=== PATIENT | male | born 1950 | race Caucasian/White ===

== ENCOUNTER 2016-03-25 09:56 | Day surgery (SDC) | payer OTHER, MEDICARE ==
[~2016-03-25 09:56] MED LIST: BUPIVACAINE 0.5% 30 ML SDV ONE; LIDOCAINE 1% 30 ML SDV ONE
[2016-03-25] MEDS ORDERED: LIDOCAINE 1% 5 ML SDV ONE (10:12)
[2016-03-25] MEDS ORDERED: CEFAZOLIN 1 GM/DEXTROSE/50 ML BAG IV ONE (10:21)
[2016-03-25] MEDS ORDERED: MIDAZOLAM 2 MG/2 ML VIAL ONE (10:22)
[2016-03-25] MEDS ORDERED: PROPOFOL/EMULSION 500 MG/50 ML BOTTLE IV ONE (10:33)
[2016-03-25] MEDS ORDERED: fentaNYL 100 MCG/2 ML INJ ONE (10:33)
[2016-03-25] MEDS ORDERED: LR 1,000 ML IV ONE (10:46)
[2016-03-25] MEDS ORDERED: LIDOCAINE 1% 5 ML SDV ID PRN (10:46)
[2016-03-25] MEDS ORDERED: LIDOCAINE 2% 100 MG/5 ML SYR IVP ONE (11:03)
[2016-03-25] MEDS ORDERED: OXYCODONE/APAP 5/325 TAB PO PRN (12:21)
--- NOTE | 2016-03-26 08:39 | CPEKG ---
Heart Rate: 167 RR Interval: 359 P-R Interval: 198 QRSD Interval: 120 QTC Interval: 0 P [place]: 0 QRS [place]: -58 EKG Severity - ABNORMAL ECG - EKG Impression: SUPRAVENTRICULAR TACHYCARDIA EKG Impression: VENTRICULAR BIGEMINY EKG Impression: NONSPECIFIC IVCD WITH LAD Electronically Signed By: Brain Hutchison 26-Mar-2016 17:21:27
== END 2016-03-25 15:10 | disposition home or self-care (01) ==
LOC: FSGY 09:56
PROVIDERS: ATTEND Surgery
PROC: 0YU60JZ Supplement Left Inguinal Region with Synthetic Substitute, Open Approach (ICD-10-PCS; principal; 2016-03-25 11:30)
DX: K40.90 Unilateral inguinal hernia, without obstruction or gangrene, not specified as recurrent (principal)
CPT/HCPCS: C1781; J0690; J2001; J2250; J2704; J3010

== ENCOUNTER 2016-05-19 14:08 | Emergency (ER) | payer OTHER, MEDICARE ==
[2016-05-19 14:17] VITALS: RESP 16
--- NOTE | 2016-05-19 16:43 | EDPHY ---
H & P Stated Complaint: Decreased appetite,visual changes,weaker.Some sxs > 2wks; caregiver concern Time Seen by Provider: 05/19/16 14:26 HPI/ROS: Chief complaint: Color spots in vision, decreased taste, generalized weakness HPI: 65-year-old male with a known history of MS who is not currently on any medications is presenting with 3 weeks of worsening symptoms of seeing [place] dots in his vision is also been having decreased appetite because food has not been tasting good to him anymore. Blood the the color dots been worse for the last week per remaining constant. They are both feels vision. There forming patterns that he is seeing the same pattern in each eye. Is not seeing any flashes or floaters. Patient also states that food tastes very metallic to him and he is having changes in his taste to that he is not wanting to eat. He is also generally having some generalized malaise. Denies any fevers or chills. No change in his urination. No nausea or vomiting. He does have a history of MS but is currently not taking any medications is not call followed by a neurologist. He feels that medications for MS were not doing him any good or making him feel unwell. He does not want to be taking any intravenous steroids as he feels that he is allergic to the preservative. He is currently being cared for by [facility]. Denies any other medical history. Takes no medications. ROS: 10 point Review of Systems is negative except as noted in the HPI. Past medical history: MS Medications: None Allergies: Multiple including sodium benzoate preservative, although he has never been formally tested for these Physical exam: Gen: Awake, Alert, No Distress HEENT: Nose: no rhinorrhea Eyes: PERRLA, EOMI Mouth: Moist mucosa Neck: Supple, no JVD Chest: nontender, lungs clear to auscultation Heart: S1, S2 normal, no murmur Abd: Soft, non-tender, no guarding Back: no CVA tenderness, no midline tenderness Ext: no edema, non-tender Skin: no rash Neuro: CN II-XII intact, Sensation grossly intact, Strength 5/5 in bilateral upper and lower extremities - Personal History Current Tetanus Diphtheria and Acellular Pertussis (TDAP): Unsure Tetanus Vaccine Date: unknown - Medical/Surgical History Hx Diabetes: No Other PMH: MS - Social History Smoking Status: Never smoked Constitutional: Initial Vital Signs Temperature (C) 36.4 C 05/19/16 14:10 Heart Rate 58 L 05/19/16 14:10 Respiratory Rate 16 05/19/16 14:10 Blood Pressure 133/61 H 05/19/16 14:10 O2 Sat (%) 98 05/19/16 14:10 O2 Delivery Mode Room Air Allergies/Adverse Reactions: shellfish derived Allergy (Verified 05/19/16 14:14) sodium benzoate Allergy (Verified 05/19/16 14:14) Sulfa (Sulfonamide Antibiotics) Allergy (Verified 05/19/16 14:14) wheat Allergy (Verified 05/19/16 14:14) EGGS Allergy (Unknown, Uncoded 11/29/12 15:46) DIARY Allergy (Uncoded 11/29/12 15:46) GLUTEN Allergy (Uncoded 11/29/12 15:46) SOY Allergy (Uncoded 11/29/12 15:45) Home Medications: Medication Instructions Recorded Ascorbic Acid [Vitamin C 500 mg 500 mg PO TID 11/29/12 (OTC)] Cholecalciferol Vit D3 [Vitamin D3 6,000 units PO DAILY 11/29/12 2000 units (OTC)] Coenzyme Q10 [Co Q-10 30 mg (OTC)] 60 mg PO DAILY 11/29/12 Cyanocobalamin [Vitamin B12 1000 1,000 mcg PO DAILY 11/29/12 MCG (OTC)] Docusate Sodium [Colace 100 MG 100 mg PO BID PRN 11/29/12 (OTC)] Herbals/Supplements -Info Only 1 each PO AD 11/29/12 Levothyroxine [Synthroid 50 mcg 50 mcg PO DAILY06 11/29/12 (RX)] Magnesium Oxide [Magnesium Oxide 1,200 mg PO TID 11/29/12 400 mg (OTC)] [place]-3 Fatty Acids/Fish Oil [Fish 1 each PO DAILY 11/29/12 Oil 1,000 mg Capsule] Vitamin B Complex [Vitamin B 1 each PO DAILY 11/29/12 Complex (OTC)] Aleve 03/19/16 [place] 03/19/16 Medical Decision Making ED Course/Re-evaluation: Patient is complaining of worsening dots in his vision which are in the same pattern in both eyes which is suggestive of a occipital lobe probable woman rather than a ophthalmological problem as it is binocular. Patient is also having changes in his taste and some generalized weakness. All the symptoms are consistent with an MS exacerbation. I have discussed with Dr. Landeros, neurology. His recommendation is no acute treatment at this time. He does not feel that this represents an acute MS exacerbation requiring intravenous steroids. Given the patient is refusing to take intravenous steroids any way does not feel that oral steroids are appropriate as the dosing required will require intravenous treatment. He recommends that the patient be discharged with outpatient follow-up with Urology for continued plan of care but does not believe that there is any further treatment required for this worsening of the patient's symptoms of multiple sclerosis. Departure - Departure Disposition: Home, Routine, Self-Care Clinical Impression: Multiple sclerosis Instructions: Blurred Vision (ED) Additional Instructions: Follow up with your primary care doctor and follow up with Dr. Landeros, neurology for further management of your multiple sclerosis. Referrals: OTTONIEL NETTLES [Primary Care Provider] - As per Instructions Casper Landeros DO [Doctor of Osteopathy] - As per Instructions
[2016-05-19 16:54] VITALS: BP 132/81; PULSE 63; TEMP 98.2; O2SAT 93
== END 2016-05-19 16:57 | disposition home or self-care (01) ==
DX: G35 Multiple sclerosis (principal)

== ENCOUNTER 2016-05-20 12:59 | Inpatient (IN) | payer OTHER, MEDICARE ==
[2016-05-20] MEDS ORDERED: NS 1,000 ML IV ONE (13:38)
--- NOTE | 2016-05-20 13:44 | EDPHY ---
H & P Stated Complaint: No BM for several days. Hernia surgery 1 x Month ago. Time Seen by Provider: 05/20/16 13:30 HPI/ROS: CHIEF COMPLAINT: Constipation HISTORY OF PRESENT ILLNESS: Patient is a 65-year-old man with a history of multiple sclerosis as well as left inguinal hernia repair [address] Faustin[address] He comes to the emergency department with his aid complaining of no bowel movement for 4 days. States that his abdomen is bloated and distended and painful. He has not been vomiting but feels nauseous. He also states that all of food and water taste metallic and anesthetizing. His aid states that yesterday he was not acting himself and was complaining of seeing purple spots and had trouble with word finding. He was seen here in the emergency department and Neurology was consulted. They felt that this was likely an exacerbation or flare of his multiple sclerosis. Steroids were recommended but the patient refused. He has stopped taking all of his MS medication because he felt that is making him sick and is currently under the care of a Natropath. He has not had a fever. He states that he did have a very small flatus and a finger sized bowel movement today but otherwise has not had any production in 4 days. REVIEW OF SYSTEMS: Constitutional: denies: chills, fever, recent illness, recent injury EENTM: denies: blurred vision, double vision, nose congestion Respiratory: denies: cough, shortness of breath Cardiac: denies: chest pain, irregular heart rate, lightheadedness, palpitations Gastrointestinal/Abdominal: See HPI Genitourinary: denies: dysuria, frequency, hematuria, pain Musculoskeletal: denies: joint pain, muscle pain Skin: denies: lesions, rash, jaundice, bruising Neurological: denies: headache, numbness, paresthesia, tingling, dizziness, weakness Hematologic/Lymphatic: denies: blood clots, easy bleeding, easy bruising Immunologic/allergic: denies: HIV/AIDS, transplant EXAM: GENERAL: Well-appearing, well-nourished and in no acute distress. HEAD: Atraumatic, normocephalic. EYES: Pupils equal round and reactive to light, extraocular movements intact, sclera anicteric, conjunctiva are normal. ENT: TMs normal, nares patent, oropharynx clear without exudates. Moist mucous membranes. NECK: Normal range of motion, supple without lymphadenopathy or JVD. LUNGS: Breath sounds clear to auscultation bilaterally and equal. No wheezes rales or rhonchi. HEART: Regular rate and rhythm without murmurs, rubs or gallops. ABDOMEN: Firm, distended, normoactive bowel sounds. No guarding, no rebound. No masses appreciated. BACK: No CVA tenderness, no spinal tenderness, step-offs or deformities EXTREMITIES: Normal range of motion, no pitting or edema. No clubbing or cyanosis. NEUROLOGICAL: Cranial nerves II through XII grossly intact. Normal speech, normal gait. 5/5 strength, normal movement in all extremities, normal sensation PSYCH: Normal mood, normal affect. SKIN: Warm, dry, normal turgor, no visible rashes or lesions. Source: Patient Exam Limitations: No limitations - Personal History Tetanus Vaccine Date: unknown - Medical/Surgical History Hx Asthma: No Hx Chronic Respiratory Disease: No Hx Diabetes: No Hx Cardiac Disease: No Hx Renal Disease: No Hx Cirrhosis: No Hx Alcoholism: No Hx HIV/AIDS: No Hx Splenectomy or Spleen Trauma: No Other PMH: MS. Hernia surgery apr 2016. - Family History Significant Family History: No pertinent family hx - Social History Smoking Status: Never smoked Alcohol Use: Sober Drug Use: None Constitutional: Initial Vital Signs Heart Rate 58 L 05/20/16 13:05 Respiratory Rate 16 05/20/16 13:05 Blood Pressure 150/95 H 05/20/16 13:05 O2 Sat (%) 98 05/20/16 13:05 O2 Delivery Mode Room Air Allergies/Adverse Reactions: shellfish derived Allergy (Verified 05/19/16 14:14) sodium benzoate Allergy (Verified 05/19/16 14:14) Sulfa (Sulfonamide Antibiotics) Allergy (Verified 05/19/16 14:14) wheat Allergy (Verified 05/19/16 14:14) EGGS Allergy (Unknown, Uncoded 11/29/12 15:46) DIARY Allergy (Uncoded 11/29/12 15:46) GLUTEN Allergy (Uncoded 11/29/12 15:46) SOY Allergy (Uncoded 11/29/12 15:45) Home Medications: Medication Instructions Recorded Ascorbic Acid [Vitamin C 500 mg 500 mg PO QID 11/29/12 (OTC)] Cyanocobalamin [Vitamin B12 1000 1,000 mcg PO DAILY 11/29/12 MCG (OTC)] Docusate Sodium [Colace 100 MG 100 mg PO QID 11/29/12 (OTC)] Herbals/Supplements -Info Only 1 each PO AD 11/29/12 Magnesium Oxide [Magnesium Oxide 400 mg PO QID 11/29/12 400 mg (OTC)] [place]-3 Fatty Acids/Fish Oil [Fish 1 cap PO QID 11/29/12 Oil 1,000 mg Capsule] Vitamin B Complex [Vitamin B 1 tab PO Q2D 11/29/12 Complex (OTC)] Cholecalciferol (Vitamin D3) 5,000 unit PO BID 05/20/16 [Vitamin D3] Levothyroxine [Synthroid 100 mcg 100 mcg PO DAILY 05/20/16 (*)] Medical Decision Making - Diagnostics Imaging: Results: CT scan of the abdomen and pelvis was obtained. The results of the study are large distended bladder with renal and bladder calculi. The study was read by Dr. Miguel Ángel Marti. I viewed the images myself on the PACS system. ED Course/Re-evaluation: 3:05 p.m. I discussed the case with Dr. Barb Parish who will admit to the medical service. Will place him on step-down for frequent sodium checks. Differential Diagnosis: Partial list of the Differential diagnosis considered include but were not limited to; bowel obstruction, bladder obstruction, electrolyte abnormality, renal failure and although unlikely based on the history and physical exam, I also considered kidney stone, urinary tract infection. - Data Points Laboratory Results: Laboratory Results 05/20/16 13:44 05/20/16 13:44 Medications Given: Discontinued Medications Sodium Chloride (Ns) 1,000 mls @ 0 mls/hr IV ONCE ONE PRN Reason: Wide Open Stop: 05/20/16 13:39 Last Admin: 05/20/16 14:11 Dose: 1,000 mls Sodium Chloride (Ns) 1,000 mls @ 100 mls/hr IV CONT AGGIE Stop: 11/16/16 16:14 Last Admin: 05/20/16 20:43 Dose: 1,000 mls Lorazepam (Ativan Injection) 1 mg IVP ONCE ONE Stop: 05/20/16 18:48 Last Admin: 05/21/16 08:36 Dose: Not Given Lorazepam (Ativan Injection) 1 mg IVP ONCE@1000 ONE Stop: 05/21/16 10:01 Last Admin: 05/21/16 12:25 Dose: Not Given Departure - Departure Disposition: [facility] Clinical Impression: Bladder obstruction, Hyponatremia Condition: Fair
[2016-05-20 13:55] LABS: % IMMATURE GRANULYOCYTES 0.4 % (0.0-1.1); ABSOLUTE IMMATURE GRANULOCYTES 0.02 10^3/uL (0.00-0.10); ADD DIFF? NO; ADD MORPH? NO; ADD SCAN? NO; ATYPICAL LYMPHOCYTE FLAG 10 (0-99); FRAGMENT RBC FLAG 0 (0-99); HEMATOCRIT 41.2 % (40.0-51.0); HEMOGLOBIN 15.2 g/dL (13.7-17.5); LEFT SHIFT FLG 0 (0-99); LIPEMIA HEMOLYSIS FLAG 90 (0-99); MEAN CELL HEMOGLOBIN 28.5 pg (27.9-34.1); MEAN CELL HEMOGLOBIN CONCENTR. 36.9 g/dL (32.4-36.7); MEAN CELL VOLUME 77.2 fL (81.5-99.8); MEAN PLATELET VOLUME 9.9 fL (8.7-11.7); PLATELET CLUMPS FLAG 10 (0-99); PLATELET COUNT 125 10^3/uL (150-400); RED BLOOD CELL COUNT 5.34 10^6/uL (4.40-6.38); RED CELL DISTRIBUTION WIDTH 13.3 % (11.5-15.2)
[2016-05-20 14:22] LABS: ALANINE AMINOTRANSFERASE 88 IU/L (21-72); ALKALINE PHOSPHATASE 115 IU/L (38-126); ANION GAP 9 mEq/L (8-16); ASPARTATE AMINOTRANSFERASE 87 IU/L (17-59); BILIRUBIN,TOTAL 0.6 mg/dL (0.1-1.4); BILIRUBIN-CONJUGATED 0.2 mg/dL (0.0-0.5); BILIRUBIN-UNCONJUGATED 0.4 mg/dL (0.0-1.1); CALCIUM 9.5 mg/dL (8.5-10.4); CARBON DIOXIDE 25 mEq/l (22-31); CHLORIDE 83 mEq/L (97-110); CREATININE 0.4 mg/dL (0.7-1.3); GLOMERULAR FILTRATION RATE > 60; GLUCOSE 77 mg/dL (70-100); POTASSIUM 4.7 mEq/L (3.5-5.2); TOTAL PROTEIN 6.6 g/dL (6.3-8.2)
[2016-05-20 14:37] LABS: SODIUM 117 mEq/L (134-144)
[2016-05-20] MEDS ORDERED: IOPAMIDOL (ISOVUE-300) 100 ML BTL IV ONE (14:39)
[2016-05-20] MEDS ORDERED: LIDOCAINE 2% JELLY 20 ML (UROJECT) ONE (15:05)
[2016-05-20 15:30] LABS: COLOR PALE YELLOW; LEUKOCYTE ESTERASE,URINE NEGATIVE (NEGATIVE); NITRITE,URINE NEGATIVE (NEGATIVE)
[2016-05-20] MEDS ORDERED: NS 1,000 ML IV SCH (16:15)
[2016-05-20] MEDS ORDERED: ONDANSETRON 4 MG/2 ML VIAL IVP PRN (16:16)
[2016-05-20] MEDS ORDERED: LACTULOSE 20 GM/30 ML UDCUP PO PRN (16:18)
[2016-05-20] MEDS ORDERED: POLYETHYLENE GLYCOL 3350 17 GM PKT PO PRN (16:18)
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
[2016-05-20] MEDS ORDERED: LORazepam 2 MG/ML INJ IVP ONE (18:47)
[2016-05-20] MEDS: MAGNESIUM OXIDE 400 MG TAB PO SCH (20:41)
[2016-05-20] MEDS: SENNOSIDES/DOCUSATE SODIUM TAB PO SCH (20:41)
[2016-05-20] MEDS ORDERED: DOCUSATE SODIUM 100 MG CAP PO SCH (21:00)
[2016-05-20 21:04] LABS: ANION GAP 9 mEq/L (8-16); CALCIUM 9.4 mg/dL (8.5-10.4); CARBON DIOXIDE 23 mEq/l (22-31); CHLORIDE 84 mEq/L (97-110); CREATININE 0.4 mg/dL (0.7-1.3); GLOMERULAR FILTRATION RATE > 60; GLUCOSE 94 mg/dL (70-100); POTASSIUM 4.4 mEq/L (3.5-5.2)
[2016-05-20 21:36] LABS: SODIUM 116 mEq/L (134-144)
[2016-05-20] MEDS: FUROSEMIDE 20 MG/2 ML VIAL IVP SCH (22:03)
[2016-05-21 01:47] LABS: ANION GAP 9 mEq/L (8-16); CALCIUM 9.4 mg/dL (8.5-10.4); CARBON DIOXIDE 24 mEq/l (22-31); CHLORIDE 88 mEq/L (97-110); CREATININE 0.4 mg/dL (0.7-1.3); GLOMERULAR FILTRATION RATE > 60; GLUCOSE 69 mg/dL (70-100); POTASSIUM 4.2 mEq/L (3.5-5.2); SODIUM 121 mEq/L (134-144)
[2016-05-21] MEDS: FUROSEMIDE 20 MG/2 ML VIAL IVP SCH (05:59)
[2016-05-21] MEDS: MAGNESIUM OXIDE 400 MG TAB PO SCH ×4 (05:59→20:14)
[2016-05-21 06:19] LABS: % IMMATURE GRANULYOCYTES 0.3 % (0.0-1.1); ABSOLUTE IMMATURE GRANULOCYTES 0.01 10^3/uL (0.00-0.10); ADD DIFF? NO; ADD MORPH? NO; ADD SCAN? NO; ATYPICAL LYMPHOCYTE FLAG 0 (0-99); FRAGMENT RBC FLAG 0 (0-99); HEMATOCRIT 36.4 % (40.0-51.0); HEMOGLOBIN 13.3 g/dL (13.7-17.5); LEFT SHIFT FLG 0 (0-99); LIPEMIA HEMOLYSIS FLAG 90 (0-99); MEAN CELL HEMOGLOBIN 28.9 pg (27.9-34.1); MEAN CELL HEMOGLOBIN CONCENTR. 36.5 g/dL (32.4-36.7); MEAN PLATELET VOLUME 9.9 fL (8.7-11.7); PLATELET CLUMPS FLAG 20 (0-99); PLATELET COUNT 97 10^3/uL (150-400); RED BLOOD CELL COUNT 4.61 10^6/uL (4.40-6.38); RED CELL DISTRIBUTION WIDTH 13.5 % (11.5-15.2)
[2016-05-21 06:32] LABS: INR 1.03 (0.83-1.16); PROTIME(PATIENT) 13.4 SEC (12.0-15.0)
[2016-05-21 06:48] LABS: ALANINE AMINOTRANSFERASE 84 IU/L (21-72); ALBUMIN 3.3 g/dL (3.5-5.0); ALKALINE PHOSPHATASE 95 IU/L (38-126); ANION GAP 7 mEq/L (8-16); ASPARTATE AMINOTRANSFERASE 72 IU/L (17-59); BILIRUBIN,TOTAL 0.5 mg/dL (0.1-1.4); BILIRUBIN-CONJUGATED 0.2 mg/dL (0.0-0.5); BILIRUBIN-UNCONJUGATED 0.3 mg/dL (0.0-1.1); CALCIUM 9.1 mg/dL (8.5-10.4); CARBON DIOXIDE 27 mEq/l (22-31); CHLORIDE 91 mEq/L (97-110); CREATININE 0.4 mg/dL (0.7-1.3); GLOMERULAR FILTRATION RATE > 60; GLUCOSE 62 mg/dL (70-100); MAGNESIUM 1.6 mg/dL (1.6-2.3); POTASSIUM 4.3 mEq/L (3.5-5.2); SODIUM 125 mEq/L (134-144); TOTAL PROTEIN 5.6 g/dL (6.3-8.2)
[2016-05-21 07:19] LABS: CORTISOL-AM 8.3 ug/dL (4.5-22.7)
[2016-05-21] MEDS: CYANO/VITAMIN B12 1000 MCG TAB PO SCH (08:52)
[2016-05-21] MEDS: ENOXAPARIN 40 MG/0.4 ML SYR SC SCH (08:52)
[2016-05-21] MEDS: TAMSULOSIN HCL 0.4 MG CAP PO SCH (08:52)
[2016-05-21] MEDS: LEVOTHYROXINE 100 MCG TAB PO SCH (08:52)
[2016-05-21] MEDS: SENNOSIDES/DOCUSATE SODIUM TAB PO SCH ×2 (08:52→20:14)
[2016-05-21 09:10] LABS: ANION GAP 8 mEq/L (8-16); CALCIUM 9.3 mg/dL (8.5-10.4); CARBON DIOXIDE 24 mEq/l (22-31); CHLORIDE 91 mEq/L (97-110); CREATININE 0.4 mg/dL (0.7-1.3); GLOMERULAR FILTRATION RATE > 60; GLUCOSE 66 mg/dL (70-100); POTASSIUM 4.2 mEq/L (3.5-5.2); SODIUM 123 mEq/L (134-144)
[2016-05-21] MEDS ORDERED: LORazepam 2 MG/ML INJ IVP ONE (10:00)
--- NOTE | 2016-05-21 10:10 | HOSPPROG ---
Hospitalist Progress Note Assessment/Plan: * severe hyponatremia * urine sodium has some element of dehydration but I am sure there is an element of SIADH as well and possibly low solute * sodium getting better slowly with IV fluids which we will continue * also add free water restriction * symptoms started 3 weeks ago when he started a certain supplement * severe urinary retention * probably has been ongoing for some time * will need to keep Luevano catheter in and follow up with Urology * end-stage MS * since patient believes he is at baseline is not having any further loose admissions and only very slight left facial droop hold off on MRI * constipation * L4 compression fracture * check vitamin-D * Pancytopenia * disposition - possible home tomorrow Subjective: feels better. No more hallucinations. Feels like he is at his baseline in terms of MS debility Objective: Vital Signs Temp Pulse Resp BP Pulse Ox 36.3 C 69 14 92/51 L 95 05/21/16 04:37 05/21/16 07:46 05/21/16 07:46 05/21/16 07:46 05/21/16 07:46 Laboratory Results 05/21/16 06:00 05/21/16 08:25 05/20/16 05/21/16 05/22/16 05:59 05:59 05:59 Intake Total 2049 Output Total 5250 850 Balance -3200 -850 PT 13.4 SEC (12.0-15.0) 05/21/16 06:00 INR 1.03 (0.83-1.16) 05/21/16 06:00 patient is new to me. Old records reviewed and summarized in the HPI. - Physical Exam Constitutional: no apparent distress, appears nourished, not in pain Eyes: anicteric sclera, EOMI Ears, Nose, Mouth, Throat: moist mucous membranes, hearing normal, ears appear normal Cardiovascular: regular rate and rhythym, no murmur, rub, or gallop Respiratory: no respiratory distress, no rales or rhonchi, clear to auscultation Gastrointestinal: normoactive bowel sounds, soft, non-tender abdomen, no palpable masses Genitourinary: luevano in urethra Skin: warm Neurologic: AAOx3, other ( very slight left facial droop. Bilateral lower extremity paralysis essentially. 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
[2016-05-21 16:14] LABS: ANION GAP 8 mEq/L (8-16); CALCIUM 9.2 mg/dL (8.5-10.4); CARBON DIOXIDE 25 mEq/l (22-31); CHLORIDE 91 mEq/L (97-110); CREATININE 0.5 mg/dL (0.7-1.3); GLOMERULAR FILTRATION RATE > 60; GLUCOSE 78 mg/dL (70-100); POTASSIUM 4.4 mEq/L (3.5-5.2); SODIUM 124 mEq/L (134-144)
[2016-05-22 05:33] LABS: ANION GAP 6 mEq/L (8-16); CALCIUM 9.2 mg/dL (8.5-10.4); CARBON DIOXIDE 25 mEq/l (22-31); CHLORIDE 98 mEq/L (97-110); CREATININE 0.5 mg/dL (0.7-1.3); GLOMERULAR FILTRATION RATE > 60; GLUCOSE 58 mg/dL (70-100); POTASSIUM 4.4 mEq/L (3.5-5.2); SODIUM 129 mEq/L (134-144)
[2016-05-22] MEDS: MAGNESIUM OXIDE 400 MG TAB PO SCH ×4 (06:30→21:48)
[2016-05-22] MEDS ORDERED: COSYNTROPIN 0.25 MG/2 ML SYRINGE IVP ONE ×3 (10:30→17:00)
[2016-05-22] MEDS: D5W NS 1,000 ML IV SCH ×2 (11:17→21:49)
[2016-05-22] MEDS: CYANO/VITAMIN B12 1000 MCG TAB PO SCH (11:21)
[2016-05-22] MEDS: LEVOTHYROXINE 100 MCG TAB PO SCH (11:21)
[2016-05-22] MEDS: TAMSULOSIN HCL 0.4 MG CAP PO SCH (11:22)
[2016-05-22] MEDS: SENNOSIDES/DOCUSATE SODIUM TAB PO SCH ×2 (11:23→21:48)
[2016-05-22] MEDS: ENOXAPARIN 40 MG/0.4 ML SYR SC SCH (11:32)
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
--- NOTE | 2016-05-22 15:27 | HOSPPROG ---
Hospitalist Progress Note Assessment/Plan: * severe hyponatremia * urine sodium has some element of dehydration but I am sure there is an element of SIADH as well and possibly low solute * sodium getting better slowly with IV fluids which we will continue * also add free water restriction * symptoms started 3 weeks ago when he started a certain supplement * severe urinary retention * probably has been ongoing for some time * will need to keep Hurst catheter in and follow up with Urology * end-stage MS * could have worsening AMS. neurology input appreciated. may need MRI * encephalopathy * worse today for unclear reasons * symptoms seemed to wax and wane * no sign infection * possible MS exacerbation * constipation * L4 compression fracture * Pancytopenia * disposition - ? Subjective: MORE CONFUSED AND LESS RESPONSIVE THIS MORNING ALTHOUGH THIS APPEARS TO BE IMPROVED IN THE AFTERNOON Objective: Vital Signs Temp Pulse Resp BP Pulse Ox 36.6 C 63 19 138/77 H 92 05/22/16 08:00 05/22/16 12:00 05/22/16 12:00 05/22/16 12:00 05/22/16 12:00 Laboratory Results 05/21/16 06:00 05/22/16 04:12 05/21/16 05/22/16 05/23/16 05:59 05:59 05:59 Intake Total 2050 2900 Output Total 2950 2500 Balance -900 400 PT 13.4 SEC (12.0-15.0) 05/21/16 06:00 INR 1.03 (0.83-1.16) 05/21/16 06:00 case discussed neurology - Physical Exam Constitutional: no apparent distress, appears nourished, not in pain, chronically ill appearing Eyes: anicteric sclera, EOMI Ears, Nose, Mouth, Throat: moist mucous membranes, hearing normal, ears appear normal Cardiovascular: regular rate and rhythym, no murmur, rub, or gallop Respiratory: no respiratory distress, no rales or rhonchi, clear to auscultation Gastrointestinal: normoactive bowel sounds, soft, non-tender abdomen, no palpable masses Skin: warm Neurologic: other ( responding to some questions and commands but overall more encephalopathic today) ICD10 Worksheet Patient Problems: Problems Problem Status Onset Aphasia Acute Bladder obstruction Acute Hyponatremia Acute Multiple sclerosis Acute Cellulitis of leg Active
[2016-05-23] MEDS: MAGNESIUM OXIDE 400 MG TAB PO SCH ×4 (04:30→22:47)
[2016-05-23 05:15] LABS: ADD DIFF? NO; ADD MORPH? NO; ADD SCAN? NO; ATYPICAL LYMPHOCYTE FLAG 30 (0-99); FRAGMENT RBC FLAG 0 (0-99); HEMATOCRIT 36.5 % (40.0-51.0); LEFT SHIFT FLG 0 (0-99); LIPEMIA HEMOLYSIS FLAG 90 (0-99); MEAN CELL HEMOGLOBIN 28.7 pg (27.9-34.1); MEAN CELL HEMOGLOBIN CONCENTR. 35.6 g/dL (32.4-36.7); MEAN CELL VOLUME 80.6 fL (81.5-99.8); MEAN PLATELET VOLUME 10.3 fL (8.7-11.7); PLATELET CLUMPS FLAG 0 (0-99); PLATELET COUNT 103 10^3/uL (150-400); RED BLOOD CELL COUNT 4.53 10^6/uL (4.40-6.38)
[2016-05-23 05:27] LABS: ALANINE AMINOTRANSFERASE 78 IU/L (21-72); ALBUMIN 3.2 g/dL (3.5-5.0); ALKALINE PHOSPHATASE 99 IU/L (38-126); ANION GAP 9 mEq/L (8-16); ASPARTATE AMINOTRANSFERASE 57 IU/L (17-59); BILIRUBIN,TOTAL 0.4 mg/dL (0.1-1.4); CALCIUM 9.4 mg/dL (8.5-10.4); CARBON DIOXIDE 23 mEq/l (22-31); CHLORIDE 100 mEq/L (97-110); CREATININE 0.5 mg/dL (0.7-1.3); GLOMERULAR FILTRATION RATE > 60; GLUCOSE 73 mg/dL (70-100); POTASSIUM 4.3 mEq/L (3.5-5.2); SODIUM 132 mEq/L (134-144); TOTAL PROTEIN 5.6 g/dL (6.3-8.2)
[2016-05-23 05:34] LABS: PREALBUMIN 12.4 mg/dL (17.6-36.0)
[2016-05-23] MEDS: TAMSULOSIN HCL 0.4 MG CAP PO SCH (08:37)
[2016-05-23] MEDS: LEVOTHYROXINE 100 MCG TAB PO SCH (08:37)
[2016-05-23] MEDS: CYANO/VITAMIN B12 1000 MCG TAB PO SCH (08:39)
[2016-05-23] MEDS: SENNOSIDES/DOCUSATE SODIUM TAB PO SCH ×2 (08:40→22:47)
[2016-05-23] MEDS: ENOXAPARIN 40 MG/0.4 ML SYR SC SCH (08:42)
--- NOTE | 2016-05-23 11:24 | HOSPPROG ---
Hospitalist Progress Note Assessment/Plan: * severe hyponatremia * urine sodium has some element of dehydration but I am sure there is an element of SIADH as well and possibly low solute * sodium getting better slowly with IV fluids which we will continue * also add free water restriction * symptoms started 3 weeks ago when he started a certain supplement * severe urinary retention * probably has been ongoing for some time * will need to keep Hurst catheter in and follow up with Urology * end-stage MS * could have worsening AMS. neurology input appreciated. may need MRI * hypoglycemia * continue D5 normal saline * cortisol stim test was negative * encephalopathy * worse today for unclear reasons * symptoms seemed to wax and wane * no sign infection * possible MS exacerbation but he would need strong sedation to get MRI which would probably put him back a few more days as well. Not sure if steroids would be of benefit but they may worsen situation as well * continue to watch and wait * discussed with Neurology * constipation * L4 compression fracture * Pancytopenia * disposition - ? Subjective: continued hallucinations and waxing waning encephalopathy Objective: Vital Signs Temp Pulse Resp BP Pulse Ox 36.4 C 69 18 130/83 H 94 05/22/16 16:10 05/23/16 08:00 05/23/16 08:00 05/23/16 08:00 05/23/16 08:00 Laboratory Results 05/23/16 04:30 05/23/16 04:30 05/22/16 05/23/16 05/24/16 05:59 05:59 05:59 Intake Total 2900 1650 Output Total 2500 2600 Balance 400 -950 PT 13.4 SEC (12.0-15.0) 05/21/16 06:00 INR 1.03 (0.83-1.16) 05/21/16 06:00 - Physical Exam Constitutional: no apparent distress, appears nourished, not in pain, chronically ill appearing Eyes: anicteric sclera Ears, Nose, Mouth, Throat: moist mucous membranes, hearing normal Cardiovascular: regular rate and rhythym, no murmur, rub, or gallop Respiratory: no respiratory distress Gastrointestinal: normoactive bowel sounds, soft, non-tender abdomen, no palpable masses Skin: warm Neurologic: other ( bilateral upper extremity weakness and lower extremity paralysis, response to some questions but not oriented), No AAOx3 Psychiatric: other ICD10 Worksheet Patient Problems: Problems Problem Status Onset Aphasia Acute Bladder obstruction Acute Hyponatremia Acute Multiple sclerosis Acute Cellulitis of leg Active
[2016-05-23] MEDS: D5W NS 1,000 ML IV SCH (14:11)
[2016-05-23] MEDS: BISACODYL 10 MG SUPP PR PRN (16:17)
[2016-05-24] MEDS: MAGNESIUM OXIDE 400 MG TAB PO SCH ×3 (05:00→22:34)
[2016-05-24] MEDS: D5W NS 1,000 ML IV SCH (05:28)
--- NOTE | 2016-05-24 06:22 | NEUROPROG ---
Assessment: Pt seen yesterday and case reviewed with Dr. Ibarra. As noted, we are just monitoring for now. MRI is needed to best assess case, but we are following the patients wishes to avoid if possible, and he is not currently able to have a truly informed decision. He is still hallucinating and confused at times. Objective: Vital Signs Temp Pulse Resp BP Pulse Ox 36.6 C 48 L 15 122/53 H 92 05/23/16 15:52 05/24/16 04:00 05/24/16 04:00 05/24/16 04:00 05/24/16 04:00 Laboratory Results 05/23/16 04:30 05/23/16 04:30 05/23/16 05/24/16 05/25/16 05:59 05:59 05:59 Intake Total 1650 1549 Output Total 2600 1750 Balance -950 -201 PT 13.4 SEC (12.0-15.0) 05/21/16 06:00 INR 1.03 (0.83-1.16) 05/21/16 06:00 Allergies/Adverse Reactions: shellfish derived Allergy (Verified 05/19/16 14:14) sodium benzoate Allergy (Verified 05/19/16 14:14) Sulfa (Sulfonamide Antibiotics) Allergy (Verified 05/19/16 14:14) wheat Allergy (Verified 05/19/16 14:14) EGGS Allergy (Unknown, Uncoded 11/29/12 15:46) DIARY Allergy (Uncoded 11/29/12 15:46) GLUTEN Allergy (Uncoded 11/29/12 15:46) SOY Allergy (Uncoded 11/29/12 15:45)
[2016-05-24] MEDS: CYANO/VITAMIN B12 1000 MCG TAB PO SCH (09:53)
[2016-05-24] MEDS: TAMSULOSIN HCL 0.4 MG CAP PO SCH (09:53)
[2016-05-24] MEDS: ENOXAPARIN 40 MG/0.4 ML SYR SC SCH (09:53)
[2016-05-24] MEDS: LEVOTHYROXINE 100 MCG TAB PO SCH (09:53)
[2016-05-24] MEDS: SENNOSIDES/DOCUSATE SODIUM TAB PO SCH ×2 (13:59→19:59)
--- NOTE | 2016-05-24 16:01 | HOSPPROG ---
Hospitalist Progress Note Assessment/Plan: * severe hyponatremia * urine sodium has some element of dehydration but I am sure there is an element of SIADH as well and possibly low solute * sodium getting better slowly with IV fluids which we will continue * also add free water restriction * symptoms started 3 weeks ago when he started a certain supplement * recheck tomorrow * severe urinary retention * probably has been ongoing for some time * will need to keep Hurst catheter in and follow up with Urology * end-stage MS * could have worsening AMS. * discussed with Neurology * will get MRI today * hypoglycemia * continue D5 normal saline * cortisol stim test was negative * encephalopathy * symptoms seemed to wax and wane but not improving * no sign infection * will get MRI under anesthesia * constipation * L4 compression fracture * Pancytopenia * disposition - ? Subjective: still continues with confusion Objective: Vital Signs Temp Pulse Resp BP Pulse Ox 36.6 C 51 L 16 143/78 H 94 05/23/16 15:52 05/24/16 08:36 05/24/16 08:36 05/24/16 08:36 05/24/16 08:36 Laboratory Results 05/23/16 04:30 05/23/16 04:30 05/23/16 05/24/16 05/25/16 05:59 05:59 05:59 Intake Total 1650 1599 Output Total 2600 2900 Balance -950 -1301 PT 13.4 SEC (12.0-15.0) 05/21/16 06:00 INR 1.03 (0.83-1.16) 05/21/16 06:00 - Physical Exam Constitutional: no apparent distress, appears nourished, not in pain Eyes: anicteric sclera, EOMI Ears, Nose, Mouth, Throat: moist mucous membranes, hearing normal Cardiovascular: regular rate and rhythym, no murmur, rub, or gallop Respiratory: no respiratory distress, no rales or rhonchi, clear to auscultation Gastrointestinal: normoactive bowel sounds, soft, non-tender abdomen, no palpable masses Skin: warm Neurologic: other ( sleeping now but has been arousable confused) ICD10 Worksheet Patient Problems: Problems Problem Status Onset Aphasia Acute Bladder obstruction Acute Hyponatremia Acute Multiple sclerosis Acute Cellulitis of leg Active
[2016-05-24] MEDS ORDERED: MIDAZOLAM 2 MG/2 ML VIAL ONE (16:10)
[2016-05-24] MEDS ORDERED: fentaNYL 100 MCG/2 ML INJ ONE (16:10)
[2016-05-24] MEDS ORDERED: PROPOFOL/EMULSION 500 MG/50 ML BOTTLE IV ONE (16:16)
[2016-05-24] MEDS ORDERED: GADOBUTROL 10 ML VIAL IVP ONE (16:42)
[2016-05-25 04:43] LABS: % IMMATURE GRANULYOCYTES 0.3 % (0.0-1.1); ABSOLUTE IMMATURE GRANULOCYTES 0.02 10^3/uL (0.00-0.10); ADD DIFF? NO; ADD MORPH? NO; ADD SCAN? NO; ATYPICAL LYMPHOCYTE FLAG 0 (0-99); FRAGMENT RBC FLAG 0 (0-99); HEMATOCRIT 39.5 % (40.0-51.0); HEMOGLOBIN 13.7 g/dL (13.7-17.5); LEFT SHIFT FLG 0 (0-99); LIPEMIA HEMOLYSIS FLAG 90 (0-99); MEAN CELL HEMOGLOBIN 28.5 pg (27.9-34.1); MEAN CELL HEMOGLOBIN CONCENTR. 34.7 g/dL (32.4-36.7); MEAN CELL VOLUME 82.1 fL (81.5-99.8); MEAN PLATELET VOLUME 9.8 fL (8.7-11.7); PLATELET CLUMPS FLAG 0 (0-99); PLATELET COUNT 126 10^3/uL (150-400); RED BLOOD CELL COUNT 4.81 10^6/uL (4.40-6.38); RED CELL DISTRIBUTION WIDTH 14.7 % (11.5-15.2)
[2016-05-25 05:31] LABS: ANION GAP 10 mEq/L (8-16); CALCIUM 9.4 mg/dL (8.5-10.4); CARBON DIOXIDE 26 mEq/l (22-31); CHLORIDE 101 mEq/L (97-110); CREATININE 0.5 mg/dL (0.7-1.3); GLOMERULAR FILTRATION RATE > 60; GLUCOSE 94 mg/dL (70-100); POTASSIUM 3.8 mEq/L (3.5-5.2); SODIUM 137 mEq/L (134-144)
[2016-05-25] MEDS: MAGNESIUM OXIDE 400 MG TAB PO SCH ×5 (06:37→21:03)
[2016-05-25] MEDS: ENOXAPARIN 40 MG/0.4 ML SYR SC SCH (10:23)
[2016-05-25] MEDS: CYANO/VITAMIN B12 1000 MCG TAB PO SCH (10:25)
[2016-05-25] MEDS: SENNOSIDES/DOCUSATE SODIUM TAB PO SCH ×3 (10:25→21:04)
[2016-05-25] MEDS: LEVOTHYROXINE 100 MCG TAB PO SCH (10:25)
[2016-05-25] MEDS: TAMSULOSIN HCL 0.4 MG CAP PO SCH (10:25)
--- NOTE | 2016-05-25 11:18 | NEUROPROG ---
Assessment: Today's visit was predominantly counseling regarding his condition and review of the current status. He continues to have encephalopathy with MRI confirming typical lesions of multiple sclerosis but not necessarily the explanation for why he has had this change. I am not detecting any evidence of stroke and not suspecting seizure. A metabolic encephalopathy remains the principal consideration at this time and concern over a primary central nervous system infection is low. the mild dural enhancement in a diffuse pattern is rather nonspecific and certainly does not mean there is primary infection. Would certainly consider lumbar puncture if we do not see any further improvements over the next 24 hours. He is more lethargic today, which may reflect having gone through anesthesia. I will continue to monitor his progress. I reviewed all of this with his caregiver. I remain available for questions as they may arise. I do not see a clear-cut indication for IV steroids. The total unit time was 25 minutes. Subjective: I have seen the patient this morning and reviewed his history over the last 24 hours with his caregiver as well as his nurse. He continues to have variable periods of lucidity mixed with periods of hallucinations or delusions which tend to be visual and referring to people being in the room although nonthreatening by his description. He has not had any reported seizure activity. He has not had any fevers. He will participate to a variable degree with his eating or self-care. He currently denies any pain or headaches or any new weakness. Objective: Vital Signs Temp Pulse Resp BP Pulse Ox 36.6 C 72 16 147/88 H 95 05/25/16 04:13 05/25/16 07:19 05/25/16 07:19 05/25/16 07:19 05/25/16 07:19 Laboratory Results 05/25/16 03:43 05/25/16 05:00 05/24/16 05/25/16 05/26/16 05:59 05:59 05:59 Intake Total 1599 2350 Output Total 2900 3200 Balance -1301 -850 PT 13.4 SEC (12.0-15.0) 05/21/16 06:00 INR 1.03 (0.83-1.16) 05/21/16 06:00 He is lethargic but able to communicate with me with the minimal delay. He does not always answer all of my questions. Sometimes I need to repeat myself. There is not prominent aphasia, but it is hard to know the true extent of his language function given the relative lack of participation in the evaluation this morning. He could tell me his location and being in the city, but did not know the year. He could state the month but said the year was 1950, which is his year. He would sometimes follow commands but other times said that he could not do anything right now. I do not really detect prominent focal features, but that is not really reliable right now given the lack of cooperation with examination. The blood work shows resolving elevation of liver enzymes. Hyponatremia has been fairly well corrected around 129 the last few days. We did obtain MRI with sedation yesterday. There are typical lesions associated with multiple sclerosis but these are not abnormally enhancing lesions suggesting these are probably old changes, although we do not have an old MRI for direct comparison. There is not evidence of a new lesion in the left hemisphere accounting for this change in language. Although the degree of demyelination is moderate in severity, it is very hard to know why he has the clinical changes he does based on the MRI. There are features in the dura of some mild abnormal, generalized enhancement which is also nonspecific. Allergies/Adverse Reactions: shellfish derived Allergy (Verified 05/19/16 14:14) sodium benzoate Allergy (Verified 05/19/16 14:14) Sulfa (Sulfonamide Antibiotics) Allergy (Verified 05/19/16 14:14) wheat Allergy (Verified 05/19/16 14:14) EGGS Allergy (Unknown, Uncoded 11/29/12 15:46) DIARY Allergy (Uncoded 11/29/12 15:46) GLUTEN Allergy (Uncoded 11/29/12 15:46) SOY Allergy (Uncoded 11/29/12 15:45)
[2016-05-25] MEDS: D5W NS 1,000 ML IV SCH (11:55)
--- NOTE | 2016-05-25 14:12 | HOSPPROG ---
Hospitalist Progress Note Assessment/Plan: * encephalopathy * symptoms seem to involve hallucinations and seem to wax and wane - may be some improvement over the last several days * MRI does not show any clear new lesions or other reasons for his encephalopathy * it could be that his hyponatremia induced this and he is taking some time to recover * neurology is following * severe hyponatremia * urine sodium has some element of dehydration but I am sure there is an element of SIADH as well and possibly low solute * sodium getting better slowly with IV fluids which we will continue * also add free water restriction * symptoms started 3 weeks ago when he started a certain supplement * severe urinary retention * probably has been ongoing for some time * will need to keep Hurst catheter in and follow up with Urology * end-stage MS * * hypoglycemia * continue D5 normal saline * cortisol stim test was negative * constipation * L4 compression fracture * Pancytopenia * disposition - he has paid caregivers as well as home health from [place]. He could go home whenever he clears Subjective: seems more lethargic but is able to communicate some Objective: Vital Signs Temp Pulse Resp BP Pulse Ox 36.6 C 72 16 147/88 H 95 05/25/16 04:13 05/25/16 07:19 05/25/16 07:19 05/25/16 07:19 05/25/16 07:19 Laboratory Results 05/25/16 03:43 05/25/16 05:00 05/24/16 05/25/16 05/26/16 05:59 05:59 05:59 Intake Total 1599 2350 Output Total 2900 3200 Balance -1301 -850 PT 13.4 SEC (12.0-15.0) 05/21/16 06:00 INR 1.03 (0.83-1.16) 05/21/16 06:00 - Physical Exam Constitutional: no apparent distress, appears nourished, not in pain Eyes: anicteric sclera, EOMI Ears, Nose, Mouth, Throat: moist mucous membranes, hearing normal Cardiovascular: regular rate and rhythym, no murmur, rub, or gallop Respiratory: no respiratory distress, no rales or rhonchi, clear to auscultation Gastrointestinal: normoactive bowel sounds, soft, non-tender abdomen, no palpable masses Skin: warm Neurologic: weakness ( bilateral lower extremity paralysis and upper extremity weakness), other ( not oriented to time or place. Does respond to questions fairly quickly) ICD10 Worksheet Patient Problems: Problems Problem Status Onset Aphasia Acute Bladder obstruction Acute Hyponatremia Acute Multiple sclerosis Acute Cellulitis of leg Active
[2016-05-26] MEDS: MAGNESIUM OXIDE 400 MG TAB PO SCH ×4 (05:41→22:48)
[2016-05-26] MEDS: LEVOTHYROXINE 100 MCG TAB PO SCH ×2 (09:29→10:05)
[2016-05-26] MEDS: ENOXAPARIN 40 MG/0.4 ML SYR SC SCH ×2 (09:29→10:05)
[2016-05-26] MEDS: CYANO/VITAMIN B12 1000 MCG TAB PO SCH ×2 (09:29→09:44)
[2016-05-26] MEDS: SENNOSIDES/DOCUSATE SODIUM TAB PO SCH ×3 (09:29→22:48)
[2016-05-26] MEDS: TAMSULOSIN HCL 0.4 MG CAP PO SCH (09:29)
--- NOTE | 2016-05-26 11:58 | NEUROPROG ---
Assessment: Today's visit was predominantly counseling regarding his condition and review of the current status. He continues to have encephalopathy with MRI confirming typical lesions of multiple sclerosis but not necessarily the explanation for why he has had this change. I am not detecting any evidence of stroke and not suspecting seizure. A metabolic encephalopathy remains the principal consideration at this time and concern over a primary central nervous system infection is low. the mild dural enhancement in a diffuse pattern is rather nonspecific and certainly does not mean there is primary infection. Would certainly consider lumbar puncture if we do not see any further improvements over the next 24 hours. He is more lethargic today, which may reflect having gone through anesthesia. I will continue to monitor his progress. I reviewed all of this with his caregiver. I remain available for questions as they may arise. I do not see a clear-cut indication for IV steroids. The total unit time was 25 minutes. 05/26/16 Pt remains encephalopathic without a clear cut neurologic cause for the abrupt change, so I will sign off but neurology is available as needed anytime. I further reviewed the MRI result with Dr. Pinto who does not feel the dural findings are abnormal but rather a reflection of some thin sequence protocol on the axial images they have recently implemented. The coronal views look unremarkable. Ultimately, the patient can follow up with us if he wants any treatment discussions about his multiple sclerosis. Objective: Vital Signs Temp Pulse Resp BP Pulse Ox 35.4 C L 57 L 14 139/87 H 95 05/26/16 08:11 05/26/16 11:14 05/26/16 11:14 05/26/16 11:14 05/26/16 11:14 Laboratory Results 05/25/16 03:43 05/25/16 05:00 05/25/16 05/26/16 05/27/16 05:59 05:59 05:59 Intake Total 2350 1000 Output Total 3200 2650 Balance -850 -1650 PT 13.4 SEC (12.0-15.0) 05/21/16 06:00 INR 1.03 (0.83-1.16) 05/21/16 06:00 Allergies/Adverse Reactions: shellfish derived Allergy (Verified 05/19/16 14:14) sodium benzoate Allergy (Verified 05/19/16 14:14) Sulfa (Sulfonamide Antibiotics) Allergy (Verified 05/19/16 14:14) wheat Allergy (Verified 05/19/16 14:14) EGGS Allergy (Unknown, Uncoded 11/29/12 15:46) DIARY Allergy (Uncoded 11/29/12 15:46) GLUTEN Allergy (Uncoded 11/29/12 15:46) SOY Allergy (Uncoded 11/29/12 15:45)
[2016-05-26] MEDS: D5W NS 1,000 ML IV SCH (15:01)
--- NOTE | 2016-05-26 15:39 | HOSPPROG ---
Hospitalist Progress Note Assessment/Plan: 65-year-old male with known known long-standing MS who presented with confusion and visual hallucinations. His mental status has not significantly improved. Neurology consult ordered and can find no infectious cause or causes in the central nervous system for this gentleman's altered mental status. Patient is new to me today. -toxic metabolic encephalopathy. By history he has been having hallucinations since March 2015 the problem seems to wax and wane. MRI does not confirm any new lesions to suggest an exacerbation of his underlying MS. He did have initial severe hyponatremia with a sodium 117 which is now nearly normal. Perhaps his alteration of mental status is due to the hyponatremia and he simply slow to improve his mental status due to underlying MS. In this regard we can only watch and wait. Today sodium was 100 and 137 -severe hyponatremia: Numerous factors may have caused this problem including an element of SIADH and possibly low solute with free water consumption. 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 Currently sodium is normal -severe urinary retention again this may be a combination of hyponatremia and AMS causing neurologic symptomatology. A Hurst catheter currently in place though he does not usually use of Hurst catheter. When his mental status improves we will DC the Hurst catheter. -end-stage MS: Gentleman is high functioning when he is well according to his caregivers. 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 -pancytopenia: Stable -disposition: When his mental status is improved he will be able to return home worry has all the assistance and devices for his care. Subjective: No complaints. He is slow to respond. I cannot elicit any true complaint from the gentleman. He becomes agitated and uncooperative with the examination. Per his caregivers this is distinctly abnormal mental status for this gentleman who is high functioning Objective: Vital Signs Temp Pulse Resp BP Pulse Ox 35.4 C L 57 L 14 139/87 H 95 05/26/16 08:11 05/26/16 11:14 05/26/16 11:14 05/26/16 11:14 05/26/16 11:14 Laboratory Results 05/25/16 03:43 05/25/16 05:00 05/25/16 05/26/16 05/27/16 05:59 05:59 05:59 Intake Total 2350 1000 Output Total 3200 2650 Balance -850 -1650 PT 13.4 SEC (12.0-15.0) 05/21/16 06:00 INR 1.03 (0.83-1.16) 05/21/16 06:00 - Time Spent With Patient Time Spent with Patient: greater than 35 minutes Time Spent with Patient: Greater than 35 minutes spent on this patients care, greater than 50% of time spent counseling, educating, and coordinating care regarding the above mentioned plan. - Physical Exam Constitutional: no apparent distress, chronically ill appearing Eyes: PERRL, anicteric sclera Ears, Nose, Mouth, Throat: moist mucous membranes, hearing normal Cardiovascular: regular rate and rhythym, systolic murmur Respiratory: no respiratory distress, no rales or rhonchi, clear to auscultation Gastrointestinal: normoactive bowel sounds, soft, non-tender abdomen, no palpable masses Genitourinary: no bladder fullness Skin: warm, other (No signs of decubitus ulceration the skin is free of rashes.) Musculoskeletal: generalized weakness Neurologic: other (I cannot assess orientation as he will not answers questions specifically. He has significant contracture of the upper extremities and stiffness of the lower extremities consistent with his MS. This is stable for him.) ICD10 Worksheet Patient Problems: Problems Problem Status Onset Aphasia Acute Multiple sclerosis Acute Cellulitis of leg Active Bladder obstruction Acute Hyponatremia Acute
[2016-05-27] MEDS: D5W NS 1,000 ML IV SCH ×2 (03:14→19:06)
[2016-05-27] MEDS: LEVOTHYROXINE 100 MCG TAB PO SCH (04:27)
[2016-05-27 05:09] LABS: ANION GAP 11 mEq/L (8-16); CALCIUM 9.6 mg/dL (8.5-10.4); CARBON DIOXIDE 24 mEq/l (22-31); CHLORIDE 102 mEq/L (97-110); CREATININE 0.5 mg/dL (0.7-1.3); GLOMERULAR FILTRATION RATE > 60; GLUCOSE 69 mg/dL (70-100); POTASSIUM 3.8 mEq/L (3.5-5.2); SODIUM 137 mEq/L (134-144)
[2016-05-27] MEDS: MAGNESIUM OXIDE 400 MG TAB PO SCH ×4 (06:35→20:14)
[2016-05-27] MEDS: TAMSULOSIN HCL 0.4 MG CAP PO SCH ×2 (09:15→11:47)
[2016-05-27] MEDS: CYANO/VITAMIN B12 1000 MCG TAB PO SCH ×2 (09:15→11:47)
[2016-05-27] MEDS: SENNOSIDES/DOCUSATE SODIUM TAB PO SCH ×3 (09:16→20:13)
[2016-05-27] MEDS: ENOXAPARIN 40 MG/0.4 ML SYR SC SCH (09:16)
--- NOTE | 2016-05-27 11:34 | HOSPPROG ---
Hospitalist Progress Note Assessment/Plan: 65-year-old male with known known long-standing MS who presented with confusion and visual hallucinations. His mental status has not significantly improved. Neurology consult ordered and can find no infectious cause or causes in the central nervous system for this gentleman's altered mental status. -toxic metabolic encephalopathy. By history he has been having hallucinations since March 2015 the problem seems to wax and wane. MRI does not confirm any new lesions to suggest an exacerbation of his underlying MS. He did have initial severe hyponatremia with a sodium 117 which is now normal at 137. Perhaps his alteration of mental status is due to the hyponatremia and he simply slow to improve his mental status due to underlying MS. In this regard we can only watch and wait. Today is mental status seems slightly better as he can follow more commands and is more cooperative. -severe hyponatremia: Numerous factors may have caused this problem including an element of SIADH and possibly low solute with free water consumption. 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 Currently sodium is normal -severe urinary retention again this may be a combination of hyponatremia and AMS causing neurologic symptomatology. A Hurst catheter currently in place though he does not usually use of Hurst catheter. When his mental status improves we will DC the Hurst catheter. -mild hypertension: This is an intermittent problem and not 1 that he has had at home. It waxes and wanes and at times a sign that is normal. For now will just watch and not treat. -end-stage MS: Gentleman is high functioning when he is well according to his caregivers. 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 -pancytopenia: Stable -disposition: When his mental status is improved he will be able to return home. He has all the assistance and devices for his care at home and all the support. He does seem to be slowly improving now that his sodium is normal. Subjective: No complaints. He seems more alert and more cooperative and can follow more commands today than yesterday. Objective: Vital Signs Temp Pulse Resp BP Pulse Ox 35.5 C L 52 L 15 104/63 96 05/27/16 08:00 05/27/16 08:00 05/27/16 08:00 05/27/16 08:00 05/27/16 08:00 Laboratory Results 05/25/16 03:43 05/27/16 03:58 05/26/16 05/27/16 05/28/16 05:59 05:59 05:59 Intake Total 1000 1000 Output Total 2650 2100 Balance -1650 -1100 PT 13.4 SEC (12.0-15.0) 05/21/16 06:00 INR 1.03 (0.83-1.16) 05/21/16 06:00 - Time Spent With Patient Time Spent with Patient: greater than 35 minutes Time Spent with Patient: Greater than 35 minutes spent on this patients care, greater than 50% of time spent counseling, educating, and coordinating care regarding the above mentioned plan. - Pending Discharge Pending Discharge Within 24 Hours: No Pending Discharge Within 48 Hours: No - Physical Exam Constitutional: no apparent distress Eyes: PERRL Ears, Nose, Mouth, Throat: moist mucous membranes, hearing normal Cardiovascular: regular rate and rhythym, no murmur, rub, or gallop Respiratory: no respiratory distress, no rales or rhonchi Gastrointestinal: normoactive bowel sounds, soft, non-tender abdomen Genitourinary: no bladder fullness, other (Hurst is in place) Skin: warm Musculoskeletal: generalized weakness, other (Spasticity of the lower extremities and upper extremities with contractures of both wrists.) Neurologic: other (Cranial nerves appear intact and there is no focal findings. His mental status shows he is more cooperative and can follow more commands today.) ICD10 Worksheet Patient Problems: Problems Problem Status Onset Aphasia Acute Bladder obstruction Acute Hyponatremia Acute Multiple sclerosis Acute Cellulitis of leg Active
[2016-05-28] MEDS: LEVOTHYROXINE 100 MCG TAB PO SCH (04:58)
[2016-05-28] MEDS: MAGNESIUM OXIDE 400 MG TAB PO SCH ×5 (04:59→20:46)
[2016-05-28 05:09] LABS: ANION GAP 13 mEq/L (8-16); CALCIUM 9.7 mg/dL (8.5-10.4); CARBON DIOXIDE 21 mEq/l (22-31); CHLORIDE 102 mEq/L (97-110); CREATININE 0.5 mg/dL (0.7-1.3); GLOMERULAR FILTRATION RATE > 60; GLUCOSE 75 mg/dL (70-100); POTASSIUM 3.7 mEq/L (3.5-5.2); SODIUM 136 mEq/L (134-144)
--- NOTE | 2016-05-28 09:02 | HOSPPROG ---
Hospitalist Progress Note Assessment/Plan: # acute encephalopathy - severe, ongoing; - check T3T4 (TSH borderline low), B12, phos - may need repeat neuro imaging, LP if does not improve # severe hyponatremia - resolved; correction was appropriate # MS, advanced # urinary retention - luevano # htn, mild, start norvasc 2.5mg # constipation - lactulose # pancytopenia - stable # lovenox ## high risk given persistent AMS Subjective: very slow to respond; denies pain Objective: Vital Signs Temp Pulse Resp BP Pulse Ox 36.4 C 65 17 160/91 H 96 05/28/16 08:00 05/28/16 08:00 05/28/16 08:00 05/28/16 08:00 05/28/16 08:00 Laboratory Results 05/25/16 03:43 05/28/16 03:40 05/27/16 05/28/16 05/29/16 05:59 05:59 05:59 Intake Total 1000 350 Output Total 2100 1150 Balance -1100 -800 PT 13.4 SEC (12.0-15.0) 05/21/16 06:00 INR 1.03 (0.83-1.16) 05/21/16 06:00 - Physical Exam Constitutional: other (somnolent, slow to repsond to questions) Cardiovascular: regular rate and rhythym, no murmur, rub, or gallop, other ( distant S1S2) Respiratory: no respiratory distress, no rales or rhonchi, clear to auscultation Gastrointestinal: normoactive bowel sounds, soft, non-tender abdomen, no palpable masses Genitourinary: luevano in urethra ICD10 Worksheet Patient Problems: Problems Problem Status Onset Aphasia Acute Multiple sclerosis Acute Cellulitis of leg Active Bladder obstruction Acute Hyponatremia Acute
[2016-05-28] MEDS: ENOXAPARIN 40 MG/0.4 ML SYR SC SCH (10:04)
[2016-05-28] MEDS: CYANO/VITAMIN B12 1000 MCG TAB PO SCH (10:05)
[2016-05-28] MEDS: TAMSULOSIN HCL 0.4 MG CAP PO SCH (10:05)
[2016-05-28] MEDS: SENNOSIDES/DOCUSATE SODIUM TAB PO SCH ×2 (10:05→20:46)
[2016-05-28] MEDS: D5W NS 1,000 ML IV SCH (11:15)
[2016-05-29] MEDS: D5W NS 1,000 ML IV SCH ×2 (00:15→13:50)
[2016-05-29] MEDS: LEVOTHYROXINE 100 MCG TAB PO SCH (04:41)
[2016-05-29] MEDS: MAGNESIUM OXIDE 400 MG TAB PO SCH ×3 (04:42→16:32)
[2016-05-29 05:23] LABS: % IMMATURE GRANULYOCYTES 0.2 % (0.0-1.1); ABSOLUTE IMMATURE GRANULOCYTES 0.01 10^3/uL (0.00-0.10); ADD DIFF? NO; ADD MORPH? NO; ADD SCAN? NO; ATYPICAL LYMPHOCYTE FLAG 10 (0-99); FRAGMENT RBC FLAG 0 (0-99); HEMATOCRIT 44.6 % (40.0-51.0); HEMOGLOBIN 15.6 g/dL (13.7-17.5); LEFT SHIFT FLG 0 (0-99); LIPEMIA HEMOLYSIS FLAG 90 (0-99); MEAN CELL HEMOGLOBIN 28.3 pg (27.9-34.1); MEAN CELL VOLUME 80.8 fL (81.5-99.8); MEAN PLATELET VOLUME 10.2 fL (8.7-11.7); PLATELET CLUMPS FLAG 0 (0-99); PLATELET COUNT 126 10^3/uL (150-400); RED BLOOD CELL COUNT 5.52 10^6/uL (4.40-6.38); RED CELL DISTRIBUTION WIDTH 14.1 % (11.5-15.2)
[2016-05-29 05:53] LABS: ALANINE AMINOTRANSFERASE 67 IU/L (21-72); ALBUMIN 3.7 g/dL (3.5-5.0); ALKALINE PHOSPHATASE 143 IU/L (38-126); ANION GAP 10 mEq/L (8-16); ASPARTATE AMINOTRANSFERASE 45 IU/L (17-59); BILIRUBIN,TOTAL 0.6 mg/dL (0.1-1.4); CALCIUM 9.8 mg/dL (8.5-10.4); CARBON DIOXIDE 24 mEq/l (22-31); CHLORIDE 102 mEq/L (97-110); CREATININE 0.5 mg/dL (0.7-1.3); GLOMERULAR FILTRATION RATE > 60; GLUCOSE 83 mg/dL (70-100); MAGNESIUM 1.9 mg/dL (1.6-2.3); POTASSIUM 3.7 mEq/L (3.5-5.2); SODIUM 136 mEq/L (134-144); TOTAL PROTEIN 6.5 g/dL (6.3-8.2)
[2016-05-29] MEDS: SENNOSIDES/DOCUSATE SODIUM TAB PO SCH (08:33)
[2016-05-29] MEDS: CYANO/VITAMIN B12 1000 MCG TAB PO SCH (08:33)
[2016-05-29] MEDS: TAMSULOSIN HCL 0.4 MG CAP PO SCH (08:43)
[2016-05-29] MEDS: ENOXAPARIN 40 MG/0.4 ML SYR SC SCH (08:50)
[2016-05-29] MEDS: MAGNESIUM HYDROXIDE 30 ML UDCUP PO PRN (11:25)
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
[2016-05-29] MEDS: BISACODYL 10 MG SUPP PR PRN (13:14)
--- NOTE | 2016-05-29 14:56 | NEUROPROG ---
Assessment: 1. secondary progressive multiple sclerosis 2. encephalopathy 40 minutes total floor time; over 50% in direct counseling with the patient's [id number] ( Sabrina) and with the patient; and with coordination of care. I reviewed his fairly complex previous neurologic and medical history and current inpatient hospital records. The patient has a longstanding history of secondary progressive multiple sclerosis with a sensitivity to medications. This is caused him to stop disease modifying therapy over the years. 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 The patient's power of supervisor advice tells me that he has had a decline ever since general anesthesia for GI surgery. He had general anesthesia again for MRI brain. He has had a hospital course characterized by waxing and waning delirium. Brain MRI was consistent with multiple sclerosis. He has had no fevers or other signs/symptoms of SMASH HAND infection. He certainly is profoundly encephalopathic on my initial encounter today with perseveration and confusion. I had along discussion with his [id number] on the differential diagnosis and possible course of action. we will repeat an MRI brain with without contrast to exclude any evolving large areas of acute demyelination or central pontine myelinolysis ( the patient did have hyponatremia earlier, however was corrected very smoothly and slowly). we will check an EEG for any subclinical, electrographic seizure discharges. We will perform a lumbar puncture to check for any signs of SMASH HAND infection. We will check an ammonia, LFTs were normal. 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 We will follow up on the above and make recommendations accordingly. I did elementary school counselor his POA - that if this is a waxing/waning delirium that we certainly could set the patient back with any sedation needed for MRI. The POA understands and acknowledges this risk and is okay with that. Subjective: Persistent confusion Objective: Vital Signs Temp Pulse Resp BP Pulse Ox 33.9 C L 114 H 20 105/68 88 L 05/29/16 13:49 05/29/16 08:00 05/29/16 08:00 05/29/16 12:34 05/29/16 08:00 Laboratory Results 05/29/16 04:27 05/29/16 04:27 05/28/16 05/29/16 05/30/16 05:59 05:59 05:59 Intake Total 350 1271 Output Total 0176 0716 Balance -800 -779 PT 13.4 SEC (12.0-15.0) 05/21/16 06:00 INR 1.03 (0.83-1.16) 05/21/16 06:00 awake, alert confused, perseverates repeats phrases when I asked a question Allergies/Adverse Reactions: shellfish derived Allergy (Verified 05/19/16 14:14) sodium benzoate Allergy (Verified 05/19/16 14:14) Sulfa (Sulfonamide Antibiotics) Allergy (Verified 05/19/16 14:14) wheat Allergy (Verified 05/19/16 14:14) EGGS Allergy (Unknown, Uncoded 11/29/12 15:46) DIARY Allergy (Uncoded 11/29/12 15:46) GLUTEN Allergy (Uncoded 11/29/12 15:46) SOY Allergy (Uncoded 11/29/12 15:45)
[2016-05-29] MEDS ORDERED: LORazepam 2 MG/ML INJ IVP ONE (15:15)
[2016-05-29] MEDS ORDERED: LORazepam 2 MG/ML INJ ONE (15:15)
[2016-05-29] MEDS ORDERED: GADOBUTROL 10 ML VIAL IVP ONE (15:42)
[2016-05-29] MEDS: D5W LR 1,000 ML IV SCH (23:56)
[2016-05-30] MEDS: SENNOSIDES/DOCUSATE SODIUM TAB PO SCH ×3 (00:44→20:42)
[2016-05-30] MEDS: MAGNESIUM OXIDE 400 MG TAB PO SCH ×5 (00:44→20:42)
[2016-05-30] MEDS: LEVOTHYROXINE 100 MCG TAB PO SCH (04:10)
[2016-05-30 04:54] LABS: % IMMATURE GRANULYOCYTES 0.4 % (0.0-1.1); ABSOLUTE IMMATURE GRANULOCYTES 0.04 10^3/uL (0.00-0.10); ADD DIFF? NO; ADD MORPH? NO; ADD SCAN? NO; ATYPICAL LYMPHOCYTE FLAG 0 (0-99); FRAGMENT RBC FLAG 0 (0-99); HEMATOCRIT 41.3 % (40.0-51.0); HEMOGLOBIN 14.2 g/dL (13.7-17.5); LEFT SHIFT FLG 0 (0-99); LIPEMIA HEMOLYSIS FLAG 90 (0-99); MEAN CELL HEMOGLOBIN 28.4 pg (27.9-34.1); MEAN CELL HEMOGLOBIN CONCENTR. 34.4 g/dL (32.4-36.7); MEAN CELL VOLUME 82.6 fL (81.5-99.8); MEAN PLATELET VOLUME 9.8 fL (8.7-11.7); PLATELET CLUMPS FLAG 10 (0-99); PLATELET COUNT 116 10^3/uL (150-400); RED CELL DISTRIBUTION WIDTH 14.5 % (11.5-15.2)
[2016-05-30 05:25] LABS: ALANINE AMINOTRANSFERASE 58 IU/L (21-72); ALBUMIN 3.2 g/dL (3.5-5.0); ALKALINE PHOSPHATASE 129 IU/L (38-126); ANION GAP 10 mEq/L (8-16); ASPARTATE AMINOTRANSFERASE 35 IU/L (17-59); BILIRUBIN,TOTAL 0.6 mg/dL (0.1-1.4); CALCIUM 9.2 mg/dL (8.5-10.4); CARBON DIOXIDE 25 mEq/l (22-31); CHLORIDE 104 mEq/L (97-110); CREATININE 0.6 mg/dL (0.7-1.3); GLOMERULAR FILTRATION RATE > 60; GLUCOSE 87 mg/dL (70-100); POTASSIUM 3.8 mEq/L (3.5-5.2); SODIUM 139 mEq/L (134-144); TOTAL PROTEIN 5.8 g/dL (6.3-8.2)
[2016-05-30] MEDS: ENOXAPARIN 40 MG/0.4 ML SYR SC SCH (07:00)
[2016-05-30] MEDS ORDERED: NS 1,000 ML IV ONE ×2 (08:04→16:07)
[2016-05-30] MEDS: D5W LR 1,000 ML IV SCH ×2 (08:18→19:08)
--- NOTE | 2016-05-30 08:26 | HOSPPROG ---
Hospitalist Progress Note Assessment/Plan: 65 yo M with MS presented with encephalopathy which had been slowly progressing prior to admission. He was very hyponatremic on presentation which has corrected appropriately. His mental status has not significantly improved. He was seen again by neurology yesterday - full workup is pending. Stat team called last night for hypotension which seems to be resolving with fluids. It is unclear to me what his prognosis will be though I suspect poor. # acute encephalopathy - severe, ongoing; - LP, EEG heavy metals pending # hypotension - may be d/t hypotension though he was on IVF - cont IVF - infectious w/u pending # severe hyponatremia - resolved; correction was appropriate # MS, advanced # urinary retention - luevano # htn - holding norvasc now with hypotension # constipation - lactulose as tolerated # pancytopenia - stable # lovenox ## high risk given persistent AMS/hypotension Subjective: stat team called overnight d/t hypotension - correcting withy IVF Objective: Vital Signs Temp Pulse Resp BP Pulse Ox 35.8 C L 48 L 16 96/41 L 95 05/29/16 20:22 05/30/16 08:11 05/30/16 07:30 05/30/16 08:11 05/30/16 07:30 Laboratory Results 05/30/16 03:52 05/30/16 03:52 05/29/16 05/30/16 05/31/16 05:59 05:59 05:59 Intake Total 1271 1650 1000 Output Total 2050 625 Balance -779 1025 1000 PT 13.4 SEC (12.0-15.0) 05/21/16 06:00 INR 1.03 (0.83-1.16) 05/21/16 06:00 - Physical Exam Constitutional: other (minimal verbal responses) Cardiovascular: regular rate and rhythym, no murmur, rub, or gallop Respiratory: no respiratory distress, no rales or rhonchi Gastrointestinal: normoactive bowel sounds, soft, non-tender abdomen, no palpable masses ICD10 Worksheet Patient Problems: Problems Problem Status Onset Aphasia Acute Multiple sclerosis Acute Cellulitis of leg Active Bladder obstruction Acute Hyponatremia Acute
[2016-05-30] MEDS: TAMSULOSIN HCL 0.4 MG CAP PO SCH (09:25)
[2016-05-30] MEDS: MAGNESIUM HYDROXIDE 30 ML UDCUP PO PRN (09:25)
[2016-05-30] MEDS: CYANO/VITAMIN B12 1000 MCG TAB PO SCH (09:25)
[2016-05-30 10:08] LABS: COLOR YELLOW; LEUKOCYTE ESTERASE,URINE 3+ (NEGATIVE); NITRITE,URINE NEGATIVE (NEGATIVE)
[2016-05-30 10:18] LABS: BACTERIA 2+ /hpf (NONE SEEN); HYALINE CASTS 15-25 /lpf (0-1); MUCUS 2+ /lpf (NONE-1+); RBC,URINE 50-182 /hpf (0-3); WBC,URINE 50-182 /hpf (0-3)
[2016-05-30] MEDS: ACETAMINOPHEN 325 MG TAB PO PRN (10:46)
[2016-05-30] MEDS: BISACODYL 10 MG SUPP PR PRN (13:35)
[2016-05-30] MEDS ORDERED: LIDOCAINE 1% 30 ML SDV ONE (13:35)
[2016-05-30] MEDS ORDERED: NA BICARBONATE 50 MEQ/50 ML VIAL ONE (13:36)
[2016-05-30 14:10] LABS: ARSENIC BLOOD <1 ng/mL (0-12); CADMIUM BLOOD 0.2 ng/mL (0.0-4.9); HMSB ETHNICITY NON-HISPANIC; HMSBR VENOUS/CAPILLARY Venous; LEAD BLOOD 2.9 mcg/dL (0.0-4.9); MERCURY BLOOD 2 ng/mL (0-9)
[2016-05-30 15:38] LABS: PROTEIN, CSF 55 mg/dL (12-60)
[2016-05-30 15:51] LABS: CSF APPEARANCE CLEAR (CLEAR); CSF COLOR COLORLESS (COLORLESS)
[2016-05-30 15:52] LABS: CSF SUPERNATANT COLORLESS (COLORLESS); WBC, CSF 2 /mm3 (0-5)
--- NOTE | 2016-05-30 16:11 | NEUROPROG ---
Assessment: 1. secondary progressive multiple sclerosis 2. encephalopathy 35 minutes total floor time; over 50% in counseling / coordination of care heavy metals - neg repeat MRI w/ and w/o - unchanged NH4 - normal LP - 2 WBC BP was low (80/40's) when I was rounding, I gave 1 liter NS EEG this afternoon If above w/u negative, may need to consider d/c to SNF to allow recovery from delirium Subjective: Low BPs Objective: Vital Signs Temp Pulse Resp BP Pulse Ox 35.8 C L 54 L 18 84/46 L 94 05/29/16 20:22 05/30/16 15:39 05/30/16 15:39 05/30/16 15:39 05/30/16 15:39 Laboratory Results 05/30/16 03:52 05/30/16 03:52 05/29/16 05/30/16 05/31/16 05:59 05:59 05:59 Intake Total 1271 1650 1120 Output Total 2050 625 900 Balance -779 1025 220 PT 13.4 SEC (12.0-15.0) 05/21/16 06:00 INR 1.03 (0.83-1.16) 05/21/16 06:00 drowsy oriented to year, president Allergies/Adverse Reactions: shellfish derived Allergy (Verified 05/19/16 14:14) sodium benzoate Allergy (Verified 05/19/16 14:14) Sulfa (Sulfonamide Antibiotics) Allergy (Verified 05/19/16 14:14) wheat Allergy (Verified 05/19/16 14:14) EGGS Allergy (Unknown, Uncoded 11/29/12 15:46) DIARY Allergy (Uncoded 11/29/12 15:46) GLUTEN Allergy (Uncoded 11/29/12 15:46) SOY Allergy (Uncoded 11/29/12 15:45)
[2016-05-31 04:43] LABS: % IMMATURE GRANULYOCYTES 0.2 % (0.0-1.1); ABSOLUTE IMMATURE GRANULOCYTES 0.01 10^3/uL (0.00-0.10); ADD DIFF? NO; ADD MORPH? NO; ADD SCAN? NO; ATYPICAL LYMPHOCYTE FLAG 30 (0-99); FRAGMENT RBC FLAG 0 (0-99); HEMATOCRIT 37.6 % (40.0-51.0); HEMOGLOBIN 12.7 g/dL (13.7-17.5); LEFT SHIFT FLG 0 (0-99); LIPEMIA HEMOLYSIS FLAG 90 (0-99); MEAN CELL HEMOGLOBIN 27.7 pg (27.9-34.1); MEAN CELL HEMOGLOBIN CONCENTR. 33.8 g/dL (32.4-36.7); MEAN CELL VOLUME 82.1 fL (81.5-99.8); PLATELET CLUMPS FLAG 0 (0-99); PLATELET COUNT 101 10^3/uL (150-400); RED BLOOD CELL COUNT 4.58 10^6/uL (4.40-6.38); RED CELL DISTRIBUTION WIDTH 14.4 % (11.5-15.2)
[2016-05-31 04:56] LABS: ALANINE AMINOTRANSFERASE 60 IU/L (21-72); ALKALINE PHOSPHATASE 108 IU/L (38-126); ANION GAP 7 mEq/L (8-16); ASPARTATE AMINOTRANSFERASE 41 IU/L (17-59); BILIRUBIN,TOTAL 0.4 mg/dL (0.1-1.4); CARBON DIOXIDE 27 mEq/l (22-31); CHLORIDE 106 mEq/L (97-110); CREATININE 0.5 mg/dL (0.7-1.3); GLOMERULAR FILTRATION RATE > 60; GLUCOSE 81 mg/dL (70-100); POTASSIUM 3.5 mEq/L (3.5-5.2); SODIUM 140 mEq/L (134-144); TOTAL PROTEIN 5.4 g/dL (6.3-8.2)
[2016-05-31] MEDS: LEVOTHYROXINE 100 MCG TAB PO SCH (06:27)
[2016-05-31] MEDS: MAGNESIUM OXIDE 400 MG TAB PO SCH ×4 (06:27→20:47)
[2016-05-31] MEDS: D5W LR 1,000 ML IV SCH ×2 (06:34→12:39)
[2016-05-31] MEDS: ENOXAPARIN 40 MG/0.4 ML SYR SC SCH (09:25)
[2016-05-31] MEDS: TAMSULOSIN HCL 0.4 MG CAP PO SCH (09:25)
[2016-05-31] MEDS: CYANO/VITAMIN B12 1000 MCG TAB PO SCH (09:25)
[2016-05-31] MEDS: SENNOSIDES/DOCUSATE SODIUM TAB PO SCH ×2 (09:25→20:47)
--- NOTE | 2016-05-31 11:13 | CPEEG ---
[f rep st] ELECTROENCEPHALOGRAM EEG DATE OF STUDY: 05/30/2016 DATE OF INTERPRETATION: 05/31/2016. DATE OF STUDY: 05/30/2016. INTERPRETATION: Essentially normal EEG during wakefulness and sleep. There were no potentially epileptogenic abnormalities or electrographic seizures present during the recording. REPORT: This EEG contains 9-10 Hz low amplitude, alpha activity over the posterior head regions during maximal alertness. There was no abnormal activation at rest. The patient was excessively drowsy during the study and was drowsy intermittently throughout the study and fell asleep during the recording. There was no abnormal activation during drowsiness, sleep, or during times of arousal. During drowsiness, the patient had bitemporal theta activity. This is a normal drowsy pattern. In addition, the technologist noted the patient to be mumbling and confused during the study. There was no abnormal EEG correlate with this behavior. /[id number]/MODL MTDD
--- NOTE | 2016-05-31 15:51 | NEUROPROG ---
Assessment: 1. secondary progressive multiple sclerosis 2. encephalopathy 35 minutes total floor time; over 50% in counseling With [id number]/ coordination of care heavy metals - neg repeat MRI w/ and w/o - unchanged NH4 - normal LP - no evidence of infection EEG essentially normal patient improved according to caregiver overall, my impression is that he has a waxing and waning hospital delirium discussed at length with Hospital Medicine, [id number] and caregiver. Plan will be to discharge to care home facility. We will sign off and follow up as needed. Subjective: Improved overnight Objective: Vital Signs Temp Pulse Resp BP Pulse Ox 36.6 C 59 L 16 154/78 H 95 05/31/16 04:02 05/31/16 08:37 05/31/16 08:37 05/31/16 08:37 05/31/16 08:37 Laboratory Results 05/31/16 04:16 05/31/16 04:16 05/30/16 05/31/16 06/01/16 05:59 05:59 05:59 Intake Total 1650 5390 Output Total 625 2300 Balance 1025 3090 PT 13.4 SEC (12.0-15.0) 05/21/16 06:00 INR 1.03 (0.83-1.16) 05/21/16 06:00 awake and alert slowly responding Allergies/Adverse Reactions: shellfish derived Allergy (Verified 05/19/16 14:14) sodium benzoate Allergy (Verified 05/19/16 14:14) Sulfa (Sulfonamide Antibiotics) Allergy (Verified 05/19/16 14:14) wheat Allergy (Verified 05/19/16 14:14) EGGS Allergy (Unknown, Uncoded 11/29/12 15:46) DIARY Allergy (Uncoded 11/29/12 15:46) GLUTEN Allergy (Uncoded 11/29/12 15:46) SOY Allergy (Uncoded 11/29/12 15:45)
--- NOTE | 2016-05-31 16:41 | HOSPPROG ---
Hospitalist Progress Note Assessment/Plan: 65 yo M with MS new to my care today presented with encephalopathy which had been slowly progressing prior to admission. He was very hyponatremic on presentation which has corrected appropriately. # acute encephalopathy - ( improving ) suspect hospital-acquired delirium per Neurology # hypotension ( resolved) - Buff cap IVF - infectious w/u shows pyuria but doubt that this is the source of his hypotension # pyuria with Luevano catheter in place - monitor for signs symptoms of infection and treat accordingly with antibiotics is indicated # severe hyponatremia - resolved; correction was appropriate # MS, advanced # urinary retention - luevano # htn - holding norvasc now with hypotension # constipation - lactulose as tolerated # pancytopenia - stable # lovenox ## high risk given persistent AMS/hypotension I discussed case with Dr. Ortega from Neurology disposition: Discharged to snf once mentation is stable Subjective: patient is arousable to voice and is communicative today which per report is better than yesterday. Objective: Vital Signs Temp Pulse Resp BP Pulse Ox 36.6 C 58 L 12 139/79 H 91 L 05/31/16 04:02 05/31/16 15:45 05/31/16 15:45 05/31/16 15:45 05/31/16 15:45 Laboratory Results 05/31/16 04:16 05/31/16 04:16 05/30/16 05/31/16 06/01/16 05:59 05:59 05:59 Intake Total 1650 5390 Output Total 625 2300 Balance 1025 3090 PT 13.4 SEC (12.0-15.0) 05/21/16 06:00 INR 1.03 (0.83-1.16) 05/21/16 06:00 MRI was reviewed - Physical Exam Constitutional: no apparent distress, appears nourished, not in pain Ears, Nose, Mouth, Throat: moist mucous membranes, hearing normal, ears appear normal, no oral mucosal ulcers Cardiovascular: regular rate and rhythym, no murmur, rub, or gallop Respiratory: no respiratory distress, no rales or rhonchi, clear to auscultation Neurologic: other ( Oriented to person only), No facial droop ICD10 Worksheet Patient Problems: Problems Problem Status Onset Aphasia Acute Multiple sclerosis Acute Cellulitis of leg Active Bladder obstruction Acute Hyponatremia Acute
[2016-06-01 05:07] LABS: % IMMATURE GRANULYOCYTES 0.4 % (0.0-1.1); ABSOLUTE IMMATURE GRANULOCYTES 0.03 10^3/uL (0.00-0.10); ADD DIFF? NO; ADD MORPH? NO; ADD SCAN? NO; ATYPICAL LYMPHOCYTE FLAG 20 (0-99); FRAGMENT RBC FLAG 0 (0-99); HEMATOCRIT 35.2 % (40.0-51.0); HEMOGLOBIN 12.1 g/dL (13.7-17.5); LEFT SHIFT FLG 0 (0-99); LIPEMIA HEMOLYSIS FLAG 90 (0-99); MEAN CELL HEMOGLOBIN 28.4 pg (27.9-34.1); MEAN CELL HEMOGLOBIN CONCENTR. 34.4 g/dL (32.4-36.7); MEAN CELL VOLUME 82.6 fL (81.5-99.8); MEAN PLATELET VOLUME 10.4 fL (8.7-11.7); PLATELET CLUMPS FLAG 0 (0-99); PLATELET COUNT 120 10^3/uL (150-400); RED BLOOD CELL COUNT 4.26 10^6/uL (4.40-6.38); RED CELL DISTRIBUTION WIDTH 14.4 % (11.5-15.2)
[2016-06-01] MEDS: MAGNESIUM OXIDE 400 MG TAB PO SCH ×5 (05:17→20:33)
[2016-06-01] MEDS: LEVOTHYROXINE 100 MCG TAB PO SCH (05:17)
[2016-06-01 05:29] LABS: ALANINE AMINOTRANSFERASE 85 IU/L (21-72); ALBUMIN 2.8 g/dL (3.5-5.0); ALKALINE PHOSPHATASE 129 IU/L (38-126); ANION GAP 8 mEq/L (8-16); ASPARTATE AMINOTRANSFERASE 61 IU/L (17-59); BILIRUBIN,TOTAL 0.5 mg/dL (0.1-1.4); CALCIUM 8.9 mg/dL (8.5-10.4); CARBON DIOXIDE 27 mEq/l (22-31); CHLORIDE 104 mEq/L (97-110); CREATININE 0.5 mg/dL (0.7-1.3); GLOMERULAR FILTRATION RATE > 60; GLUCOSE 67 mg/dL (70-100); POTASSIUM 3.9 mEq/L (3.5-5.2); SODIUM 139 mEq/L (134-144); TOTAL PROTEIN 5.2 g/dL (6.3-8.2)
[2016-06-01] MEDS: ENOXAPARIN 40 MG/0.4 ML SYR SC SCH (09:09)
[2016-06-01] MEDS: CYANO/VITAMIN B12 1000 MCG TAB PO SCH (09:09)
[2016-06-01] MEDS: SENNOSIDES/DOCUSATE SODIUM TAB PO SCH ×2 (09:09→20:33)
[2016-06-01] MEDS: TAMSULOSIN HCL 0.4 MG CAP PO SCH (09:09)
--- NOTE | 2016-06-01 12:20 | HOSPPROG ---
Hospitalist Progress Note Assessment/Plan: 65 yo M with MS new to my care today presented with encephalopathy which had been slowly progressing prior to admission. He was very hyponatremic on presentation which has corrected appropriately. # acute encephalopathy - ( slowly improving ) suspect hospital-acquired delirium per Neurology # mild transaminitis of uncertain significance - continue to monitor # hypotension ( resolved) - Buff cap IVF - infectious w/u shows pyuria but doubt that this is the source of his hypotension # pyuria with Luevano catheter in place - monitor for signs symptoms of infection and treat accordingly with antibiotics as indicated # severe hyponatremia - resolved; correction was appropriate # MS, advanced # urinary retention - luevano # htn - holding norvasc now with hypotension # constipation - lactulose as tolerated # pancytopenia - stable # lovenox ## high risk given persistent AMS disposition: Discharged to snf once mentation is stable Subjective: continues to be confused. He is moving more per his caregivers. Patient denies any pain. Objective: Vital Signs Temp Pulse Resp BP Pulse Ox 36.8 C 75 20 118/68 90 L 06/01/16 08:13 06/01/16 08:13 06/01/16 08:13 06/01/16 08:13 06/01/16 08:13 Laboratory Results 06/01/16 04:22 06/01/16 04:22 05/31/16 06/01/16 06/02/16 05:59 05:59 05:59 Intake Total 5390 1490 Output Total 2300 2700 Balance 3090 -1210 PT 13.4 SEC (12.0-15.0) 05/21/16 06:00 INR 1.03 (0.83-1.16) 05/21/16 06:00 - Physical Exam Constitutional: no apparent distress, appears nourished, not in pain Cardiovascular: regular rate and rhythym, no murmur, rub, or gallop Respiratory: no respiratory distress, no rales or rhonchi, clear to auscultation Gastrointestinal: normoactive bowel sounds, soft, non-tender abdomen, no palpable masses, No guarding, No rebound Neurologic: CN II-XII Intact, No AAOx3 ( Oriented to person only), No facial droop ICD10 Worksheet Patient Problems: Problems Problem Status Onset Aphasia Acute Multiple sclerosis Acute Cellulitis of leg Active Bladder obstruction Acute Hyponatremia Acute
[2016-06-02 05:08] LABS: % IMMATURE GRANULYOCYTES 0.2 % (0.0-1.1); ABSOLUTE IMMATURE GRANULOCYTES 0.01 10^3/uL (0.00-0.10); ADD DIFF? NO; ADD MORPH? NO; ADD SCAN? NO; ATYPICAL LYMPHOCYTE FLAG 30 (0-99); FRAGMENT RBC FLAG 0 (0-99); HEMATOCRIT 37.1 % (40.0-51.0); HEMOGLOBIN 12.8 g/dL (13.7-17.5); LEFT SHIFT FLG 0 (0-99); LIPEMIA HEMOLYSIS FLAG 90 (0-99); MEAN CELL HEMOGLOBIN 28.5 pg (27.9-34.1); MEAN CELL HEMOGLOBIN CONCENTR. 34.5 g/dL (32.4-36.7); MEAN CELL VOLUME 82.6 fL (81.5-99.8); MEAN PLATELET VOLUME 9.9 fL (8.7-11.7); PLATELET CLUMPS FLAG 0 (0-99); PLATELET COUNT 150 10^3/uL (150-400); RED BLOOD CELL COUNT 4.49 10^6/uL (4.40-6.38); RED CELL DISTRIBUTION WIDTH 14.3 % (11.5-15.2)
[2016-06-02 05:21] LABS: ALANINE AMINOTRANSFERASE 83 IU/L (21-72); ALBUMIN 3.2 g/dL (3.5-5.0); ALKALINE PHOSPHATASE 150 IU/L (38-126); ANION GAP 9 mEq/L (8-16); ASPARTATE AMINOTRANSFERASE 53 IU/L (17-59); BILIRUBIN,TOTAL 0.7 mg/dL (0.1-1.4); CALCIUM 9.2 mg/dL (8.5-10.4); CARBON DIOXIDE 26 mEq/l (22-31); CHLORIDE 103 mEq/L (97-110); CREATININE 0.6 mg/dL (0.7-1.3); GLOMERULAR FILTRATION RATE > 60; GLUCOSE 73 mg/dL (70-100); POTASSIUM 4.1 mEq/L (3.5-5.2); SODIUM 138 mEq/L (134-144); TOTAL PROTEIN 5.9 g/dL (6.3-8.2)
[2016-06-02] MEDS: MAGNESIUM OXIDE 400 MG TAB PO SCH ×4 (09:20→20:38)
[2016-06-02] MEDS: LEVOTHYROXINE 100 MCG TAB PO SCH (09:20)
[2016-06-02] MEDS: TAMSULOSIN HCL 0.4 MG CAP PO SCH (09:21)
[2016-06-02] MEDS: CYANO/VITAMIN B12 1000 MCG TAB PO SCH (09:21)
[2016-06-02] MEDS: SENNOSIDES/DOCUSATE SODIUM TAB PO SCH ×2 (09:22→20:38)
[2016-06-02] MEDS: ENOXAPARIN 40 MG/0.4 ML SYR SC SCH (09:22)
--- NOTE | 2016-06-02 12:44 | HOSPPROG ---
Hospitalist Progress Note Assessment/Plan: 65 yo M with MS presented with encephalopathy which had been slowly progressing prior to admission. He was very hyponatremic on presentation which has corrected appropriately. # acute encephalopathy - ( slowly improving ) suspect hospital-acquired delirium per Neurology # mild transaminitis of uncertain significance - continue to monitor # hypotension ( resolved) - Buff cap IVF - infectious w/u shows pyuria but doubt that this is the source of his hypotension # pyuria with Luevano catheter in place - monitor for signs symptoms of infection and treat accordingly with antibiotics as indicated # severe hyponatremia - resolved; correction was appropriate # MS, advanced # urinary retention - luevano # htn - holding norvasc now with hypotension # constipation - lactulose as tolerated # pancytopenia - stable # lovenox ## high risk given persistent AMS disposition: Discharged to snf once mentation is stable Subjective: continues to be confused, but improving overall. denies acute complatins. not eating much Objective: Vital Signs Temp Pulse Resp BP Pulse Ox 36.3 C 90 18 131/91 H 91 L 06/02/16 08:00 06/02/16 08:00 06/02/16 08:00 06/02/16 08:00 06/02/16 08:00 Laboratory Results 06/02/16 04:50 06/02/16 04:50 06/01/16 06/02/16 06/03/16 05:59 05:59 05:59 Intake Total 1490 860 Output Total 2700 1450 1450 Balance -1210 -590 -1450 PT 13.4 SEC (12.0-15.0) 05/21/16 06:00 INR 1.03 (0.83-1.16) 05/21/16 06:00 - Physical Exam Constitutional: no apparent distress, appears nourished, not in pain Cardiovascular: regular rate and rhythym, no murmur, rub, or gallop Respiratory: no respiratory distress, no rales or rhonchi, clear to auscultation Gastrointestinal: normoactive bowel sounds, soft, non-tender abdomen, no palpable masses ICD10 Worksheet Patient Problems: Problems Problem Status Onset Aphasia Acute Multiple sclerosis Acute Cellulitis of leg Active Bladder obstruction Acute Hyponatremia Acute
[2016-06-03] MEDS: MAGNESIUM OXIDE 400 MG TAB PO SCH ×4 (05:58→23:59)
[2016-06-03 08:45] LABS: MISCELLANEOUS TEST See Comments
[2016-06-03] MEDS: ENOXAPARIN 40 MG/0.4 ML SYR SC SCH (09:27)
[2016-06-03 11:06] LABS: COLOR YELLOW; LEUKOCYTE ESTERASE,URINE 3+ (NEGATIVE); NITRITE,URINE NEGATIVE (NEGATIVE)
[2016-06-03 11:31] LABS: BACTERIA 3+ /hpf (NONE SEEN); RBC,URINE 50-182 /hpf (0-3); WBC,URINE 50-182 /hpf (0-3)
[2016-06-03] MEDS: NS 1,000 ML IV SCH (12:00)
[2016-06-03] MEDS: CYANO/VITAMIN B12 1000 MCG TAB PO SCH (12:00)
[2016-06-03] MEDS: LEVOTHYROXINE 100 MCG TAB PO SCH (12:00)
[2016-06-03] MEDS: SENNOSIDES/DOCUSATE SODIUM TAB PO SCH (12:01)
[2016-06-03] MEDS: TAMSULOSIN HCL 0.4 MG CAP PO SCH (12:01)
--- NOTE | 2016-06-03 13:50 | HOSPPROG ---
Hospitalist Progress Note Assessment/Plan: DIAGNOSES: # acute encephalopathy - - notably worse today though it is hard to separate out what may be worse encephalopathy from what appears to me to be a psychiatric response with the patient clearly and visibly avoiding interactions and avoiding examination; superficially his presentation is that of an unresponsive person however he clearly is able to hear and comprehend , see examination today # mild transaminitis of uncertain significance - continue to monitor # hypotension (resolved) # pyuria with Luevano catheter in place # severe hyponatremia - resolved; correction was appropriate # MS, advanced # urinary retention - luevano # htn - holding norvasc now with hypotension # lovenox overall it would appear that he is probably still quite encephalopathic, and did seem to be fairly confused yesterday. However he did have some paranoia yesterday and today is showing clearly signs that he is very specifically avoiding interaction and avoiding examination. There is some type of psychological response here, but whether this is due to his confusion, or whether it is primary a situational response to his worsening AMS and the plan is to move him to a nursing facility cannot be determined clearly at this point. In terms of what might be driving his confusion we have not come up with anything concrete. He does have some pyuria and appears to be new pyuria during his hospital stay. Therefore I do not think it is the cause of his presenting symptoms, but could potentially be causing worsening encephalopathy is he appears to be presenting at this time. However notably he has a normal white blood cell count and does not have fevers. Additionally it sounds like he did not eat or drink much of anything at all yesterday and he could be getting dehydrated. He is not currently receiving any IV fluids and has had nothing to eat or drink so far today PLANS: - begin IV fluids -Recheck urinalysis and culture, and if there is suspicion for urinary tract infection give empiric antibiotics waiting for culture -Check a magnesium level as he is getting 4 times a day magnesium oxide supplement -He had stable metabolic panel on the to the last 2 days and did not think that is something we need to repeat at this time -I reviewed all of his imaging studies, spinal fluid analysis, and other laboratory data here so far ; at this point I do not find evidence for any other specific treatable or fixable issue that would be contributing to his presenting findings. - He will not be able to discharge to residential facility today which had been the plan overnight - July need to consider psychiatric evaluation but will see how he response to above measures SUBJECTIVE: The patient does not interact or speak in helpful way am unable to obtain any symptom evaluation. Notably the patient is at least to some degree specifically avoiding interacting which is clearly seen in described in the exam below. 1 of his caretakers, Glenn, has been here with him so far today and spent the day with him yesterday. Glenn tells me that yesterday morning the patient was conversant but confused as the day went on he became more confused and seemed to become fairly paranoid in his interactions with Glenn. Nursing staff tells me that the patient was somewhat agitated during the night but since the beginning of the day shift today he has been unresponsive. OBJECTIVE Vitals reviewed: Slightly low blood pressure this morning otherwise night vitals normal without fever Commercial Loan Assistant, my review: sinus rhythm Exam: The patient is lying in his bed with his eyes closed and does not move spontaneously. When I asked the patient open his eyes he makes no response and makes no other response initially as I talk to him. When I informed the patient that I am going to open his eyes to examine his eyes he squeezes his eyelid shut very tightly. As I try to open his eyelids he was cysts quite forcefully. At 1 other point as I told him I really need to get a good eye examination he shakes his head as if to say no. These are the only specific responses I get and the only specific movements I see in terms of any response to my speaking to him or examining him. His friend Glenn speaks to him at 1 point he briefly opens his eyes as Glenn asked him to open his eyes but otherwise he does not open his eyes or have other responses for Glenn. skin warm dry color ok, No rash or concerning lesions resps not labored lungs clear BSs heart regular abd soft nondistended nontender, bowel sounds present limbs warm, no edema iv site ok Objective: Vital Signs Temp Pulse Resp BP Pulse Ox 37.4 C 83 16 95/62 L 95 06/03/16 09:31 06/03/16 09:31 06/03/16 09:31 06/03/16 09:31 06/03/16 09:31 Laboratory Results 06/02/16 04:50 06/02/16 04:50 06/02/16 06/03/16 06/04/16 06:59 06:59 06:59 Intake Total 860 100 Output Total 1900 2450 Balance -1040 -2350 PT 13.4 SEC (12.0-15.0) 05/21/16 06:00 INR 1.03 (0.83-1.16) 05/21/16 06:00 ICD10 Worksheet Patient Problems: Problems Problem Status Onset Aphasia Acute Bladder obstruction Acute Hyponatremia Acute Multiple sclerosis Acute Cellulitis of leg Active
[2016-06-04] MEDS: MAGNESIUM OXIDE 400 MG TAB PO SCH ×4 (06:26→21:45)
[2016-06-04] MEDS: LEVOTHYROXINE 100 MCG TAB PO SCH (06:26)
[2016-06-04] MEDS: ENOXAPARIN 40 MG/0.4 ML SYR SC SCH (10:07)
[2016-06-04] MEDS: NS 1,000 ML IV SCH (10:11)
--- NOTE | 2016-06-04 10:19 | HOSPPROG ---
Hospitalist Progress Note Assessment/Plan: DIAGNOSES: # acute encephalopathy -multifactorial, at this point suspect that possibly urinary tract infection planning significant role -there is some possibility of some psychiatric role in his presentation here but hard to sort out due to difficult examination # pyuria with Luevano catheter in place - possible CAUTI, with urine cultures pending # mild transaminitis of uncertain significance - continue to monitor # hypotension (resolved) # severe hyponatremia - resolved; correction was appropriate # MS, advanced # urinary retention - luevano # htn - holding norvasc now with hypotension # lovenox Overall he is interacting much better and speaking today with some improvement in his encephalopathy but remains quite encephalopathic compared to his baseline. PLANS: - continue IV fluids - follow urine culture, continue empiric antibiotics for now - avoid any sedating medicines, encourage nutrition intake, try to keep his sleep cycle going - He will not be able to discharge to half-way facility until we clarify whether he has urine infection and until we have more improvement in mentation - May need to consider psychiatric evaluation but will see how he response to above measures SUBJECTIVE: The patient does not interact or speak in helpful way am unable to obtain any symptom evaluation. Notably the patient is at least to some degree specifically avoiding interacting which is clearly seen in described in the exam below. 1 of his caretakers, Glenn, has been here with him so far today and spent the day with him yesterday. Glenn tells me that yesterday morning the patient was conversant but confused as the day went on he became more confused and seemed to become fairly paranoid in his interactions with Glenn. Nursing staff tells me that the patient was somewhat agitated during the night but since the beginning of the day shift today he has been unresponsive. OBJECTIVE Vitals reviewed: normal without fever Email Marketing Manager, my review: sinus rhythm Exam: More awake today with eyes open making good eye contact listening attentively and occasionally getting a 1 or 2 word responses out, still seems fairly disoriented, hard to get much out of him skin warm dry color ok, No rash or concerning lesions resps not labored lungs clear BSs heart regular abd soft nondistended nontender, bowel sounds present limbs warm, no edema iv site ok laboratory data: Yesterday's urinalysis did show significant pyuria, culture still pending at this time Magnesium level was normal yesterday Objective: Vital Signs Temp Pulse Resp BP Pulse Ox 36.9 C 83 18 128/78 H 95 06/04/16 10:04 06/04/16 10:04 06/04/16 10:04 06/04/16 10:04 06/04/16 10:04 Laboratory Results 06/02/16 04:50 06/02/16 04:50 06/03/16 06/04/16 06/05/16 06:59 06:59 06:59 Intake Total 100 1635 Output Total 2450 850 Balance -2350 785 PT 13.4 SEC (12.0-15.0) 05/21/16 06:00 INR 1.03 (0.83-1.16) 05/21/16 06:00 ICD10 Worksheet Patient Problems: Problems Problem Status Onset Aphasia Acute Bladder obstruction Acute Hyponatremia Acute Multiple sclerosis Acute Cellulitis of leg Active
[2016-06-04] MEDS: CYANO/VITAMIN B12 1000 MCG TAB PO SCH (12:34)
[2016-06-04] MEDS: TAMSULOSIN HCL 0.4 MG CAP PO SCH (12:34)
[2016-06-04] MEDS: SENNOSIDES/DOCUSATE SODIUM TAB PO SCH ×3 (12:34→21:44)
[2016-06-05] MEDS: MAGNESIUM OXIDE 400 MG TAB PO SCH ×4 (05:37→21:32)
[2016-06-05] MEDS: LEVOTHYROXINE 100 MCG TAB PO SCH (05:37)
[2016-06-05] MEDS: CYANO/VITAMIN B12 1000 MCG TAB PO SCH (10:16)
[2016-06-05] MEDS: TAMSULOSIN HCL 0.4 MG CAP PO SCH (10:16)
[2016-06-05] MEDS: SENNOSIDES/DOCUSATE SODIUM TAB PO SCH ×2 (10:16→21:32)
[2016-06-05] MEDS ORDERED: HALOPERIDOL LACT 5 MG/ML INJ IVP ONE (11:13)
--- NOTE | 2016-06-05 11:21 | HOSPPROG ---
Hospitalist Progress Note Assessment/Plan: DIAGNOSES: # acute encephalopathy -multifactorial, at this point suspect that possibly urinary tract infection planning significant role -much more alert but confused and hallucinating and paranoid # pyuria with Luevano catheter in place - probable CAUTI, with final urine cultures pending # mild transaminitis of uncertain significance # hypotension (resolved) # protein calorie malnutrition related to poor oral intake, suspect vitamin deficiencies as well # severe hyponatremia - resolved; correction was appropriate # MS, advanced # urinary retention - luevano # htn - holding norvasc now with hypotension # lovenox At this point is antibiotic is not ideal for either the staff for the enterococcus and I will changed and use vancomycin for the moment until the Enterococcus is fully identified. Overall he is not really progressing, is becoming significantly malnourished from lack of oral intake, is quite uncomfortable, and unable to cooperate with nursing care. Will need to be more active with treatment of the delirium at this point PLANS: - continue IV fluids - follow urine culture, change to vancomycin until Enterococcus fully identified - avoid any sedating medicines, encourage nutrition intake, try to keep his sleep cycle going - will give a single dose of Haldol and follow his response, make further decision about treatment after that - He will not be able to discharge to intermediate facility until we clarify whether he has urine infection and until we have more improvement in mentation SUBJECTIVE: Today he is interacting and speaking more but he is very clearly quite confused and hallucinating and is fairly paranoid. He is unable to describe for me any specific symptoms but say he feels bad Per the nurses he is having difficulty cooperating with nursing care, is not taking any medications orally, is not eating at all still. OBJECTIVE Vitals reviewed: normal without fever Valve Grinder, my review: sinus rhythm Exam: Wide awake, appears fairly anxious, looking around the room continuously at visual hallucinations, fairly paranoid. Quite disoriented. skin warm dry color ok, No rash or concerning lesions resps not labored lungs clear BSs heart regular abd soft nondistended nontender, bowel sounds present limbs warm, no edema iv site ok Culture data: Urine now growing a sensitive Staph aureus as well as a Enterococcus not yet fully identified Objective: Vital Signs Temp Pulse Resp BP Pulse Ox 36.7 C 69 28 H 116/62 91 L 06/05/16 07:40 06/05/16 07:40 06/05/16 07:40 06/05/16 07:40 06/05/16 07:40 Laboratory Results 06/02/16 04:50 06/02/16 04:50 06/04/16 06/05/16 06/06/16 06:59 06:59 06:59 Intake Total 1635 1800 50 Output Total 850 1850 Balance 785 -50 50 PT 13.4 SEC (12.0-15.0) 05/21/16 06:00 INR 1.03 (0.83-1.16) 05/21/16 06:00 ICD10 Worksheet Patient Problems: Problems Problem Status Onset Aphasia Acute Multiple sclerosis Acute Cellulitis of leg Active Bladder obstruction Acute Hyponatremia Acute
[2016-06-05] MEDS: THIAMINE HCL 100 MG in NS 100 ML IV SCH (11:40)
[2016-06-05] MEDS: ENOXAPARIN 40 MG/0.4 ML SYR SC SCH (11:43)
[2016-06-05] MEDS: VANCOMYCIN HCL/NORMAL SALINE 250 ML IV SCH ×2 (12:15→23:31)
[2016-06-05] MEDS: BISACODYL 10 MG SUPP PR PRN (14:05)
[2016-06-05] MEDS: NS 1,000 ML IV SCH (15:15)
[2016-06-05] MEDS: HALOPERIDOL LACT 5 MG/ML INJ IVP PRN (18:20)
[2016-06-06] MEDS: HALOPERIDOL LACT 5 MG/ML INJ IVP PRN ×2 (00:27→15:20)
[2016-06-06] MEDS: LEVOTHYROXINE 100 MCG TAB PO SCH (04:25)
[2016-06-06] MEDS: MAGNESIUM OXIDE 400 MG TAB PO SCH ×4 (06:27→20:32)
[2016-06-06] MEDS: NS 1,000 ML IV SCH (06:27)
[2016-06-06] MEDS: SENNOSIDES/DOCUSATE SODIUM TAB PO SCH ×2 (10:48→19:33)
[2016-06-06] MEDS: CYANO/VITAMIN B12 1000 MCG TAB PO SCH (10:48)
[2016-06-06] MEDS: TAMSULOSIN HCL 0.4 MG CAP PO SCH (10:48)
[2016-06-06] MEDS: ENOXAPARIN 40 MG/0.4 ML SYR SC SCH (10:48)
[2016-06-06] MEDS: THIAMINE HCL 100 MG in NS 100 ML IV SCH (10:49)
[2016-06-06] MEDS: VANCOMYCIN HCL/NORMAL SALINE 250 ML IV SCH (10:51)
[2016-06-06] MEDS ORDERED: ALTEPLASE 2 MG VIAL IVP PRN (12:02)
[2016-06-06] MEDS ORDERED: D10W 1,000 ML IV PRN (12:03)
--- NOTE | 2016-06-06 16:30 | HOSPPROG ---
Hospitalist Progress Note Assessment/Plan: DIAGNOSES: # acute encephalopathy -multifactorial, at this point suspect that possibly urinary tract infection planning significant role -much more alert but confused and hallucinating and paranoid # pyuria with Luevano catheter in place - probable CAUTI, though with a Staph aureus and strep bovis and urine culture unclear if this is truly infection as opposed to pyuria from irritation from Luevano catheter # protein calorie malnutrition related to poor oral intake, suspect vitamin deficiencies as well # mild transaminitis of uncertain significance # hypotension (resolved) # severe hyponatremia - resolved; correction was appropriate # MS, advanced # urinary retention - luevano # htn - holding norvasc now with hypotension # lovenox PLANS: - I had a long discussion today with the patient and with his medical power of admitted attorneys. I am very concerned at this point about his lack of oral intake and his refusal to attempt any food or fluids. He has not had anything for about a week now and was eating poorly prior to that. His nutrition certainly will aggravate his delirium side from the other complications that can cause. We could consider nasogastric tube feeding but at this point there is no way that the patient would allow that to placement nor leave it in place. I did discuss with the patient and his POA PICC line and TPN and they are both agreeable to that therapy at this time. - continue IV fluids - given the organisms in his urine will change to make a mycin to Ancef at this point - avoid any sedating medicines, encourage nutrition intake, try to keep his sleep cycle going - so far apparently some favorable response to Haldol and will use that intermittently as necessary or deemed useful - He will not be able to discharge to custodial facility until we until we have more improvement in mentation and more participation from him in terms of his care. At this point he is telling me that he wants us to treat him and is not interested in palliative care as best I can tell both the assessment is limited - I will review with Infectious Disease, but at some point if he does return to of fully lucid state will have to address the question of performing colonoscopy to see if the strep bovis could potentially be an indicator of colon malignancy. Strep bovis infections or growth in urine cultures are associated with some risk of this malignancy. SUBJECTIVE: Again today lobe more interactive but remains clearly disoriented and paranoid and quite delirious. He does not appear however to be having so much trouble with hallucinations today. Per the nurses he still is having difficulty cooperating with nursing care, is not taking any medications orally, is not eating at all or taking any fluids. OBJECTIVE Vitals reviewed: normal without fever Flooring Salesperson, my review: sinus rhythm Exam: Wide awake, appears fairly anxious, looking around the room continuously at visual hallucinations, fairly paranoid. Quite disoriented. skin warm dry color ok, No rash or concerning lesions resps not labored lungs clear BSs heart regular abd soft nondistended nontender, bowel sounds present limbs warm, no edema iv site ok Culture data: Urine now growing a sensitive Staph aureus as well as strep bovis, both sensitive to all drugs tested Objective: Vital Signs Temp Pulse Resp BP Pulse Ox 36.5 C 72 18 118/73 92 06/06/16 15:28 06/06/16 15:28 06/06/16 15:28 06/06/16 15:28 06/06/16 15:28 Microbiology 06/03/16 10:35 Urine Culture - Final Urine,Catheterized Staphylococcus Aureus Non Hemolytic (Gamma) Strep Laboratory Results 06/02/16 04:50 06/02/16 04:50 06/05/16 06/06/16 06/07/16 06:59 06:59 06:59 Intake Total 1800 2100 Output Total 1850 1550 Balance -50 550 PT 13.4 SEC (12.0-15.0) 05/21/16 06:00 INR 1.03 (0.83-1.16) 05/21/16 06:00 ICD10 Worksheet Patient Problems: Problems Problem Status Onset Aphasia Acute Bladder obstruction Acute Hyponatremia Acute Multiple sclerosis Acute Cellulitis of leg Active
[2016-06-06 16:31] LABS: % IMMATURE GRANULYOCYTES 0.4 % (0.0-1.1); ABSOLUTE IMMATURE GRANULOCYTES 0.02 10^3/uL (0.00-0.10); ADD DIFF? NO; ADD MORPH? NO; ADD SCAN? NO; ATYPICAL LYMPHOCYTE FLAG 40 (0-99); FRAGMENT RBC FLAG 0 (0-99); HEMATOCRIT 39.1 % (40.0-51.0); HEMOGLOBIN 13.3 g/dL (13.7-17.5); LEFT SHIFT FLG 0 (0-99); LIPEMIA HEMOLYSIS FLAG 90 (0-99); MEAN CELL HEMOGLOBIN 28.3 pg (27.9-34.1); MEAN CELL VOLUME 83.2 fL (81.5-99.8); MEAN PLATELET VOLUME 8.8 fL (8.7-11.7); PLATELET CLUMPS FLAG 10 (0-99); PLATELET COUNT 270 10^3/uL (150-400); RED CELL DISTRIBUTION WIDTH 14.1 % (11.5-15.2)
[2016-06-06 16:40] LABS: INR 1.12 (0.83-1.16); PROTIME(PATIENT) 14.3 SEC (12.0-15.0)
[2016-06-06 16:41] LABS: APTT 29.5 SEC (23.0-38.0)
[2016-06-06 16:53] LABS: ALANINE AMINOTRANSFERASE 53 IU/L (21-72); ALBUMIN 3.5 g/dL (3.5-5.0); ALKALINE PHOSPHATASE 165 IU/L (38-126); ANION GAP 18 mEq/L (8-16); ASPARTATE AMINOTRANSFERASE 34 IU/L (17-59); BILIRUBIN,TOTAL 0.8 mg/dL (0.1-1.4); CALCIUM 9.4 mg/dL (8.5-10.4); CARBON DIOXIDE 19 mEq/l (22-31); CHLORIDE 107 mEq/L (97-110); CREATININE 0.5 mg/dL (0.7-1.3); GLOMERULAR FILTRATION RATE > 60; GLUCOSE 73 mg/dL (70-100); MAGNESIUM 1.8 mg/dL (1.6-2.3); SODIUM 144 mEq/L (134-144); TOTAL PROTEIN 6.4 g/dL (6.3-8.2); TRIGLYCERIDE 120 mg/dL (40-150)
[2016-06-06] MEDS: TPN 1 EA BAG IV SCH (21:08)
[2016-06-07] MEDS: NS 1,000 ML IV SCH ×2 (00:21→14:42)
[2016-06-07 03:32] LABS: % IMMATURE GRANULYOCYTES 0.3 % (0.0-1.1); ABSOLUTE IMMATURE GRANULOCYTES 0.02 10^3/uL (0.00-0.10); ADD DIFF? NO; ADD MORPH? NO; ADD SCAN? NO; ATYPICAL LYMPHOCYTE FLAG 30 (0-99); FRAGMENT RBC FLAG 0 (0-99); HEMATOCRIT 39.2 % (40.0-51.0); HEMOGLOBIN 13.6 g/dL (13.7-17.5); LEFT SHIFT FLG 0 (0-99); LIPEMIA HEMOLYSIS FLAG 90 (0-99); MEAN CELL HEMOGLOBIN 28.9 pg (27.9-34.1); MEAN CELL HEMOGLOBIN CONCENTR. 34.7 g/dL (32.4-36.7); MEAN CELL VOLUME 83.2 fL (81.5-99.8); MEAN PLATELET VOLUME 9.1 fL (8.7-11.7); PLATELET CLUMPS FLAG 0 (0-99); PLATELET COUNT 280 10^3/uL (150-400); RED BLOOD CELL COUNT 4.71 10^6/uL (4.40-6.38); RED CELL DISTRIBUTION WIDTH 14.1 % (11.5-15.2)
[2016-06-07 03:35] LABS: INR 1.09 (0.83-1.16)
[2016-06-07 03:36] LABS: APTT 31.2 SEC (23.0-38.0)
[2016-06-07] MEDS: MAGNESIUM OXIDE 400 MG TAB PO SCH ×4 (03:39→20:23)
[2016-06-07] MEDS: LEVOTHYROXINE 100 MCG TAB PO SCH (03:39)
[2016-06-07 04:01] LABS: ALANINE AMINOTRANSFERASE 51 IU/L (21-72); ALBUMIN 3.5 g/dL (3.5-5.0); ALKALINE PHOSPHATASE 162 IU/L (38-126); ANION GAP 12 mEq/L (8-16); ASPARTATE AMINOTRANSFERASE 35 IU/L (17-59); BILIRUBIN,TOTAL 0.7 mg/dL (0.1-1.4); CALCIUM 9.1 mg/dL (8.5-10.4); CARBON DIOXIDE 23 mEq/l (22-31); CHLORIDE 108 mEq/L (97-110); CREATININE 0.4 mg/dL (0.7-1.3); GLOMERULAR FILTRATION RATE > 60; GLUCOSE 158 mg/dL (70-100); MAGNESIUM 1.8 mg/dL (1.6-2.3); POTASSIUM 3.6 mEq/L (3.5-5.2); SODIUM 143 mEq/L (134-144); TOTAL PROTEIN 6.3 g/dL (6.3-8.2)
[2016-06-07] MEDS: CYANO/VITAMIN B12 1000 MCG TAB PO SCH (11:25)
[2016-06-07] MEDS: ENOXAPARIN 40 MG/0.4 ML SYR SC SCH (11:25)
[2016-06-07] MEDS: TAMSULOSIN HCL 0.4 MG CAP PO SCH (11:25)
[2016-06-07] MEDS: SENNOSIDES/DOCUSATE SODIUM TAB PO SCH ×2 (11:25→20:23)
--- NOTE | 2016-06-07 12:52 | HOSPPROG ---
Hospitalist Progress Note Assessment/Plan: This patient with chronic MS came into the hospital with weakness fatigue and some confusion and a sodium of 117. he was treated with appropriate rate of reversal the hyponatremia and has been with stable sodium since then. Initially there was some improvement in his neurologic status but after several days he worsened again. At that point extensive evaluation was done including to MRI scans lumbar puncture heavy metal screen is neurologic consultation another assessments all unrevealing for a cause. Once again the patient began to improve and by approximately June 01 was making some notable headway. However on approximately June 03 he became much more encephalopathic and with significant paranoid delusions and hallucinations. Over the last 5 days he has continued to be delusional and paranoid although we have finally gotten his hallucinations to settle down. On looking at his picture on June 03 there were 2 issues noted that could potentially be aggravating his delirium. 1 was finding of pyuria in the presence of a Luevano catheter that was placed here for some urine retention. His initial UA at the time of admission was normal but he had significant pyuria at this time. Cultures were done and are growing a strep bovis sub species as well as staff. There was no fever or elevated white blood cell count on blood testing. It is unclear whether this actually represents true infection or whether these are contaminant organisms and he has pyuria from the Luevano catheter. Nonetheless he has been receiving antibiotics during the last several days and is possible that we are treating infection and that is why receiving some improvement. Additionally the patient because of his encephalopathy has not been eating at all and at this point over the last 5 days has entirely refused to trying taking any food or fluid. Because of this I recommended TPN and he in his POA were agreeable to that so he started receiving TPN on June 06. At this point the plan is to continue treating to trying come to better resolution of his encephalopathy. 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 DIAGNOSES: # acute encephalopathy -multifactorial, at this point suspect that possibly urinary tract infection planning significant role -much more alert but confused and hallucinating and paranoid # pyuria with Luevano catheter in place - probable CAUTI, though with a Staph aureus and strep bovis and urine culture unclear if this is truly infection as opposed to pyuria from irritation from Luevano catheter # protein calorie malnutrition related to poor oral intake, suspect vitamin deficiencies as well # mild transaminitis of uncertain significance # hypotension (resolved) # severe hyponatremia - resolved; correction was appropriate # MS, advanced # urinary retention - luevano # htn - holding norvasc now with hypotension # lovenox PLANS: - continue TPN for his malnutrition and refusal to take in food and drink - continue IV Ancef for possible urinary infection with sepsis strep bovis sub group and possible staph - avoid sedating medicines, encourage nutrition intake, try to keep his sleep cycle going - so far apparently some favorable response to Haldol and will use that intermittently as necessary or deemed useful - He will not be able to discharge to long term facility until we have more improvement in mentation and more participation from him in terms of his care. At this point he is telling me that he wants us to treat him and is not interested in palliative care as best I can tell but the assessment is limited - I will review with Infectious Disease, but at some point if he does return to of fully lucid state will have to address the question of performing colonoscopy to see if the strep bovis could potentially be an indicator of colon malignancy. Strep bovis infections or growth in urine cultures are associated with some risk of this malignancy. SUBJECTIVE: During my 1st visit with him today he refused to speak to me or participate in examination with me. However the nurses and his caregiver at the bedside told me that he has had a better morning overall much more interactive, less anxious , still disoriented and delusional. He is however starting to participate in nursing care bit more. He is still refusing to eat or drink anything OBJECTIVE Vitals reviewed: normal without fever Day Porter, my review: sinus rhythm Exam: Wide awake, appears fairly anxious, looking around the room continuously at visual hallucinations, fairly paranoid. Quite disoriented. skin warm dry color ok, No rash or concerning lesions resps not labored lungs clear BSs heart regular abd soft nondistended nontender, bowel sounds present limbs warm, no edema iv site ok Culture data: Urine now growing Staph aureus as well as strep bovis, both sensitive to all drugs tested Objective: Vital Signs Temp Pulse Resp BP Pulse Ox 36.8 C 80 20 139/81 H 95 06/07/16 10:15 06/07/16 10:15 06/07/16 10:15 06/07/16 10:15 06/07/16 10:15 Microbiology 06/03/16 10:35 Urine Culture - Final Urine,Catheterized Staphylococcus Aureus Streptococcus Galloylyticus Laboratory Results 06/07/16 03:05 06/07/16 03:05 06/06/16 06/07/16 06/08/16 06:59 06:59 06:59 Intake Total 2100 1278 Output Total 1550 1999 Balance 550 -722 PT 14.0 SEC (12.0-15.0) 06/07/16 03:05 INR 1.09 (0.83-1.16) 06/07/16 03:05 ICD10 Worksheet Patient Problems: Problems Problem Status Onset Aphasia Acute Bladder obstruction Acute Hyponatremia Acute Multiple sclerosis Acute Cellulitis of leg Active
[2016-06-07] MEDS ORDERED: D50W 25 GM/50 ML VIAL IVP PRN (14:25)
[2016-06-07] MEDS ORDERED: PARAMETERS MISC PRN (14:25)
[2016-06-07] MEDS: INSULIN REGULAR, HUMAN 100 UNIT/1 ML VIAL LOW SC SCH (18:23)
[2016-06-07] MEDS: TPN 1 EA BAG IV SCH (21:10)
[2016-06-08] MEDS: INSULIN REGULAR, HUMAN 100 UNIT/1 ML VIAL LOW SC SCH ×3 (00:30→12:32)
[2016-06-08] MEDS: LEVOTHYROXINE 100 MCG TAB PO SCH (01:41)
[2016-06-08] MEDS: MAGNESIUM OXIDE 400 MG TAB PO SCH ×3 (05:15→15:00)
[2016-06-08 06:01] LABS: % IMMATURE GRANULYOCYTES 0.3 % (0.0-1.1); ABSOLUTE IMMATURE GRANULOCYTES 0.02 10^3/uL (0.00-0.10); ADD DIFF? NO; ADD MORPH? NO; ADD SCAN? NO; ATYPICAL LYMPHOCYTE FLAG 40 (0-99); FRAGMENT RBC FLAG 0 (0-99); HEMATOCRIT 36.7 % (40.0-51.0); HEMOGLOBIN 12.7 g/dL (13.7-17.5); LEFT SHIFT FLG 0 (0-99); LIPEMIA HEMOLYSIS FLAG 90 (0-99); MEAN CELL HEMOGLOBIN 28.3 pg (27.9-34.1); MEAN CELL HEMOGLOBIN CONCENTR. 34.6 g/dL (32.4-36.7); MEAN CELL VOLUME 81.7 fL (81.5-99.8); MEAN PLATELET VOLUME 9.2 fL (8.7-11.7); PLATELET CLUMPS FLAG 0 (0-99); PLATELET COUNT 285 10^3/uL (150-400); RED BLOOD CELL COUNT 4.49 10^6/uL (4.40-6.38)
[2016-06-08 06:25] LABS: INR 1.11 (0.83-1.16); PROTIME(PATIENT) 14.2 SEC (12.0-15.0)
[2016-06-08 06:26] LABS: APTT 32.1 SEC (23.0-38.0)
[2016-06-08 06:46] LABS: POTASSIUM 3.9 mEq/L (3.5-5.2)
[2016-06-08 06:47] LABS: ALANINE AMINOTRANSFERASE 48 IU/L (21-72); ALBUMIN 3.3 g/dL (3.5-5.0); ALKALINE PHOSPHATASE 137 IU/L (38-126); ANION GAP 10 mEq/L (8-16); ASPARTATE AMINOTRANSFERASE 37 IU/L (17-59); BILIRUBIN,TOTAL 0.5 mg/dL (0.1-1.4); CALCIUM 8.7 mg/dL (8.5-10.4); CARBON DIOXIDE 25 mEq/l (22-31); CHLORIDE 107 mEq/L (97-110); CREATININE 0.3 mg/dL (0.7-1.3); GLOMERULAR FILTRATION RATE > 60; GLUCOSE 104 mg/dL (70-100); MAGNESIUM 1.9 mg/dL (1.6-2.3); SODIUM 142 mEq/L (134-144)
[2016-06-08] MEDS: TAMSULOSIN HCL 0.4 MG CAP PO SCH (07:40)
[2016-06-08] MEDS: SENNOSIDES/DOCUSATE SODIUM TAB PO SCH (07:40)
[2016-06-08] MEDS: CYANO/VITAMIN B12 1000 MCG TAB PO SCH (07:40)
[2016-06-08] MEDS: ENOXAPARIN 40 MG/0.4 ML SYR SC SCH (07:40)
[2016-06-08] MEDS ORDERED: HALOPERIDOL LACT 5 MG/ML INJ IVP PRN (13:59)
--- NOTE | 2016-06-08 14:01 | HOSPPROG ---
Hospitalist Progress Note Assessment/Plan: 65-year-old man with advanced MS initially admitted with encephalopathy and hyponatremia with a sodium of 117. With appropriate treatment of his hyponatremia his encephalopathy improved slightly however he had a significant decline after several days. A extensive evaluation was done with the help of Neurology including MRI scan, lumbar puncture and serologic workup all of which were unremarkable and was felt that his encephalopathy was likely related to delirium which has been waxing and waning throughout the rest of his hospitalization. Unfortunately he has been so encephalopathic he has not eaten in several days and was eventually started on TPN. He did have some urinary retention and pyuria and is currently being treated for possible urinary tract infection which may also be contributing to his encephalopathy. Overall there has been no significant improvement. # encephalopathy. Suspect hospital-acquired delirium per Neurology has no obvious etiology has been found will minimize medications and treat possible urinary tract infection. * Continue supportive care including TPN for poor p.o. intake * Patient high risk given the severity and acuity of his encephalopathy # pyuria in the setting of a Luevano catheter, urinary retention advanced MS. Patient with encephalopathy unclear if this is related to his UTI. Reviewed cultures he does have a Staph species as well as a species similar to Enterococcus. Will treat with Unasyn and discontinue the Ancef for better overall coverage. On discharge she can finish on Augmentin. # urinary retention once he has improved mental status can remove Luevano and assess his ability to empty his bladder. # advanced multiple sclerosis. Patient was relatively independent prior to this hospitalization # hyponatremia, resolved # hypotension, resolved # urinary retention has a Luevano in place will remove this once his mental status has improved # history of hypertension his amlodipine was on hold due to hypotension will resume this if his blood pressures continue to be elevated # pancytopenia, stable # DVT prophylaxis currently on Lovenox Subjective: Patient new to me, chart reviewed. Currently minimally responsive however had a lucid moment in the evening per nursing staff. Attempted to call his medical power title attorney and left a message. Objective: Vital Signs Temp Pulse Resp BP Pulse Ox 36.6 C 68 14 150/76 H 93 06/08/16 07:17 06/08/16 07:17 06/08/16 07:17 06/08/16 07:17 06/08/16 07:17 Microbiology 06/03/16 10:35 Urine Culture - Final Urine,Catheterized Staphylococcus Aureus Streptococcus Galloylyticus Laboratory Results 06/08/16 05:50 06/08/16 05:50 06/07/16 06/08/16 06/09/16 05:59 05:59 05:59 Intake Total 1278 2279 Output Total 1999 1474 Balance -722 804 PT 14.2 SEC (12.0-15.0) 06/08/16 05:50 INR 1.11 (0.83-1.16) 06/08/16 05:50 - Physical Exam Constitutional: not in pain, chronically ill appearing Eyes: PERRL, anicteric sclera Ears, Nose, Mouth, Throat: ears appear normal, dry mucous membranes Cardiovascular: regular rate and rhythym, no murmur, rub, or gallop Respiratory: no respiratory distress, no rales or rhonchi, clear to auscultation Gastrointestinal: normoactive bowel sounds, soft, non-tender abdomen Genitourinary: luevano in urethra Skin: warm, normal color Musculoskeletal: generalized weakness Neurologic: No AAOx3 Psychiatric: encephalopathic ICD10 Worksheet Patient Problems: Problems Problem Status Onset Aphasia Acute Bladder obstruction Acute Hyponatremia Acute Multiple sclerosis Acute Cellulitis of leg Active
[2016-06-08] MEDS ORDERED: NS 1,000 ML IV SCH (17:00)
[2016-06-08] MEDS: AMPICILLIN/SULBACTAM 3 GM in NS 100 ML IV SCH (18:14)
[2016-06-08] MEDS: TPN 1 EA BAG IV SCH (21:30)
[2016-06-09] MEDS: AMPICILLIN/SULBACTAM 3 GM in NS 100 ML IV SCH ×5 (00:11→23:38)
[2016-06-09] MEDS: SENNOSIDES/DOCUSATE SODIUM TAB PO SCH ×3 (01:36→22:00)
[2016-06-09] MEDS: MAGNESIUM OXIDE 400 MG TAB PO SCH ×5 (01:36→22:00)
[2016-06-09] MEDS: LEVOTHYROXINE 100 MCG TAB PO SCH (05:10)
[2016-06-09 06:03] LABS: % IMMATURE GRANULYOCYTES 0.5 % (0.0-1.1); ABSOLUTE IMMATURE GRANULOCYTES 0.03 10^3/uL (0.00-0.10); ADD DIFF? NO; ADD MORPH? NO; ADD SCAN? NO; ATYPICAL LYMPHOCYTE FLAG 40 (0-99); FRAGMENT RBC FLAG 0 (0-99); HEMATOCRIT 35.5 % (40.0-51.0); HEMOGLOBIN 12.2 g/dL (13.7-17.5); LEFT SHIFT FLG 0 (0-99); LIPEMIA HEMOLYSIS FLAG 90 (0-99); MEAN CELL HEMOGLOBIN 28.8 pg (27.9-34.1); MEAN CELL HEMOGLOBIN CONCENTR. 34.4 g/dL (32.4-36.7); MEAN CELL VOLUME 83.9 fL (81.5-99.8); MEAN PLATELET VOLUME 9.6 fL (8.7-11.7); PLATELET CLUMPS FLAG 10 (0-99); PLATELET COUNT 258 10^3/uL (150-400); RED BLOOD CELL COUNT 4.23 10^6/uL (4.40-6.38); RED CELL DISTRIBUTION WIDTH 14.3 % (11.5-15.2)
[2016-06-09 06:08] LABS: INR 1.06 (0.83-1.16); PROTIME(PATIENT) 13.7 SEC (12.0-15.0)
[2016-06-09 06:09] LABS: APTT 29.9 SEC (23.0-38.0)
[2016-06-09 06:30] LABS: ALANINE AMINOTRANSFERASE 48 IU/L (21-72); ALBUMIN 3.2 g/dL (3.5-5.0); ALKALINE PHOSPHATASE 134 IU/L (38-126); ANION GAP 7 mEq/L (8-16); ASPARTATE AMINOTRANSFERASE 38 IU/L (17-59); BILIRUBIN,TOTAL 0.5 mg/dL (0.1-1.4); CALCIUM 8.7 mg/dL (8.5-10.4); CARBON DIOXIDE 25 mEq/l (22-31); CHLORIDE 108 mEq/L (97-110); CREATININE 0.4 mg/dL (0.7-1.3); GLOMERULAR FILTRATION RATE > 60; GLUCOSE 99 mg/dL (70-100); MAGNESIUM 2.1 mg/dL (1.6-2.3); POTASSIUM 4.3 mEq/L (3.5-5.2); SODIUM 140 mEq/L (134-144); TOTAL PROTEIN 5.9 g/dL (6.3-8.2)
--- NOTE | 2016-06-09 12:51 | HOSPPROG ---
Hospitalist Progress Note Assessment/Plan: 65-year-old man with advanced MS initially admitted with encephalopathy and hyponatremia with a sodium of 117. With appropriate treatment of his hyponatremia his encephalopathy improved slightly however he had a significant decline after several days. A extensive evaluation was done with the help of Neurology including MRI scan, lumbar puncture and serologic workup all of which were unremarkable and was felt that his encephalopathy was likely related to delirium which has been waxing and waning throughout the rest of his hospitalization. Unfortunately he has been so encephalopathic he has not eaten in several days and was eventually started on TPN. He did have some urinary retention and pyuria and is currently being treated for possible urinary tract infection which may also be contributing to his encephalopathy. Today he is more alert. He is complaining about his positioning, which his friend says he does often when he is feeling at baseline. He still seems to be hallucinating at times and would like to minimize the use of Haldol. # encephalopathy. Suspect hospital-acquired delirium per Neurology has no obvious etiology has been found will minimize medications and treat possible urinary tract infection. * Continue supportive care including TPN for poor p.o. intake * Patient passed his speech evaluation will try to encourage p.o. intake * Patient high risk given the severity and acuity of his encephalopathy # pyuria in the setting of a Luevano catheter, urinary retention advanced MS. Patient with encephalopathy unclear if this is related to his UTI. Reviewed cultures he does have a Staph species as well as a species similar to Enterococcus. Will treat with Unasyn and discontinue the Ancef for better overall coverage. On discharge she can finish on Augmentin. # hallucinations. Not quite as severe as it was several days ago and feel that Haldol may be overkill would like to start him on something on a scheduled daily basis. Discussed with his medical power managing attorney and will start him on Zyprexa a low dose and increase it as tolerated. Would also like to get Psychiatry to see him and recommend medical management for these hallucinations. I feel that he is much more alert today and would be better able to assess by Psychiatry. # urinary retention once he has improved mental status can remove Luevano and assess his ability to empty his bladder. # advanced multiple sclerosis. Patient was relatively independent prior to this hospitalization # hyponatremia, resolved # hypotension, resolved # urinary retention has a Luevano in place will remove this once his mental status has improved # history of hypertension his amlodipine was on hold due to hypotension will resume this if his blood pressures continue to be elevated # pancytopenia, stable # DVT prophylaxis currently on Lovenox Subjective: Complaining about his positioning. Denies specific pain. He appears to have some low level hallucinations going on. Objective: Vital Signs Temp Pulse Resp BP Pulse Ox 36.8 C 65 17 105/54 L 95 06/09/16 08:00 06/09/16 08:00 06/09/16 08:00 06/09/16 08:00 06/09/16 08:00 Laboratory Results 06/09/16 05:45 06/09/16 05:45 06/08/16 06/09/16 06/10/16 05:59 05:59 05:59 Intake Total 2279 1356 Output Total 1475 2150 Balance 804 -794 PT 13.7 SEC (12.0-15.0) 06/09/16 05:45 INR 1.06 (0.83-1.16) 06/09/16 05:45 - Physical Exam Constitutional: chronically ill appearing, uncomfortable Eyes: PERRL, EOMI Ears, Nose, Mouth, Throat: moist mucous membranes, ears appear normal Cardiovascular: regular rate and rhythym, no murmur, rub, or gallop Respiratory: no respiratory distress, no rales or rhonchi, clear to auscultation Gastrointestinal: normoactive bowel sounds, soft, non-tender abdomen, no palpable masses Genitourinary: luevano in urethra Skin: warm Musculoskeletal: generalized weakness Neurologic: No AAOx3, No facial droop Psychiatric: interacting appropriately, encephalopathic ICD10 Worksheet Patient Problems: Problems Problem Status Onset Aphasia Acute Multiple sclerosis Acute Cellulitis of leg Active Bladder obstruction Acute Hyponatremia Acute
[2016-06-09] MEDS: CYANO/VITAMIN B12 1000 MCG TAB PO SCH (14:55)
[2016-06-09] MEDS: TAMSULOSIN HCL 0.4 MG CAP PO SCH (14:56)
[2016-06-09] MEDS: ENOXAPARIN 40 MG/0.4 ML SYR SC SCH (15:32)
[2016-06-09] MEDS: TPN 1 EA BAG IV SCH (20:41)
[2016-06-09] MEDS ORDERED: OLANZapine DISINTEGR 5 MG TAB PO SCH ×2 (21:00)
[2016-06-10] MEDS: LEVOTHYROXINE 100 MCG TAB PO SCH (04:14)
[2016-06-10 04:15] LABS: % IMMATURE GRANULYOCYTES 0.4 % (0.0-1.1); ABSOLUTE IMMATURE GRANULOCYTES 0.02 10^3/uL (0.00-0.10); ADD DIFF? NO; ADD MORPH? NO; ADD SCAN? NO; ATYPICAL LYMPHOCYTE FLAG 50 (0-99); FRAGMENT RBC FLAG 0 (0-99); HEMATOCRIT 34.6 % (40.0-51.0); HEMOGLOBIN 11.7 g/dL (13.7-17.5); LEFT SHIFT FLG 0 (0-99); LIPEMIA HEMOLYSIS FLAG 90 (0-99); MEAN CELL HEMOGLOBIN 28.2 pg (27.9-34.1); MEAN CELL HEMOGLOBIN CONCENTR. 33.8 g/dL (32.4-36.7); MEAN CELL VOLUME 83.4 fL (81.5-99.8); MEAN PLATELET VOLUME 9.5 fL (8.7-11.7); PLATELET CLUMPS FLAG 0 (0-99); PLATELET COUNT 251 10^3/uL (150-400); RED BLOOD CELL COUNT 4.15 10^6/uL (4.40-6.38); RED CELL DISTRIBUTION WIDTH 14.5 % (11.5-15.2)
[2016-06-10 04:20] LABS: INR 1.11 (0.83-1.16); PROTIME(PATIENT) 14.2 SEC (12.0-15.0)
[2016-06-10 04:38] LABS: ALANINE AMINOTRANSFERASE 63 IU/L (21-72); ALBUMIN 2.8 g/dL (3.5-5.0); ALKALINE PHOSPHATASE 137 IU/L (38-126); ANION GAP 8 mEq/L (8-16); ASPARTATE AMINOTRANSFERASE 46 IU/L (17-59); BILIRUBIN,TOTAL 0.4 mg/dL (0.1-1.4); CALCIUM 8.6 mg/dL (8.5-10.4); CARBON DIOXIDE 23 mEq/l (22-31); CHLORIDE 109 mEq/L (97-110); CREATININE 0.4 mg/dL (0.7-1.3); GLOMERULAR FILTRATION RATE > 60; GLUCOSE 84 mg/dL (70-100); MAGNESIUM 2.1 mg/dL (1.6-2.3); POTASSIUM 4.2 mEq/L (3.5-5.2); SODIUM 140 mEq/L (134-144); TOTAL PROTEIN 5.6 g/dL (6.3-8.2); TRIGLYCERIDE 62 mg/dL (40-150)
[2016-06-10] MEDS: AMPICILLIN/SULBACTAM 3 GM in NS 100 ML IV SCH ×3 (05:25→18:14)
[2016-06-10] MEDS: MAGNESIUM OXIDE 400 MG TAB PO SCH ×4 (05:34→21:19)
[2016-06-10] MEDS ORDERED: OLANZapine DISINTEGR 5 MG TAB PO SCH (10:38)
--- NOTE | 2016-06-10 10:42 | HOSPPROG ---
Hospitalist Progress Note Assessment/Plan: 65-year-old man with advanced MS initially admitted with encephalopathy and hyponatremia with a sodium of 117. With appropriate treatment of his hyponatremia his encephalopathy improved slightly however he had a significant decline after several days. A extensive evaluation was done with the help of Neurology including MRI scan, lumbar puncture and serologic workup all of which were unremarkable and was felt that his encephalopathy was likely related to delirium which has been waxing and waning throughout the rest of his hospitalization. Unfortunately he has been so encephalopathic he has not eaten in several days and was eventually started on TPN. He did have some urinary retention and pyuria and is currently being treated for possible urinary tract infection which may also be contributing to his encephalopathy. Today he is more alert. He is complaining about his positioning, which his friend says he does often when he is feeling at baseline. He still seems to be hallucinating at times and would like to minimize the use of Haldol. # encephalopathy. Suspect hospital-acquired delirium per Neurology has no obvious etiology has been found will minimize medications and treat possible urinary tract infection. * Continue supportive care including TPN for poor p.o. intake * Patient passed his speech evaluation will try to encourage p.o. intake * Patient high risk given the severity and acuity of his encephalopathy # pyuria in the setting of a Hurst catheter, urinary retention advanced MS. Patient with encephalopathy unclear if this is related to his UTI. Reviewed cultures he does have a Staph species as well as a species similar to Enterococcus. Will treat with Unasyn and discontinue the Ancef for better overall coverage. On discharge she can finish on Augmentin. # hallucinations. Having active hallucinations this morning when I went to see him. Did not sleep well last night despite getting 2.5 mg of Zyprexa. * Increased Zyprexa 2.5 in the a.m. 5 mg in the p.m. * Psychiatry consult to help medication management and control his hallucinations and delirium # urinary retention once he has improved mental status can remove Hurst and assess his ability to empty his bladder. # advanced multiple sclerosis. Patient was relatively independent prior to this hospitalization # hyponatremia, resolved # hypotension, resolved # urinary retention has a Hurst in place will remove this once his mental status has improved # history of hypertension his amlodipine was on hold due to hypotension will resume this if his blood pressures continue to be elevated # pancytopenia, stable # DVT prophylaxis currently on Lovenox Subjective: Patient able to answer my questions however was also talking to nobody and appeared to be having active hallucinations Objective: Vital Signs Temp Pulse Resp BP Pulse Ox 36.3 C 61 14 98/46 L 96 06/10/16 06:57 06/10/16 06:57 06/10/16 06:57 06/10/16 06:57 06/10/16 06:57 Laboratory Results 06/10/16 04:00 06/10/16 04:00 06/09/16 06/10/16 06/11/16 05:59 05:59 05:59 Intake Total 1356 3322 Output Total 2150 1425 Balance -794 1897 PT 14.2 SEC (12.0-15.0) 06/10/16 04:00 INR 1.11 (0.83-1.16) 06/10/16 04:00 - Physical Exam Constitutional: not in pain, chronically ill appearing Eyes: PERRL Ears, Nose, Mouth, Throat: hearing normal Cardiovascular: regular rate and rhythym, No edema Respiratory: no respiratory distress, clear to auscultation Gastrointestinal: normoactive bowel sounds, soft, non-tender abdomen Skin: warm, normal color Musculoskeletal: no joint effusions Neurologic: No AAOx3 Psychiatric: encephalopathic, No agitated ICD10 Worksheet Patient Problems: Problems Problem Status Onset Aphasia Acute Multiple sclerosis Acute Cellulitis of leg Active Bladder obstruction Acute Hyponatremia Acute
[2016-06-10] MEDS: NS 1,000 ML IV SCH (12:00)
[2016-06-10] MEDS: ENOXAPARIN 40 MG/0.4 ML SYR SC SCH (13:05)
[2016-06-10] MEDS: OLANZapine DISINTEGR 5 MG TAB PO SCH ×2 (13:30→21:20)
[2016-06-10] MEDS: TAMSULOSIN HCL 0.4 MG CAP PO SCH (15:51)
[2016-06-10] MEDS: BISACODYL 10 MG SUPP PR PRN (15:54)
[2016-06-10] MEDS: SENNOSIDES/DOCUSATE SODIUM TAB PO SCH ×2 (15:54→21:20)
[2016-06-10] MEDS: CYANO/VITAMIN B12 1000 MCG TAB PO SCH (15:54)
[2016-06-10] MEDS: TPN W/ FAMOTIDINE 1 EA BAG IV SCH (20:54)
[2016-06-11] MEDS: AMPICILLIN/SULBACTAM 3 GM in NS 100 ML IV SCH ×4 (00:02→18:18)
[2016-06-11] MEDS: LEVOTHYROXINE 100 MCG TAB PO SCH (05:57)
[2016-06-11] MEDS: MAGNESIUM OXIDE 400 MG TAB PO SCH ×4 (07:11→20:19)
[2016-06-11] MEDS: OLANZapine DISINTEGR 5 MG TAB PO SCH ×2 (10:03→20:19)
[2016-06-11] MEDS: TAMSULOSIN HCL 0.4 MG CAP PO SCH (10:03)
[2016-06-11] MEDS: SENNOSIDES/DOCUSATE SODIUM TAB PO SCH ×2 (10:04→20:18)
[2016-06-11] MEDS: ENOXAPARIN 40 MG/0.4 ML SYR SC SCH (10:04)
[2016-06-11] MEDS: CYANO/VITAMIN B12 1000 MCG TAB PO SCH (10:04)
--- NOTE | 2016-06-11 12:47 | HOSPPROG ---
Hospitalist Progress Note Assessment/Plan: 65-year-old man with advanced MS initially admitted with encephalopathy and hyponatremia with a sodium of 117. With appropriate treatment of his hyponatremia his encephalopathy improved slightly however he had a significant decline after several days. A extensive evaluation was done with the help of Neurology including MRI scan, lumbar puncture and serologic workup all of which were unremarkable and was felt that his encephalopathy was likely related to delirium which has been waxing and waning throughout the rest of his hospitalization. Unfortunately he has been so encephalopathic he has not eaten in several days and was eventually started on TPN. He did have some urinary retention and pyuria and is currently being treated for possible urinary tract infection which may also be contributing to his encephalopathy. Pt continues to be more alert, but appears to be hallucinating. Occasionally does interact with friends. # encephalopathy. Suspect hospital-acquired delirium per Neurology has no obvious etiology has been found will minimize medications and treat possible urinary tract infection. He has not had significant improvement, he continues to decline food and will only drink water. He has been on TPN for several days without clear improvement. Will set up a palliative care meeting to discuss care plans for the future as I have not sure Glenn would want long-term feeding if he is not improving. * Continue supportive care including TPN but clarify length of TPN with palliative care meeting * Patient passed his speech evaluation and can't eat but has refused to take anything p.o. * Patient high risk given the severity and acuity of his encephalopathy # pyuria in the setting of a Luevano catheter, urinary retention advanced MS. Patient with encephalopathy unclear if this is related to his UTI. Reviewed cultures he does have a Staph species as well as a species similar to Enterococcus. Will treat with Unasyn and discontinue the Ancef for better overall coverage. On discharge she can finish on Augmentin. # hallucinations. Appears to be Having active hallucinations this morning when I went to see him. Seem to do better with increased dose of Zyprexa at night. Will continue current dosing and await psychiatry consult. # urinary retention once he has improved mental status can remove Luevano and assess his ability to empty his bladder. # advanced multiple sclerosis. Patient was relatively independent prior to this hospitalization # hyponatremia, resolved # hypotension, resolved # urinary retention has a Luevano in place will remove this once his mental status has improved # history of hypertension his amlodipine was on hold due to hypotension will resume this if his blood pressures continue to be elevated # pancytopenia, stable # DVT prophylaxis currently on Lovenox disposition: Patient with acute encephalopathy of unclear etiology, consistent with delirium which is not improved over time. Currently on TPN without improvement with supportive care. Talked with medical power of workers compensation attorney, Alva , and recommend a palliative care meeting to be scheduled to discuss care plans. The patient has talked with other caregivers in friends about wanting to go home, we are also awaiting a psychiatry consult to help with medical management of his delirium and hallucinations Subjective: Patient talks incessantly unclear if he is talking to me are not however occasionally does answer point questions. Objective: Vital Signs Temp Pulse Resp BP Pulse Ox 36.3 C 60 14 110/60 93 06/11/16 07:31 06/11/16 07:31 06/11/16 07:31 06/11/16 07:31 06/11/16 07:31 Laboratory Results 06/10/16 04:00 06/10/16 04:00 06/10/16 06/11/16 06/12/16 05:59 05:59 05:59 Intake Total 3322 2088 Output Total 1425 2450 700 Balance 1897 -362 -700 PT 14.2 SEC (12.0-15.0) 06/10/16 04:00 INR 1.11 (0.83-1.16) 06/10/16 04:00 - Physical Exam Constitutional: chronically ill appearing, uncomfortable Eyes: PERRL, anicteric sclera Ears, Nose, Mouth, Throat: moist mucous membranes Cardiovascular: regular rate and rhythym, no murmur, rub, or gallop Respiratory: no respiratory distress, clear to auscultation Gastrointestinal: normoactive bowel sounds, soft, non-tender abdomen Genitourinary: luevano in urethra Skin: warm Musculoskeletal: generalized weakness Neurologic: No AAOx3 Psychiatric: encephalopathic ICD10 Worksheet Patient Problems: Problems Problem Status Onset Aphasia Acute Bladder obstruction Acute Hyponatremia Acute Multiple sclerosis Acute Cellulitis of leg Active
[2016-06-11 14:35] LABS: HEMATOCRIT 35.1 % (40.0-51.0); HEMOGLOBIN 11.7 g/dL (13.7-17.5); MEAN CELL HEMOGLOBIN 30.5 pg (27.9-34.1); MEAN CELL HEMOGLOBIN CONCENTR. 33.3 g/dL (32.4-36.7); MEAN CELL VOLUME 91.4 fL (81.5-99.8); RED BLOOD CELL COUNT 3.84 10^6/uL (4.40-6.38); RED CELL DISTRIBUTION WIDTH 14.9 % (11.5-15.2)
[2016-06-11 16:27] LABS: % IMMATURE GRANULYOCYTES 0.4 % (0.0-1.1); ABSOLUTE IMMATURE GRANULOCYTES 0.02 10^3/uL (0.00-0.10); ADD DIFF? NO; ADD MORPH? NO; ADD SCAN? NO; ATYPICAL LYMPHOCYTE FLAG 50 (0-99); FRAGMENT RBC FLAG 0 (0-99); HEMATOCRIT 34.5 % (40.0-51.0); HEMOGLOBIN 11.8 g/dL (13.7-17.5); LEFT SHIFT FLG 0 (0-99); LIPEMIA HEMOLYSIS FLAG 90 (0-99); MEAN CELL HEMOGLOBIN 28.6 pg (27.9-34.1); MEAN CELL HEMOGLOBIN CONCENTR. 34.2 g/dL (32.4-36.7); MEAN CELL VOLUME 83.7 fL (81.5-99.8); MEAN PLATELET VOLUME 9.7 fL (8.7-11.7); PLATELET CLUMPS FLAG 0 (0-99); PLATELET COUNT 242 10^3/uL (150-400); RED BLOOD CELL COUNT 4.12 10^6/uL (4.40-6.38); RED CELL DISTRIBUTION WIDTH 14.5 % (11.5-15.2)
[2016-06-11 16:43] LABS: ANION GAP 9 mEq/L (8-16); CALCIUM 8.9 mg/dL (8.5-10.4); CARBON DIOXIDE 26 mEq/l (22-31); CHLORIDE 107 mEq/L (97-110); CREATININE 0.5 mg/dL (0.7-1.3); GLOMERULAR FILTRATION RATE > 60; GLUCOSE 78 mg/dL (70-100); POTASSIUM 4.3 mEq/L (3.5-5.2); SODIUM 142 mEq/L (134-144)
[2016-06-11] MEDS: NS 1,000 ML IV SCH (20:19)
[2016-06-11] MEDS: TPN W/ FAMOTIDINE 1 EA BAG IV SCH (20:19)
[2016-06-12] MEDS: AMPICILLIN/SULBACTAM 3 GM in NS 100 ML IV SCH ×5 (00:34→23:45)
[2016-06-12] MEDS: MAGNESIUM OXIDE 400 MG TAB PO SCH ×4 (05:17→22:21)
[2016-06-12] MEDS: LEVOTHYROXINE 100 MCG TAB PO SCH (05:18)
[2016-06-12 06:06] LABS: ANION GAP 7 mEq/L (8-16); CALCIUM 8.9 mg/dL (8.5-10.4); CARBON DIOXIDE 26 mEq/l (22-31); CHLORIDE 109 mEq/L (97-110); CREATININE 0.5 mg/dL (0.7-1.3); GLOMERULAR FILTRATION RATE > 60; GLUCOSE 75 mg/dL (70-100); POTASSIUM 4.4 mEq/L (3.5-5.2); SODIUM 142 mEq/L (134-144)
[2016-06-12] MEDS: ENOXAPARIN 40 MG/0.4 ML SYR SC SCH (08:52)
[2016-06-12] MEDS: TAMSULOSIN HCL 0.4 MG CAP PO SCH (08:53)
[2016-06-12] MEDS: SENNOSIDES/DOCUSATE SODIUM TAB PO SCH ×2 (08:53→20:18)
[2016-06-12] MEDS: CYANO/VITAMIN B12 1000 MCG TAB PO SCH (08:53)
[2016-06-12] MEDS: OLANZapine DISINTEGR 5 MG TAB PO SCH ×2 (08:53→22:21)
--- NOTE | 2016-06-12 12:00 | HOSPPROG ---
Hospitalist Progress Note Assessment/Plan: Assessment/Plan: 65-year-old man with advanced MS initially admitted with encephalopathy and hyponatremia with a sodium of 117. With appropriate treatment of his hyponatremia his encephalopathy improved slightly however he had a significant decline after several days. A extensive evaluation was done with the help of Neurology including MRI scan, lumbar puncture and serologic workup all of which were unremarkable and was felt that his encephalopathy was likely related to delirium which has been waxing and waning throughout the rest of his hospitalization. Unfortunately he has been so encephalopathic he has not eaten in several days and was eventually started on TPN. He did have some urinary retention and pyuria and is currently being treated for possible urinary tract infection which may also be contributing to his encephalopathy. Pt continues to be more alert, but appears to be hallucinating intermittently. Occasionally does interact with friends. # encephalopathy. Suspect hospital-acquired delirium per Neurology has no obvious etiology has been found will minimize medications and treat possible urinary tract infection. * Continue supportive care including TPN: He is starting to eat and would like to wean off TPN * Patient passed his speech evaluation * Patient high risk given the severity and acuity of his encephalopathy # UTI and pyuria in the setting of a Hurst catheter, urinary retention advanced MS. Patient with encephalopathy unclear if this is related to his UTI. Reviewed cultures he does have a Staph species as well as a species similar to Enterococcus. Will treat with Unasyn and discontinue the Ancef for better overall coverage. On discharge he can finish on Augmentin. # Visual hallucinations. Improving on Zyprexa. Will continue current dosing and await psychiatry consult. # urinary retention once he has improved mental status can remove Hurst and assess his ability to empty his bladder. # advanced multiple sclerosis. Patient was relatively independent prior to this hospitalization # hyponatremia, resolved # hypotension, resolved # urinary retention has a Hurst in place will remove this once his mental status has improved # history of hypertension his amlodipine was on hold due to hypotension will resume this if his blood pressures continue to be elevated # pancytopenia, stable # DVT prophylaxis currently on Lovenox Plan: -Seen by Palliative Care today, discussed his care in person with the Palliative Care team -D/C Hurst -Await Psych consult, although cognition appears to be improving -D/C Hurst -Cont Abx -Dispo: will be ready for discharge as early as tomorrow. We need to wean off TPN. Subjective: Denies visual hallucinations. Somewhat confused. Objective: Vital Signs Temp Pulse Resp BP Pulse Ox 36.4 C 71 16 128/78 H 95 06/12/16 04:00 06/12/16 08:00 06/12/16 08:00 06/12/16 08:00 06/12/16 08:00 Laboratory Results 06/11/16 16:23 06/12/16 05:05 06/11/16 06/12/16 06/13/16 05:59 05:59 05:59 Intake Total 2088 5047 Output Total 2450 2850 1100 Balance -362 2197 -1100 PT 14.2 SEC (12.0-15.0) 06/10/16 04:00 INR 1.11 (0.83-1.16) 06/10/16 04:00 - Time Spent With Patient Time Spent with Patient: greater than 35 minutes Time Spent with Patient: Greater than 35 minutes spent on this patients care, greater than 50% of time spent counseling, educating, and coordinating care regarding the above mentioned plan. - Physical Exam Constitutional: no apparent distress, appears nourished Eyes: PERRL, anicteric sclera, EOMI Ears, Nose, Mouth, Throat: moist mucous membranes, hearing normal, ears appear normal Cardiovascular: regular rate and rhythym, no murmur, rub, or gallop Respiratory: no respiratory distress, no rales or rhonchi, clear to auscultation Gastrointestinal: normoactive bowel sounds, soft, non-tender abdomen, no palpable masses Genitourinary: no bladder fullness Skin: warm, normal color Neurologic: No CN II-XII Intact Psychiatric: poor insight, poor judgement, poor memory ICD10 Worksheet Patient Problems: Problems Problem Status Onset Aphasia Acute Bladder obstruction Acute Hyponatremia Acute Multiple sclerosis Acute Cellulitis of leg Active
[2016-06-12] MEDS: NS 1,000 ML IV SCH (12:29)
--- NOTE | 2016-06-12 19:38 | BCON ---
[f rep st] BEHAVIORAL HEALTH CONSULTATION PSYCHIATRIC CONSULTATION CONSULTATIVE REQUEST: Psychiatry was asked to evaluate the patient for feedback on medication management, and any further input on possible etiologies for his extended coourse of Delerium PATIENT IDENTIFICATION; The patient presents as a 65-year-old, single, white male, who lives with the support of personal caregivers, as he has chronic progressive multiple sclerosis; The patient was admitted via the [facility] Emergency Room to the [address] [place] [address] on 05/20 for complaints of a progressive confusional state, and, more acutely, the absence of a bowel movement x4 days, along with complaints of abdominal pain surfacing 24 hours prior to his admission. His confusional state included word-finding problems, mike confusion, tangential thinking, and complaints of seeing "purple spots." HISTORY OF PRESENT ILLNESS/COURSE UPDATE: The record shows, and patient affirms today, that he has been on a deteriorating case, with respect to his cognition since awakening from general anesthesia applied during a hernia repair 4-6 weeks ago. Prior to that time, the patient was apparently at his well baseline, which included consistent alertness, lucidity, reportedly full cognitive capability. In the emergency room, he was seen by Neurology, who initially apparently suspected a flare of his multiple sclerosis; note not found in the record. On direct exam in the emergency room, there were no focal findings reported by the evaluating ED physician including the mental status; patient described as cooperative, and alert and oriented x4. His abdomen was found to be distended and firm, but with normoactive sounds. An abdominal CT was done, which evidenced a distended bladder, along with multiple bladder and renal calculi, but no focal acuity. Lab screens were remarkable for a sodium of 117, elevated LFTs. The patient did receive Ativan 1 mg by IV push, as well as 1 mg p.o., although reasons for why patient was receiving Ativan are not clear. The patient was admitted to the PCU for further workup and management. Neurology followed up and saw the patient in consultation on 05/22, noting, on direct exam, significant memory slippage, neologisms, intermittent visual hallucinations, and intermittent evidence of expressive aphasia. Impression at that time was of a delirium, with likely causal elements associated with his hyponatremia, and a question of a flare of his multiple sclerosis. Over time, since admission, the patient's mental status has been repeatedly described as "waxing and waning." He has been worked up thoroughly, and no clear-cut etiology has been identified. An MRI of his brain was done on 05/24, which showed no acute changes, and white matter lesions consistent with multiple sclerosis. MRI was repeated on 05/31 with no change. An EEG was done on 05/31 , which was described as within normal limits, with no evidence for epileptogenic foci. The patient's sodium has normalized, and workup has ruled out any other identifiable etiologies. The patient had stopped taking sufficient p.o., and was temporarily placed on TPN on 06/10. He has also been treated for a possible UTI earlier in his course. Neurology last saw the patient on 05/31, and continued to state no definitive etiology has been identified. MENTAL STATUS EXAM: On direct exam today, the patient presents as alert, oriented x2-1/2. The patient is calm, cooperative, and conversant. He makes good eye contact in the session. Patient's mood state is mildly dysphoric, but otherwise is affectively stable. Patient's thought process is lucid. He is not able to remember much of his hospital course, but does remember and affirms that he experienced his cognition deteriorating after the hernia surgery. He states remembering that he was well functioning before undergoing general anesthesia for the referenced procedure. He went on with organized disclosure of information about his life history, including the fact of having recurrent incidents of trauma during childhood within a dysfunctional family of origin, particularly in the relationship with his father. I purposely did not ask him to elaborate details, which he said he agreed with. He states he began to experience breakthrough nightmares occurring sporadically while in the latter years of his service time in the [employer] between ages 18 and 23. He suggested that he developed increasing breakthrough nightmares, as well as flashbacks in a progressive fashion through his 20s and 30s. He also stated that he was diagnosed with multiple sclerosis on or around the age of 35, and was able to describe progression of the multiple sclerosis in a reasonably accurate fashion. He has had extensive outpatient psychiatric treatment history for his diagnosed posttraumatic stress disorder, including verbal therapy, as well as extended experience with EMDR. These outpatient treatment activities continue through to the present. It is unclear whether he has had psychoactive medication prescribed for any length of time, but he is decidedly resistant to using psychoactive medication. He was also able to accurately describe the discharge planning currently in process, and understands he will be stepped down to a rehabilitation setting, but is hopeful of returning back to his personal and community life, as well as resuming his medical and psychiatric community treatments. I did explain that he is currently taking Zyprexa which has been helpful in calming and restoring his cognitive capacities ; he understood Zyprexa is a psychiatric/neurologic medication used to treat deleriums and is agreeable to continuing his compliance in taking it. IMPRESSION: 1. Delirium, progressive onset over 6-plus weeks following his surgery for a hiatal hernia and the applied general anesthesia for the surgical procedure; etiologies for delirium unclear, but clearly, more acutely, his hyponatremia was a factor. I cannot exclude vulnerability to delirium associated with his progressive multiple sclerosis, as well as a stress-reactive vulnerability, given his underlying PTSD condition superimposed on his underlying characterologic structure.. 2. Posttraumatic stress disorder, currently in a relative state of remission, but cannot rule out its emerging and active phase at some point in patient's preadmission and postadmission course, contributing to the overall delirium- like presentation. RECOMMENDATIONS: 1. He has been on Zyprexa 2.5 mg twice daily and 5 mg at bedtime; this has been useful as an antipsychotic which is used for acute deliriums to endpoint goals of resolving agitation, improving thought organization, promoting diminished anxiety and sleep; I would continue the patient on this medication given his significant improvement on presentation today, and would not suggest any other psychoactive medications be added. This medication can be tapered judiciously, as patient sustains his recovery and restabilization, and eventually he would likely wean off completely. 2. The patient's psychiatric syndrome and treatment history would be useful to affirm with collateral contacts. The patient did give me permission to talk to 1 of 2 close friends, and I will attempt to make the contact to broaden the database; would suggest the discharge planning team identify his community psychiatric providers, and obtain further data, as well as coordinate discharge planning with the psychiatric and medical providers. Thank you for this interesting consultation. Any questions, I can be reached at [phone]. /[id number]/MODL MTDD
--- NOTE | 2016-06-12 20:33 | PDPCPN ---
Palliative Care Progress Note Assessment/Plan: Referring provider: Reason for consult: Complex medical decision making Symptom control HPI: Misha Aguilar is a 65 yo male with PMH advanced MS and hypothyroidism admitted to the hospital with alerted mental status and hyponatremia. Hyponatremia correct but continues to have waxing/waning mental status. Being treated for possible UTI. Mentation has improved but appetite continues to be very poor on TPN. palliative care consulted for complex medical decision making. Met with Misha at the bedside with AGUILAR Geller and over the phone Robyn. 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 He has a very strict routine of work and normal life. He has had a traumatic past with long standing PTSD starting in childhood and extending to his time in the [employer]. His confusion was on/ off during the discussion but he understood why he was in the hospital and what he needs in order to get home. We spoke about the worry of not eating and what repercussions that may happen because of this. He is very motivated to improve and get better. He has very clear plans for future goals that he wants to do. His MDPOA's support him in this process and understand the risks of not improving with someone with advanced MS. Plan is to go to rehab at discharge in hopes of improving strength to get back home. The caregivers will help with maintaining his normal routine including his food. Spent > 60 minutes in direct face to face contact, counseling, and coordination of care. Assessment: Physical: - Pain: none - tylenol PRN - Poor appetite: - encourage normal routines - caregivers to help prepare meals from home - constipation - on bowel regimen PRN Emotional/psychological: Acute encephalopathy: delirium - on zyprexa scheduled - psych consulted - maintain normal routines Advanced Care Planning: Is patient decisional?: No Code Status: Full MD POA: Robyn and Duyen are MDPOA. Plan: He has clear plans for future art projects and hopes to improve strength to be back at home. Subjective: I'm ok Objective: Social History: No local family. 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 Medication list reviewed ROS: General: fatigue, weakness, weight loss ENT: metallic taste Resp: negative GI: poor appetite : retention MS: negative Skin: negative Neuro: negative Psych: hallucinations Functional assessment: PPS: 40% Functional status: dependent on ADLs, IADLs Vital Signs Temp Pulse Resp BP Pulse Ox 36.4 C 62 14 98/54 L 95 06/12/16 20:16 06/12/16 20:16 06/12/16 20:16 06/12/16 20:16 06/12/16 20:16 Laboratory Results 06/11/16 16:23 06/12/16 05:05 06/11/16 06/12/16 06/13/16 05:59 05:59 05:59 Intake Total 2083 5047 730 Output Total 2450 2850 1750 Balance -362 2197 -1020 PT 14.2 SEC (12.0-15.0) 06/10/16 04:00 INR 1.11 (0.83-1.16) 06/10/16 04:00 Physical Exam - Physical Exam General Appearance: alert, no apparent distress Respiratory: No respiratory distress, No accessory muscle use Skin: normal color, warm/dry Extremities: No pedal edema Neuro/Psych: alert, disoriented to time, other (confused) ICD10 Worksheet Patient Problems: Problems Problem Status Onset Aphasia Acute Bladder obstruction Acute Hyponatremia Acute Multiple sclerosis Acute Palliative care encounter Acute Cellulitis of leg Active - ICD10 Problem Qualifiers (1) Palliative care encounter
[2016-06-12] MEDS: TPN W/ FAMOTIDINE 1 EA BAG IV SCH (21:30)
[2016-06-13] MEDS: LEVOTHYROXINE 100 MCG TAB PO SCH (05:05)
[2016-06-13] MEDS: NS 1,000 ML IV SCH ×2 (05:10→17:28)
[2016-06-13] MEDS: MAGNESIUM OXIDE 400 MG TAB PO SCH ×4 (05:17→19:47)
[2016-06-13] MEDS: AMPICILLIN/SULBACTAM 3 GM in NS 100 ML IV SCH ×4 (05:30→23:02)
[2016-06-13] MEDS: SENNOSIDES/DOCUSATE SODIUM TAB PO SCH ×2 (07:31→20:08)
--- NOTE | 2016-06-13 09:01 | HOSPPROG ---
Hospitalist Progress Note Assessment/Plan: # acute encephalopathy - this has improved albeit slowly over weeks - likely multifactorial in setting of advanced MS, UTI, hospital acquired, hypoNa - appreciate neuro and psych consults # visual hallucinations - zyprexa # severe hyponatremia - resolved; correction was appropriate # UTI d/t stap a and strep galloylyticus - unasyn D#08/14 # MS, advanced # urinary retention - luevano - will try to dc today # htn - not needing anti-htn's # anemia - stable # nutrition - TPN; not taking much PO # lovenox ## chart reviewed; micro reviewed Subjective: complains of being cold Objective: Vital Signs Temp Pulse Resp BP Pulse Ox 36.4 C 63 16 115/65 95 06/13/16 04:00 06/13/16 04:00 06/13/16 04:00 06/13/16 04:00 06/13/16 04:00 Laboratory Results 06/11/16 16:23 06/12/16 05:05 06/12/16 06/13/16 06/14/16 05:59 05:59 05:59 Intake Total 5047 2314 Output Total 2850 3550 Balance 2197 -1236 PT 14.2 SEC (12.0-15.0) 06/10/16 04:00 INR 1.11 (0.83-1.16) 06/10/16 04:00 Physical Exam: sleeping, has covers pulled up over his head - Physical Exam Cardiovascular: regular rate and rhythym, no murmur, rub, or gallop Respiratory: no respiratory distress, no rales or rhonchi, clear to auscultation Gastrointestinal: normoactive bowel sounds, soft, non-tender abdomen, no palpable masses ICD10 Worksheet Patient Problems: Problems Problem Status Onset Palliative care encounter Acute Aphasia Acute Multiple sclerosis Acute Cellulitis of leg Active Bladder obstruction Acute Hyponatremia Acute
[2016-06-13] MEDS: TAMSULOSIN HCL 0.4 MG CAP PO SCH (11:33)
[2016-06-13] MEDS: OLANZapine DISINTEGR 5 MG TAB PO SCH ×2 (11:33→19:47)
[2016-06-13] MEDS: CYANO/VITAMIN B12 1000 MCG TAB PO SCH (11:34)
[2016-06-13] MEDS: ENOXAPARIN 40 MG/0.4 ML SYR SC SCH (11:37)
[2016-06-13] MEDS: TPN W/ FAMOTIDINE 1 EA BAG IV SCH (22:53)
[2016-06-14] MEDS ORDERED: LIDOCAINE 2% JELLY 20 ML (UROJECT) ONE (03:37)
[2016-06-14] MEDS: MAGNESIUM OXIDE 400 MG TAB PO SCH ×4 (05:59→20:54)
[2016-06-14] MEDS: LEVOTHYROXINE 100 MCG TAB PO SCH (05:59)
[2016-06-14] MEDS: AMPICILLIN/SULBACTAM 3 GM in NS 100 ML IV SCH ×2 (05:59→11:25)
[2016-06-14 06:06] LABS: ANION GAP 6 mEq/L (8-16); CALCIUM 8.8 mg/dL (8.5-10.4); CARBON DIOXIDE 25 mEq/l (22-31); CHLORIDE 110 mEq/L (97-110); CREATININE 0.4 mg/dL (0.7-1.3); GLOMERULAR FILTRATION RATE > 60; GLUCOSE 92 mg/dL (70-100); SODIUM 141 mEq/L (134-144)
[2016-06-14] MEDS: SENNOSIDES/DOCUSATE SODIUM TAB PO SCH ×2 (10:34→20:54)
[2016-06-14] MEDS: CYANO/VITAMIN B12 1000 MCG TAB PO SCH ×2 (10:34→11:25)
[2016-06-14] MEDS: TAMSULOSIN HCL 0.4 MG CAP PO SCH (11:25)
[2016-06-14] MEDS: NS 1,000 ML IV SCH (11:25)
[2016-06-14] MEDS: OLANZapine DISINTEGR 5 MG TAB PO SCH ×2 (11:25→20:54)
[2016-06-14] MEDS: ENOXAPARIN 40 MG/0.4 ML SYR SC SCH (11:36)
--- NOTE | 2016-06-14 15:00 | HOSPPROG ---
Hospitalist Progress Note Assessment/Plan: 65-year-old man with advanced MS initially admitted with encephalopathy and hyponatremia with a sodium of 117. With appropriate treatment of his hyponatremia his encephalopathy improved slightly however he had a significant decline after several days. A extensive evaluation was done with the help of Neurology including MRI scan, lumbar puncture and serologic workup all of which were unremarkable and was felt that his encephalopathy was likely related to delirium which has been waxing and waning throughout the rest of his hospitalization. Unfortunately he has been so encephalopathic he has not eaten in several days and was eventually started on TPN. He did have some urinary retention and pyuria and is currently being treated for possible urinary tract infection which may also be contributing to his encephalopathy. # acute encephalopathy - this has improved albeit slowly over weeks - likely multifactorial in setting of advanced MS, UTI, hospital acquired, hypoNa -appreciate neuro and psych consults # visual hallucinations - zyprexa/non further # severe hyponatremia - resolved # UTI - unasyn D#09/13 - dc today # MS, advanced and progressive # urinary retention - luevano placed back in last evening/ >1000 ml retention recommending leaving in at dc will need f/u w urology # htn -bp stable # anemia - stable #severe malnutrition d/t MS and delirium on TPN will do a calorie count/ ate lunch today doesn't like food here, ok for friends to bring in food # dvt prophylaxis: lovenox # Plan: if he can eat enough/ can dc back to [facility]/ TPN will need to be weaned off tomorrow. Asked pharmacy to have total of IV fluids and TPN to be at 100 ml/hour. Subjective: Misha has no specific complaints. Wants to eat, but has many specifics of what he can eat. Objective: Vital Signs Temp Pulse Resp BP Pulse Ox 36.7 C 60 20 119/73 94 06/14/16 05:57 06/14/16 11:44 06/14/16 11:44 06/14/16 11:44 06/14/16 11:44 Laboratory Results 06/11/16 16:23 06/14/16 05:40 06/13/16 06/14/16 06/15/16 05:59 05:59 05:59 Intake Total 2314 1604 Output Total 3550 3100 Balance -1236 -1496 PT 14.2 SEC (12.0-15.0) 06/10/16 04:00 INR 1.11 (0.83-1.16) 06/10/16 04:00 - Physical Exam Constitutional: no apparent distress, not in pain, chronically ill appearing Eyes: PERRL Ears, Nose, Mouth, Throat: hearing normal Cardiovascular: regular rate and rhythym, other (gen body swelling) Respiratory: no respiratory distress Gastrointestinal: normoactive bowel sounds Skin: warm Musculoskeletal: generalized weakness Neurologic: AAOx3 Psychiatric: interacting appropriately, not anxious ICD10 Worksheet Patient Problems: Problems Problem Status Onset Aphasia Acute Bladder obstruction Acute Hyponatremia Acute Multiple sclerosis Acute Palliative care encounter Acute Cellulitis of leg Active
[2016-06-14] MEDS: TPN W/ FAMOTIDINE 1 EA BAG IV SCH (20:54)
[2016-06-14] MEDS: IBUPROFEN 200 MG TAB PO PRN (22:33)
[2016-06-15] MEDS: LEVOTHYROXINE 100 MCG TAB PO SCH (05:49)
[2016-06-15] MEDS: MAGNESIUM OXIDE 400 MG TAB PO SCH ×4 (05:50→20:07)
[2016-06-15] MEDS: SENNOSIDES/DOCUSATE SODIUM TAB PO SCH ×2 (11:13→20:07)
[2016-06-15] MEDS: CYANO/VITAMIN B12 1000 MCG TAB PO SCH (11:31)
[2016-06-15] MEDS: ENOXAPARIN 40 MG/0.4 ML SYR SC SCH (11:32)
[2016-06-15] MEDS: OLANZapine DISINTEGR 5 MG TAB PO SCH ×2 (11:32→20:07)
[2016-06-15] MEDS: TAMSULOSIN HCL 0.4 MG CAP PO SCH (11:32)
--- NOTE | 2016-06-15 14:01 | HOSPPROG ---
Hospitalist Progress Note Assessment/Plan: 65-year-old man with advanced MS initially admitted with encephalopathy and hyponatremia with a sodium of 117. With appropriate treatment of his hyponatremia his encephalopathy improved slightly however he had a significant decline after several days. A extensive evaluation was done with the help of Neurology including MRI scan, lumbar puncture and serologic workup all of which were unremarkable and was felt that his encephalopathy was likely related to delirium which has been waxing and waning throughout the rest of his hospitalization. Unfortunately he has been so encephalopathic he has not eaten in several days and was eventually started on TPN. He did have some urinary retention and pyuria and is currently being treated for possible urinary tract infection which may also be contributing to his encephalopathy. acute encephalopathy - this has improved albeit slowly over weeks - likely multifactorial in setting of advanced MS, UTI, hospital acquired, hypoNa -appreciate neuro and psych consults alert today zyprexa started this admit wean in coming days visual hallucinations - zyprexa/non further severe hyponatremia - resolved UTI - unasyn D#09/13 - dc today MS, advanced and progressive urinary retention - luevano replaced 2/2 >1000 ml retention attempt to dc in coming days htn -bp stable anemia - stable severe malnutrition d/t MS and delirium starting to eat dc tpn today and follow dvt prophylaxis: lovenox dispo: pending resolution of delirium he is stating today that his some can be set up for his needs although it seems he will needs snf Subjective: speech fluent, perseverative. eating some Objective: Vital Signs Temp Pulse Resp BP Pulse Ox 35.9 C L 68 16 91/55 L 94 06/15/16 12:52 06/15/16 12:52 06/15/16 12:52 06/15/16 12:52 06/15/16 12:52 Laboratory Results 06/11/16 16:23 06/14/16 05:40 06/14/16 06/15/16 06/16/16 05:59 05:59 05:59 Intake Total 1604 2038 Output Total 3100 1900 950 Balance -1496 138 -950 PT 14.2 SEC (12.0-15.0) 06/10/16 04:00 INR 1.11 (0.83-1.16) 06/10/16 04:00 - Physical Exam Constitutional: no apparent distress, appears nourished Eyes: PERRL, anicteric sclera Ears, Nose, Mouth, Throat: moist mucous membranes, hearing normal Cardiovascular: regular rate and rhythym, no murmur, rub, or gallop, No tachycardia Respiratory: no respiratory distress, no rales or rhonchi Gastrointestinal: normoactive bowel sounds, soft, non-tender abdomen Genitourinary: luevano in urethra Skin: warm, normal color Musculoskeletal: full muscle strength Neurologic: AAOx3 ICD10 Worksheet Patient Problems: Problems Problem Status Onset Aphasia Acute Bladder obstruction Acute Hyponatremia Acute Multiple sclerosis Acute Palliative care encounter Acute Cellulitis of leg Active
[2016-06-15] MEDS: IBUPROFEN 200 MG TAB PO PRN (22:33)
[2016-06-16] MEDS: LEVOTHYROXINE 100 MCG TAB PO SCH (05:45)
[2016-06-16] MEDS: MAGNESIUM OXIDE 400 MG TAB PO SCH ×4 (05:45→21:24)
[2016-06-16] MEDS: TAMSULOSIN HCL 0.4 MG CAP PO SCH (10:31)
[2016-06-16] MEDS: ENOXAPARIN 40 MG/0.4 ML SYR SC SCH (10:31)
[2016-06-16] MEDS: CYANO/VITAMIN B12 1000 MCG TAB PO SCH (10:31)
[2016-06-16] MEDS: SENNOSIDES/DOCUSATE SODIUM TAB PO SCH ×2 (11:47→21:24)
[2016-06-16] MEDS ORDERED: OLANZapine DISINTEGR 5 MG TAB PO SCH (15:25)
--- NOTE | 2016-06-16 15:27 | HOSPPROG ---
Hospitalist Progress Note Assessment/Plan: 65-year-old man with advanced MS initially admitted with encephalopathy and hyponatremia with a sodium of 117. With appropriate treatment of his hyponatremia his encephalopathy improved slightly however he had a significant decline after several days. A extensive evaluation was done with the help of Neurology including MRI scan, lumbar puncture and serologic workup all of which were unremarkable and was felt that his encephalopathy was likely related to delirium which has been waxing and waning throughout the rest of his hospitalization. Unfortunately he has been so encephalopathic he has not eaten in several days and was eventually started on TPN. He did have some urinary retention and pyuria and is currently being treated for possible urinary tract infection which may also be contributing to his encephalopathy. acute encephalopathy - this has improved albeit slowly over weeks - likely multifactorial in setting of advanced MS, UTI, hospital acquired, hypoNa -appreciate neuro and psych consults alert today zyprexa started this admit wean in coming days visual hallucinations - zyprexa/non further severe hyponatremia - resolved UTI - unasyn D#09/13 - dc today MS, advanced and progressive urinary retention - luevano replaced 2/2 >1000 ml retention attempt to dc in coming days htn -bp stable anemia - stable severe malnutrition d/t MS and delirium starting to eat dc tpn today and follow dvt prophylaxis: lovenox dispo: pending resolution of delirium he is stating today that his some can be set up for his needs although it seems he will needs snf Subjective: tpn stopped. more cogent today Objective: Vital Signs Temp Pulse Resp BP Pulse Ox 35.4 C L 56 L 16 112/66 97 06/16/16 12:35 06/16/16 12:35 06/16/16 12:35 06/16/16 12:35 06/16/16 12:35 Laboratory Results 06/11/16 16:23 06/14/16 05:40 06/15/16 06/16/16 06/17/16 05:59 05:59 05:59 Intake Total 2037 2280 Output Total 1900 2980 700 Balance 138 -700 -700 PT 14.2 SEC (12.0-15.0) 06/10/16 04:00 INR 1.11 (0.83-1.16) 06/10/16 04:00 - Physical Exam Constitutional: no apparent distress, appears nourished Eyes: PERRL, anicteric sclera Ears, Nose, Mouth, Throat: moist mucous membranes, hearing normal Cardiovascular: regular rate and rhythym, no murmur, rub, or gallop Respiratory: no respiratory distress, no rales or rhonchi Gastrointestinal: normoactive bowel sounds, soft, non-tender abdomen Genitourinary: no bladder fullness, luevano in urethra Skin: warm, normal color Musculoskeletal: full muscle strength, no muscle tenderness Neurologic: AAOx3 Psychiatric: interacting appropriately, not anxious Lymph, Heme, Immunologic: no cervical LAD ICD10 Worksheet Patient Problems: Problems Problem Status Onset Aphasia Acute Bladder obstruction Acute Hyponatremia Acute Multiple sclerosis Acute Palliative care encounter Acute Cellulitis of leg Active
[2016-06-16 19:45] VITALS: RESP 16
[2016-06-16] MEDS: ACETAMINOPHEN 325 MG TAB PO PRN (21:23)
[2016-06-17] MEDS: ACETAMINOPHEN 325 MG TAB PO PRN ×2 (03:08→16:28)
[2016-06-17] MEDS: LEVOTHYROXINE 100 MCG TAB PO SCH (03:08)
[2016-06-17 03:13] LABS: % IMMATURE GRANULYOCYTES 0.2 % (0.0-1.1); ABSOLUTE IMMATURE GRANULOCYTES 0.01 10^3/uL (0.00-0.10); ADD DIFF? NO; ADD MORPH? NO; ADD SCAN? NO; ATYPICAL LYMPHOCYTE FLAG 30 (0-99); FRAGMENT RBC FLAG 0 (0-99); HEMATOCRIT 35.9 % (40.0-51.0); HEMOGLOBIN 12.1 g/dL (13.7-17.5); LEFT SHIFT FLG 0 (0-99); LIPEMIA HEMOLYSIS FLAG 80 (0-99); MEAN CELL HEMOGLOBIN 29.1 pg (27.9-34.1); MEAN CELL HEMOGLOBIN CONCENTR. 33.7 g/dL (32.4-36.7); MEAN CELL VOLUME 86.3 fL (81.5-99.8); MEAN PLATELET VOLUME 10.1 fL (8.7-11.7); PLATELET CLUMPS FLAG 0 (0-99); PLATELET COUNT 226 10^3/uL (150-400); RED BLOOD CELL COUNT 4.16 10^6/uL (4.40-6.38); RED CELL DISTRIBUTION WIDTH 15.5 % (11.5-15.2)
[2016-06-17 03:37] LABS: ANION GAP 8 mEq/L (8-16); CALCIUM 9.4 mg/dL (8.5-10.4); CARBON DIOXIDE 24 mEq/l (22-31); CHLORIDE 106 mEq/L (97-110); CREATININE 0.5 mg/dL (0.7-1.3); GLOMERULAR FILTRATION RATE > 60; GLUCOSE 77 mg/dL (70-100); POTASSIUM 4.5 mEq/L (3.5-5.2); SODIUM 138 mEq/L (134-144)
[2016-06-17] MEDS: MAGNESIUM OXIDE 400 MG TAB PO SCH ×2 (05:31→10:53)
[2016-06-17 07:33] VITALS: BP 98/57; PULSE 56; TEMP 97.8; O2SAT 94
[2016-06-17] MEDS: CYANO/VITAMIN B12 1000 MCG TAB PO SCH (10:53)
[2016-06-17] MEDS: SENNOSIDES/DOCUSATE SODIUM TAB PO SCH (10:53)
[2016-06-17] MEDS: TAMSULOSIN HCL 0.4 MG CAP PO SCH (10:53)
[2016-06-17] MEDS: ENOXAPARIN 40 MG/0.4 ML SYR SC SCH (10:53)
--- NOTE | 2016-06-17 13:46 | HOSPPROG ---
Hospitalist Progress Note Assessment/Plan: 65-year-old man with advanced MS initially admitted with encephalopathy and hyponatremia with a sodium of 117. With appropriate treatment of his hyponatremia his encephalopathy improved slightly however he had a significant decline after several days. A extensive evaluation was done with the help of Neurology including MRI scan, lumbar puncture and serologic workup all of which were unremarkable and was felt that his encephalopathy was likely related to delirium which has been waxing and waning throughout the rest of his hospitalization. Unfortunately he has been so encephalopathic he has not eaten in several days and was eventually started on TPN. He did have some urinary retention and pyuria and is currently being treated for possible urinary tract infection which may also be contributing to his encephalopathy. acute encephalopathy - this has improved albeit slowly over weeks - likely multifactorial in setting of advanced MS, UTI, hospital acquired, hypoNa -appreciate neuro and psych consults alert today zyprexa started this admit wean in coming days visual hallucinations - zyprexa/non further severe hyponatremia - resolved UTI - unasyn D#09/13 - dc today MS, advanced and progressive urinary retention - luevano replaced 2/2 >1000 ml retention attempt to dc in coming days htn -bp stable anemia - stable severe malnutrition d/t MS and delirium starting to eat dc tpn today and follow dvt prophylaxis: lovenox dispo: to [facility] today > 30 minutes on dc Subjective: continues to clear. has bed at [facility] Objective: Vital Signs Temp Pulse Resp BP Pulse Ox 36.6 C 56 L 16 98/57 L 94 06/17/16 07:31 06/17/16 07:31 06/17/16 07:31 06/17/16 07:31 06/17/16 07:31 Laboratory Results 06/17/16 03:00 06/17/16 03:00 06/16/16 06/17/16 06/18/16 05:59 05:59 05:59 Intake Total 2280 300 Output Total 2980 0 Balance -700 -1750 PT 14.2 SEC (12.0-15.0) 06/10/16 04:00 INR 1.11 (0.83-1.16) 06/10/16 04:00 - Physical Exam Constitutional: no apparent distress, appears nourished Eyes: PERRL, anicteric sclera Ears, Nose, Mouth, Throat: moist mucous membranes, hearing normal Cardiovascular: regular rate and rhythym, no murmur, rub, or gallop Respiratory: no respiratory distress, no rales or rhonchi Gastrointestinal: normoactive bowel sounds, soft, non-tender abdomen Genitourinary: luevano in urethra Skin: warm, normal color Musculoskeletal: full muscle strength, no muscle tenderness Neurologic: AAOx3 ICD10 Worksheet Patient Problems: Problems Problem Status Onset Aphasia Acute Bladder obstruction Acute Hyponatremia Acute Multiple sclerosis Acute Palliative care encounter Acute Cellulitis of leg Active
--- NOTE | 2016-06-17 13:48 | PDIAF ---
- Diagnosis Diagnosis: hyponatremia, multiple sclerosis, delirium Code Status: Full Code - Medication Management Discharge Medications: Medications to Continue on Transfer Ascorbic Acid [Vitamin C 500 mg (*)] 500 mg PO QID 11/29/12 [Last Taken 08:00] Cyanocobalamin [Vitamin B12 (*)] 1,000 mcg PO DAILY 11/29/12 [Last Taken 08:00] Docusate Sodium [Colace 100 MG (*)] 100 mg PO QID 11/29/12 [Last Taken 05/20/16 08:00] Herbals/Supplements -Info Only 1 each PO AD 11/29/12 [Last Taken 3 Days Ago] Magnesium Oxide [Magnesium Oxide 400 mg (*)] 400 mg PO QID 11/29/12 [Last Taken 05/20/16 08:00] [place]-3 Fatty Acids/Fish Oil [Fish Oil 1,000 mg Capsule] 1 cap PO QID 11/29/12 [ Last Taken 05/20/16 08:00] Vitamin B Complex [Vitamin B Complex (OTC)] 1 tab PO Q2D 11/29/12 [Last Taken 08:00] Cholecalciferol (Vitamin D3) [Vitamin D3] 5,000 unit PO BID 05/20/16 [Last Taken Unknown] Levothyroxine [Synthroid 100 mcg (*)] 100 mcg PO DAILY 05/20/16 [Last Taken 07:00] Polyethylene Glycol 3350 [Miralax 17 gm (*)] 17 gm PO DAILY PRN #0 pkt 06/17/16 [Last Taken Unknown] Sennosides/Docusate Sodium [Senokot-S] 1 - 2 tab PO BID #0 tab 06/17/16 [Last Taken Unknown] Tamsulosin HCl [Flomax 0.4 MG (*)] 0.4 mg PO DAILY #0 cap 06/17/16 [Last Taken Unknown] Discharge Medications: Refer to the Discharge Home Medication list for PRN reason. - Orders Services needed: Registered Nurse, Physical Therapy, Occupational Therapy, Speech Language Pathologist Diet Recommendation: no restrictions on diet - Follow Up Care Current Providers and Referrals: OTTONIEL NETTLES [Primary Care Provider] - As per Instructions
--- NOTE | 2016-06-17 14:16 | GDS ---
[f rep st] DISCHARGE SUMMARY DISCHARGE DIAGNOSES: 1. Multiple sclerosis. 2. Hyponatremia, now resolved. 3. Malnutrition. 4. Acute encephalopathy, now resolving. 5. Urinary retention. HOSPITAL COURSE: Please see admission history and physical by Dr. Laine Parish. The patient pres ented on the afternoon of May 20 with 3 weeks of progressive decreased appetite and worsening conf usion. He was also found to have 2.3 L in his bladder at that time. This hospitalization, on prese ntation he was noted to be profoundly hyponatremic with a sodium of 117. This is felt to be consist ent with poor p.o. intake and hypovolemic hyponatremia. This is corrected at appropriate rate, reac matteo 132 on the . He had ongoing delirium since then to the degree that a fairly large workup w as undertaken including neurologic consultation. He had a brain MRI performed on the which sejal wed numerous white matter lesions consistent with multiple sclerosis, some meningeal enhancement. T his gave rise to a lumbar puncture which was negative for infection including HSV. The microbiology did not grow anything. The patient continued to slowly improve. He was seen by Psychiatry on June 12, who felt he had deli rium and PTSD. At that point in time, he had been on some Zyprexa. This has been weaned off to jus t 2.5 mg at night with continued good improving mental status. I will not discharge him on any anti psychotics. Regarding his urinary retention, he may have a neurogenic bladder secondary to multiple sclerosis. His Hurst has been removed and replaced once. He has been started on an alpha el. I will jannette ve the Hurst prior to discharge to [facility] with an attempt to keep from committing the patient to a long-term indwelling Hurst with its attendant risks. He was also seen by Palliative Care while here, although no specific recommendations were made. The patient did have a urine culture that was positive. This was felt to be secondary to a Hurst ca theter. He also had an electroencephalogram while here which was essentially normal with no potential epilep togenic seizures. The patient is discharged to [facility]. /[id number]/MODL
== END 2016-06-17 16:40 | DRG 70 ==
LOC: OBSVTOIN 16:13 → F2W 16:47
PROVIDERS: ADMIT Internal Medicine; ATTEND Internal Medicine
PROC: 009U3ZX Drainage of Spinal Canal, Percutaneous Approach, Diagnostic (ICD-10-PCS; principal; 2016-05-30)
PROC: 02HV33Z Insertion of Infusion Device into Superior Vena Cava, Percutaneous Approach (ICD-10-PCS; 2016-06-06)
DX: G93.40 Encephalopathy, unspecified (principal); G35 Multiple sclerosis; R41.0 Disorientation, unspecified; E87.1 Hypo-osmolality and hyponatremia; E43 Unspecified severe protein-calorie malnutrition; Z99.3 Dependence on wheelchair; I10 Essential (primary) hypertension; N31.9 Neuromuscular dysfunction of bladder, unspecified; N39.0 Urinary tract infection, site not specified; K59.00 Constipation, unspecified; R33.9 Retention of urine, unspecified; F43.10 Post-traumatic stress disorder, unspecified; E16.2 Hypoglycemia, unspecified; E03.9 Hypothyroidism, unspecified
CPT/HCPCS: 82607-90; 83018-90; 84134-90; 84480-90; 87529-90; 92507-GN; 92523-GN; 92610-GN; 97110-GP; 97112-GP; 97163-GP; 97165-GO; 97530-GO; 97530-GP; 97532-GO; 97535-GO; A9585; C1751; G8978-GP-CM; G8978-GP-CN; G8979-GP-CL; G8979-GP-CM; G8979-GP-CN; G8987-GO-CM; G8988-GO-CK; G8988-GO-CM; G8989-GO-CN; G8996-GN-CH; G8997-GN-CH; G8998-GN-CH; G9162-GN-CL; G9163-GN-CI; J0295; J0690; J0696; J0834; J1650; J2060; J2250; J2704; J3010; J3370; J3411; Q9967

== ENCOUNTER 2018-03-03 08:52 | Inpatient (IN) | payer OTHER, MEDICARE ==
--- NOTE | 2018-03-03 09:03 | EDPHY ---
H & P Stated Complaint: N/V, abd pain Time Seen by Provider: 03/03/18 09:03 - Personal History Current Tetanus/Diphtheria Vaccine: No Tetanus Vaccine Date: unknown - Medical/Surgical History Hx Asthma: No Hx Chronic Respiratory Disease: No Hx Diabetes: No Hx Cardiac Disease: No Hx Renal Disease: No Hx Cirrhosis: No Hx Alcoholism: No Hx HIV/AIDS: No Hx Splenectomy or Spleen Trauma: No Other PMH: MS. Hernia surgery apr 2016. - Social History Smoking Status: Never smoked Constitutional: Initial Vital Signs Heart Rate 68 03/03/18 08:54 Respiratory Rate 18 03/03/18 08:54 Blood Pressure 128/79 H 03/03/18 08:54 O2 Sat (%) 98 03/03/18 08:54 O2 Delivery Mode Room Air Allergies/Adverse Reactions: shellfish derived Allergy (Verified 03/03/18 09:01) sodium benzoate Allergy (Verified 03/03/18 09:01) Sulfa (Sulfonamide Antibiotics) Allergy (Verified 03/03/18 09:01) wheat Allergy (Verified 03/03/18 09:01) EGGS Allergy (Unknown, Uncoded 03/03/18 09:01) DIARY Allergy (Uncoded 03/03/18 09:01) GLUTEN Allergy (Uncoded 03/03/18 09:01) SOY Allergy (Uncoded 03/03/18 09:01) Home Medications: Medication Instructions Recorded Ascorbic Acid [Vitamin C 500 mg 500 mg PO QID 11/29/12 (*)] Cyanocobalamin [Vitamin B12 (*)] 1,000 mcg PO DAILY 11/29/12 Docusate Sodium [Colace 100 MG (*)] 100 mg PO QID 11/29/12 Herbals/Supplements -Info Only 1 each PO AD 11/29/12 Magnesium Oxide [Magnesium Oxide 400 mg PO QID 11/29/12 400 mg (*)] [place]-3 Fatty Acids/Fish Oil [Fish 1 cap PO QID 11/29/12 Oil 1,000 mg Capsule] Vitamin B Complex [Vitamin B 1 tab PO Q2D 11/29/12 Complex (OTC)] Cholecalciferol (Vitamin D3) 5,000 unit PO BID 05/20/16 [Vitamin D3] Levothyroxine [Synthroid 100 mcg 100 mcg PO DAILY 05/20/16 (*)] Polyethylene Glycol 3350 [Miralax 17 gm PO DAILY PRN #0 pkt 06/17/16 17 gm (*)] Sennosides/Docusate Sodium 1 - 2 tab PO BID #0 tab 06/17/16 [Senokot-S] Tamsulosin HCl [Flomax 0.4 MG (*)] 0.4 mg PO DAILY #0 cap 06/17/16 Medical Decision Making - Diagnostics Imaging Results: Imaging Impressions Abdomen CT 03/03/18 09:21 Impression: 1. Moderate hiatal hernia. 2. No CT evidence of appendicitis, abscess or bowel obstruction. 3. Mild constipation. 4. Tiny nonobstructive calculus midportion right kidney. 5. Mild progression of anterior wedge compression superior endplate of T12 and L1 with stable appearance of L4. The patient is underlying osteopenia/ osteoporosis. Findings discussed with Alvaro Castellanos MD at 10:40 hour, 03/03/2018. Imaging: Discussed imaging studies w/ wardrobe mistress Radiologist, I viewed and interpreted images myself ED Course/Re-evaluation: CHIEF COMPLAINT: Nausea and vomiting HISTORY OF PRESENT ILLNESS: The patient is a 67 y/o male with a history of MS complaining of nausea and vomiting. For the past 2 weeks he has had a constant headache. Starting several days ago he developed a decreased appetite, nausea, vomiting, abdominal cramps, and feeling weak. He typically has normal bowel movements but was unable to have one this morning, which is abnormal. He is normally able to stand without difficulty, but is not able to move. He is lacking motor strength but is able to feel normally. He denies taking medications for MS or seeing his neurologist in several years. He typically has at home care from 6:30am-10:00pm. One of his caregivers recently had a respiratory virus. No chest pain, shortness of breath , urinary complaints, fevers. REVIEW OF SYSTEMS: A comprehensive 10 system review of systems is otherwise negative aside from elements mentioned in the history of present illness and medical decision making. PHYSICAL EXAM: HR, BP, O2 Sat, RR. Temp noted General Appearance: Alert, well hydrated, appropriate, and non-toxic appearing. Head: Atraumatic without scalp tenderness or obvious injury Eyes: Pupils equal, round, reactive to light and accommodation, EOMI, no trauma , no injection. Ears: Clear bilaterally, no perforation, normal landmarks Nose: Atraumatic, no rhinorrhea, clear. Throat: There is no erythema or exudates, no lesions, normal tonsils, mucus membranes moist. Neck: Supple, 2+ carotid upstroke, nontender, no lymphadenopathy. Respiratory: No retractions, no distress, no wheezes, and no accessory muscle use. Lungs are clear to auscultation bilaterally. Cardiovascular: Regular rate and rhythm, no murmurs, rubs, or gallops. Bilateral carotid, radial, dorsalis pedis, and posterior tibial pulses intact. Good capillary refill all extremities. Gastrointestinal: Right upper quadrant tenderness to palpation. Abdomen is soft , non-distended, no masses, no rebound, no guarding, no peritoneal signs. Musculoskeletal: Normal active ROM of all extremities, atraumatic. Neurological: Alert, appropriate, and interactive. The patient has normal DTRs and non-focal cranial nerves, motor, sensory, and cerebellar exam. Skin: No rashes, good turgor, no nodules on palpation. Past medical history: MS Past surgical history: Hernia repair Family history: Denies Social history: [place] at bedside, lives in [place], [facility] DIAGNOSTICS/PROCEDURES/CRITICAL CARE TIME: Head CT: No brain lesions Abdominopelvic CT: Gastroenteritis, 1,500mL of urine in the bladder DIFFERENTIAL DIAGNOSIS: The differential diagnosis for the patient's weakness, nausea and vomiting included but was not limited to MS exacerbation, hyponatremia, urinary retention , gastroenteritis, gastritis, appendicitis, and medication side effect. MEDICAL DECISION MAKING: The patient is a 67 y/o male with a history of MS presenting with worsening nausea, vomiting, and weakness onset several days ago. On exam he has right upper quadrant tenderness to palpation. I discussed taking a Steroid treatment, the patient states that he is very sensitive to medications so he would prefer a smaller dose of the steroid. Labs and abdominopelvic CT ordered; 1L IV NS, 4mg IV Zofran, 500mg Solu-Medrol administered. 0926: I spoke with the patient's caregiver privately. Around 3 weeks ago one of the caregivers noticed that the patient was speaking correctly. The patient stated that he knew what he wanted to say, but was unable to correctly verbalize this. Head CT ordered. 1000: I reviewed patient's labs which reveals hyponatremia with a sodium level of 125. 1030: I spoke with the radiologist who reports there are no acute brain lesions. The patients abdominopelvic CT reveals gastroenteritis. He also has 1, 500mL in his bladder, we will straight cath him. 1034: Reassessed patient and discussed laboratory and imaging findings. I have also discussed plan for admission which he is comfortable with. 1045: I consulted with the hospitalist service regarding this patient; Dr. Knox accepts admission of this patient. 1046: I consulted with Dr. Landeros, neurologist, regarding this patient. He agrees to consult on this patient during this admission. - Data Points Laboratory Results: Laboratory Results 03/03/18 09:17 03/03/18 09:17 03/03/18 03/03/18 03/03/18 10:25 09:33 09:17 WBC RBC Hgb POC Hgb 17.3 gm/dL gm/dL (13.7-17.5) Hct POC Hct 51 % % (40-51) MCV MCH MCHC RDW Plt Count MPV Neut % (Auto) Lymph % (Auto) [place] % (Auto) Eos % (Auto) Baso % (Auto) Nucleat RBC Rel Count Absolute Neuts (auto) Absolute Lymphs (auto) Absolute Monos (auto) Absolute Eos (auto) Absolute Basos (auto) Absolute Nucleated RBC Immature Gran % Immature Gran # POC Sodium 129 mEq/L L mEq/L (135-145) Sodium 125 mEq/L L mEq/L (135-145) POC Potassium 3.9 mEq/L mEq/L (3.3-5.0) Potassium 4.1 mEq/L mEq/L (3.5-5.2) POC Chloride 89 mEq/L L mEq/L (97-110) Chloride 90 mEq/L L mEq/L (97-110) Carbon Dioxide 26 mEq/l mEq/l (22-31) Anion Gap 9 mEq/L mEq/L (6-14) POC BUN 10 mg/dL mg/dL (7-23) BUN 12 mg/dL mg/dL (7-23) Creatinine 0.5 mg/dL L mg/dL (0.7-1.3) POC Creatinine 0.5 mg/dL L mg/dL (0.7-1.3) Estimated GFR > 60 Glucose 88 mg/dL mg/dL (70-100) POC Glucose 91 mg/dL mg/dL (70-100) Calcium 9.6 mg/dL mg/dL (8.5-10.4) Total Bilirubin 0.4 mg/dL mg/dL (0.1-1.4) Conjugated Bilirubin 0.1 mg/dL mg/dL (0.0-0.5) Unconjugated Bilirubin 0.3 mg/dL mg/dL (0.0-1.1) AST 58 IU/L IU/L (17-59) ALT 62 IU/L IU/L (21-72) Alkaline Phosphatase 124 IU/L IU/L (38-126) Total Protein 7.5 g/dL g/dL (6.3-8.2) Albumin 4.4 g/dL g/dL (3.5-5.0) Lipase 142 IU/L IU/L (23-300) Urine Color YELLOW Urine Appearance MODERATELY TURBID Urine pH 7.0 (5.0-7.5) Ur Specific [place] 1.015 (1.002-1.030) Urine Protein NEGATIVE (NEGATIVE) Urine Ketones 1+ H (NEGATIVE) Urine Blood NEGATIVE (NEGATIVE) Urine Nitrate NEGATIVE (NEGATIVE) Urine Bilirubin NEGATIVE (NEGATIVE) Urine Urobilinogen NEGATIVE EU EU (0.2-1.0) Ur Leukocyte Esterase NEGATIVE (NEGATIVE) Urine RBC 1-3 /hpf /hpf (0-3) Urine WBC 1-3 /hpf /hpf (0-3) Ur Epithelial Cells NONE SEEN /lpf /lpf (NONE-1+) Urine Mucus TRACE /lpf /lpf (NONE-1+) Urine Glucose NEGATIVE (NEGATIVE) 03/03/18 09:17 WBC 9.34 10^3/uL 10^3/uL (3.80-9.50) RBC 5.61 10^6/uL 10^6/uL (4.40-6.38) Hgb 16.0 g/dL g/dL (13.7-17.5) POC Hgb Hct 45.8 % % (40.0-51.0) POC Hct MCV 81.6 fL fL (81.5-99.8) MCH 28.5 pg pg (27.9-34.1) MCHC 34.9 g/dL g/dL (32.4-36.7) RDW 14.0 % % (11.5-15.2) Plt Count 147 10^3/uL L 10^3/uL (150-400) MPV 10.5 fL fL (8.7-11.7) Neut % (Auto) 84.7 % H % (39.3-74.2) Lymph % (Auto) 7.5 % L % (15.0-45.0) [place] % (Auto) 7.0 % % (4.5-13.0) Eos % (Auto) 0.3 % L % (0.6-7.6) Baso % (Auto) 0.1 % L % (0.3-1.7) Nucleat RBC Rel Count 0.0 % % (0.0-0.2) Absolute Neuts (auto) 7.91 10^3/uL H 10^3/uL (1.70-6.50) Absolute Lymphs (auto) 0.70 10^3/uL L 10^3/uL (1.00-3.00) Absolute Monos (auto) 0.65 10^3/uL 10^3/uL (0.30-0.80) Absolute Eos (auto) 0.03 10^3/uL 10^3/uL (0.03-0.40) Absolute Basos (auto) 0.01 10^3/uL L 10^3/uL (0.02-0.10) Absolute Nucleated RBC 0.00 10^3/uL 10^3/uL (0-0.01) Immature Gran % 0.4 % % (0.0-1.1) Immature Gran # 0.04 10^3/uL 10^3/uL (0.00-0.10) POC Sodium Sodium POC Potassium Potassium POC Chloride Chloride Carbon Dioxide Anion Gap POC BUN BUN Creatinine POC Creatinine Estimated GFR Glucose POC Glucose Calcium Total Bilirubin Conjugated Bilirubin Unconjugated Bilirubin AST ALT Alkaline Phosphatase Total Protein Albumin Lipase Urine Color Urine Appearance Urine pH Ur Specific [place] Urine Protein Urine Ketones Urine Blood Urine Nitrate Urine Bilirubin Urine Urobilinogen Ur Leukocyte Esterase Urine RBC Urine WBC Ur Epithelial Cells Urine Mucus Urine Glucose Medications Given: Discontinued Medications Sodium Chloride (Ns) 1,000 mls @ 0 mls/hr IV EDNOW ONE; Wide Open PRN Reason: Protocol Stop: 03/03/18 09:19 Last Admin: 03/03/18 09:34 Dose: 1,000 mls Lidocaine (Uroject Lidocaine 2% Jelly) 20 ml UR ONCE ONE Stop: 03/03/18 11:02 Last Admin: 03/03/18 11:03 Dose: 20 ml Methylprednisolone Sodium Succinate (Solu-Medrol) 500 mg IVP EDNOW ONE Stop: 03/03/18 10:33 Last Admin: 03/03/18 10:36 Dose: 500 mg Ondansetron HCl (Zofran) 4 mg IVP EDNOW ONE Stop: 03/03/18 09:19 Last Admin: 03/03/18 09:34 Dose: 4 mg Point of Care Test Results: Chemistry 03/03/18 09:33 POC Sodium 129 mEq/L L mEq/L (135-145) POC Potassium 3.9 mEq/L mEq/L (3.3-5.0) POC Chloride 89 mEq/L L mEq/L (97-110) POC BUN 10 mg/dL mg/dL (7-23) POC Creatinine 0.5 mg/dL L mg/dL (0.7-1.3) POC Glucose 91 mg/dL mg/dL (70-100) ISTAT H&H 03/03/18 09:33 POC Hgb 17.3 gm/dL gm/dL (13.7-17.5) POC Hct 51 % % (40-51) Departure - Departure Disposition: [facility] Inpatient Acute Clinical Impression: Hyponatremia, Multiple sclerosis exacerbation, Urinary retention, Gastroenteritis Condition: Fair Referrals: OTTONIEL NETTLES [Primary Care Provider] - As per Instructions Report Scribed for: Alvaro Castellanos Report Scribed by: Virginia Ly Date of Report: 03/03/18 Time of Report: 09:04
[2018-03-03] MEDS ORDERED: NS 1,000 ML IV ONE (09:18)
[2018-03-03] MEDS ORDERED: ONDANSETRON 4 MG/2 ML VIAL IVP ONE (09:18)
[2018-03-03] MEDS ORDERED: IOPAMIDOL (ISOVUE-300) 100 ML BTL ONE (09:23)
[2018-03-03 09:31] LABS: PLATELET COUNT 147 10^3/uL (150-400)
[2018-03-03] MEDS ORDERED: methylPREDNISolone SOD SUCC 125 MG/2 ML VIAL IVP ONE (10:32)
[2018-03-03] MEDS ORDERED: LIDOCAINE 2% JELLY 20 ML (UROJECT) UR ONE (11:01)
[2018-03-03] MEDS ORDERED: LIDOCAINE 2% JELLY 20 ML (UROJECT) ONE (11:02)
[2018-03-03] MEDS ORDERED: ONDANSETRON 4 MG/2 ML VIAL IVP PRN (12:44)
[2018-03-03] MEDS ORDERED: ONDANSETRON DISINTEGRATING 4 MG TAB PO PRN (12:44)
[2018-03-03] MEDS ORDERED: NS 1,000 ML IV SCH (12:45)
--- NOTE | 2018-03-03 12:53 | NEUROPROG ---
Assessment: HOSPITAL NEUROLOGY CONSULT REQUESTING: Robyn Lopez DO REASON: possible MS exacerbation HPI: 67 year old man with a history of longstanding MS. He is baseline unable to walk, but can transfer with his arms. He has spasticity in both legs and LUE with some mild left hand weakness at baseline. He has not seen a neurologist in years and has not been on MS therapy for years. He states he's not been feeling well for the past 3 days. Yesterday he was feeling alternating hot/ cold flashes. His appetite has been poor. He vomited several times last last and has some abdominal discomfort, "like a knot in my stomach." Since yesterday he's been feeling generally more weak and feels his spasticity is worse as a whole. He denies new focal weakness, vision change, speech/language change, vertigo. He has no sensory loss. Intake labs showed hyponatremia and hypochloremia. ROS: As per the HPI, otherwise a complete 12 point ROS was performed and is negative ALLERGIES AND MEDS: As recorded in the EMR - reviewed and reconciled PFSH: As per the intake H&P by Dr. Lopez from today EXAM: VS reviewed in EMR GEN: WDWN laying in NAD HEENT: NCAT, sclera anicteric, conjunctiva not injected, MMM, oropharynx clear, no scalp tenderness NECK: supple, nontender, no meningismus CV: RRR s1 s2 wo m/r/c/g. Carotid pulses 2+ wo bruit NEURO: MS: awake, alert, oriented to all spheres. Speech nondysarthric. No language disturbance. Follows commands. Attends to both sides. Recent/remote memory grossly intact. Mood euthymic. Good fund of knowledge. CN: pupils 3mm round and reactive - no APD. Unable to visualize fundi. VFF. Primary gaze centered. Full ocular motility - no THERON. Facial sensation preserved. Face symmetric. Hearing grossly intact to finger rub. Palatoglossal movements intact. Shoulder shrug and head turn strong. MOTOR: reduced bulk throughout. Spastic in both LEs about all joints. Spastic in LUE about elbow>wrist. No adventitial movements. Only able to activate the leg muscles without any resistance against gravity. LUE with finger extensor weakness at 3/5. SENSORY: intact/symmetric LT/PP in all extremities. No extinction. COORD: no ataxia FN/HS. Sally labored in left hand. REFLEX: plantars extensor. No clonus. DTRs globally 3/4. GAIT: he is unable to walk at baseline DATA REVIEW: Labs reviewed in EMR PERSONALLY INTERPRETED RESULTS AND DATA: CT head wo - nothing acute, chronic stigmata of demyelination in the white matter, chronic left caudate lacunar infarct IMPRESSION AND RECOMMENDATIONS: Patient with GI illness who reports global decompensation of his chronic MS symptoms. I suspect this is more pseudoexacerbation from his GI illness. He has no new focal deficits. Will rule out active MS lesion with MRI brain and C-spine wow (he is endorsing worsening upper extremity spasticity, so don't think we need to check below the C-spine now). No steroid for now given low suspicion for active MS lesion. Supportive measures for GI illness per primary team. Will follow. Objective: Vital Signs Temp Pulse Resp BP Pulse Ox 36.6 C 71 18 122/67 H 95 03/03/18 11:59 03/03/18 11:59 03/03/18 11:59 03/03/18 11:59 03/03/18 11:59 Laboratory Results 03/03/18 11:38 Allergies/Adverse Reactions: iodine Allergy (Verified 03/03/18 12:04) Iodine and Iodide Containing Produc Allergy (Verified 03/03/18 12:04) shellfish derived Allergy (Verified 03/03/18 09:01) sodium benzoate Allergy (Verified 03/03/18 09:01) Sulfa (Sulfonamide Antibiotics) Allergy (Verified 03/03/18 09:01) wheat Allergy (Verified 03/03/18 09:01) EGGS Allergy (Unknown, Uncoded 03/03/18 09:01) DIARY Allergy (Uncoded 03/03/18 09:01) GLUTEN Allergy (Uncoded 03/03/18 09:01) SOY Allergy (Uncoded 03/03/18 09:01)
[2018-03-03] MEDS: ACETAMINOPHEN 325 MG TAB PO PRN ×2 (13:10→20:16)
--- NOTE | 2018-03-03 13:34 | ASMTCMCOM ---
CM Note CM Note Notes: Pt admitted to hospital for n/v. He has MS and has private caregivers from 6:30am to 10pm. PT/OT evals pending, CM w/f. DC Plan: TBD Date Signed: 03/03/2018 01:33 PM Electronically Signed By:Lenora Schaffer RN
--- NOTE | 2018-03-03 13:48 | PDGENHP ---
History and Physical - Chief Complaint N/V, weakness - History of Present Illness 67 yo male with h/o MS, wheelchair bound, presents to ED with N/V, and weakness. He began to feel ill 2 weeks ago with weakness and fatigue. His caregiver had a nasty virus so he thinks he had a sick contact. Yesterday, he developed nausea and then vomited 3-4 times. "I thought I was going to drown in my own vomit". No hematemesis or coffee ground emesis. No diarrhea. He notes h/o constipation. He also endorses subjective fevers/chills. No CP or SOB. He currently denies abdominal pain. In the ED, CT abdomen was suggestive of gastroenteritis. His serum Na was 125. He received 1 L NS and 500 mg Solumedrol for possible MS flare. Neurology was consulted and he is admitted for further management. History Information - Allergies/Home Medication List Allergies/Adverse Reactions: iodine Allergy (Verified 03/03/18 12:04) Iodine and Iodide Containing Produc Allergy (Verified 03/03/18 12:04) shellfish derived Allergy (Verified 03/03/18 09:01) sodium benzoate Allergy (Verified 03/03/18 09:01) Sulfa (Sulfonamide Antibiotics) Allergy (Verified 03/03/18 09:01) wheat Allergy (Verified 03/03/18 09:01) EGGS Allergy (Unknown, Uncoded 03/03/18 09:01) DIARY Allergy (Uncoded 03/03/18 09:01) GLUTEN Allergy (Uncoded 03/03/18 09:01) SOY Allergy (Uncoded 03/03/18 09:01) Home Medications: Ascorbic Acid [Vitamin C 500 mg (*)] 500 mg PO QID 11/29/12 [Last Taken 08:00] Cyanocobalamin [Vitamin B12 (*)] 1,000 mcg PO DAILY 11/29/12 [Last Taken 08:00] Docusate Sodium [Colace 100 MG (*)] 100 mg PO QID 11/29/12 [Last Taken 05/20/16 08:00] Herbals/Supplements -Info Only 1 each PO AD 11/29/12 [Last Taken 3 Days Ago ~] Magnesium Oxide [Magnesium Oxide 400 mg (*)] 400 mg PO QID 11/29/12 [Last Taken 05/20/16 08:00] [place]-3 Fatty Acids/Fish Oil [Fish Oil 1,000 mg Capsule] 1 cap PO QID 11/29/12 [ Last Taken 05/20/16 08:00] Vitamin B Complex [Vitamin B Complex (OTC)] 1 tab PO DAILY 11/29/12 [Last Taken 05/19/16 08:00] Cholecalciferol (Vitamin D3) [Vitamin D3] 5,000 unit PO BID 05/20/16 [Last Taken Unknown] Levothyroxine [Synthroid 75 mcg (*)] 75 mcg PO DAILY 03/03/18 [Last Taken Unknown] I have personally reviewed and updated: family history, medical history, social history, surgical history - Past Medical History Additional medical history: MS - Surgical History Additional surgical history: hernia surgery 04/2016 - Family History Positive for: non-pertinent - Social History Smoking Status: Never smoked Alcohol Use: None Drug Use: None Additional social history: Lives independently with caregivers, wheelchair bound Review of Systems Review of Systems: ROS: 10pt was reviewed & negative except for what was stated in HPI & below Physical Exam Physical Exam: Temp Pulse Resp BP Pulse Ox 36.4 C 74 18 149/89 H 96 03/03/18 13:11 03/03/18 13:11 03/03/18 13:11 03/03/18 13:11 03/03/18 13:11 Constitutional: no apparent distress Eyes: PERRL Ears, Nose, Mouth, Throat: moist mucous membranes Cardiovascular: regular rate and rhythym Respiratory: no respiratory distress, reduced air movement, inspiratory crackles Gastrointestinal: normoactive bowel sounds, soft, non-tender abdomen Skin: warm Musculoskeletal: full muscle strength Neurologic: AAOx3 Psychiatric: interacting appropriately Lab Data & Imaging Review 03/03/18 09:17 03/03/18 11:38 WBC 9.34 10^3/uL (3.80-9.50) 03/03/18 09:17 RBC 5.61 10^6/uL (4.40-6.38) 03/03/18 09:17 Hgb 16.0 g/dL (13.7-17.5) 03/03/18 09:17 POC Hgb 17.3 gm/dL (13.7-17.5) 03/03/18 09:33 Hct 45.8 % (40.0-51.0) 03/03/18 09:17 POC Hct 51 % (40-51) 03/03/18 09:33 MCV 81.6 fL (81.5-99.8) 03/03/18 09:17 MCH 28.5 pg (27.9-34.1) 03/03/18 09: MCHC 34.9 g/dL (32.4-36.7) 03/03/18 09: RDW 14.0 % (11.5-15.2) 03/03/18 09:17 Plt Count 147 10^3/uL (150-400) L 03/03/18 09:17 MPV 10.5 fL (8.7-11.7) 03/03/18 09:17 Neut % (Auto) 84.7 % (39.3-74.2) H 03/03/18 09:17 Lymph % (Auto) 7.5 % (15.0-45.0) L 03/03/18 09:17 [place] % (Auto) 7.0 % (4.5-13.0) 03/03/18 09:17 Eos % (Auto) 0.3 % (0.6-7.6) L 03/03/18 09:17 Baso % (Auto) 0.1 % (0.3-1.7) L 03/03/18 09:17 Nucleat RBC Rel Count 0.0 % (0.0-0.2) 03/03/18 09:17 Absolute Neuts (auto) 7.91 10^3/uL (1.70-6.50) H 03/03/18 09:17 Absolute Lymphs (auto) 0.70 10^3/uL (1.00-3.00) L 03/03/18 09:17 Absolute Monos (auto) 0.65 10^3/uL (0.30-0.80) 03/03/18 09:17 Absolute Eos (auto) 0.03 10^3/uL (0.03-0.40) 03/03/18 09:17 Absolute Basos (auto) 0.01 10^3/uL (0.02-0.10) L 03/03/18 09:17 Absolute Nucleated RBC 0.00 10^3/uL (0-0.01) 03/03/18 09:17 Immature Gran % 0.4 % (0.0-1.1) 03/03/18 09:17 Immature Gran # 0.04 10^3/uL (0.00-0.10) 03/03/18 09:17 POC Sodium 129 mEq/L (135-145) L 03/03/18 09:33 Sodium 125 mEq/L (135-145) L 03/03/18 11:38 POC Potassium 3.9 mEq/L (3.3-5.0) 03/03/18 09:33 Potassium 4.1 mEq/L (3.5-5.2) 03/03/18 09:17 POC Chloride 89 mEq/L (97-110) L 03/03/18 09:33 Chloride 90 mEq/L (97-110) L 03/03/18 09:17 Carbon Dioxide 26 mEq/l (22-31) 03/03/18 09:17 Anion Gap 9 mEq/L (6-14) 03/03/18 09:17 POC BUN 10 mg/dL (7-23) 03/03/18 09:33 BUN 12 mg/dL (7-23) 03/03/18 09:17 Creatinine 0.5 mg/dL (0.7-1.3) L 03/03/18 09:17 POC Creatinine 0.5 mg/dL (0.7-1.3) L 03/03/18 09:33 Estimated GFR > 60 03/03/18 09:17 Glucose 88 mg/dL (70-100) 03/03/18 09:17 POC Glucose 91 mg/dL (70-100) 03/03/18 09:33 Calcium 9.6 mg/dL (8.5-10.4) 03/03/18 09:17 Total Bilirubin 0.4 mg/dL (0.1-1.4) 03/03/18 09:17 Conjugated Bilirubin 0.1 mg/dL (0.0-0.5) 03/03/18 09:17 Unconjugated Bilirubin 0.3 mg/dL (0.0-1.1) 03/03/18 09:17 AST 58 IU/L (17-59) 03/03/18 09:17 ALT 62 IU/L (21-72) 03/03/18 09:17 Alkaline Phosphatase 124 IU/L (38-126) 03/03/18 09:17 Total Protein 7.5 g/dL (6.3-8.2) 03/03/18 09:17 Albumin 4.4 g/dL (3.5-5.0) 03/03/18 09:17 Lipase 142 IU/L (23-300) 03/03/18 09:17 Urine Color YELLOW 03/03/18 10:25 Urine Appearance MODERATELY TURBID 03/03/18 10:25 Urine pH 7.0 (5.0-7.5) 03/03/18 10:25 Ur Specific [place] 1.015 (1.002-1.030) 03/03/18 10:25 Urine Protein NEGATIVE (NEGATIVE) 03/03/18 10:25 Urine Ketones 1+ (NEGATIVE) H 03/03/18 10:25 Urine Blood NEGATIVE (NEGATIVE) 03/03/18 10:25 Urine Nitrate NEGATIVE (NEGATIVE) 03/03/18 10:25 Urine Bilirubin NEGATIVE (NEGATIVE) 03/03/18 10:25 Urine Urobilinogen NEGATIVE EU (0.2-1.0) 03/03/18 10:25 Ur Leukocyte Esterase NEGATIVE (NEGATIVE) 03/03/18 10:25 Urine RBC 1-3 /hpf (0-3) 03/03/18 10:25 Urine WBC 1-3 /hpf (0-3) 03/03/18 10:25 Ur Epithelial Cells NONE SEEN /lpf (NONE-1+) 03/03/18 10:25 Urine Mucus TRACE /lpf (NONE-1+) 03/03/18 10:25 Urine Glucose NEGATIVE (NEGATIVE) 03/03/18 10:25 Assessment & Plan Assessment: N/V - suspect viral gastroenteritis -supportive care, IVF's MS - possibly a pseudoflare given above -MRI brain and c-spine per neurology, discussed with Dr. Landeros -defer further steroids unless e/o active flare on imaging Hyponatremia - suspect hypovolemic -NS, follow -check urine Na, osm Urinary retention - luevano placed in ED Full code Dispo - admit to inpt, anticipate >48 hrs hospitalization for ongoing management of gastroenteritis and MS flare
--- NOTE | 2018-03-03 14:15 | WOCRNPDOC ---
WOCRN Advanced Assessment Note - Skin Integrity Problem, Advanced Assess Right Heel Pressure Injury Dressing Type: Open to Air Clotilde Wound Tissue: Blanching, Erythema Site Measurement - Head-to-Toe Length X Width X Depth (cm): Medial: 1.5x2x0, lateral: 1.2x1.3x0 Pressure Injury Stage: Stage 1 Pressure Injury Present on Admit: Yes Skin Integrity Problem Comment: Two pressure injuries, one to medial heel, another to lateral heel. Offloading boots and cream to feet initiated. Wound care will sign off. Left Heel Pressure Injury Dressing Type: Open to Air Clotilde Wound Tissue: Blanching, Erythema Site Measurement - Head-to-Toe Length X Width X Depth (cm): 2x2x0 (medial), 1.2x2x0 (lateral) Pressure Injury Stage: Stage 1 Pressure Injury Present on Admit: Yes Skin Integrity Problem Comment: Two non blanching areas, one on medial heel, the other lateral. Offloading boots and cream initiated.
[2018-03-03] MEDS ORDERED: MAGNESIUM OXIDE 400 MG TAB PO SCH (16:00)
[2018-03-03] MEDS ORDERED: DOCUSATE SODIUM 100 MG CAP PO SCH (16:00)
[2018-03-03] MEDS ORDERED: GADOBUTROL 10 ML VIAL IVP ONE (17:39)
[2018-03-04] MEDS: ACETAMINOPHEN 325 MG TAB PO PRN (02:12)
[2018-03-04] MEDS ORDERED: ENOXAPARIN 40 MG/0.4 ML SYR SC SCH (09:00)
[2018-03-04] MEDS ORDERED: DOCUSATE SODIUM 100 MG CAP PO SCH (09:00)
[2018-03-04] MEDS ORDERED: MAGNESIUM OXIDE 400 MG TAB PO SCH (09:00)
[2018-03-04] MEDS ORDERED: LEVOTHYROXINE 75 MCG TAB PO SCH (09:00)
[2018-03-04] MEDS ORDERED: TAMSULOSIN HCL 0.4 MG CAP PO SCH (09:00)
--- NOTE | 2018-03-04 09:35 | NEUROPROG ---
Assessment: BACKGROUND 03/03: 67 year old man with a history of longstanding MS. He is baseline unable to walk, but can transfer with his arms. He has spasticity in both legs and LUE with some mild left hand weakness at baseline. He has not seen a neurologist in years and has not been on MS therapy for years. He states he's not been feeling well for the past 3 days. Yesterday he was feeling alternating hot/ cold flashes. His appetite has been poor. He vomited several times last last and has some abdominal discomfort, "like a knot in my stomach." Since yesterday he's been feeling generally more weak and feels his spasticity is worse as a whole. He denies new focal weakness, vision change, speech/language change, vertigo. He has no sensory loss. Intake labs showed hyponatremia and hypochloremia. INTERVAL HISTORY: Still feeling globally weak and knocked down. Still with abdominal discomfort. No new symptoms. EXAM: VS reviewed in EMR MS: awake, alert, oriented to all spheres. Speech nondysarthric. No language disturbance. Follows commands. Attends to both sides. CN: pupils 3mm round and reactive - no APD. Unable to visualize fundi. VFF. Primary gaze centered. Full ocular motility - no THERON. Facial sensation preserved. Face symmetric. Hearing grossly intact to finger rub. Palatoglossal movements intact. Shoulder shrug and head turn strong. MOTOR: reduced bulk throughout. Spastic in both LEs about all joints. Spastic in LUE about elbow>wrist. No adventitial movements. Only able to activate the leg muscles without any resistance against gravity. LUE with finger extensor weakness at 3/5. SENSORY: intact/symmetric LT/PP in all extremities. No extinction. COORD: no ataxia FN/HS. Sally labored in left hand. REFLEX: plantars extensor. No clonus. DTRs globally 3/4. GAIT: he is unable to walk at baseline DATA REVIEW: Labs reviewed in EMR PERSONALLY INTERPRETED RESULTS AND DATA: CT head wo - nothing acute, chronic stigmata of demyelination in the white matter, chronic left caudate lacunar infarct MRI brain and C-spine wow - no acute/enhancing lesions. Stable white matter and cord plaque consistent with known MS. IMPRESSION AND RECOMMENDATIONS: Patient with GI illness who reports global decompensation of his chronic MS symptoms. No active/new lesion of MRI. Suspect this is global decompensation of his known MS from his GI illness. Cont medical optimization of GI issues with primary team. No role for steroid. PT/OT. Sign off. Objective: Vital Signs Temp Pulse Resp BP Pulse Ox 36.2 C 70 18 116/78 96 03/04/18 07:52 03/04/18 07:52 03/04/18 07:52 03/04/18 07:52 03/04/18 07:52 Laboratory Results 03/04/18 04:43 03/03/18 03/04/18 03/05/18 05:59 05:59 05:59 Intake Total 175 Output Total 2800 Balance -2625 Allergies/Adverse Reactions: egg yolk Allergy (Verified 03/04/18 08:08) iodine Allergy (Verified 03/03/18 12:04) Iodine and Iodide Containing Produc Allergy (Verified 03/03/18 12:04) shellfish derived Allergy (Verified 03/03/18 09:01) sodium benzoate Allergy (Verified 03/03/18 09:01) Sulfa (Sulfonamide Antibiotics) Allergy (Verified 03/03/18 09:01) wheat Allergy (Verified 03/03/18 09:01) DIARY Allergy (Uncoded 03/03/18 09:01) GLUTEN Allergy (Uncoded 03/03/18 09:01) SOY Allergy (Uncoded 03/03/18 09:01)
[2018-03-04] MEDS ORDERED: CHOLECALCIFEROL VIT D3 2,000 UNITS TAB/CAP PO SCH (10:45)
[2018-03-04] MEDS ORDERED: CYANO/VITAMIN B12 1000 MCG TAB PO SCH (10:45)
[2018-03-04] MEDS ORDERED: VITAMIN B COMPLEX 1 EA CAP/TAB PO SCH (10:45)
[2018-03-04] MEDS: ASCORBIC ACID 500 MG TAB PO SCH ×3 (10:51→16:30)
--- NOTE | 2018-03-04 11:29 | PDMN ---
Medical Necessity Medical necessity: Pt meets IP criteria as of 03/03/2018 per and MCG M-170 ( gastroenteritis); est los > 2 mn for ongoing tx and management of gastroenteritis with nausea, vomiting, hyponatremia and weakness in the setting of MS; requiring IVF, serial labs, neurology consultation, and PT/OT.
[2018-03-04 11:30] VITALS: BP 91/59
[2018-03-04] MEDS ORDERED: BISACODYL 10 MG SUPP PR ONE (14:09)
--- NOTE | 2018-03-04 14:30 | GDS ---
DISCHARGE DIAGNOSES: 1. Viral gastroenteritis. 2. Generalized weakness. 3. Nausea and vomiting. 4. History of multiple sclerosis. 5. Hyponatremia. 6. Urinary retention. CONSULTATIONS: Dr. Landeros of Neurology. STUDIES AND PROCEDURES DONE: 1. CT of the abdomen. 2. CT of the head. 3. MRI of the brain. 4. Cervical spine MRI. PHYSICAL EXAM: GENERAL: The patient is alert. VITAL SIGNS: Afebrile at 36.3. Pulse is 72. Respi ratory rate is 19. Blood pressure is 91/59. He is saturating 95% on room air. I have seen and eval uated the patient on the day of discharge. HOSPITAL COURSE: The patient is a 67-year-old male, presents to the emergency room with complaints o f weakness. He was evaluated and diagnosed with. 1. Nausea and vomiting. This is in the setting of viral gastroenteritis. The patient's symptoms pan ve completely resolved. He is tolerating a regular diet. He has received IV hydration, and has no f urther signs of complication. 2. History of multiple sclerosis. During this hospitalization, he did receive a consultation from [facility]. MRI of the brain was done with no noted MS flare. He is stable and will return to his [facility] living situation. 3. Hyponatremia. This is in the setting of hypovolemia. This has responded well to IV fluids. The patient is stable. 4. Urinary retention. [place] catheter has been placed during this hospitalization. Has been discont inued prior to discharge. He will follow with Urology in the outpatient setting. /[id number]/MODL
--- NOTE | 2018-03-04 16:16 | ASMTLACE ---
LACE Length of stay for Answers: 2 days current admission Acuity / Level of Answers: Yes Care: Did the patient have an inpatient admission? Comorbidities - select Answers: Other Notes: MS all that apply # of Emergency department Answers: 1-2 visits in the last 6 months Score: 7 Date Signed: 03/04/2018 04:16 PM Electronically Signed By:JOSEFA De Jesus
--- NOTE | 2018-03-04 16:17 | ASMTCMCOM ---
CM Note CM Note Notes: PT rec home, pt has caregiver support and all equipment needs. Pt medically stable for d/c, no CM d/c needs identified. Date Signed: 03/04/2018 04:17 PM Electronically Signed By:JOSEFA De Jesus
[2018-03-05] MEDS ORDERED: LEVOTHYROXINE 75 MCG TAB PO SCH (04:00)
== END 2018-03-04 16:41 | disposition home or self-care (01) | DRG 392 ==
LOC: F3E 12:20
PROVIDERS: ADMIT Internal Medicine; ATTEND Internal Medicine
DX: A08.4 Viral intestinal infection, unspecified (principal); E87.1 Hypo-osmolality and hyponatremia; G35 Multiple sclerosis; R33.9 Retention of urine, unspecified; E86.9 Volume depletion, unspecified; L89.611 Pressure ulcer of right heel, stage 1; L89.621 Pressure ulcer of left heel, stage 1
CPT/HCPCS: 82435-PO; 82565-PO; 82947-PO; 84132-PO; 84295-PO; 84520-PO; 85014-PO; 96374; 97161-GP; A9585; G8978-GP-CM; G8979-GP-CM; J2405; J2930; Q9967

== ENCOUNTER 2018-03-13 12:47 | Inpatient (IN) | payer OTHER, MEDICARE ==
[2018-03-13] MEDS ORDERED: NS 1,000 ML IV ONE ×2 (14:03→14:15)
[2018-03-13] MEDS ORDERED: ONDANSETRON 4 MG/2 ML VIAL IVP ONE (14:03)
--- NOTE | 2018-03-13 14:20 | EDPHY ---
H & P Stated Complaint: vomiting and diarrhea Time Seen by Provider: 03/13/18 14:03 HPI/ROS: CHIEF COMPLAINT: Vomiting, generalized weakness HISTORY OF PRESENT ILLNESS: 67-year-old male with advanced multiple sclerosis presents with vomiting and generalized weakness. Onset vomiting 2 days ago, unable to tolerate oral fluids or food. Associated with abdominal cramping, loose stools and subjective fever. Also has an occasional cough, no shortness of breath or other URI symptoms. Lives alone in own home, uses a wheelchair. Difficulty transferring because of generalized weakness. No flu vaccination this year. Admitted 03/03/2018 for vomiting and dehydration. MRI of the brain during that admission revealed no evidence of MS flare. REVIEW OF SYSTEMS: complete 10 point ROS reviewed and is negative except for the noted elements in the HPI - Personal History Current Tetanus Diphtheria and Acellular Pertussis (TDAP): Unsure Tetanus Vaccine Date: unknown - Medical/Surgical History Hx Asthma: No Hx Chronic Respiratory Disease: No Hx Diabetes: No Hx Cardiac Disease: No Hx Renal Disease: No Hx Cirrhosis: No Hx Alcoholism: No Hx HIV/AIDS: No Hx Splenectomy or Spleen Trauma: No Other PMH: MS. Hernia surgery apr 2016. - Social History Smoking Status: Never smoked Alcohol Use: None Drug Use: None Additional Social History: Lives alone in own home - Physical Exam Exam: General Appearance: Alert, pleasant, nontoxic-appearing Eyes: Pupils equal and round, no conjunctival pallor or injection ENT, Mouth: Mucous membranes dry Neck: Normal inspection Respiratory: Lungs are clear to auscultation anteriorly, too weak to sit up Cardiovascular: Regular rate and rhythm Gastrointestinal: Abdomen is soft, mild diffuse tenderness Neurological: Alert, generalized weakness Skin: Warm and dry Extremities: Normal inspection Psychiatric: Mood and affect normal Constitutional: Initial Vital Signs Heart Rate 67 03/13/18 12:51 Respiratory Rate 18 03/13/18 12:51 Blood Pressure 107/83 H 03/13/18 12:51 O2 Sat (%) 98 03/13/18 12:51 O2 Delivery Mode Room Air Allergies/Adverse Reactions: egg yolk Allergy (Verified 03/13/18 12:50) iodine Allergy (Verified 03/13/18 12:50) Iodine and Iodide Containing Produc Allergy (Verified 03/13/18 12:50) shellfish derived Allergy (Verified 03/13/18 12:50) sodium benzoate Allergy (Verified 03/13/18 12:50) Sulfa (Sulfonamide Antibiotics) Allergy (Verified 03/13/18 12:50) wheat Allergy (Verified 03/13/18 12:50) DIARY Allergy (Uncoded 03/03/18 09:01) GLUTEN Allergy (Uncoded 03/03/18 09:01) SOY Allergy (Uncoded 03/03/18 09:01) Home Medications: Medication Instructions Recorded Ascorbic Acid [Vitamin C 500 mg 500 mg PO QID 11/29/12 (*)] Cyanocobalamin [Vitamin B12 (*)] 1,000 mcg PO DAILY 11/29/12 Docusate Sodium [Colace 100 MG (*)] 100 mg PO BID 11/29/12 Herbals/Supplements -Info Only 1 each PO AD 11/29/12 Magnesium Oxide [Magnesium Oxide 400 mg PO BID 11/29/12 400 mg (*)] [place]-3 Fatty Acids/Fish Oil [Fish 1 cap PO QID 11/29/12 Oil 1,000 mg Capsule] Vitamin B Complex [Vitamin B 1 tab PO DAILY@12 11/29/12 Complex (OTC)] Cholecalciferol (Vitamin D3) 5,000 unit PO BID 05/20/16 [Vitamin D3] Tamsulosin HCl [Flomax 0.4 MG (*)] 0.4 mg PO DAILY #0 cap 06/17/16 Levothyroxine [Synthroid 75 mcg 75 mcg PO DAILY06 03/03/18 (*)] Acetaminophen [Tylenol ES 500 mg 500 mg PO Q6 PRN 03/13/18 (*)] Naproxen Sodium [Aleve 220 MG (*)] 220 mg PO DAILY PRN 03/13/18 Medical Decision Making - Diagnostics Imaging Results: CXR: NAD Imaging: I viewed and interpreted images myself ED Course/Re-evaluation: This patient presents with vomiting, dehydration and generalized weakness. Will certainly need to be admitted because of inability to care for self at home. IV normal saline 1 L and Zofran 4 mg IV given. Feels somewhat better after IVF and Zofran. CXR unremarkable. Hyponatremia noted, secondary to dehydration, likely contributing to weakness. Presentation c/w gastroenteritis , benign abd exam. Bladder scan reveals 800ml of urine, luevano catheter placed. UA contaminated, doubt UTI. The hospitalist service was consulted for admission. Differential Diagnosis: Differential diagnosis includes pyelonephritis, cholecystitis, influenza, cellulitis, pneumonia, abscess, meningitis. - Data Points Laboratory Results: Laboratory Results 03/13/18 14:09 03/13/18 14:09 Medications Given: Acetaminophen (Tylenol) 650 mg PO Q4HRS PRN PRN Reason: Pain, Mild/Fever, Can Take PO Stop: 09/09/18 15:37 Last Admin: 03/13/18 17:23 Dose: 650 mg Sodium Chloride (Ns) 1,000 mls @ 75 mls/hr IV CONT AGGIE Stop: 09/09/18 15:44 Last Admin: 03/13/18 17:25 Dose: 1,000 mls Ondansetron HCl (Zofran Odt) 4 mg PO Q4HRS PRN PRN Reason: Nausea/Vomiting, Use 1st Stop: 09/09/18 15:37 Last Admin: 03/13/18 20:58 Dose: 4 mg Discontinued Medications Sodium Chloride (Ns) 1,000 mls @ 0 mls/hr IV EDNOW ONE; Wide Open PRN Reason: Protocol Stop: 03/13/18 14:04 Last Admin: 03/13/18 14:37 Dose: 1,000 mls Sodium Chloride (Ns) 1,000 mls @ 0 mls/hr IV ONCE ONE; Wide Open PRN Reason: Protocol Stop: 03/13/18 14:16 Last Admin: 03/13/18 14:38 Dose: 1,000 mls Magnesium Sulfate/Dextrose (Magnesium Sulf 1 Gm (Premix)) 100 mls @ 100 mls/hr IV ONCE ONE Stop: 03/13/18 19:31 Last Admin: 03/13/18 18:39 Dose: 100 mls Sodium Chloride (Ns) 500 mls @ 0 mls/hr IV ONCE ONE PRN Reason: Wide Open Stop: 03/13/18 23:51 Last Admin: 03/14/18 00:01 Dose: 500 mls Ondansetron HCl (Zofran) 4 mg IVP EDNOW ONE Stop: 03/13/18 14:04 Last Admin: 03/13/18 14:38 Dose: 4 mg Departure - Departure Disposition: [facility] Acute Clinical Impression: Multiple sclerosis exacerbation, Acute vomiting, Dehydration, Hyponatremia Condition: Fair
[2018-03-13 14:55] LABS: PLATELET COUNT 142 10^3/uL (150-400)
--- NOTE | 2018-03-13 15:27 | PDGENHP ---
History and Physical - Chief Complaint weakness, ab pain, nausea - History of Present Illness Misha Aguilar is a 67 year old male with PMH of MS, not on anything admitted with abdominal pain, nausea and loose stool. He was admitted and evaluated for a possible MS flare on 03/03/18 and evaluated by neuro who did not think patient was having a flare. During that admission patient said that he was stood up by an aide that somehow caused him to strain his back that he says caused him to have worsening muscle spasm that is what he feels is causing his current symptoms. He said that the spasm has caused his back to spasm up which caused his abdomen to spasm which is causing loose stool, ab pain, and some nausea. He feels that he never really felt any better from when he was discharged on 03/04/18. He denied any actual diarrhea, fevers, chills, cough, cp , sob or other symptoms. History Information - Allergies/Home Medication List Allergies/Adverse Reactions: egg yolk Allergy (Verified 03/13/18 12:50) iodine Allergy (Verified 03/13/18 12:50) Iodine and Iodide Containing Produc Allergy (Verified 03/13/18 12:50) shellfish derived Allergy (Verified 03/13/18 12:50) sodium benzoate Allergy (Verified 03/13/18 12:50) Sulfa (Sulfonamide Antibiotics) Allergy (Verified 03/13/18 12:50) wheat Allergy (Verified 03/13/18 12:50) DIARY Allergy (Uncoded 03/03/18 09:01) GLUTEN Allergy (Uncoded 03/03/18 09:01) SOY Allergy (Uncoded 03/03/18 09:01) Home Medications: Ascorbic Acid [Vitamin C 500 mg (*)] 500 mg PO QID 11/29/12 [Last Taken 08:00] Cyanocobalamin [Vitamin B12 (*)] 1,000 mcg PO DAILY 11/29/12 [Last Taken 08:00] Docusate Sodium [Colace 100 MG (*)] 100 mg PO BID 11/29/12 [Last Taken 05/20/16 08:00] Herbals/Supplements -Info Only 1 each PO AD 11/29/12 [Last Taken 3 Days Ago ~] Magnesium Oxide [Magnesium Oxide 400 mg (*)] 400 mg PO BID 11/29/12 [Last Taken 05/20/16 08:00] Albright-3 Fatty Acids/Fish Oil [Fish Oil 1,000 mg Capsule] 1 cap PO QID 11/29/12 [ Last Taken 05/20/16 08:00] Vitamin B Complex [Vitamin B Complex (OTC)] 1 tab PO DAILY 11/29/12 [Last Taken 05/19/16 08:00] Cholecalciferol (Vitamin D3) [Vitamin D3] 5,000 unit PO BID 05/20/16 [Last Taken Unknown] Levothyroxine [Synthroid 75 mcg (*)] 75 mcg PO DAILY 03/03/18 [Last Taken Unknown] I have personally reviewed and updated: family history, medical history, social history, surgical history - Past Medical History Additional medical history: MS - Surgical History Additional surgical history: hernia surgery 04/2016 - Family History Positive for: non-pertinent - Social History Smoking Status: Never smoked Alcohol Use: None Drug Use: None Additional social history: Lives independently with caregivers, wheelchair bound Review of Systems Review of Systems: ROS: 10pt was reviewed & negative except for what was stated in HPI & below Physical Exam Physical Exam: Temp Pulse Resp BP Pulse Ox 67 18 107/83 H 98 03/13/18 12:51 03/13/18 12:51 03/13/18 12:51 03/13/18 12:51 Constitutional: no apparent distress, appears nourished, not in pain Eyes: PERRL, anicteric sclera, EOMI Ears, Nose, Mouth, Throat: moist mucous membranes, hearing normal, ears appear normal, no oral mucosal ulcers Cardiovascular: regular rate and rhythym, no murmur, rub, or gallop, No edema Respiratory: no respiratory distress, no rales or rhonchi, clear to auscultation Gastrointestinal: normoactive bowel sounds, soft, non-tender abdomen, no palpable masses Genitourinary: no bladder fullness, no bladder tenderness Skin: warm, normal color, no rashes or abrasions, no fluctuance, no induration, No mottled Musculoskeletal: full muscle strength, no muscle tenderness, normal joint ROM, no joint effusions Neurologic: AAOx3, weakness, other (weakness in upper extremities patient says is his base. right leg is contracted. ) Psychiatric: interacting appropriately, not anxious, not encephalopathic, thought process linear Lymph, Heme, Immunologic: no cervical LAD, no supraclavicular LAD Lab Data & Imaging Review 03/13/18 14:09 03/13/18 14:09 WBC 7.07 10^3/uL (3.80-9.50) 03/13/18 14:09 RBC 5.32 10^6/uL (4.40-6.38) 03/13/18 14:09 Hgb 15.1 g/dL (13.7-17.5) 03/13/18 14:09 Hct 43.5 % (40.0-51.0) 03/13/18 14:09 MCV 81.8 fL (81.5-99.8) 03/13/18 14:09 MCH 28.4 pg (27.9-34.1) 03/13/18 14:09 MCHC 34.7 g/dL (32.4-36.7) 03/13/18 14:09 RDW 14.4 % (11.5-15.2) 03/13/18 14:09 Plt Count 142 10^3/uL (150-400) L 03/13/18 14:09 MPV 10.9 fL (8.7-11.7) 03/13/18 14:09 Neut % (Auto) 81.2 % (39.3-74.2) H 03/13/18 14:09 Lymph % (Auto) 11.3 % (15.0-45.0) L 03/13/18 14:09 Hardy % (Auto) 6.5 % (4.5-13.0) 03/13/18 14:09 Eos % (Auto) 0.4 % (0.6-7.6) L 03/13/18 14:09 Baso % (Auto) 0.3 % (0.3-1.7) 03/13/18 14:09 Nucleat RBC Rel Count 0.0 % (0.0-0.2) 03/13/18 14:09 Absolute Neuts (auto) 5.74 10^3/uL (1.70-6.50) 03/13/18 14:09 Absolute Lymphs (auto) 0.80 10^3/uL (1.00-3.00) L 03/13/18 14:09 Absolute Monos (auto) 0.46 10^3/uL (0.30-0.80) 03/13/18 14:09 Absolute Eos (auto) 0.03 10^3/uL (0.03-0.40) 03/13/18 14:09 Absolute Basos (auto) 0.02 10^3/uL (0.02-0.10) 03/13/18 14:09 Absolute Nucleated RBC 0.00 10^3/uL (0-0.01) 03/13/18 14:09 Immature Gran % 0.3 % (0.0-1.1) 03/13/18 14:09 Immature Gran # 0.02 10^3/uL (0.00-0.10) 03/13/18 14:09 VBG Lactic Acid 0.9 mmol/L (0.7-2.1) 03/13/18 14:26 Sodium 127 mEq/L (135-145) L 03/13/18 14:09 Potassium 4.5 mEq/L (3.5-5.2) 03/13/18 14:09 Chloride 92 mEq/L (97-110) L 03/13/18 14:09 Carbon Dioxide 25 mEq/l (22-31) 03/13/18 14:09 Anion Gap 10 mEq/L (6-14) 03/13/18 14:09 BUN 11 mg/dL (7-23) 03/13/18 14:09 Creatinine 0.4 mg/dL (0.7-1.3) L 03/13/18 14:09 Estimated GFR > 60 03/13/18 14:09 Glucose 71 mg/dL (70-100) 03/13/18 14:09 Calcium 9.5 mg/dL (8.5-10.4) 03/13/18 14:09 Total Bilirubin 0.5 mg/dL (0.1-1.4) 03/13/18 14:09 Conjugated Bilirubin 0.3 mg/dL (0.0-0.5) 03/13/18 14:09 Unconjugated Bilirubin 0.2 mg/dL (0.0-1.1) 03/13/18 14:09 AST 64 IU/L (17-59) H 03/13/18 14:09 ALT 66 IU/L (21-72) 03/13/18 14:09 Alkaline Phosphatase 133 IU/L (38-126) H 03/13/18 14:09 Total Protein 7.1 g/dL (6.3-8.2) 03/13/18 14:09 Albumin 4.2 g/dL (3.5-5.0) 03/13/18 14:09 Lipase 84 IU/L (23-300) 03/13/18 14:09 Assessment & Plan Assessment: nausea- etiology uncertain. will check GI panel. has mild transaminitis so will check US of abdomen as well. discussed case with ER physician. CXR reviewed which in my read is WNL and not revealing. -check urinalysis -bladder scan, retaining urine -US abdomen abdominal pain- patient states it is due to muscle spasm which started when he was lifted up on black while here. workup as above. check for UTI, viral panel, bladder scan, and us abdomen. Hyponatremia (Acute)- patient appears hypovolemic, likely hypovolemic hyponatremia. will give IVNS and recheck in am. Thrombocytopenia- chronic and unchanged. Monitor for now. If drops with LMWH will hold. Multiple sclerosis- Patients symptoms are the same from when he was here on , MRI then and neuro consult reviewed and was not thought to be a flare. suspect more likely viral gastroenteritis or cholelithiasis/cystitis. 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 Will discuss with PT/OT and CM. PPX- SCds, heparin Fluids-NS Lytes- hyponatremia. Nutrition- clears for now Cor- full Dispo- observation for nausea, ab pain
[2018-03-13] MEDS ORDERED: LIDOCAINE 2% JELLY 20 ML (UROJECT) ONE (15:32)
[2018-03-13] MEDS ORDERED: PROTOCOL POTASSIUM 1 DOSE MISC PRN (15:38)
[2018-03-13] MEDS ORDERED: ONDANSETRON 4 MG/2 ML VIAL IVP PRN (15:38)
[2018-03-13] MEDS ORDERED: PROMETHAZINE HCL 25 MG/ML INJ IVP PRN (15:38)
[2018-03-13] MEDS ORDERED: PROTOCOL MAGNESIUM 1 DOSE IV PRN (15:38)
[2018-03-13] MEDS ORDERED: PROTOCOL K PHOSPHATE 1 DOSE IV PRN (15:38)
[2018-03-13] MEDS: ACETAMINOPHEN 325 MG TAB PO PRN (17:23)
[2018-03-13] MEDS: NS 1,000 ML IV SCH (17:25)
[2018-03-13] MEDS ORDERED: MAGNESIUM SULF 1 GM/DEXTROSE 100 ML IV ONE (18:32)
[2018-03-13] MEDS: ONDANSETRON DISINTEGRATING 4 MG TAB PO PRN (20:58)
[2018-03-13] MEDS ORDERED: NS 500 ML IV ONE (23:50)
[2018-03-14 04:57] LABS: PLATELET COUNT 131 10^3/uL (150-400)
[2018-03-14] MEDS: ENOXAPARIN 40 MG/0.4 ML SYR SC SCH ×3 (09:50→12:41)
[2018-03-14] MEDS: TAMSULOSIN HCL 0.4 MG CAP PO SCH (09:50)
--- NOTE | 2018-03-14 10:56 | ASMTCMCOM ---
CM Note CM Note Notes: Pt with adv MS in for vomiting and dehydration, resides alone with 24/7 private duty caregivers. Pt just d/c from [facility] 03/04/18 independent. PT/OT evals pending. Chart review indicates pt went to [facility] June 2016. CM to follow for d/c planning. Date Signed: 03/14/2018 10:56 AM Electronically Signed By:JOSEFA De Jesus
[2018-03-14] MEDS ORDERED: MAGNESIUM SULF 1 GM/DEXTROSE 100 ML IV ONE (11:52)
--- NOTE | 2018-03-14 15:38 | HOSPPROG ---
Hospitalist Progress Note Assessment/Plan: 67 year old male with pmh of MS, just here for ab pain, readmitted yesterday with ab pain, and increased weakness. nausea- etiology uncertain. will check GI panel. has mild transaminitis so will check US of abdomen as well. discussed case with ER physician. CXR reviewed which in my read is WNL and not revealing. -check urinalysis -bladder scan, retaining urine- place luevano -US abdomen normal. abdominal pain- patient states it is due to muscle spasm which started when he was lifted up on black while here. -LFTs normalized today -Urine culture pending -gi panel pending -patient eating well today. Hyponatremia (Acute)- improved with fluids. Thrombocytopenia- chronic and unchanged. Monitor for now. If drops with LMWH will hold. Multiple sclerosis- Patients symptoms are the same from when he was here on , MRI then and neuro consult reviewed and was not thought to be a flare. suspect more likely viral gastroenteritis or cholelithiasis/cystitis. Debility- patient pays out of pocket to have 24/7 aides but may need group home placement. Will discuss with PT/OT and CM. PPX- SCds, heparin Fluids-NS Lytes- hyponatremia. Nutrition- clears for now Cor- full Dispo- inpatient for ab pain, weakness, placement. initially he refused snf but now willing to go. Subjective: pain somewhat improved. No bm since here. no nausea or vomiting either since admission Objective: Vital Signs Temp Pulse Resp BP Pulse Ox 36.3 C 74 15 93/53 L 97 03/14/18 15:28 03/14/18 15:28 03/14/18 15:28 03/14/18 15:28 03/14/18 15:28 Microbiology 03/13/18 16:50 Respiratory Panel (PCR) - Final Nasal, Sinus - Swab No Organism Detected By Pcr Laboratory Results 03/14/18 04:20 03/14/18 04:20 03/13/18 03/14/18 03/15/18 05:59 05:59 05:59 Intake Total 2510 Output Total 1950 Balance 560 - Physical Exam Constitutional: no apparent distress, appears nourished, not in pain Eyes: PERRL, anicteric sclera, EOMI Ears, Nose, Mouth, Throat: moist mucous membranes, hearing normal, ears appear normal, no oral mucosal ulcers Cardiovascular: regular rate and rhythym, no murmur, rub, or gallop Respiratory: no respiratory distress, no rales or rhonchi, clear to auscultation Gastrointestinal: normoactive bowel sounds, soft, non-tender abdomen, no palpable masses Genitourinary: no bladder fullness, no bladder tenderness, no renal bruits Skin: no rashes or abrasions, no fluctuance, no induration Musculoskeletal: other (rigid right leg, from spasm, weakness diffusely) Neurologic: AAOx3, sensation intact bilaterally Psychiatric: interacting appropriately, not anxious, not encephalopathic, thought process linear Lymph, Heme, Immunologic: no cervical LAD, no supraclavicular LAD ICD10 Worksheet Patient Problems: Problems Problem Status Onset Acute vomiting Acute Dehydration Acute Hyponatremia Acute Multiple sclerosis exacerbation Acute Cellulitis of leg Active Aphasia Acute Bladder obstruction Acute Gastroenteritis Acute Multiple sclerosis Acute Palliative care encounter Acute Urinary retention Acute
--- NOTE | 2018-03-14 19:49 | PDMN ---
Medical Necessity Medical necessity: Pt meets IP criteria as of 03/14/2018 per and GWEN M-05 ( abdominal pain, undiagnosed); est los > 2 mn for ongoing tx and management of abdominal pain with hyponatremia (Na + 127) and nausea; requiring further work up, serial labs, IV anti-emetics, IVF, serial labs, and therapies. Comorbid MS and thrombocytopenia.
[2018-03-14] MEDS: ONDANSETRON DISINTEGRATING 4 MG TAB PO PRN (20:42)
[2018-03-14] MEDS: ACETAMINOPHEN 325 MG TAB PO PRN (23:21)
[2018-03-15] MEDS ORDERED: ETOMIDATE 40 MG/20 ML INJ IVP ONE (05:00)
[2018-03-15] MEDS ORDERED: SUCCINYLCHOLINE CHLORIDE 200 MG/10 ML VIAL IVP ONE (05:00)
--- NOTE | 2018-03-15 05:18 | EDPHY ---
Inpatient Procedure Narrative: 0510AM: Code blue called. A code blue was called for this patient around 5:00 a.m.. I immediately responded to his room. Upon evaluation the patient is getting CPR, being bagged by respiratory. Patient unresponsive. PEA Arrest. Patient received approximately 5 min of CPR however regained a pulse. He was not given any medications. However he remained unresponsive. The decision was made to intubate him. Intubation Procedure: RSI medications were given to the patient. Received 20 mg of IV etomidate. With direct visualization of the cords with a MAC 4 blade a 7.5 endotracheal tube was passed directly through the cords. The endotracheal tube was confirmed with chest x-ray Humidified return if air Bilateral breath sounds Capnography for change. Patient tolerated the intubation very well. Patient was given IV fluid bolus 2 L normal saline. Hospitalist service at bedside Dr. Frederick. Pulse ox 99% intubated. BP 80s/50s patient intubated. Cxr Reviewed. ETT in good position. Critical Care: Total Critical Care Time Spent Managing this Patient: 30 Minutes. This time was spent Exclusively with this patient. This Care was exclusive of procedures. The Organ System/life at risk was cardiopulmonary arrest This Patient was in Critical Condition because cardiopulmonary arrest The was intubated, and subsequently the patient had a pulse with an organized rhythm, was intubated. I return emergency room after this. Dr. Frederick Who continued to manage his care.
[2018-03-15] MEDS ORDERED: EPINEPHrine 1 MG in NS 250 ML IV ONE ×2 (05:30→06:00)
[2018-03-15 05:48] LABS: PLATELET COUNT 132 10^3/uL (150-400)
--- NOTE | 2018-03-15 05:49 | POSTOPPROG ---
Post Op Note Date of Operation: 03/15/18 Surgeon: Dion Mejia (, FACS) Anesthesia: Local (Specify) Pre-op Diagnosis: cardiac arrest Indication: central access for monitoring Procedure: left subclavian 3x lumen cath Findings: uncomplicated line placement:CXR reviewed cath at SVC/RA junction Inf/Abcess present in the surg proc area at time of surgery?: No EBL: Minimal (10 ml)
[2018-03-15] MEDS ORDERED: NOREPINEPHRINE BITARTRATE 4 MG in NS 500 ML IV ONE (06:00)
[2018-03-15] MEDS ORDERED: VASOPRESSIN 25 UNIT in NS 250 ML IV ONE (06:00)
[2018-03-15] MEDS ORDERED: VASOPRESSIN/DEXTROSE 250 ML IV ONE (06:00)
[2018-03-15] MEDS ORDERED: SUCCINYLCHOLINE CHLORIDE 200 MG/10 ML SYR IVP ONE (06:14)
--- NOTE | 2018-03-15 06:21 | GOP ---
DATE OF OPERATION: 03/15/2018 SURGEON: Dion Mejia MD, FACS ANESTHESIA: Local. PREOPERATIVE DIAGNOSIS: 1. Cardiac arrest. 2. Need for venous access for central monitoring. POSTOPERATIVE DIAGNOSIS: 1. Cardiac arrest. 2. Need for venous access for central monitoring. PROCEDURE PERFORMED: Placement of left subclavian triple-lumen catheter. FINDINGS: Postprocedural chest x-ray shows the tip of the catheter to be at the superior vena caval right atrial junction without pneumothorax. INDICATIONS: Patient is a 67-year-old male, who was successfully resuscitated after a cardiac arrest. The patient remained moderately hypotensive, despite fluid administration, and pressors were indicated. Central venous monitoring was needed for response to therapy. DESCRIPTION OF PROCEDURE: Because this was an emergent life-saving intervention , informed consent could not be obtained. The patient was positioned in Trendelenburg. The neck and chest wall were prepped and draped in the usual sterile fashion. 1% lidocaine plain was used to infiltrate the left infraclavicular fossa. An 18-gauge thin-wall needle was then inserted into the subclavian vein on the first pass, and a flexible J-wire was introduced. The needle was removed and a small dale made in the skin. A dilator was passed over the wire. This was removed and replaced with a triple-lumen catheter, which was advanced to approximately 18 cm, and the wire removed. There was good venous return. The catheter was flushed with dilute heparin solution and secured to the skin with interrupted 3-0 silk suture. A Biopatch was placed over the exit site and the catheter was covered with Tegaderm. The patient was subsequently transported to Intensive Care Unit and prior to that, a chest x- ray was obtained which showed good endotracheal tube placement as well as the catheter tip at the superior vena cava right atrial junction without pneumothorax. /[id number]/MODL MTDD
[2018-03-15] MEDS ORDERED: NOREPINEPHRINE BITARTRATE 16 MG in NS 250 ML IV SCH (06:30)
[2018-03-15] MEDS ORDERED: EPINEPHrine 8 MG in NS 250 ML IV SCH (06:30)
[2018-03-15 06:33] LABS: PLATELET COUNT 116 10^3/uL (150-400)
--- NOTE | 2018-03-15 07:29 | HOSPPROG ---
Hospitalist Progress Note Assessment/Plan: XC: Missy reza called around 5 AM. Patient found unresponsive without warning. Pulses were regained quickly but he lost pulses subsequently several times. Rhythm was initially PEA but did change to Vtach on 2 occasions requiring cardioversion. After cardioversion the rhythm changed to AF where it remains. Laboratory work-up is notable for progressive anemia. Source of bleeding is not clear at this point. CXR is mostly unremarkable as is ABG and troponin. He is currently requiring multiple vasopressors to maintain BP. STAT Echo, 2 units pRBCs, and CT C/A/P are currently ordered and pending. CT evaluations have not yet been feasible due to lack of stability. I discussed management with supervisor refining Dr. Noe and he is in agreement. Objective: Vital Signs Temp Pulse Resp BP Pulse Ox 37.0 C 122 H 16 99/72 L 98 03/15/18 04:47 03/15/18 06:05 03/15/18 06:05 03/14/18 23:26 03/15/18 06:05 Laboratory Results 03/15/18 06:00 03/14/18 03/15/18 03/16/18 05:59 05:59 05:59 Intake Total 2510 900 Output Total 1950 2750 Balance 560 -1850 ICD10 Worksheet Patient Problems: Problems Problem Status Onset Palliative care encounter Acute Multiple sclerosis exacerbation Acute Urinary retention Acute Gastroenteritis Acute Acute vomiting Acute Dehydration Acute Aphasia Acute Multiple sclerosis Acute Cellulitis of leg Active Bladder obstruction Acute Hyponatremia Acute
[2018-03-15] MEDS ORDERED: PROPOFOL/EMULSION 1,000 MG/100 ML BOTTLE IV ONE (08:00)
[2018-03-15 08:28] LABS: PLATELET COUNT 126 10^3/uL (150-400)
[2018-03-15 08:38] LABS: INR 1.33 (0.83-1.16); PROTIME(PATIENT) 16.7 SEC (12.0-15.0)
--- NOTE | 2018-03-15 09:09 | CPEKG ---
Test Reason : OPEN Blood Pressure : / mmHG Vent. Rate : 113 BPM Atrial Rate : 000 BPM P-R Int : 148 ms QRS Dur : 142 ms QT Int : 378 ms P-R-T Axes : 000 -82 061 degrees QTc Int : 519 ms Atrial fibrillation Right bundle branch block Inferior infarct, old Atrial fibrillation is new in comparison to prior Confirmed by Matheus Lemon ([id number]) on 03/15/2018 9:08:15 AM Referred By: Confirmed By:Matheus Lemon
--- NOTE | 2018-03-15 09:10 | CPEKG ---
Test Reason : OPEN Blood Pressure : / mmHG Vent. Rate : 123 BPM Atrial Rate : 123 BPM P-R Int : 257 ms QRS Dur : 139 ms QT Int : 343 ms P-R-T Axes : 026 -65 031 degrees QTc Int : 491 ms Sinus tachycardia Prolonged TN interval Right bundle branch block Inferior infarct, old Probable posterior infarct, acute Lateral leads are also involved Atrial fibrillation was noted on prior ECG Confirmed by Matheus Lemon ([id number]) on 03/15/2018 9:09:08 AM Referred By: Confirmed By:Matheus Lemon
[2018-03-15] MEDS ORDERED: AMIODARONE HCL 150 MG/3 ML VIAL ONE (09:12)
[2018-03-15] MEDS ORDERED: ATROPINE SULFATE 1 MG/10 ML SYR ONE (09:12)
[2018-03-15] MEDS ORDERED: MAGNESIUM SULFATE 1 GM/2 ML VIAL ONE (09:12)
[2018-03-15] MEDS ORDERED: SODIUM BICARBONATE 50 MEQ/50 ML SYR ONE (09:12)
[2018-03-15] MEDS ORDERED: DOPamine/DEXTROSE 400 MG/250 ML BAG IV ONE (09:12)
[2018-03-15] MEDS ORDERED: EPINEPHrine 1 MG/10 ML SYR IVP ONE (09:12)
[2018-03-15] MEDS ORDERED: CALCIUM CHLORIDE 1 GM/10 ML INJ ONE (09:12)
[2018-03-15] MEDS ORDERED: POTASSIUM Cl (KCl) 50 ML IV ONE (09:25)
[2018-03-15] MEDS ORDERED: ALBUMIN 5% 500 ML IV ONE ×3 (09:43→11:47)
[2018-03-15] MEDS ORDERED: ALBUMIN 5% 500 ML BOTTLE IV ONE (09:47)
--- NOTE | 2018-03-15 10:03 | ECHO ---
[email or web address] [address] Main: [phone] Fax: Transthoracic Echocardiogram Name: TODD JONES MR#: [id number] Study Date: 03/15/2018 Study Time: 07:22 AM Date of : 1950 Age: 67 year(s) Height: ( ) Weight: ( ) BSA: Gender: Male Examination: Echo Indication: Shock/post cor, on vent Image Quality: Technically Difficult Contrast: Requested by: Khurram Cox BP: 82 mmHg/65 mmHg Heart Rate: Rhythm: Indication: Shock/post cor, on vent Procedure Staff Stitchdown Thread Laster: Dinorah Hinton RDCS Reading Physician: Brain Hutchison MD Requesting Provider: Conclusions: The left ventricle cavity is small. Global hypercontractility of the left ventricle. The ejection fraction is estimated to be 75-80 %. No regional wall motion abnormality. Normal size right ventricle. The mitral valve is normal in appearance and function. The aortic valve is normal in appearance and function. Tricuspid valve not visualized. Trivial pericardial effusion. Measurements: Chambers Valvular Assessment AV/MV Valvular Assessment TV/PV Normal Normal Normal Name Value Range Name Value Range Name Value Range IVSd (2D): 1.0 cm (0.6 cm-1.1 AV Vmax: 1.45 m/s (1 m/s-1.7 cm) m/s) LVDd (2D): 2.9 cm (4.2 cm-5.9 AV meanP mmHg ( - ) cm) MV E Vmax: 0.55 m/s ( - ) LVPWd (2D): 0.8 cm (0.6 cm-1 MV A Vmax: 0.72 m/s ( - ) cm) MV E/A: 0.76 ( - ) EF Range: 75-80 % Continued Measurements: Findings: Left Ventricle: The left ventricle cavity is small. Global hypercontractility of the left ventricle. The ejection fraction is estimated to be 75-80 %. No regional wall motion abnormality. Right Ventricle: Patient: TODD JONES Study Date: 03/15/2018 Page 1 of 2 07:22 AM Normal size right ventricle. Left Atrium: The left atrium is normal in size. Right Atrium: The right atrium is normal in size. Mitral Valve: The mitral valve is normal in appearance and function. Aortic Valve: The aortic valve is normal in appearance and function. Tricuspid Valve: Tricuspid valve not visualized. Pulmonic Valve: Pulmonary valve not well visualized. Aorta: The aorta is normal. Pericardium: Trivial pericardial effusion. (No Signature Object) Patient: TODD JONES Study Date: 03/15/2018 Page 2 of 2 07:22 AM [id number]
[2018-03-15] MEDS ORDERED: LR 1,000 ML IV ONE (11:44)
--- NOTE | 2018-03-15 12:04 | PDCARCONS ---
Cardiology Consult Reason for Consult: Arrest on the floor Chief Complaint: Arrest Requesting Physician: ICU/hospitalist team History of Present Illness: Patient is a 67 y/o male with history of MS, but no HTN, HLP, CAD, or DM, who presented initially to [facility] with complaints of abdominal pain, diarrhea, and nausea which were thought to be possible MS flair up. Neurology assessment concluded that MS was not cause for he symptoms noted. Early this morning, the patient was found to be unresponsive, with PEA noted which evolved to VT on at least two occasions. Defibrillation was performed, with atrial fibrillation noted. Anemia was noted with lab assessment, but no source noted. Numerous pressors were started in light of the hypotension that was appreciated. Two PRBCs were given with stat echocardiography. Echocardiogram with normal systolic function currently appreciated. Uncertain etiology for the arrest this morning. At present, the patient is intubated, and sedated. As stated above, the patient was on numerous pressors for blood pressure support. Review of systems was not obtained given the patient's status. History Information - Allergies/Home Medication List Allergies/Adverse Reactions: egg yolk Allergy (Verified 03/13/18 12:50) iodine Allergy (Verified 03/13/18 12:50) Iodine and Iodide Containing Produc Allergy (Verified 03/13/18 12:50) shellfish derived Allergy (Verified 03/13/18 12:50) sodium benzoate Allergy (Verified 03/13/18 12:50) Sulfa (Sulfonamide Antibiotics) Allergy (Verified 03/13/18 12:50) wheat Allergy (Verified 03/13/18 12:50) DIARY Allergy (Uncoded 03/03/18 09:01) GLUTEN Allergy (Uncoded 03/03/18 09:01) SOY Allergy (Uncoded 03/03/18 09:01) Home Medications: Ascorbic Acid [Vitamin C 500 mg (*)] 500 mg PO QID 11/29/12 [Last Taken 09:00] Cyanocobalamin [Vitamin B12 (*)] 1,000 mcg PO DAILY 11/29/12 [Last Taken ] Docusate Sodium [Colace 100 MG (*)] 100 mg PO BID 11/29/12 [Last Taken 03/13/18 09:00] Herbals/Supplements -Info Only 1 each PO AD 11/29/12 [Last Taken 3 Days Ago ~] Magnesium Oxide [Magnesium Oxide 400 mg (*)] 400 mg PO BID 11/29/12 [Last Taken 03/13/18 09:00] Thurman-3 Fatty Acids/Fish Oil [Fish Oil 1,000 mg Capsule] 1 cap PO QID 11/29/12 [ Last Taken 03/13/18 09:00] Vitamin B Complex [Vitamin B Complex (OTC)] 1 tab PO DAILY@12 11/29/12 [Last Taken 03/12/18] Cholecalciferol (Vitamin D3) [Vitamin D3] 5,000 unit PO BID 05/20/16 [Last Taken 03/13/18 09:00] Levothyroxine [Synthroid 75 mcg (*)] 75 mcg PO DAILY06 03/03/18 [Last Taken 05/26] Acetaminophen [Tylenol ES 500 mg (*)] 500 mg PO Q6 PRN 03/13/18 [Last Taken 05/26] Naproxen Sodium [Aleve 220 MG (*)] 220 mg PO DAILY PRN 03/13/18 [Last Taken Unknown] Past Medical History: - Past Medical History Additional medical history: multiple scerlosis - Surgical History Reports: no pertinent surgical hx - Family History Positive for: non-pertinent - Social History Smoking Status: Never smoked Alcohol Use: None Drug Use: None Cardiac History - Cardiac History Timing/Duration: Minutes Severity: severe Severity Scale: 10 Physical Exam Physical Exam: Temp Pulse Resp BP Pulse Ox 36.5 C 101 H 21 H 62/44 L 93 03/15/18 07:46 03/15/18 11:22 03/15/18 11:22 03/15/18 07:46 03/15/18 11:22 O2 (L/minute) 2 FIO2 (%) 50 Constitutional: other (obtunded) Eyes: PERRL Ears, Nose, Mouth, Throat: moist mucous membranes Cardiovascular: pulses symmetric bilaterally, tachycardia, No JVD Peripheral Pulses: 2+: dorsalis-pedis (R), dorsalis-pedis (L) Respiratory: other (intubated with course breath sounds) Gastrointestinal: guarding, rebound, distension Skin: warm Psychiatric: depressed Lab and Imaging 03/15/18 08:11 03/15/18 08:11 WBC 13.80 10^3/uL (3.80-9.50) H 03/15/18 08:11 RBC 3.94 10^6/uL (4.40-6.38) L 03/15/18 08:11 Hgb 11.2 g/dL (13.7-17.5) L 03/15/18 08:11 Hct 33.7 % (40.0-51.0) L 03/15/18 08:11 MCV 85.5 fL (81.5-99.8) 03/15/18 08:11 MCH 28.4 pg (27.9-34.1) 03/15/18 08:11 MCHC 33.2 g/dL (32.4-36.7) 03/15/18 08:11 RDW 14.6 % (11.5-15.2) 03/15/18 08:11 Plt Count 126 10^3/uL (150-400) L 03/15/18 08:11 MPV 11.0 fL (8.7-11.7) 03/15/18 08:11 Neut % (Auto) 87.9 % (39.3-74.2) H 03/15/18 08:11 Lymph % (Auto) 7.9 % (15.0-45.0) L 03/15/18 08:11 Eddy % (Auto) 2.8 % (4.5-13.0) L 03/15/18 08:11 Eos % (Auto) 0.1 % (0.6-7.6) L 03/15/18 08:11 Baso % (Auto) 0.1 % (0.3-1.7) L 03/15/18 08:11 Nucleat RBC Rel Count 0.4 % (0.0-0.2) H 03/15/18 08:11 Absolute Neuts (auto) 12.15 10^3/uL (1.70-6.50) H 03/15/18 08:11 Absolute Lymphs (auto) 1.09 10^3/uL (1.00-3.00) 03/15/18 08:11 Absolute Monos (auto) 0.38 10^3/uL (0.30-0.80) 03/15/18 08:11 Absolute Eos (auto) 0.01 10^3/uL (0.03-0.40) L 03/15/18 08:11 Absolute Basos (auto) 0.01 10^3/uL (0.02-0.10) L 03/15/18 08:11 Absolute Nucleated RBC 0.05 10^3/uL (0-0.01) H 03/15/18 08:11 Immature Gran % 1.2 % (0.0-1.1) H 03/15/18 08:11 Seg Neutrophils % 76.8 % 03/15/18 06:00 Band Neutrophils % 6.0 % 03/15/18 06:00 Lymphocytes % 16.2 % 03/15/18 06:00 Monocytes % 0.0 % 03/15/18 06:00 Eosinophils % 0.0 % 03/15/18 06:00 Basophils % 1.0 % 03/15/18 06:00 Metamyelocytes % 0.0 % 03/15/18 06:00 Myelocytes % 0.0 % 03/15/18 06:00 Promyelocytes % 0.0 % 03/15/18 06:00 Blast Cells % 0.0 % 03/15/18 06:00 Immature Gran # 0.16 10^3/uL (0.00-0.10) H 03/15/18 08:11 Absolute Seg Neuts 4.96 10^3/uL (1.70-6.50) 03/15/18 06:00 Absolute Band Neuts 0.39 10^3/uL (0.00-0.70) 03/15/18 06:00 Absolute Lymphocytes 1.05 10^3/uL (1.00-3.00) 03/15/18 06:00 Absolute Monocytes 0.00 10^3/uL (0.30-0.80) L 03/15/18 06:00 Absolute Eosinophils 0.00 10^3/uL (0.03-0.40) L 03/15/18 06:00 Absolute Basophils 0.06 10^3/uL (0.02-0.10) 03/15/18 06:00 Absolute Metamyelocyte 0.00 10^3/mL (0.00-0.00) 03/15/18 06:00 Absolute Myelocytes 0.00 10^3/mL (0.00-0.00) 03/15/18 06:00 Absolute Promyelocytes 0.00 10^3/uL (0.00-0.00) 03/15/18 06:00 Absolute Plasma Cells 0.00 10^3/uL (0.00-0.00) 03/15/18 06:00 Nucleated RBCs 1.0 /100 WBC (0-0) H 03/15/18 06:00 Absolute Blast Cells 0.00 10^3/uL (0.00-0.00) 03/15/18 06:00 Plasma Cells % 0.0 % 03/15/18 06:00 Toxic Granulation PRESENT H 03/15/18 06:00 Dohle Bodies PRESENT H 03/15/18 06:00 Platelet Estimate DECREASED (ADEQ) L 03/15/18 06:00 Microcytic Cells 1+ H 03/15/18 06:00 Keratocytes 1+ H 03/15/18 06:00 Schistocytes 1+ H 03/15/18 05:10 Smear Review By Renita HEART MD 03/15/18 06:00 PT 16.7 SEC (12.0-15.0) H 03/15/18 08:11 INR 1.33 (0.83-1.16) H 03/15/18 08:11 APTT 38.8 SEC (23.0-38.0) H 03/15/18 08:11 Puncture Site NONE GIVEN 03/15/18 08:15 Patient Temperature 37.0 DEGREES 03/15/18 08:15 pCO2 34 mmHg (34-38) 03/15/18 08:15 pO2 65 mmHg (65-75) 03/15/18 08:15 Total CO2 16 mEq/L (23-27) L 03/15/18 08:15 ABG pH 7.27 (7.35-7.45) L 03/15/18 08:15 ABG PO2/FiO2 Ratio 129 RATIO 03/15/18 08:15 ABG HCO3 15 mEq/L (22-26) L 03/15/18 08:15 ABG O2 Saturation 90 % (92-95) L 03/15/18 08:15 ABG Base Excess -10.7 mEq/L (-2.5-2.5) L 03/15/18 08:15 ABG Lactic Acid 4.0 mmol/L (0.5-1.6) H 03/15/18 08:15 VBG Lactic Acid 0.9 mmol/L (0.7-2.1) 03/13/18 14:26 O2 Concentration % 50 % (0-100) 03/15/18 08:15 Respiration Rate 16 03/15/18 08:15 Set Respiration Rate 16 03/15/18 08:15 Assist Control YES 03/15/18 08:15 Tidal Volume 450 03/15/18 08:15 End Tidal CO2 28 03/15/18 08:15 PEEP 5 03/15/18 08:15 Sodium 139 mEq/L (135-145) 03/15/18 08:11 Potassium 3.7 mEq/L (3.5-5.2) 03/15/18 08:11 Chloride 114 mEq/L (97-110) H 03/15/18 08:11 Carbon Dioxide 17 mEq/l (22-31) L 03/15/18 08:11 Anion Gap 8 mEq/L (6-14) 03/15/18 08:11 BUN 34 mg/dL (7-23) H 03/15/18 08:11 Creatinine 0.6 mg/dL (0.7-1.3) L 03/15/18 08:11 Estimated GFR > 60 03/15/18 08:11 Glucose 225 mg/dL (70-100) H 03/15/18 08:11 Calcium 7.1 mg/dL (8.5-10.4) L 03/15/18 08:11 Phosphorus 3.6 mg/dL (2.5-4.5) 03/15/18 08:11 Magnesium 2.1 mg/dL (1.6-2.3) 03/15/18 08:11 Total Bilirubin 0.6 mg/dL (0.1-1.4) 03/15/18 08:11 Conjugated Bilirubin 0.3 mg/dL (0.0-0.5) 03/13/18 14:09 Unconjugated Bilirubin 0.2 mg/dL (0.0-1.1) 03/13/18 14:09 AST 48 IU/L (17-59) 03/15/18 08:11 ALT 60 IU/L (21-72) 03/15/18 08:11 Alkaline Phosphatase 82 IU/L (38-126) 03/15/18 08:11 Troponin I 0.163 ng/mL (0.000-0.034) H 03/15/18 08:29 Total Protein 3.9 g/dL (6.3-8.2) L 03/15/18 08:11 Albumin 2.1 g/dL (3.5-5.0) L 03/15/18 08:11 Lipase 84 IU/L (23-300) 03/13/18 14:09 TSH 1.020 uIU/mL (0.465-4.680) 03/14/18 04:20 Urine Color PALE YELLOW 03/13/18 16:47 Urine Appearance CLEAR 03/13/18 16:47 Urine pH 6.0 (5.0-7.5) 03/13/18 16:47 Ur Specific [place] 1.005 (1.002-1.030) 03/13/18 16:47 Urine Protein 1+ (NEGATIVE) H 03/13/18 16:47 Urine Ketones 1+ (NEGATIVE) H 03/13/18 16:47 Urine Blood NEGATIVE (NEGATIVE) 03/13/18 16:47 Urine Nitrate NEGATIVE (NEGATIVE) 03/13/18 16:47 Urine Bilirubin NEGATIVE (NEGATIVE) 03/13/18 16:47 Urine Urobilinogen NEGATIVE EU (0.2-1.0) 03/13/18 16:47 Ur Leukocyte Esterase 1+ (NEGATIVE) H 03/13/18 16:47 Urine RBC 3-5 /hpf (0-3) H 03/13/18 16:47 Urine WBC 5-10 /hpf (0-3) H 03/13/18 16:47 Ur Epithelial Cells NONE SEEN /lpf (NONE-1+) 03/13/18 16:47 Urine Bacteria 4+ /hpf (NONE SEEN) H 03/13/18 16:47 Urine Mucus 1+ /lpf (NONE-1+) 03/13/18 16:47 Urine Glucose NEGATIVE (NEGATIVE) 03/13/18 16:47 Patient ABO/Rh B POSITIVE 03/15/18 06:00 Antibody Screen NEGATIVE 03/15/18 06:00 Crossmatch IS Only See Detail 03/15/18 06:00 Chest X-ray Interpretation: effusion EKG Interpretation: Positive for: normal sinsus rhythm, right bundle branch block Telemetry: sinus tachycardia with RBBB pattern Echocardiogram: hyperdynamic LVEF A/P Assessment: Patient is a 67 y/o male with MS, with an arrest of uncertain etiology this morning. Anemic trend had been noted, and two units of PRBC were given. Arrhythmias noted (PEA, VT) without clear etiology noted (at this point in time) . Echocardiography (while on numerous pressors) with normal systolic function and wall motion noted. Improvement in H/H noted after transfusion. Ongoing wean to pressor support is being tolerated. Abdomen was firm (uncertain how this was earlier in the day given cardiology involvement only after the arrest) . U/S of abdomen is not remarkable. Plan: (1) Would continue to wean pressor support as at present (2) Ongoing fluids for volume replenishment (3) Pending CT of chest/abdomen/pelvis might shed further light on some questions about anemia and physical exam findings. (4) Cardiology can continue to follow this patient (5) Concerns about sepsis and or viral etiology for some of the signs/symptoms that have been noted
[2018-03-15 12:48] LABS: PLATELET COUNT 106 10^3/uL (150-400)
[2018-03-15] MEDS: ENOXAPARIN 40 MG/0.4 ML SYR SC SCH (12:58)
[2018-03-15] MEDS: AMPICILLIN/SULBACTAM 3 GM in NS 100 ML IV SCH ×2 (12:58→17:35)
[2018-03-15] MEDS: TAMSULOSIN HCL 0.4 MG CAP PO SCH (12:58)
[2018-03-15] MEDS: LEVOTHYROXINE 75 MCG TAB PO SCH (12:58)
--- NOTE | 2018-03-15 12:59 | GCON ---
PULMONARY/CRITICAL CARE CONSULTATION DATE OF CONSULTATION: 03/15/2018 REASON FOR REFERRAL: Evaluation and management of acute respiratory failure and hypotension. HISTORY: The patient is a 67-year-old male with history of multiple sclerosis, wheelchair-bound with limited motor function, who was admitted to the hospital 2 days ago with abdominal pain, nausea and loose stool. He did not have any diarrhea, fevers, chills, cough, shortness of breath. He had just been discharged a week earlier after a short hospitalization for possible MS flare. Apparently at about 5 a.m., the patient, after having some cough with hemoptysis , was found unresponsive without any warning. CPR was initiated and the patient initially had MARIA DEL CARMEN, but had ventricular tachycardia as well, treated with cardioversion, which ultimately resulted in atrial fibrillation. The patient was intubated and transferred to the intensive care unit. He has been hypotensive, requiring high doses of 4 pressors in order to maintain his systolic blood pressure in the 70s. He was found to be anemic, with hemoglobin level down to 5.4 (from 15.1 at admission). He received 2 units of packed red blood cells and his hemoglobin climbed to 11.2. He has remained intubated and is on propofol, as he was starting to respond and got a bit agitated after the code. PAST MEDICAL HISTORY: Multiple sclerosis. As mentioned, the patient is wheelchair-bound and has very limited motor function. MEDICATIONS: At the time of admission include; Colace, Flomax, levothyroxine, acetaminophen, and naproxen. ALLERGIES: Iodine and egg. SOCIAL HISTORY: He has never smoked and does not drink alcohol. He lives independently with caregivers. FAMILY HISTORY: Unremarkable. REVIEW OF SYSTEMS: Review of systems is unobtainable, as the patient is intubated. PHYSICAL EXAMINATION: GENERAL: The patient is intubated and sedated. VITAL SIGNS: Systolic blood pressures was in the 70s with a MAP of 50 on arrival initially. His heart rate was 120. Oxygen saturations are in the 90s on 50% oxygen. HEENT: Normocephalic and atraumatic. No icterus. NECK: No JVD. Trachea is midline. CHEST: Clear to auscultation. CARDIAC: Regular tachycardia without murmur. ABDOMEN: Soft, nontender. Bowel sounds are present. EXTREMITIES: No clubbing, cyanosis, or edema. NEURO: The patient is sedated and unresponsive. LABORATORY DATA: Hemoglobin is 11.2 after 2 units of packed red blood cells, previously down to 5.4 after being 15.1 at admission. INR is 1.3. White blood count is 13.8, up from 7.1 at time of admission. Platelet count is 126, similar to admission. Chemistry group shows a BUN of 34 with a creatinine of 0.6. Potassium is 3.7, up from 3.2. An anion gap is 8. Arterial blood gas shows a pH of 7.27 with a pO2 of 65, a CO2 of 34, and bicarbonate of 15 on assist-control with a rate of 16, a tidal volume of 450 and 50% oxygen. Lactate is 4. Urinalysis shows 3-5 red blood cells and 5-10 white blood cells. A chest x-ray shows some mild atelectasis of the left lower lobe. The endotracheal tube and central line are appropriately placed. Images reviewed by me. Electrocardiogram shows sinus tachycardia with a rate of 123. There is a possible acute posterior infarct. A troponin is 0.16, up from 0.01. Echocardiogram verbal report shows a normal hyperdynamic left ventricle with normal right ventricle. Ultrasound of the abdomen and pelvis did not demonstrate any significant fluid collection. ASSESSMENT: 1. In hospital arrest with severe hypotension. The cause of the arrest is unclear. He has received several liters of IV fluid and his CVP was still a bit low and when I first saw him. He is on multiple pressors. His hemoglobin level dropped markedly, but then increased a bit more than would be expected with 2 units of packed red blood cells, so the significant drop in hemoglobins may have been artifactual. Pulmonary embolism is a possibility, but less likely given essentially normal echocardiogram. An acute myocardial infarction is also possible, but again less likely with the normal echocardiogram and minimal elevation in troponin. Sepsis is also a possibility. 2. Anemia. The patient's hemoglobin dropped markedly and has now increased, but after 2 units of packed red blood cells, although it is still several points lower than admission. There are no overt signs of blood loss, and abdominal ultrasound was negative for fluid collection there. 3. Respiratory failure. The patient's gas exchange is fairly good and there are minimal chest x-ray findings. RECOMMENDATIONS: 1. Continue to give IV fluids until the CVP is greater than 10. 2. I then performed a NICOM fluid challenge, and the patient was still fluid responsive, so more fluids will be given. 3. I have been able to wean his pressors down, as the patient has now currently stopped epinephrine (previously at 1 mcg/kg per minute), and will start turning down the dopamine. 4. I will recheck his labs, and we will transfuse blood products if his hemoglobin is down again. We may try to proceed with CT scan of his chest to exclude pulmonary embolism, as well as an abdomen and pelvis to further look for any sources of blood loss if his hemoglobin seems to suggest bleeding. 5. Cardiology is been consulted and will recheck troponins and follow his ECG. 6. Empiric antibiotics will be started for possible sepsis. /[id number]/MODL MTDD
[2018-03-15] MEDS ORDERED: methylPREDNISolone SOD SUCC 125 MG/2 ML VIAL IVP ONE (13:30)
--- NOTE | 2018-03-15 13:38 | HOSPPROG ---
Hospitalist Progress Note Assessment/Plan: 67 year old male with pmh of MS, originally admitted for abdominal pain, nausea , diarrhea, who overnight was found in PEA arrest, coded, developed Vtach requiring defibrillation, with ROSC, now in ICU requiring multiple pressors. Vtach/PEA arrest- Etiology uncertain at this point. Echocardiogram with normal function and no wall motion abnormalities, troponin only mildly bumped likely due to ACLS. ECG with afib overnight, and now with SR . Possible massive/ submassive PE but patient too tenuous to take to CT currently. Had large drop in H/H but no source of bleed, no melena since admission no obvious blood on US in peritoneum. Possible sepsis but patient did not decompensate, had no white count, fever, or tachycardia prior to arrest. -Pressor support to maintain map over 65 -fluids to keep CVP 8-12 -close monitor of H/H for possible bleed -cycle lactate -if/when able CT for PE -empiric antibiotics for possible infection -cirtical care/cardiology consultation Acute hypoxemic respiratory failure- intubated on ventilator currently. Unsure if patient stopped breathing or arrested, but was found in room unresponsive in PEA, not breathing subsequently intubated and now on ventilator support. -vent bundle -daily SBT as able -vent care -serial ABGs -CC on board Hypotension- requiring levophed, vasopressin, dopamine and epinephrine initially after PEA/Vtach arrest. Off epi and weaning pressors as able. He is still fluid responsive. Etiology still to be determined but differential including bleed, sepsis, PE. Echo with good EF, US abdomen with no evidence of blood, and clinically patient with no obviosu source of bleed, despite rapid drop in Hct. -Transfuse blood products for further drops in Hct -fluids to maintain CVP 8-12 -pressor support to maintain map over 65 -empiric antibiotics for possible sepsis Anemia- initial H/H of 15/45 in ER which dropped to 03/09 overnight, but patient hemoconcentrated saying he had not taking PO well since discharge on and given fluids in ER and overnight. Drop thought to be due to hemodilution. Labs this morning with acute drop to 08/27 with no melena/ hematochezia, but labs were drawn after code, and may have been spurious. Patient given 2 units PRBCs with H/H back up to . US abdomen with no fluid in abdomen, no Melena or hematochezia since arrival, no hematemesis. -close monitor of H/H -transfuse as blood products -hold heparin until bleed ruled out. Thrombocytopenia- present since black and remained mostly stable. Etiology possibly consumptive. platelets slightly down today. monitor closely in setting of possible bleed. PPX- No heparin Fluids-NS Lytes-mild hypokalemia, Nutrition- NPO, Cor- full Dispo- remain inpatient ICU for PEA arrest, intubated, hypotensive requireing pressors. I spent 40 minutes of critical care time on the management of this patient with over half spent on direct patient care Objective: Vital Signs Temp Pulse Resp BP Pulse Ox 36.5 C 101 H 21 H 62/44 L 93 03/15/18 07:46 03/15/18 11:22 03/15/18 11:22 03/15/18 07:46 03/15/18 11:22 Laboratory Results 03/15/18 12:22 03/15/18 12:22 03/14/18 03/15/18 03/16/18 05:59 05:59 05:59 Intake Total 2510 900 Output Total 1950 2750 Balance 560 -1850 PT 16.7 SEC (12.0-15.0) H 03/15/18 08:11 INR 1.33 (0.83-1.16) H 03/15/18 08:11 Physical Exam: intubated and sedated eyes closed lungs diminished bilaterally luevano in place no rash heart with RRR, abdomen distended legs edematous neuro unable to assess as he is paralyzed - Physical Exam Constitutional: other ICD10 Worksheet Patient Problems: Problems Problem Status Onset Acute vomiting Acute Dehydration Acute Hyponatremia Acute Multiple sclerosis exacerbation Acute Cellulitis of leg Active Aphasia Acute Bladder obstruction Acute Gastroenteritis Acute Multiple sclerosis Acute Palliative care encounter Acute Urinary retention Acute
[2018-03-15] MEDS ORDERED: IOPAMIDOL (ISOVUE 370) 100 ML BTL IV ONE (13:39)
--- NOTE | 2018-03-15 14:41 | ASMTCMCOM ---
CM Note CM Note Notes: Code called on pt and transfered to ICU. CM needs TBD at this time pending how pt progresses medically. Pt's friend of 40 years, Stan, has been made aware. CM to follow. Plan: TBD as pt progresses medically. Date Signed: 03/15/2018 02:41 PM Electronically Signed By:VERENICE Galeana
[2018-03-15 15:58] LABS: INR 1.63 (0.83-1.16); PROTIME(PATIENT) 19.5 SEC (12.0-15.0)
--- NOTE | 2018-03-15 16:39 | PDINTPN ---
Environmental Analyst Progress Note Assessment/Plan: Assessment: Later: While in the CT scanner, the patient developed marked increase in airway pressures and decrease in oxygen saturations, with increased oxygen needs. The CT scan demonstrates a large right pneumothorax. Additionally, there is what appears to be blood throughout the bowels and some fluid in the pelvis, as well as edematous small bowel suggestive of ischemia. I emergently placed a percutaneous chest tube in the right anterior chest, with return of a large nix of air and decrease in airway pressures. Hemoglobin has once again fallen, and his INR is up Dr. Nicolas consulted, and feels that the patient may have an upper GI bleed with retained blood in the bowels. GI consulted, and will plan on doing an upper endoscopy tomorrow Plan: Transfuse PRBCs and FFP. Serial H/H Wean pressors as tolerated 110 min critical care time exclusive of procedure time with multiple reassessment for refractory hypotension, recurrence anemia requiring transfusions, and consultation with multiple physicians. 03/15/18 16:37 Objective: Vital Signs Temp Pulse Resp BP Pulse Ox 36.1 C 100 20 89/58 L 90 L 03/15/18 15:00 03/15/18 15:45 03/15/18 15:45 03/15/18 15:45 03/15/18 15:45 Laboratory Results 03/15/18 15:31 03/15/18 15:36 03/14/18 03/15/18 03/16/18 05:59 05:59 05:59 Intake Total 2510 900 Output Total 1950 2750 Balance 560 -1850 PT 19.5 SEC (12.0-15.0) H 03/15/18 15:36 INR 1.63 (0.83-1.16) H 03/15/18 15:36 ICD10 Worksheet Patient Problems: Problems Problem Status Onset Acute vomiting Acute Dehydration Acute Hyponatremia Acute Multiple sclerosis exacerbation Acute Cellulitis of leg Active Aphasia Acute Bladder obstruction Acute Gastroenteritis Acute Multiple sclerosis Acute Palliative care encounter Acute Urinary retention Acute
[2018-03-15 16:48] LABS: PLATELET COUNT 99 10^3/uL (150-400)
--- NOTE | 2018-03-15 16:50 | GPN ---
DATE OF PROCEDURE: 03/15/2018 PROCEDURE: Percutaneous chest tube placement. INDICATION: Tension pneumothorax. PROCEDURE NOTE: Because of the emergent nature of the procedure, implied consent was used. Sterile measures, including gloves, gown, and mask were used. In appropriate position in the right anterior chest was identified and cleansed and draped in the usual sterile fashion. A 21-gauge finder needle was used to inject 5 cc of 1% lidocaine into the subcutaneous tissues. This needle was then withdraw n, and a percutaneous thin-walled needle was advanced over the same site into the chest. Bubble retu rn was obtained, the syringe was removed, and the catheter was advanced over the needle, with immedia te return of a large continuous volume of high-pressure air. The catheter was hooked up to a Heimlic h valve, then to a chest tube drainage set-up. The catheter was sutured in place and dry sterile pili ssing was applied. The postprocedure chest x-ray shows good position of the percutaneous chest tube, although it is dire cted inferiorly. The lung is expanded. There were no complications apparent at the end of the proce dure. 2 cc of propofol were used for sedation. /[id number]/MODL
[2018-03-15] MEDS: VASOPRESSIN 25 UNIT in NS 250 ML IV SCH (17:33)
[2018-03-15] MEDS ORDERED: PROPOFOL/EMULSION 100 ML IV SCH ×2 (18:54→20:00)
--- NOTE | 2018-03-15 19:58 | SOAPPROG ---
SOAP Progress Note Assessment/Plan: Assessment: ASKED TO SEE PATIENT IN A DIFFICULT SITUATION WITH DROPPING HEMATOCRIT, POSITIVE NG BLOOD OUTPUT AND SEDATED ON VENTILATOR. PATIENT WAS ADMITTED 3 DAYS AGO WITH ABDOMINAL PAIN AND HAS WORSENED WITH A CARDIAC ARREST EARLIER TODAY REQUIRING 1 HR OF RESUSCITATION WHICH RESULTED IN A RIGHT PNEUMOTHORAX CT SCAN SHOWS SOME SEROUS PELVIC FLUID OF SMALL VOLUME. IT ALSO SHOWS SOME EDEMATOUS BOWEL AND BOWEL CONTAINING TENSE FLUID SUGGESTIVE OF BLOOD HE HAS HAD NO MELANOTIC STOOLS BUT DOES HAVE PERSISTENT BLOODY NG OUTPUT LACTATE IS NORMAL WHICH WOULD GO AGAINST INFARCTED BOWEL DESPITE HIS HYPOTENSION AND SIGNIFICANT NEED FOR PRESSORS URINE OUTPUT HAS BEEN ADEQUATE COAGS ARE PROLONGED AND PLATELETS ARE MILDLY DECREASED HEENT NONICTERIC BUT PALE CONJUNCTIVA CHEST CLEAR BUT ON VENTILATOR WITH HD RIGHT CHEST TUBE COR REGULAR RHYTHM ABDOMEN SLIGHTLY DISTENDED BUT NOT APPRECIABLY TENDER ALTHOUGH HE IS SEDATED ON A VENTILATOR IMPRESSION: POSSIBLE UPPER GI BLEED AND A VERY SICK PATIENT. I DO NOT THINK HE HAS ISCHEMIC BOWEL AT THIS POINT WITH A NORMAL LACTATE AND NO FEVER Plan: REVERSAL COAGULOPATHY/TRANSFUSIONS/EGD TO RULE OUT PEPTIC ULCER/SERIAL BELLY EXAMS AND LACTATE 03/15/18 19:53 Objective: Vital Signs Temp Pulse Resp BP Pulse Ox 37.2 C 83 24 H 87/50 L 97 03/15/18 16:00 03/15/18 19:00 03/15/18 19:00 03/15/18 19:00 03/15/18 19:00 Laboratory Results 03/15/18 15:31 03/15/18 17:22 03/14/18 03/15/18 03/16/18 05:59 05:59 05:59 Intake Total 2510 900 6730 Output Total 6609 8400 1445 Balance 560 -1850 5285 PT 19.5 SEC (12.0-15.0) H 03/15/18 15:36 INR 1.63 (0.83-1.16) H 03/15/18 15:36 ICD10 Worksheet Patient Problems: Problems Problem Status Onset Acute vomiting Acute Dehydration Acute Hyponatremia Acute Multiple sclerosis exacerbation Acute Cellulitis of leg Active Aphasia Acute Bladder obstruction Acute Gastroenteritis Acute Multiple sclerosis Acute Palliative care encounter Acute Urinary retention Acute
[2018-03-15] MEDS ORDERED: PHYTONADIONE 5 MG in NS 50 ML IV ONE (20:00)
[2018-03-15] MEDS ORDERED: TRANEXAMIC ACID 1,000 MG in NS 100 ML IV ONE (20:00)
[2018-03-15] MEDS ORDERED: fentaNYL/NACL 100 ML IV SCH (20:00)
--- NOTE | 2018-03-15 20:25 | CPEKG ---
Test Reason : OPEN Blood Pressure : / mmHG Vent. Rate : 100 BPM Atrial Rate : 096 BPM P-R Int : 194 ms QRS Dur : 080 ms QT Int : 331 ms P-R-T Axes : 140 007 111 degrees QTc Int : 427 ms Sinus or ectopic atrial tachycardia Low voltage, extremity and precordial leads Abnormal R-wave progression, early transition Repol abnrm suggests ischemia, diffuse leads ST elevation, consider inferior injury Confirmed by Matheus Lemon ([id number]) on 03/15/2018 8:25:02 PM Referred By: Confirmed By:Matheus Lemon
--- NOTE | 2018-03-15 21:16 | GCON ---
DATE OF CONSULTATION: 03/15/2018 The patient is a 67-year-old male who I was consulted on because of blood loss. He was admitted to [facility] 3 days ago complaining of abdominal pain with nausea and some diarrhea. He has also had recent multiple sclerosis flare ups. He apparently has been afebrile but has had a dropping hematocr it and sustained a cardiac arrest this morning which required 1 hour of resuscitation. He is present ly on multiple pressors with barely adequate blood pressure, with good urine output. His lactate lev els have been amazingly normal although his hematocrit has dropped down as low as 16, although it is unclear if it was dilutional. His present hematocrit seems to be around 23. He is having positive b lood out of his NG tube, but he has had no melena or hematochezia. CT scan reveals some free fluid i n the abdomen, but it is serous in nature. He does have edematous bowels containing a dense liquid c onsistent with blood, markedly dilated stomach. This was all done subsequent to extensive CPR in [facility] he sustained a right pneumothorax which has been treated with a small bore chest tube and resolved . ALLERGIES: He has multiple environmental and gluten allergies. PAST MEDICAL HISTORY: Includes multiple sclerosis. PAST SURGICAL HISTORY: He had a hernia repair 2 years ago. FAMILY HISTORY: None obtainable. SOCIAL HISTORY: Reveals he does not smoke. MEDICATIONS: Include vitamins, stool softeners, vitamin D, and Synthroid. REVIEW OF SYSTEMS: Not really obtainable. PHYSICAL EXAMINATION: GENERAL: Reveals a somnolent 67-year-old male on the ventilator. HEAD AND NE CK: Reveals no icterus. No adenopathy. Pupils are reactive. He is intubated. CHEST: Reveals sym metrical breath sounds at this point with a small bore chest tube in the right chest. CARDIAC: Reve als a regular rhythm. ABDOMEN: Slightly distended, not appreciably tender, although the patient is sedated. He has decreased bowel sounds. No obvious hernias. GENITALIA: Normal. EXTREMITIES: Rev eal difficult to palpate pedal pulses. He is not moving spontaneously at the time of my exam. NEURO LOGIC: Exam was not obtainable. IMPRESSION: Possible upper gastrointestinal bleed with a postbulbar duodenal ulcer or some other francisco ology. He may not be passing melenic stools yet because of his multiple sclerosis and chronic consti pation. RECOMMENDATIONS: Would be correction of his coags with platelets and FFP. Continue transfusion. GI consult for EGD as most likely source of his bleeding site. He could have ischemic bowel, but with normal lactate I would be surprised. I think this is more likely an acute bleed which caused his rj den demise. /[id number]/MODL
[2018-03-15] MEDS: NS 1,000 ML IV SCH (22:38)
[2018-03-16] MEDS: AMPICILLIN/SULBACTAM 3 GM in NS 100 ML IV SCH ×4 (00:59→17:30)
[2018-03-16] MEDS ORDERED: PANTOPRAZOLE SODIUM 40 MG VIAL IVP SCH (02:30)
[2018-03-16] MEDS: VASOPRESSIN 25 UNIT in NS 250 ML IV SCH (03:11)
[2018-03-16 04:29] LABS: PLATELET COUNT 136 10^3/uL (150-400)
[2018-03-16] MEDS: LEVOTHYROXINE 75 MCG TAB PO SCH (07:08)
[2018-03-16] MEDS ORDERED: EPINEPHrine 1 MG/ML INJ ONE (07:11)
--- NOTE | 2018-03-16 08:18 | GIREPORT ---
[facility] Surgical Services - Endoscopy Department Patient Name: Misha Aguilar Procedure Date: 03/16/2018 7:30 AM Patient Type: Inpatient Attending MD/ ER Physician: Amaury Watson MD Procedure: Upper GI endoscopy Indications: Hematemesis Patient Profile: 67 year old male presents for evaluation of an upper GI bleed. He was recently coded and an OG tube was placed with significant bloody return s. He does have posthemorrhagic anemia with transfusions given. Providers: Amaury Watson MD Medicines: Monitored Anesthesia Care Complications: No immediate complications. Estimated blood loss: None. Description of Procedure: After obtaining informed consent, the endoscope was passed under direct vision. Throughout the procedure, the patient's blood pressure, pulse, and oxygen saturations were monitored continuously. The Endoscope was intro duced through the mouth, and advanced to the second part of duodenum. The [facility] GI endoscopy was accomplished without difficulty. The patient tolerated th e procedure well. Findings: The examined esophagus was normal. However, large blood clots were seen obscured visualization. Hematin (altered blood/bmslzm-qbyimv-hoyz material) was found in the ca rdia and in the gastric fundus. Limited visualization due to the large amoun t of old blood. One cratered duodenal ulcer with no stigmata of bleeding was found in t he duodenal bulb. The lesion was 15 mm in largest dimension. It was in the area of the gastroduodenal artery. Estimated Blood Loss: Estimated blood loss: none. Post Op Diagnosis: - Normal esophagus but limited views. - Hematin (altered blood/pehlfq-suryul-zxfk material) with clots in the cardia and in the gastric fundus obscuring visualization. This could no t be suctioned due to its large size. - One duodenal ulcer with no stigmata of bleeding. - Old blood only seen. - No specimens collected. - Etiology? Suspect duodenal bulb bleed. Recommend IV infusion and no NSAIDs. Need to monitor H/H and transfuse as needed. Would recommend re peat EGD but will be dependent on clinical course/extubation time etc. Recommendation: - NPO. - Use a proton pump inhibitor IV infusion. - No NSAIDs - Thank you for allowing me to participate in the care of your patient. Attending Participation: I personally performed the entire procedure. Amaury Watson MD Amaury Watson MD 03/16/2018 8:17:39 AM This report has been signed electronicallyAmaury Watson MD Number of Addenda: 0 Note Initiated On: 03/16/2018 7:30 AM [email or web address]
[2018-03-16] MEDS: PANTOPRAZOLE SODIUM 80 MG in NS 100 ML IV SCH ×2 (08:26→17:31)
[2018-03-16] MEDS: ENOXAPARIN 40 MG/0.4 ML SYR SC SCH (08:34)
[2018-03-16] MEDS: TAMSULOSIN HCL 0.4 MG CAP PO SCH (08:35)
[2018-03-16] MEDS ORDERED: MAGNESIUM SULF 1 GM/DEXTROSE 100 ML IV ONE (08:39)
--- NOTE | 2018-03-16 09:21 | SOAPPROG ---
SOAP Progress Note Assessment/Plan: Assessment: 67 y/o M with hx of MS, admitted for acute blood loss anemia S/p cardiac arrest. Down to 2 pressors. Now S/p EGD. Source of bleeding found to be duodenal ulcer. S: Sedated and intubated. O: Sedated VSS H&H stable Abdomen soft Plan: Gen surg will sign off. Let us know if there is anything we can do. 03/16/18 09:19 Objective: Vital Signs Temp Pulse Resp BP Pulse Ox 36.9 C 74 18 143/80 H 99 03/16/18 06:00 03/16/18 07:00 03/16/18 07:45 03/16/18 07:45 03/16/18 07:45 Laboratory Results 03/16/18 04:05 03/16/18 04:05 03/15/18 03/16/18 03/17/18 05:59 05:59 05:59 Intake Total 900 8628.9 Output Total 2750 2695 Balance -1850 5933.9 PT 19.5 SEC (12.0-15.0) H 03/15/18 15:36 INR 1.63 (0.83-1.16) H 03/15/18 15:36 ICD10 Worksheet Patient Problems: Problems Problem Status Onset Acute vomiting Acute Dehydration Acute Hyponatremia Acute Multiple sclerosis exacerbation Acute Cellulitis of leg Active Aphasia Acute Bladder obstruction Acute Gastroenteritis Acute Multiple sclerosis Acute Palliative care encounter Acute Urinary retention Acute
--- NOTE | 2018-03-16 10:00 | POSTOPPROG ---
Post Op Note Date of Operation: 03/15/18 Surgeon: Davey Nicolas Anesthesia: IV Sedation Pre-op Diagnosis: HYPOTENSION Post-op Diagnosis: SAME Indication: MONITORING Procedure: RIGHT FEMORAL ART LINE Findings: GOOD TRACINGS Inf/Abcess present in the surg proc area at time of surgery?: No Depth: Deep Incisional (Fascial) EBL: Minimal Complications: NONE
--- NOTE | 2018-03-16 10:53 | HOSPPROG ---
Hospitalist Progress Note Assessment/Plan: 67 year old male with pmh of MS, originally admitted for abdominal pain, nausea , diarrhea, suffered cardiac arrest on 03/15/18, resuscitated, likely due to acute GIB. intubated, sedated. Vtach/PEA arrest- I reviewed his CT and there is no PE, but large pneumothorax. Etiology of cardiac arrest likely related to hypotension from large upper gi bleed. EGD this morning with 15mm duodenal bulb ulcer, no longer bleeding and no stigmata of recent bleed. Patient is status post 3 units PRBCs. Was originally requiring levophed, vaso, epi and dopamine, but overnight with fluids and PRBCs, able to stop dopamine and epi, and currently titrating down vaso. -Pressor support to maintain map over 65 -fluids to keep CVP 8-12 -close monitor of H/H for possible bleed -if/when able CT for PE -empiric antibiotics for possible infection -cirtical care/cardiology consultation Acute hypoxemic respiratory failure-remains intubated on ventilator currently. Current on Fi02 of 40% with PEEP of 5. -vent bundle -daily SBT as able -vent care -serial ABGs -CC on board Large right pneumothorax- chest tube placed with continued output. Hypotension-Due to large UGIB. He as originally requiring levophed, vasopressin , dopamine and epinephrine initially after PEA/Vtach arrest. Now off epi and dopamine, and titrating down vaso. -Q4 H/H in case of further bleed. -Transfuse blood products for further drops in Hct -fluids to maintain CVP 8-12 -pressor support to maintain map over 65 -continue unasyn for now Anemia-CT reviewed which did show fluid in the stomach and patient with hematemesis. I discussed case with GI who scoped this morning showing 15mm duodenal bulb ulcer, no longer bleeding. -close monitor of H/H -transfuse PRBC as needed -IV protonix Thrombocytopenia- status post platelet transfusion. consumptive due to bleed. Monitor. PPX- No heparin Fluids-NS Lytes-Monitor Nutrition- NPO, Cor- changed to DNR per MDPOA Dispo- remain inpatient ICU on pressors for hypovolemic shock, UGIB, respiratory failure, status post arrest I spent over 50 minutes of critical care time on the managent of this patient with over half spent on direct patient care. Subjective: intubated and sedated Objective: Vital Signs Temp Pulse Resp BP Pulse Ox 36.9 C 75 24 H 95/50 L 96 03/16/18 06:00 03/16/18 10:00 03/16/18 10:00 03/16/18 10:00 03/16/18 10:00 Laboratory Results 03/16/18 04:05 03/16/18 04:05 03/15/18 03/16/18 03/17/18 05:59 05:59 05:59 Intake Total 900 8628.9 Output Total 2750 2695 Balance -1850 5933.9 PT 19.5 SEC (12.0-15.0) H 03/15/18 15:36 INR 1.63 (0.83-1.16) H 03/15/18 15:36 - Physical Exam Constitutional: no apparent distress Eyes: other (eyes closed) Ears, Nose, Mouth, Throat: other (intubated, ETT in place) Cardiovascular: regular rate and rhythym, edema Respiratory: no respiratory distress, other (ett in place. ) Gastrointestinal: distension, other (distended abdomen with no bowel sounds) Genitourinary: other (luevano in place) Skin: warm Musculoskeletal: other (sedated) Neurologic: other (sedated) Psychiatric: other (on diprivan, unresponsive. ) Lymph, Heme, Immunologic: no cervical LAD ICD10 Worksheet Patient Problems: Problems Problem Status Onset Acute vomiting Acute Dehydration Acute Hyponatremia Acute Multiple sclerosis exacerbation Acute Cellulitis of leg Active Aphasia Acute Bladder obstruction Acute Gastroenteritis Acute Multiple sclerosis Acute Palliative care encounter Acute Urinary retention Acute
--- NOTE | 2018-03-16 11:05 | GOP ---
DATE OF OPERATION: 03/15/2018 SURGEON: Davey Nicolas MD PREOPERATIVE DIAGNOSIS: Hypotension. POSTOPERATIVE DIAGNOSIS: Hypotension. PROCEDURE PERFORMED: Right femoral arterial line placement with ultrasound guidance. FINDINGS: EXCELLENT WAVEFORM DESCRIPTION OF PROCEDURE: The patient was in the ICU on a ventilator. He was supine. The right groin was prepped and draped in the usual sterile fashion. A direct stick was made in the right common femoral artery. A guidewire was passed easily. Position was confirmed. The catheter was passed over the guidewire and positioned in the iliac artery. Excellent pulse wave was present. The line was secured down with 3-0 silk sutures and OpSite. He tolerated the procedure well. There were no complications. /[id number]/MODL MTDD
--- NOTE | 2018-03-16 11:27 | PDINTPN ---
Kitchen Hand Progress Note Assessment/Plan: Assessment: Status post arrest. Likely secondary to large pneumothorax. Hypotensive but cardiac status otherwise stable. Hypotension: Improving. Multifactorial. CVP 8. Pressors being weaned. GI bleed: Duodenal ulcer. Not actively bleeding this morning. GI consult and endoscopy appreciated. On Protonix drip Acute blood-loss anemia. Hematocrit 24.8 today. Status post 3 units of blood. H&H being followed. Acute respiratory failure. Stable on the ventilator. On 40%. Will start CPAP trials, possibly extubate if he does well. Right-sided pneumothorax. Status post small bore chest tube placement. Lung well expanded. X-ray being followed. History of multiple sclerosis. DVT prophylaxis: On enoxaparin. Will hold this until bleeding issues better sorted out. Plan: Continue ventilatory support. Start CPAP weans. If tolerated can consider extubation later today. Continue small bore chest tube to suction. Follow H&H. Continue IV fluids. Aim for CVP 6-8 range. 500 mL Plasmanate this morning. Wean pressors as tolerated for MAP above 60. Follow laboratory, blood gas, chest x-ray. 50 min of critical care time spent directly with the patient managing ventilatory, pressure an fluid issues, etc. Discussed with the patient's , respiratory, nursing, and the ICU multi disciplinary team. Subjective: Sedated, arouses weakly. On the ventilator. Objective: Vital Signs Temp Pulse Resp BP Pulse Ox 36.9 C 75 24 H 95/50 L 96 03/16/18 06:00 03/16/18 10:00 03/16/18 10:00 03/16/18 10:00 03/16/18 10:00 Laboratory Results 03/16/18 04:05 03/16/18 04:05 03/15/18 03/16/18 03/17/18 05:59 05:59 05:59 Intake Total 900 8628.9 Output Total 2750 2695 Balance -1850 5933.9 PT 19.5 SEC (12.0-15.0) H 03/15/18 15:36 INR 1.63 (0.83-1.16) H 03/15/18 15:36 Laboratory Tests 03/15/18 03/16/18 20:15 04:05 pCO2 25 L pO2 113 H Total CO2 15 L ABG pH 7.39 ABG O2 Saturation 99 H O2 Concentration % 50 Actual Respiration Rate 24 SIMV YES Tidal Volume 450 Calcium 8.4 L Phosphorus 2.8 Magnesium 1.8 Total Bilirubin 1.1 AST 37 ALT 46 Albumin 2.6 L CXR: Lines and tubes in good position. Very small apical pneumothorax remains. Bibasilar atelectasis/effusions, left greater than right Physical Exam - Physical Exam General Appearance: mild distress, thin EENT: PERRL/EOMI, ET tube Neck: normal inspection (No JVD) Respiratory: lungs clear, decreased breath sounds (At bases), rales (Few at bases), No rhonchi, No wheezing Cardiac/Chest: regular rate, rhythm, No gallop Abdomen: non-tender, No normal bowel sounds (Decreased), No soft (Firm) Male Genitalia: other (Hurst catheter in place: Excellent urine output but input 6 L ahead in the last 24 hr) Skin: warm/dry, pallor Extremities: pedal edema (Trace +) Neuro/Psych: no motor/sensory deficits (Moves all extremities), No cognition abnormalities (Difficult to assess currently with sedation. Likely intact. Arouses weakly.) ICD10 Worksheet Patient Problems: Problems Problem Status Onset Palliative care encounter Acute Multiple sclerosis exacerbation Acute Urinary retention Acute Gastroenteritis Acute Acute vomiting Acute Dehydration Acute Aphasia Acute Multiple sclerosis Acute Cellulitis of leg Active Bladder obstruction Acute Hyponatremia Acute
--- NOTE | 2018-03-16 12:20 | GCON ---
DATE OF CONSULTATION: 03/16/2018 REFERRING PHYSICIAN: Khanh Rubalcava MD REASON FOR CONSULTATION: Upper GI bleed. CHIEF COMPLAINT: Blood from the orogastric tube. HISTORY OF PRESENT ILLNESS: The patient is a 67-year-old male with history of multiple sclerosis who was admitted on 03/13/2018, with complaints of abdominal pain, nausea, as well as loose stools. The patient is currently intubated and sedated and thus the information is obtained mainly through the chart. The patient had a complicated hospital course and was found unresponsive on 2018. He was found to be in cardiac arrest. He was intubated and placed on pressors during this time frame. He also had a pneumothorax. On blood work, he is noted to have a decreased hemoglobin level and had grossly red blood from his orogastric tube. No known exacerbating or alleviating factors. According to family, he has not had prior episodes of upper GI bleeding. It is unsure whether he takes any nonsteroidal anti-inflammatories. I am being asked by Dr. Rubalcava to evaluate the patient in consultation regarding upper GI bleed. PAST MEDICAL HISTORY: Hypothyroidism, multiple sclerosis. PAST SURGICAL HISTORY: Hernia surgeries. ALLERGIES: Iodine, sulfa. MEDICATIONS,: Vitamin C, vitamin B12, omega-3, levothyroxine. SOCIAL HISTORY: No significant alcohol or tobacco use. He is wheelchair bound. FAMILY HISTORY: No history of stomach cancer. REVIEW OF SYSTEMS: Unable to obtain due to the patient being intubated and sedated. PHYSICAL EXAMINATION: VITAL SIGNS: Blood pressure 110/65, respirations 18, temperature 36.9. GENERAL: Intubated, sedated. HEENT: Anicteric. Moist mucosa. NECK: No JVD. CARDIOVASCULAR: Regular rate and rhythm. Positive S1 , S2. No gallops appreciated. LUNGS: Ventilated, essentially clear anteriorly , but hard to hear over vent noise. ABDOMEN: Distended. Minimal bowel sounds. No guarding, no rebound appreciated. EXTREMITIES: No edema. LYMPH: No lymphadenopathy. SKIN: Nonicteric. Dry. MUSCULOSKELETAL: No joint effusion. NEUROLOGIC: Sedated, unable to assess due to intubation with sedation. PSYCH : Unable to assess due to intubation with sedation. LABORATORY DATA: Blood work: WBC 8.28, hemoglobin 8.9, hematocrit 24.8, platelets 136. INR 1.63. AST 37, ALT 46, total bilirubin 1.1. BUN 24, creatinine 0.6, chloride 117. ASSESSMENT/PLAN: 1. Upper gastrointestinal bleed- with blood from the orogastric tube and post- hemorrhagic anemia. At this time, I recommend to proceed with urgent upper endoscopy to delineate the cause of his symptoms. The risks, benefits, and alternatives of the procedure were discussed in great detail with the power-of- commonwealth attorney. Risks of infection, bleeding, perforation, and sedation were discussed. Due to the use of pressors, respiratory failure and recent code, he is at increased risk of the procedure and this was discussed. Thank you very much for this consultation. /[id number]/MODL MTDD
--- NOTE | 2018-03-16 15:17 | PDCARPN ---
Cardiology Progress Note Assessment/Plan: Assessment/plan: 67-year-old male with multiple sclerosis. He has no known cardiovascular history. He was admitted on March 13 with abdominal pain, nausea, and diarrhea. Early on the morning of March 15 he was found unresponsive in PE a. He received CPR and defibrillation. He did have brief episodes of VT and paroxysmal atrial fibrillation. He was intubated, started on multiple pressors, transfer to the ICU. Borderline troponin elevation. Echocardiogram with normal LV systolic function and no regional wall motion abnormality. Shortly after his arrest he was found to have a right-sided pneumothorax requiring chest tube insertion. His crit also dropped significantly and he did have bleeding from his orogastric tube. He was seen by GI and EGD performed today showed nonbleeding duodenal ulcer, likely the source of his GI bleed. 1. Cardiac arrest: Etiology not completely clear. Does not appear septic. Was quite volume depleted and has responded well to fluid resuscitation and packed red blood cell transfusion. Could all be volume depletion related to his nausea, diarrhea, and upper GI bleed. Unclear whether had a spontaneous pneumothorax or whether the pneumothorax was result of CPR. This does not seem to be a primary cardiac arrest given his only minimally elevated troponins, nonischemic EKG, and fairly normal echocardiogram. 2. Acute blood-loss anemia: He has received transfusion. He is not currently actively bleeding. Duodenal ulcer was not bleeding on endoscopy. He is on PPI. H and H will be followed closely. 3. Multiple sclerosis: He is mostly wheelchair bound and has 24/7 care. 03/16/18 15:13 Subjective: He was extubated 30 min ago. He does not recall the events surrounding his cardiac arrest. At present he denies dyspnea or chest pain. He also denies abdominal pain. Reviewed/Discussed With: multidisciplinary team, other (Dr. Rajput) Objective: Vital Signs (8 Hrs) Temp Pulse Resp BP Pulse Ox 03/16/18 14:54 86 15 134/66 H 97 03/16/18 14:00 84 13 119/57 L 95 03/16/18 13:00 84 10 L 115/57 L 94 03/16/18 12:05 73 97 03/16/18 12:00 36.5 C 65 24 H 125/60 H 98 03/16/18 11:00 66 24 H 105/58 L 98 01/07/19 10:00 75 24 H 95/50 L 96 03/16/18 09:00 70 24 H 110/55 L 96 03/16/18 08:10 72 24 H 96 03/16/18 07:45 18 143/80 H 99 03/16/18 07:40 18 150/73 H 99 03/16/18 07:35 20 132/80 H 99 03/16/18 07:30 18 123/78 H 96 Intake/Output (24 Hrs) 03/15/18 03/16/18 03/17/18 05:59 05:59 05:59 Intake Total 900 8628.9 153 Output Total 2750 2695 Balance -1850 5933.9 153 Intake: IV Infused (ml) 900 7222.9 153 Albumin 5% 500 ml @ As 1500 Directed IV ONCE ONE Rx#: [id number] Ampicillin/Sulbactam 3 gm 200 In Ns 100 ml @ 200 mls/ hr IV Q6HRS [facility] Rx#: [id number] DOPamine/DEXTROSE 250 ml 440.1 @ Titrate IV CONT [facility] Rx# :[id number] EPINEPHrine 8 mg In Ns 376 250 ml @ Per Protocol IV CONT [facility] Rx#:[id number] Norepinephrine Bitartrate 339 21 16 mg In Ns 250 ml @ Per Protocol IV CONT [facility] Rx# :[id number] Ns 1,000 ml @ 75 mls/hr 900 3467 IV CONT [facility] Rx#: [id number] Phytonadione 5 mg In Ns 101 50 ml @ 101 mls/hr IV ONCE ONE Rx#:[id number] Propofol/Emulsion 100 ml 75.5 17 @ Per Protocol IV CONT [facility] Rx#:[id number] Tranexamic Acid 1,000 mg 105 In Ns 100 ml @ 110 mls/hr IV ONCE ONE Rx#: [id number] Vasopressin 25 unit In Ns 583 79 250 ml @ 24 mls/hr IV CONT [facility] Rx#:[id number] fentaNYL/NACL 100 ml @ 36.3 36 Per Protocol IV CONT [facility] Rx#:[id number] Fresh Frozen Plasma (ml) 206 Packed Red Blood Cells ( 1200 ml) Output: Urine (ml) 2750 2225 Catheter 1300 2225 Incontinence 1450 Chest Tube Output (ml) 170 Right Pleural 170 Emesis (ml) 300 Other: Weight 74.026 kg Intake Quantity Yes Sufficient Output Comment Incontinence possibly bloody Number of Voids Incontinence 1 Number of Stools Catheter 1 Awake and alert. No acute distress. JVP less than 10. Regular rate and rhythm with fixed split S2. Lungs clear anteriorly laterally. Abdomen is slightly distended. Positive bowel sounds. No tenderness. No obvious masses. Extremity edema in all 4 limbs. Result Diagrams: 03/16/18 11:50 03/16/18 04:05 Cardiac Labs: Cardiac Lab Results (72 Hrs) 03/15/18 03/15/18 03/15/18 17:22 12:22 08:29 Troponin I 0.647 H 0.594 H 0.163 H 03/15/18 05:10 Troponin I < 0.012 ICD10 Worksheet Patient Problems: Problems Problem Status Onset Palliative care encounter Acute Multiple sclerosis exacerbation Acute Urinary retention Acute Gastroenteritis Acute Acute vomiting Acute Dehydration Acute Aphasia Acute Multiple sclerosis Acute Cellulitis of leg Active Bladder obstruction Acute Hyponatremia Acute
[2018-03-17] MEDS: AMPICILLIN/SULBACTAM 3 GM in NS 100 ML IV SCH ×5 (00:25→23:55)
[2018-03-17] MEDS: PANTOPRAZOLE SODIUM 80 MG in NS 100 ML IV SCH (03:53)
[2018-03-17 04:21] LABS: PLATELET COUNT 114 10^3/uL (150-400)
[2018-03-17] MEDS: ACETAMINOPHEN 325 MG TAB PO PRN (05:15)
[2018-03-17] MEDS: LEVOTHYROXINE 75 MCG TAB PO SCH (05:15)
--- NOTE | 2018-03-17 08:29 | SOAPPROG ---
SOAP Progress Note Assessment/Plan: Assessment/Plan: 67 Y M c MS, 30/09 care, admitting after N, abd pain, diarrhea, found to have GI bleed thought to be 2/2 currently nonbleeding DU ulcer seen on EGD, s/p cardiac arrest thought to be hypovolemic in nature 2/2 above, s/p resuscitation c PTX requiring placement of small bore CT. Extubated. H&H stable. On protonix drip. Doing well standing up at bedside w assists this am. CXR pending. Still has air leak. Continue CT. Overall doing well. Probably transfer to [facility] soon--defer to other teams. No need for surgical intervention at this point. Per RN, pt now DNR status. S: no pain or SOB complaints. O: alert, nad ncat, sclerae white, conjunctivae pale no wob, +air leak abd soft, nt 03/17/18 08:29 Objective: Vital Signs Temp Pulse Resp BP Pulse Ox 36.9 C 69 18 119/73 100 03/16/18 20:00 03/17/18 06:00 03/17/18 06:00 03/17/18 06:00 03/17/18 06:00 Microbiology 03/16/18 14:30 - Final Sputum, Induced/Suctioned 03/14/18 15:09 Urine Culture - Final Urine,Catheterized One [place] Type Laboratory Results 03/17/18 04:00 03/17/18 04:00 03/16/18 03/17/18 03/18/18 05:59 05:59 05:59 Intake Total 8628.9 1873 Output Total 2695 1980 Balance 5933.9 -107 PT 19.5 SEC (12.0-15.0) H 03/15/18 15:36 INR 1.63 (0.83-1.16) H 03/15/18 15:36 ICD10 Worksheet Patient Problems: Problems Problem Status Onset Acute vomiting Acute Dehydration Acute Hyponatremia Acute Multiple sclerosis exacerbation Acute Cellulitis of leg Active Aphasia Acute Bladder obstruction Acute Gastroenteritis Acute Multiple sclerosis Acute Palliative care encounter Acute Urinary retention Acute
[2018-03-17] MEDS: TAMSULOSIN HCL 0.4 MG CAP PO SCH (08:45)
--- NOTE | 2018-03-17 09:35 | SOAPPROG ---
TOMAS Progress Note Assessment/Plan: Assessment: Plan: 03/17/18 09:31 A/P 1. UGIB- s/p EGD. Duodenal ulcer seen with no stigmata of bleed. Poor visualization due to large amount of old blood clots etc. No active signs of GI bleed. Recommend to continue PPI infusion. Monitor H/H. Avoid NSAIDs. Recommend repeat procedure in 4 weeks as outpatient in hospital if no signs of active GI bleed (than sooner). Subjective: cc: Follow up GI bleed Had small BM. No c/o of abdominal pain. Objective: Vital Signs Temp Pulse Resp BP Pulse Ox 36.9 C 69 18 119/73 100 03/16/18 20:00 03/17/18 06:00 03/17/18 06:00 03/17/18 06:00 03/17/18 06:00 Microbiology 03/16/18 14:30 - Final Sputum, Induced/Suctioned 03/14/18 15:09 Urine Culture - Final Urine,Catheterized One [place] Type Laboratory Results 03/17/18 04:00 03/17/18 04:00 03/16/18 03/17/18 03/18/18 05:59 05:59 05:59 Intake Total 8628.9 1873 Output Total 2695 1980 65 Balance 5933.9 -107 -65 PT 19.5 SEC (12.0-15.0) H 03/15/18 15:36 INR 1.63 (0.83-1.16) H 03/15/18 15:36 Physical Exam - Physical Exam General Appearance: alert, no apparent distress EENT: No scleral icterus (R), No scleral icterus (L) Respiratory: lungs clear, normal breath sounds Cardiac/Chest: regular rate, rhythm Abdomen: normal bowel sounds, soft, distended, No guarding, No rebound Skin: normal color, warm/dry Neuro/Psych: normal mood/affect, oriented x 3 ICD10 Worksheet Patient Problems: Problems Problem Status Onset Palliative care encounter Acute Multiple sclerosis exacerbation Acute Urinary retention Acute Gastroenteritis Acute Acute vomiting Acute Dehydration Acute Aphasia Acute Multiple sclerosis Acute Cellulitis of leg Active Bladder obstruction Acute Hyponatremia Acute
[2018-03-17] MEDS ORDERED: POTASSIUM CL 10 MEQ TAB PO ONE ×2 (10:05→18:23)
[2018-03-17] MEDS ORDERED: PANTOPRAZOLE SODIUM 40 MG TAB PO SCH (10:30)
--- NOTE | 2018-03-17 13:19 | HOSPPROG ---
Hospitalist Progress Note Assessment/Plan: 67 year old male with pmh of MS, originally admitted for abdominal pain, nausea , diarrhea, suffered cardiac arrest on 03/15/18, resuscitated, likely due to acute GIB with subsequent hypotension, now extubated. Vtach/PEA arrest- CTA (pers reviewed) neg for PE, but large pneumothorax, s/p chest tube. Etiology of cardiac arrest likely related to hypotension from large UGIB. EGD showed duodenal ulcer without active bleeding. Now off pressors. -cont telemetry monitoring -follow h&h Acute hypoxemic respiratory failure - extubated 03/16, on 3 LPM -unasyn day 3 Large right pneumothorax- chest tube out today per surg, currently on 3 LPM Hypotension-Due to large UGIB. Required pressors, since weaned off. -trend h&h ABLA - s/p 3 u prbc's hgb stable -trend h&h UGIB - as above -cont IV protonix Thrombocytopenia- status post platelet transfusion. consumptive due to bleed. Monitor. PPX- No heparin Fluids-NS Lytes-Monitor Nutrition- clear liquids Cor- changed to DNR per MDPOA Dispo- cont inpt, transfer to SDU Subjective: Pt feels a little better today, c/o chest wall and rib pain. No fevers/chills. Tolerating clears. Denies melena or BRBPR. Never reported any bloody stools. Objective: Vital Signs Temp Pulse Resp BP Pulse Ox 36 C 94 16 116/63 96 03/17/18 08:00 03/17/18 08:00 03/17/18 08:00 03/17/18 08:00 03/17/18 08:00 Microbiology 03/16/18 14:30 - Final Sputum, Induced/Suctioned 03/14/18 15:09 Urine Culture - Final Urine,Catheterized One [place] Type Laboratory Results 03/17/18 04:00 03/17/18 04:00 03/16/18 03/17/18 03/18/18 05:59 05:59 05:59 Intake Total 8628.9 1873 Output Total 2695 1980 65 Balance 5933.9 -107 -65 PT 19.5 SEC (12.0-15.0) H 03/15/18 15:36 INR 1.63 (0.83-1.16) H 03/15/18 15:36 - Physical Exam Constitutional: no apparent distress Eyes: PERRL Ears, Nose, Mouth, Throat: moist mucous membranes Cardiovascular: regular rate and rhythym Respiratory: no respiratory distress, clear to auscultation Gastrointestinal: normoactive bowel sounds, soft, non-tender abdomen Skin: warm Musculoskeletal: generalized weakness Neurologic: AAOx3 Psychiatric: interacting appropriately ICD10 Worksheet Patient Problems: Problems Problem Status Onset Acute vomiting Acute Dehydration Acute Hyponatremia Acute Multiple sclerosis exacerbation Acute Cellulitis of leg Active Aphasia Acute Bladder obstruction Acute Gastroenteritis Acute Multiple sclerosis Acute Palliative care encounter Acute Urinary retention Acute
--- NOTE | 2018-03-17 13:27 | PDINTPN ---
Recruit Instructor Progress Note Assessment/Plan: Assessment: Status post arrest. Possibly secondary to large pneumothorax if this was present prior to arrest. Possibly secondary to acute anemia/hypotension. Hypotension: Improving. Multifactorial. CVP 8. Off pressors. GI bleed: Duodenal ulcer. Not actively bleeding this morning. GI consult and endoscopy appreciated. On Protonix. Acute blood-loss anemia. Hematocrit 22 today. Status post 3 units of blood. H &H being followed. Acute respiratory failure. Extubated yesterday without problems. On low-flow oxygen. Chest x-ray with bibasilar atelectasis/effusions, left greater than right. Right-sided pneumothorax. Status post small bore chest tube placement. Lung well expanded. No residual pneumothorax noted on x-ray today. No air leak. History of multiple sclerosis. DVT prophylaxis: On enoxaparin. Will hold this until bleeding issues better sorted out. Plan: Continue small bore chest tube - will change to H-valve alone, d/c tomorrow if there is no residual pneumothorax or air leak. Follow H&H. Continue Protonix: Will change to twice daily. On clear liquids. Can advance diet if okay with GI. Decrease IV fluids. Lasix for fluid retention. Follow laboratory, blood gas, chest x-ray. 35 min of critical care time spent directly with the patient. Discussed with the patient, respiratory, nursing, and the ICU multi disciplinary team. Subjective: In chair. Weak. Denies abdominal pain. Objective: Vital Signs Temp Pulse Resp BP Pulse Ox 36 C 94 16 116/63 96 03/17/18 08:00 03/17/18 08:00 03/17/18 08:00 03/17/18 08:00 03/17/18 08:00 Microbiology 03/16/18 14:30 - Final Sputum, Induced/Suctioned 03/14/18 15:09 Urine Culture - Final Urine,Catheterized One [place] Type Laboratory Results 03/17/18 04:00 03/17/18 04:00 03/16/18 03/17/18 03/18/18 05:59 05:59 05:59 Intake Total 8628.9 1873 Output Total 2695 1980 65 Balance 5933.9 -107 -65 PT 19.5 SEC (12.0-15.0) H 03/15/18 15:36 INR 1.63 (0.83-1.16) H 03/15/18 15:36 Physical Exam - Physical Exam General Appearance: alert, no apparent distress EENT: PERRL/EOMI, other (Nasal cannula in place at 2 L) Neck: normal inspection (No obvious JVD) Respiratory: lungs clear (Anteriorly), decreased breath sounds (Decreased breath sounds and excursions bilaterally, especially at bases), rales (Few nonspecific rales present), other (Weak cough, shallow excursions. Small bore chest tube in place. No air leak, little drainage.), No rhonchi, No wheezing Cardiac/Chest: regular rate, rhythm, No gallop Abdomen: normal bowel sounds, soft, distended, other (Positive BM yesterday), No non-tender (Minimal tenderness present) Skin: warm/dry, pallor Extremities: pedal edema, swelling (Upper and lower extremity edema/anasarca) Neuro/Psych: No no motor/sensory deficits (Underlying global weakness secondary to MS), No cognition abnormalities ICD10 Worksheet Patient Problems: Problems Problem Status Onset Palliative care encounter Acute Multiple sclerosis exacerbation Acute Urinary retention Acute Gastroenteritis Acute Acute vomiting Acute Dehydration Acute Aphasia Acute Multiple sclerosis Acute Cellulitis of leg Active Bladder obstruction Acute Hyponatremia Acute
[2018-03-17] MEDS: PANTOPRAZOLE SODIUM 40 MG VIAL IVP SCH ×2 (13:49→21:55)
--- NOTE | 2018-03-17 14:37 | SOAPPROG ---
SOAP Progress Note Assessment/Plan: Assessment: ASKED TO SEE PATIENT IN A DIFFICULT SITUATION WITH DROPPING HEMATOCRIT, POSITIVE NG BLOOD OUTPUT AND SEDATED ON VENTILATOR. PATIENT WAS ADMITTED 3 DAYS AGO WITH ABDOMINAL PAIN AND HAS WORSENED WITH A CARDIAC ARREST EARLIER TODAY REQUIRING 1 HR OF RESUSCITATION WHICH RESULTED IN A RIGHT PNEUMOTHORAX CT SCAN SHOWS SOME SEROUS PELVIC FLUID OF SMALL VOLUME. IT ALSO SHOWS SOME EDEMATOUS BOWEL AND BOWEL CONTAINING TENSE FLUID SUGGESTIVE OF BLOOD HE HAS HAD NO MELANOTIC STOOLS BUT DOES HAVE PERSISTENT BLOODY NG OUTPUT LACTATE IS NORMAL WHICH WOULD GO AGAINST INFARCTED BOWEL DESPITE HIS HYPOTENSION AND SIGNIFICANT NEED FOR PRESSORS URINE OUTPUT HAS BEEN ADEQUATE COAGS ARE PROLONGED AND PLATELETS ARE MILDLY DECREASED HEENT NONICTERIC BUT PALE CONJUNCTIVA CHEST CLEAR BUT ON VENTILATOR WITH HD RIGHT CHEST TUBE COR REGULAR RHYTHM ABDOMEN SLIGHTLY DISTENDED BUT NOT APPRECIABLY TENDER ALTHOUGH HE IS SEDATED ON A VENTILATOR IMPRESSION: POSSIBLE UPPER GI BLEED AND A VERY SICK PATIENT. I DO NOT THINK HE HAS ISCHEMIC BOWEL AT THIS POINT WITH A NORMAL LACTATE AND NO FEVER Plan: REVERSAL COAGULOPATHY/TRANSFUSIONS/EGD TO RULE OUT PEPTIC ULCER/SERIAL BELLY EXAMS AND LACTATE 03/15/18 19:53 03/17/18 14:35 amazingly improved/ abd soft, nontender/ hct stable at 22/ no hematachezia or melena chest clear with minimal drainage and small airleak continue rx for bleeding D U Objective: Vital Signs Temp Pulse Resp BP Pulse Ox 36 C 68 16 101/69 98 03/17/18 08:00 03/17/18 13:48 03/17/18 13:48 03/17/18 13:48 03/17/18 13:48 Microbiology 03/16/18 14:30 - Final Sputum, Induced/Suctioned 03/14/18 15:09 Urine Culture - Final Urine,Catheterized One [place] Type Laboratory Results 03/17/18 04:00 03/17/18 04:00 03/16/18 03/17/18 03/18/18 05:59 05:59 05:59 Intake Total 8628.9 1873 Output Total 2695 1980 65 Balance 5933.9 -107 -65 PT 19.5 SEC (12.0-15.0) H 03/15/18 15:36 INR 1.63 (0.83-1.16) H 03/15/18 15:36 ICD10 Worksheet Patient Problems: Problems Problem Status Onset Acute vomiting Acute Dehydration Acute Hyponatremia Acute Multiple sclerosis exacerbation Acute Cellulitis of leg Active Aphasia Acute Bladder obstruction Acute Gastroenteritis Acute Multiple sclerosis Acute Palliative care encounter Acute Urinary retention Acute
[2018-03-17] MEDS: ACETAMINOPHEN 500 MG TAB PO SCH ×2 (15:00→21:58)
[2018-03-18] MEDS: AMPICILLIN/SULBACTAM 3 GM in NS 100 ML IV SCH ×3 (05:02→19:13)
[2018-03-18] MEDS: LEVOTHYROXINE 75 MCG TAB PO SCH (05:03)
[2018-03-18] MEDS: ACETAMINOPHEN 500 MG TAB PO SCH ×3 (05:03→22:50)
[2018-03-18] MEDS: POTASSIUM Cl (KCl) 50 ML IV SCH ×3 (06:28→09:31)
--- NOTE | 2018-03-18 06:36 | CPEKG ---
Test Reason : OPEN Blood Pressure : / mmHG Vent. Rate : 081 BPM Atrial Rate : 000 BPM P-R Int : 223 ms QRS Dur : 090 ms QT Int : 421 ms P-R-T Axes : 054 -29 019 degrees QTc Int : 489 ms Sinus rhythm with first degree AV block Borderline left axis deviation Low voltage, extremity and precordial leads Abnormal R-wave progression, early transition ST depression consistent with ischemia Borderline prolonged QT interval Confirmed by Reinaldo Campo ([id number]) on 03/18/2018 6:35:47 AM Referred By: Confirmed By:Reinaldo Campo
[2018-03-18] MEDS ORDERED: MAGNESIUM SULF 1 GM/DEXTROSE 100 ML IV ONE (07:42)
[2018-03-18] MEDS: PANTOPRAZOLE SODIUM 40 MG VIAL IVP SCH ×2 (08:26→21:56)
[2018-03-18] MEDS: TAMSULOSIN HCL 0.4 MG CAP PO SCH (08:26)
--- NOTE | 2018-03-18 09:37 | SOAPPROG ---
SOAP Progress Note Assessment/Plan: Assessment/Plan: 67 Y M c MS, 30/09 care, admitting after N, abd pain, diarrhea, found to have GI bleed thought to be 2/2 currently nonbleeding DU ulcer seen on EGD, s/p cardiac arrest thought to be hypovolemic in nature 2/2 above, s/p resuscitation c PTX requiring placement of small bore CT. Doing remarkably well. H&H slightly down, but largely stable. Doubt ongoing bleeding. Consider transfusion. No air leak upon interrogation of Heimlich valve, but poor cough effort. No need for surgical intervention at this point. Per RN, pt now DNR status. S: c/o rib pain, lateral R chest. hallucinations with narcotics. using tylenol. very motivated to get to his baseline. O: alert, nad ncat, sclerae white, conjunctivae pale no wob, +air leak abd soft, nt 03/18/18 09:29 Objective: Vital Signs Temp Pulse Resp BP Pulse Ox 36.6 C 68 15 126/70 H 95 03/18/18 08:00 03/18/18 08:00 03/18/18 08:00 03/18/18 08:00 03/18/18 08:00 Microbiology 03/16/18 14:30 - Final Sputum, Induced/Suctioned Laboratory Results 03/18/18 05:05 03/18/18 05:05 03/17/18 03/18/18 03/19/18 05:59 05:59 05:59 Intake Total 1873 1250 Output Total 1980 615 Balance -107 635 PT 19.5 SEC (12.0-15.0) H 03/15/18 15:36 INR 1.63 (0.83-1.16) H 03/15/18 15:36 ICD10 Worksheet Patient Problems: Problems Problem Status Onset Acute vomiting Acute Dehydration Acute Hyponatremia Acute Multiple sclerosis exacerbation Acute Cellulitis of leg Active Aphasia Acute Bladder obstruction Acute Gastroenteritis Acute Multiple sclerosis Acute Palliative care encounter Acute Urinary retention Acute
--- NOTE | 2018-03-18 11:02 | SOAPPROG ---
TOMAS Progress Note Assessment/Plan: Assessment: Plan: 03/17/18 09:31 A/P 1. UGIB- s/p EGD. Duodenal ulcer seen with no stigmata of bleed. Poor visualization due to large amount of old blood clots etc. No active signs of GI bleed. Recommend to continue PPI infusion. Monitor H/H. Avoid NSAIDs. Recommend repeat procedure in 4 weeks as outpatient in hospital if no signs of active GI bleed (than sooner). 03/18/18 10:59 A/P 1. GI bleed- s/p EGD with duodenal ulcer. No clinical signs of active GI bleed. Recommend to continue PPI infusion. Monitor H/H, Diet advanced. Avoid NSAIDs. Will need repeat EGD and will consider in 4 weeks as outpatient. Please call GI if needed. Thank you for the consultation! Subjective: cc: Follow up duodenal ulcer Complaining of minimal pain. He does not remember a recent BM Objective: Vital Signs Temp Pulse Resp BP Pulse Ox 36.6 C 68 15 126/70 H 95 03/18/18 08:00 03/18/18 08:00 03/18/18 08:00 03/18/18 08:00 03/18/18 08:00 Microbiology 03/16/18 14:30 - Final Sputum, Induced/Suctioned Laboratory Results 03/18/18 05:05 03/18/18 05:05 03/17/18 03/18/18 03/19/18 05:59 05:59 05:59 Intake Total 1873 1250 Output Total 1980 615 Balance -107 635 PT 19.5 SEC (12.0-15.0) H 03/15/18 15:36 INR 1.63 (0.83-1.16) H 03/15/18 15:36 Physical Exam - Physical Exam General Appearance: alert, no apparent distress EENT: No scleral icterus (R), No scleral icterus (L) Respiratory: lungs clear, rales, No rhonchi (decreased breath sounds at the bases) Cardiac/Chest: regular rate, rhythm Abdomen: soft, No non-tender (tender in midepi (mild)), No distended, No guarding, No rebound Skin: normal color, warm/dry Neuro/Psych: alert, normal mood/affect, oriented x 3 ICD10 Worksheet Patient Problems: Problems Problem Status Onset Palliative care encounter Acute Multiple sclerosis exacerbation Acute Urinary retention Acute Gastroenteritis Acute Acute vomiting Acute Dehydration Acute Aphasia Acute Multiple sclerosis Acute Cellulitis of leg Active Bladder obstruction Acute Hyponatremia Acute
--- NOTE | 2018-03-18 11:33 | HOSPPROG ---
Hospitalist Progress Note Assessment/Plan: 67 year old male with pmh of MS, originally admitted for abdominal pain, nausea , diarrhea, suffered cardiac arrest on 03/15/18, resuscitated, likely due to acute GIB with subsequent hypotension, now extubated. Vtach/PEA arrest- CTA neg for PE, but large pneumothorax, s/p chest tube. Etiology of cardiac arrest likely related to hypotension from large UGIB. EGD showed duodenal ulcer without active bleeding. Now off pressors. -cont telemetry monitoring -follow h&h Acute hypoxemic respiratory failure - extubated 03/16, now on room air, effusions noted on CXR (pers reviewed/interp) -Lasix today -unasyn day 06/12 Large right pneumothorax - suspect 04/11 CPR -chest tube per surg Hypotension-Due to large UGIB. Required pressors, since weaned off. -trend h&h ABLA - s/p 3 u prbc's hgb stable -trend h&h UGIB - as above -cont IV protonix Thrombocytopenia- status post platelet transfusion. consumptive due to bleed. Monitor. PPX- No heparin Fluids-NS Lytes-Monitor Nutrition- clear liquids Cor- changed to DNR per MDPOA Dispo- cont inpt, transfer to PCU Subjective: Pt doing ok, he feels emotionally traumatized from events during this hospitalization. Notes difficulty managing MS for so many years. Denies CP or SOB. No cough. No fevers. Hasn't had Bm recently. Tolerating po. Objective: Vital Signs Temp Pulse Resp BP Pulse Ox 36.6 C 68 15 126/70 H 95 03/18/18 08:00 03/18/18 08:00 03/18/18 08:00 03/18/18 08:00 03/18/18 08:00 Microbiology 03/16/18 14:30 - Final Sputum, Induced/Suctioned Laboratory Results 03/18/18 05:05 03/18/18 05:05 03/17/18 03/18/18 03/19/18 05:59 05:59 05:59 Intake Total 1873 1250 Output Total 1980 615 Balance -107 635 PT 19.5 SEC (12.0-15.0) H 03/15/18 15:36 INR 1.63 (0.83-1.16) H 03/15/18 15:36 - Physical Exam Constitutional: no apparent distress Eyes: PERRL Ears, Nose, Mouth, Throat: moist mucous membranes Cardiovascular: regular rate and rhythym Respiratory: no respiratory distress, reduced air movement, inspiratory crackles Gastrointestinal: normoactive bowel sounds, soft, non-tender abdomen Skin: warm Musculoskeletal: generalized weakness Neurologic: AAOx3 Psychiatric: interacting appropriately ICD10 Worksheet Patient Problems: Problems Problem Status Onset Acute vomiting Acute Dehydration Acute Hyponatremia Acute Multiple sclerosis exacerbation Acute Cellulitis of leg Active Aphasia Acute Bladder obstruction Acute Gastroenteritis Acute Multiple sclerosis Acute Palliative care encounter Acute Urinary retention Acute
[2018-03-18] MEDS ORDERED: FUROSEMIDE 40 MG/4 ML VIAL IVP ONE (12:50)
--- NOTE | 2018-03-18 13:05 | PDINTPN ---
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 Possibly secondary to large pneumothorax if this was present prior to arrest, but seems less likely. Possibly secondary to acute anemia/hypotension. Hypotension: Improved/resolved. Multifactorial. CVP 8. Off pressors. Volume overload: Secondary to fluid resuscitation. Will initiate Lasix diuresis. GI bleed: Duodenal ulcer. Not actively bleeding. GI consult and endoscopy appreciated. On Protonix. Acute blood-loss anemia. Hematocrit 20 today. Status post 3 units of blood. H &H being followed. Acute respiratory failure. Extubated 03/16 without problems. On room air. Chest x-ray with bibasilar atelectasis/effusions, left greater than right. Right-sided pneumothorax. Status post small bore chest tube placement. Lung well expanded. Small apical pneumothorax possibly present on today's chest x- ray. Also, a small air leak appeared to be intermittently present today. History of multiple sclerosis. DVT prophylaxis: Enoxaparin being held secondary to GI bleeding. On SCDs. Right upper extremity swelling. Will rule out DVT with ultrasound. Plan: Continue small bore chest tube to H-valve alone. Follow chest x-ray and possible air leak Follow H&H. Continue Protonix. Diet being advanced. Lasix for fluid retention. Follow laboratory, chest x-ray, I and Os. 40 min of critical care time spent directly with the patient. Discussed with the patient, surgery, nursing, and the ICU multi disciplinary team. Subjective: Doing okay. Some back discomfort. Denies abdominal discomfort. Remains hoarse. Objective: Vital Signs Temp Pulse Resp BP Pulse Ox 36.6 C 68 15 126/70 H 95 03/18/18 08:00 03/18/18 08:00 03/18/18 08:00 03/18/18 08:00 03/18/18 08:00 Microbiology 03/16/18 14:30 - Final Sputum, Induced/Suctioned Laboratory Results 03/18/18 05:05 03/18/18 05:05 03/17/18 03/18/18 03/19/18 05:59 05:59 05:59 Intake Total 1873 1250 Output Total 1980 615 Balance -107 635 PT 19.5 SEC (12.0-15.0) H 03/15/18 15:36 INR 1.63 (0.83-1.16) H 03/15/18 15:36 Laboratory Tests 03/18/18 05:05 Calcium 8.2 L Phosphorus 2.4 L Magnesium 1.8 Physical Exam - Physical Exam General Appearance: no apparent distress, obese EENT: PERRL/EOMI, other (On room air) Neck: normal inspection (Large neck, no obvious JVD) Respiratory: lungs clear (Anteriorly), decreased breath sounds (At bases), rales (Few rales at bases), other (Heimlich valve with a possible small air leak with coughing), No rhonchi Cardiac/Chest: regular rate, rhythm, No gallop Abdomen: non-tender, soft, No normal bowel sounds Skin: warm/dry, pallor Extremities: pedal edema, swelling (Right upper extremity swelling greater than left) Neuro/Psych: No no motor/sensory deficits (Weakness, MS), No cognition abnormalities ICD10 Worksheet Patient Problems: Problems Problem Status Onset Palliative care encounter Acute Multiple sclerosis exacerbation Acute Urinary retention Acute Gastroenteritis Acute Acute vomiting Acute Dehydration Acute Aphasia Acute Multiple sclerosis Acute Cellulitis of leg Active Bladder obstruction Acute Hyponatremia Acute
[2018-03-18] MEDS ORDERED: BISACODYL 10 MG SUPP PR PRN (16:32)
[2018-03-18] MEDS ORDERED: POLYETHYLENE GLYCOL 3350 17 GM PKT PO PRN (16:32)
[2018-03-18] MEDS ORDERED: MAGNESIUM HYDROXIDE 30 ML UDCUP PO PRN (16:32)
[2018-03-18] MEDS ORDERED: LACTULOSE 20 GM/30 ML UDCUP PO PRN (16:32)
[2018-03-18] MEDS ORDERED: POTASSIUM CL 10 MEQ TAB PO ONE (18:06)
--- NOTE | 2018-03-18 20:04 | PDINTPN ---
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 Possibly secondary to large pneumothorax if this was present prior to arrest, but seems less likely. Possibly secondary to acute anemia/hypotension. Hypotension: Improved/resolved. Multifactorial. CVP 8. Off pressors. Volume overload: Secondary to fluid resuscitation. Will initiate Lasix diuresis. GI bleed: Duodenal ulcer. Not actively bleeding. GI consult and endoscopy appreciated. On Protonix. Acute blood-loss anemia. Hematocrit 20 today. Status post 3 units of blood. H &H being followed. Acute respiratory failure. Extubated 03/16 without problems. On room air. Chest x-ray with bibasilar atelectasis/effusions, left greater than right. Right-sided pneumothorax. Status post small bore chest tube placement. Lung well expanded. Small apical pneumothorax possibly present on today's chest x- ray. Also, a small air leak appeared to be intermittently present today. History of multiple sclerosis. DVT prophylaxis: Enoxaparin being held secondary to GI bleeding. On SCDs. Right upper extremity swelling. Will rule out DVT with ultrasound. Plan: Continue small bore chest tube to H-valve alone. Follow chest x-ray and possible air leak Follow H&H. Continue Protonix. Diet being advanced. Lasix for fluid retention. Follow laboratory, chest x-ray, I and Os. 40 min of critical care time spent directly with the patient. Discussed with the patient, surgery, nursing, and the ICU multi disciplinary team. Addendum: Right upper extremity ultrasound shows is clot in the deep system. He has a relative contraindication to full-dose anticoagulation secondary to his duodenal ulcer [place] [address] units Q 8 hours and follow closely for any evidence of bleeding. Hematocrits will be followed q.6 hours as well. If hematocrit drops significantly or there is evidence of recurrent upper GI bleeding heparin will be stopped. Objective: Vital Signs Temp Pulse Resp BP Pulse Ox 35.6 C L 66 14 122/73 H 92 03/18/18 19:50 03/18/18 19:50 03/18/18 19:50 03/18/18 19:50 03/18/18 19:50 Microbiology 03/16/18 14:30 - Final Sputum, Induced/Suctioned Sputum Culture - Final Laboratory Results 03/18/18 16:40 03/18/18 16:40 03/17/18 03/18/18 03/19/18 05:59 05:59 05:59 Intake Total 1873 1250 400 Output Total 6781 581 1639 Balance -107 635 -1900 PT 19.5 SEC (12.0-15.0) H 03/15/18 15:36 INR 1.63 (0.83-1.16) H 03/15/18 15:36 ICD10 Worksheet Patient Problems: Problems Problem Status Onset Palliative care encounter Acute Multiple sclerosis exacerbation Acute Urinary retention Acute Gastroenteritis Acute Acute vomiting Acute Dehydration Acute Aphasia Acute Multiple sclerosis Acute Cellulitis of leg Active Bladder obstruction Acute Hyponatremia Acute
[2018-03-18] MEDS: SENNOSIDES/DOCUSATE SODIUM TAB PO SCH (21:53)
[2018-03-18] MEDS: HEPARIN 5,000 UNIT/0.5 ML INJ SC SCH ×2 (22:05→22:18)
[2018-03-19] MEDS: AMPICILLIN/SULBACTAM 3 GM in NS 100 ML IV SCH ×4 (01:16→17:31)
[2018-03-19 03:52] LABS: PLATELET COUNT 127 10^3/uL (150-400)
[2018-03-19] MEDS: HEPARIN 5,000 UNIT/0.5 ML INJ SC SCH ×2 (06:24→13:02)
[2018-03-19] MEDS: LEVOTHYROXINE 75 MCG TAB PO SCH (06:28)
[2018-03-19] MEDS: ACETAMINOPHEN 500 MG TAB PO SCH ×2 (06:30→13:01)
[2018-03-19] MEDS ORDERED: POTASSIUM CL 10 MEQ TAB PO ONE ×2 (08:02→23:01)
[2018-03-19] MEDS ORDERED: MAGNESIUM SULF 1 GM/DEXTROSE 100 ML IV ONE (08:03)
[2018-03-19] MEDS: TAMSULOSIN HCL 0.4 MG CAP PO SCH (09:26)
[2018-03-19] MEDS: SENNOSIDES/DOCUSATE SODIUM TAB PO SCH ×2 (09:27→21:37)
[2018-03-19] MEDS: PANTOPRAZOLE SODIUM 40 MG VIAL IVP SCH (09:35)
--- NOTE | 2018-03-19 09:56 | SOAPPROG ---
SOAP Progress Note Assessment/Plan: Assessment/Plan: 67 Y M c MS, 30/09 care, admitting after N, abd pain, diarrhea, found to have GI bleed thought to be 2/2 currently nonbleeding DU ulcer seen on EGD, s/p cardiac arrest thought to be hypovolemic in nature 2/2 above, s/p resuscitation c PTX requiring placement of small bore CT. Now with RUE DVT, on subq heparin. S: Sleepy, somewhat confused today. Denies pain. O: Sleepy VSS Hct down some from 24 yesterday to 22 today. Chest: Diminished in apeces, crackles bilateral bases, small bore chest tube in place with heimlich valve. No air leak noted. Abdomen soft, nontender 03/19/18 09:52 Objective: Vital Signs Temp Pulse Resp BP Pulse Ox 35.6 C L 62 18 128/76 H 100 03/19/18 08:00 03/19/18 08:00 03/19/18 08:00 03/19/18 08:00 03/19/18 08:00 Microbiology 03/16/18 14:30 - Final Sputum, Induced/Suctioned Sputum Culture - Final Laboratory Results 03/19/18 03:25 03/19/18 03:25 03/18/18 03/19/18 03/20/18 05:59 05:59 05:59 Intake Total 1250 550 Output Total 615 4520 Balance 635 -3970 PT 19.5 SEC (12.0-15.0) H 03/15/18 15:36 INR 1.63 (0.83-1.16) H 03/15/18 15:36 ICD10 Worksheet Patient Problems: Problems Problem Status Onset Acute vomiting Acute Dehydration Acute Hyponatremia Acute Multiple sclerosis exacerbation Acute Cellulitis of leg Active Aphasia Acute Bladder obstruction Acute Gastroenteritis Acute Multiple sclerosis Acute Palliative care encounter Acute Urinary retention Acute
--- NOTE | 2018-03-19 14:30 | HOSPPROG ---
Hospitalist Progress Note Assessment/Plan: 67 year old male with pmh of MS, originally admitted for abdominal pain, nausea , diarrhea, suffered cardiac arrest on 03/15/18, resuscitated, likely due to acute GIB with subsequent hypotension, now extubated. Vtach/PEA arrest- CTA neg for PE, but large pneumothorax, s/p chest tube. Etiology of cardiac arrest likely related to hypotension from large UGIB. EGD showed duodenal ulcer without active bleeding. Now off pressors. -cont telemetry monitoring -follow h&h Acute hypoxemic respiratory failure - extubated 03/16, now on 0.5 LPM, effusions noted on CXR (pers reviewed/interp) -prn lasix -unasyn day 07/12 Large right pneumothorax - suspect / CPR -chest tube per surg -daily cxr Hypotension-Due to large UGIB. Required pressors, since weaned off and now normotensive ABLA - s/p 3 u prbc's hgb stable -trend h&h UGIB - as above -cont IV protonix Thrombocytopenia- status post platelet transfusion. consumptive due to bleed. Monitor. RUE DVT - discussed heparin with pulm given recent GIB, he is on low-mod dose SC heparin -follow h&h closely and hold heparin for any signs/symptoms of bleeding PPX- AGGIE Fluids-NS Lytes-Monitor Nutrition- clear liquids Cor- Full code Dispo- cont inpt, transfer to PCU Subjective: Pt feels ok, a little more energy. Denies CP or SOB. He wishes to be full code. Objective: Vital Signs Temp Pulse Resp BP Pulse Ox 35.6 C L 64 19 123/65 H 98 03/19/18 08:00 03/19/18 11:43 03/19/18 11:43 03/19/18 11:43 03/19/18 11:43 Microbiology 03/16/18 14:30 - Final Sputum, Induced/Suctioned Sputum Culture - Final Laboratory Results 03/19/18 03:25 03/19/18 03:25 03/18/18 03/19/18 03/20/18 05:59 05:59 05:59 Intake Total 1250 550 Output Total 615 4520 Balance 635 -3970 PT 19.5 SEC (12.0-15.0) H 03/15/18 15:36 INR 1.63 (0.83-1.16) H 03/15/18 15:36 - Physical Exam Constitutional: no apparent distress Eyes: PERRL Ears, Nose, Mouth, Throat: moist mucous membranes Cardiovascular: regular rate and rhythym Respiratory: no respiratory distress, reduced air movement Gastrointestinal: normoactive bowel sounds, soft, non-tender abdomen Skin: warm Musculoskeletal: generalized weakness Neurologic: AAOx3 Psychiatric: interacting appropriately ICD10 Worksheet Patient Problems: Problems Problem Status Onset Acute vomiting Acute Dehydration Acute Hyponatremia Acute Multiple sclerosis exacerbation Acute Cellulitis of leg Active Aphasia Acute Bladder obstruction Acute Gastroenteritis Acute Multiple sclerosis Acute Palliative care encounter Acute Urinary retention Acute
[2018-03-19] MEDS ORDERED: FUROSEMIDE 40 MG/4 ML VIAL IVP ONE (16:31)
--- NOTE | 2018-03-19 16:33 | SOAPPROG ---
SOAP Progress Note Assessment/Plan: Assessment: Status post arrest. Possibly secondary to large pneumothorax if this was present prior to arrest, but seems less likely. Possibly secondary to acute anemia/hypotension. Hypotension: Improved/resolved. Multifactorial. Volume overload: Secondary to fluid resuscitation. Will continue Lasix diuresis. GI bleed: Duodenal ulcer. Not actively bleeding any longer. On Protonix. Acute blood-loss anemia. Hematocrit 22. Status post 3 units of blood initially , none since. No evidence of rebleeding with initiation of heparin yesterday. Acute respiratory failure. Extubated 03/16 without problems. On room air or low- flow oxygen. Chest x-ray with bibasilar atelectasis/effusions, left greater than right. Right-sided pneumothorax. Status post small bore chest tube placement. Lung well expanded. Small apical pneumothorax likely still present on today's chest x-ray. No obvious air leak today. To may be starting to plug up this point is there is no respiratory variation either. Crepitus still present on examination. History of multiple sclerosis. DVT prophylaxis: On heparin 10,000 tid. Right upper extremity swelling. Positive for DVT Plan: Continue small bore chest tube to H-valve alone. Follow chest x-ray and possible air leak. Possibly can discontinue this tomorrow Continue heparin at 10,000 three times daily unless there is evidence of bleeding. Follow H&H. Continue Protonix. Lasix for fluid retention. Follow laboratory, chest x-ray, I and Os. Subjective: Feels better. Feels he is breathing better, more deeply. Denies chest pain. Objective: Vital Signs Temp Pulse Resp BP Pulse Ox 35.6 C L 64 19 123/65 H 98 03/19/18 08:00 03/19/18 11:43 03/19/18 11:43 03/19/18 11:43 03/19/18 11:43 Microbiology 03/16/18 14:30 - Final Sputum, Induced/Suctioned Sputum Culture - Final Laboratory Results 03/19/18 03:25 03/19/18 03:25 03/18/18 03/19/18 03/20/18 05:59 05:59 05:59 Intake Total 1250 550 Output Total 615 4520 Balance 635 -3970 PT 19.5 SEC (12.0-15.0) H 03/15/18 15:36 INR 1.63 (0.83-1.16) H 03/15/18 15:36 Laboratory Tests 03/19/18 03:25 Calcium 8.2 L Phosphorus 3.3 Magnesium 1.8 Total Bilirubin 0.6 AST 39 ALT 59 Albumin 2.5 L CXR: Likely small apical pneumothorax, unchanged. Left effusion present with associated atelectasis and increased markings consistent with residual volume overload along with hypoventilatory changes Physical Exam - Physical Exam General Appearance: alert, no apparent distress, obese EENT: PERRL/EOMI, other (Nasal cannula at 1 L) Neck: normal inspection Respiratory: lungs clear (Anteriorly), decreased breath sounds (At bases), rales (Few rales at bases), other (Chest tube without obvious air leak and no respiratory variations or variations with cough or Valsalva), No rhonchi, No wheezing Cardiac/Chest: regular rate, rhythm, No gallop Abdomen: normal bowel sounds, non-tender, soft (Overweight), distended (Mild distension present) Male Genitalia: other (Hurst catheter in place. Excellent urine output with Lasix diuresis) Skin: warm/dry, pallor Extremities: pedal edema, swelling (Right upper extremity) Neuro/Psych: No no motor/sensory deficits (No changes), No cognition abnormalities ICD10 Worksheet Patient Problems: Problems Problem Status Onset Palliative care encounter Acute Multiple sclerosis exacerbation Acute Urinary retention Acute Gastroenteritis Acute Acute vomiting Acute Dehydration Acute Aphasia Acute Multiple sclerosis Acute Cellulitis of leg Active Bladder obstruction Acute Hyponatremia Acute
--- NOTE | 2018-03-19 17:10 | ASMTCMCOM ---
CM Note CM Note Notes: 03/19/2018 Case Management Note Multiple discussions with various friends at pt request today. Pt as chosen Melodie [facility] [phone] who lives in [facility] and local friend Stan [phone] as spokesperson for group. Stephanie Roa is co [facility] but visiting [place] for an extended period of time. She can be reached via email. Her phone numbers are: [phone] and [phone] Lucero is a friend [phone]. Obed is friend [phone]. Cat is caregiver hired by pt whom he describes as "like a daughter" [phone]. Cat has worked for pt for approximately one year. Pt has rented his basement to Geri who is an emergency caregiver at night. However she is moving out at the end of the month. Melodie's Meeta is arriving tomorrow to assist patient. 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 Pt has [facility] benefits. VM into VA case specialist Hilda [place] [phone]. Per pt [facility] provides home care support for limited hours during the day. Per Melodie pt was struggling at home prior to admission, Melodie reports pt is lacking insight into his care needs. Case Management to explore increasing home health supports through the [facility]. Discussed case with Gisele Escobar with Inpatient Rehab. Please see her note. Case Management exploring [facility] inpatient rehab benefits as they may offer flexibility in length of stay. Faxed referrals to [facility] (first choice), [facility] (second choice) and [facility]. Provided unskilled career services officer list, SNF list and [employer] case management contact info to Lucero who is going to pass it along to Meeta when he arrives. Discussed with pt and friend Obed importance of planning for the alf and creating a plan of support so pt can remain in his home. Melodie in agreement. Pt is unrealistic in costs of private duty care and funding shortages he is facing. 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 Encouraged Melodie and Obed to coordinate a group discussion about realistic plan for pt needs after SNF rehab. Pt has previously met [facility]. Faxed updates. Case Management d/c poc: SNF rehab vs [facility] inpatient re[facility] to follow. Case Management to follow. Date Signed: 03/19/2018 05:10 PM Electronically Signed By:Meagan Huynh RN
[2018-03-19] MEDS: PANTOPRAZOLE SODIUM 40 MG TAB PO SCH (21:37)
[2018-03-20] MEDS: AMPICILLIN/SULBACTAM 3 GM in NS 100 ML IV SCH ×2 (00:08→06:21)
[2018-03-20] MEDS ORDERED: POTASSIUM CL 20 MEQ PKT PO ONE (00:15)
[2018-03-20] MEDS: LEVOTHYROXINE 75 MCG TAB PO SCH (06:26)
[2018-03-20] MEDS ORDERED: POTASSIUM CL 10 MEQ TAB PO ONE ×2 (07:54→22:18)
[2018-03-20] MEDS: TAMSULOSIN HCL 0.4 MG CAP PO SCH (10:25)
[2018-03-20] MEDS: PANTOPRAZOLE SODIUM 40 MG TAB PO SCH ×2 (10:25→22:33)
[2018-03-20] MEDS: SENNOSIDES/DOCUSATE SODIUM TAB PO SCH ×2 (10:26→22:40)
--- NOTE | 2018-03-20 13:05 | HOSPPROG ---
Hospitalist Progress Note Assessment/Plan: 67 year old male with pmh of MS, originally admitted for abdominal pain, nausea , diarrhea, suffered cardiac arrest on 03/15/18, resuscitated, likely due to acute GIB with subsequent hypotension, now extubated. Vtach/PEA arrest- CTA neg for PE, but large pneumothorax, s/p chest tube. Etiology of cardiac arrest likely related to hypotension from large UGIB. EGD showed duodenal ulcer without active bleeding. Now off pressors. -cont telemetry monitoring Acute hypoxemic respiratory failure - extubated 03/16, now on 0.5 LPM, effusions noted on CXR (pers reviewed/interp) -prn lasix -completed 5 days of unasyn Large right pneumothorax - suspect 04/11 CPR, CXR this am pers reviewed/interp, possible small apical ptx -chest tube per surg/pulm, no air leak, will likely be removed today -serial cxr's Hypotension - Due to large UGIB. Required pressors, since weaned off and now normotensive ABLA - s/p 3 u prbc's hgb stable -trend h&h, stable UGIB - as above -cont IV protonix Thrombocytopenia- status post platelet transfusion. consumptive due to bleed. Monitor. RUE DVT - in basilic vein. He received low-mod dose heparin, which is now held due to persistent melena, but no drop in H&H -warm compresses to RUE PPX- SCD's Cor- Full code Dispo- cont inpt, PCU, SNF when ready for dc Subjective: Pt feels very weak, still have chest wall pain. No SOB. No fevers. Objective: Vital Signs Temp Pulse Resp BP Pulse Ox 36.3 C 87 12 114/72 95 03/20/18 12:00 03/20/18 12:00 03/20/18 12:00 03/20/18 12:00 03/20/18 12:00 Microbiology 03/15/18 08:29 Blood Culture - Final Blood 03/15/18 08:48 Blood Culture - Final Blood Laboratory Results 03/20/18 04:00 03/20/18 04:00 03/19/18 03/20/18 03/21/18 05:59 05:59 05:59 Intake Total 550 100 Output Total 4520 2650 Balance -3970 -2650 100 PT 19.5 SEC (12.0-15.0) H 03/15/18 15:36 INR 1.63 (0.83-1.16) H 03/15/18 15:36 - Physical Exam Constitutional: no apparent distress Eyes: PERRL Ears, Nose, Mouth, Throat: moist mucous membranes Cardiovascular: regular rate and rhythym Respiratory: no respiratory distress Gastrointestinal: normoactive bowel sounds, soft, non-tender abdomen Skin: warm Musculoskeletal: generalized weakness Neurologic: AAOx3 Psychiatric: interacting appropriately ICD10 Worksheet Patient Problems: Problems Problem Status Onset Acute vomiting Acute Dehydration Acute Hyponatremia Acute Multiple sclerosis exacerbation Acute Cellulitis of leg Active Aphasia Acute Bladder obstruction Acute Gastroenteritis Acute Multiple sclerosis Acute Palliative care encounter Acute Urinary retention Acute
[2018-03-20] MEDS: ACETAMINOPHEN 500 MG TAB PO SCH ×2 (13:51→22:34)
--- NOTE | 2018-03-20 14:53 | SOAPPROG ---
SOAP Progress Note Assessment/Plan: Assessment/Plan: 67 Y M c MS, 30/09 care, admitting after N, abd pain, diarrhea, found to have GI bleed thought to be 2/2 currently nonbleeding DU ulcer seen on EGD, s/p cardiac arrest thought to be hypovolemic in nature 2/2 above, s/p resuscitation c PTX requiring placement of small bore CT. Now with RUE DVT, on subq heparin. S: Sleepy, somewhat confused today. Denies pain. O: Sleepy VSS H&H stable Chest: Diminished in apeces, crackles bilateral bases, small bore chest tube in place with heimlich valve. No air leak noted. Abdomen soft, nontender 03/20/18 14:52 Objective: Vital Signs Temp Pulse Resp BP Pulse Ox 36.3 C 87 12 114/72 95 03/20/18 12:00 03/20/18 12:00 03/20/18 12:00 03/20/18 12:00 03/20/18 12:00 Microbiology 03/15/18 08:29 Blood Culture - Final Blood 03/15/18 08:48 Blood Culture - Final Blood Laboratory Results 03/20/18 04:00 03/20/18 04:00 03/19/18 03/20/18 03/21/18 05:59 05:59 05:59 Intake Total 550 100 Output Total 4520 2650 Balance -3970 -2650 100 PT 19.5 SEC (12.0-15.0) H 03/15/18 15:36 INR 1.63 (0.83-1.16) H 03/15/18 15:36 ICD10 Worksheet Patient Problems: Problems Problem Status Onset Acute vomiting Acute Dehydration Acute Hyponatremia Acute Multiple sclerosis exacerbation Acute Cellulitis of leg Active Aphasia Acute Bladder obstruction Acute Gastroenteritis Acute Multiple sclerosis Acute Palliative care encounter Acute Urinary retention Acute
--- NOTE | 2018-03-20 16:57 | SOAPPROG ---
SOAP Progress Note Assessment/Plan: Assessment: Status post arrest. Possibly secondary to large pneumothorax if this was present prior to arrest, but seems less likely. Possibly secondary to acute anemia/hypotension. Hypotension: Resolved. Multifactorial. Volume overload: Secondary to fluid resuscitation. Will continue Lasix diuresis. GI bleed: Duodenal ulcer. Likely not rebleeding despite some melena which probably represents old blood. On Protonix. Acute blood-loss anemia. Hematocrit 23.8, stable. Status post 3 units of blood initially, none since. No definite evidence of rebleeding with initiation of heparin, but hard to say. Heparin has been held for now... Acute respiratory failure. Extubated 03/16 without problems. On room air. Chest x-ray with bibasilar atelectasis/effusions, left greater than right. Right-sided pneumothorax. Status post small bore chest tube placement. Lung well expanded. Small apical pneumothorax likely still present on today's chest x-ray. Tube without obvious air leak, still communicating with the pleural space. Crepitus still present on examination with subcu air on x-ray. History of multiple sclerosis. DVT prophylaxis: Has DVT in the right upper extremity. Was on heparin at 10, 000 three times daily. On hold currently Right upper extremity swelling. Positive for DVT Plan: Continue small bore chest tube to H-valve alone today. Follow chest x-ray in a.m.. Follow for possible air leak. Will consider taking chest tube at tomorrow if there is still no air leak. X- ray will be followed afterwards. Continue to follow H&H. Hold heparin, re-evaluate need for this daily. Continue Protonix. Lasix for fluid retention. Follow laboratory, chest x-ray, I and Os. Subjective: Feels better. Able to take much deeper breaths. Voice is a little stronger, remains hoarse. Denies pain. Objective: Vital Signs Temp Pulse Resp BP Pulse Ox 35.9 C L 85 12 137/73 H 92 03/20/18 16:00 03/20/18 16:00 03/20/18 16:00 03/20/18 16:00 03/20/18 16:00 Microbiology 03/15/18 08:29 Blood Culture - Final Blood 03/15/18 08:48 Blood Culture - Final Blood Laboratory Results 03/20/18 04:00 03/20/18 04:00 03/19/18 03/20/18 03/21/18 05:59 05:59 05:59 Intake Total 550 100 Output Total 4520 2650 Balance -3970 -2650 100 PT 19.5 SEC (12.0-15.0) H 03/15/18 15:36 INR 1.63 (0.83-1.16) H 03/15/18 15:36 CXR: Small apical pneumothorax persists possibly. Hard to see. Still with subcutaneous air. Physical Exam - Physical Exam General Appearance: alert, no apparent distress, obese EENT: other (On room air) Neck: normal inspection Respiratory: lungs clear (Anteriorly. Improved air movement), decreased breath sounds (At the bases, some rales present), rales, other (Fluid movement in the chest tube is seen with respiratory efforts. There is no obvious air leak even with cough, Valsalva, or deep breaths. Tip placed under water for these maneuvers.), No rhonchi Cardiac/Chest: regular rate, rhythm Abdomen: non-tender, soft, distended, other (Some melenic stools noted, probably old blood), No normal bowel sounds (Decreased, present) Male Genitalia: other (Hurst catheter in place, good urine output with Lasix.) Skin: warm/dry, pallor Extremities: pedal edema, swelling (Decreased right upper extremity swelling) Neuro/Psych: No no motor/sensory deficits (Unchanged), No cognition abnormalities ICD10 Worksheet Patient Problems: Problems Problem Status Onset Palliative care encounter Acute Multiple sclerosis exacerbation Acute Urinary retention Acute Gastroenteritis Acute Acute vomiting Acute Dehydration Acute Aphasia Acute Multiple sclerosis Acute Cellulitis of leg Active Bladder obstruction Acute Hyponatremia Acute
[2018-03-20] MEDS ORDERED: FUROSEMIDE 20 MG/2 ML VIAL IVP ONE (17:05)
[2018-03-21] MEDS: ACETAMINOPHEN 500 MG TAB PO SCH ×3 (06:04→21:22)
[2018-03-21] MEDS: LEVOTHYROXINE 75 MCG TAB PO SCH (06:05)
[2018-03-21] MEDS: PANTOPRAZOLE SODIUM 40 MG TAB PO SCH ×2 (10:21→21:23)
[2018-03-21] MEDS: TAMSULOSIN HCL 0.4 MG CAP PO SCH (10:21)
[2018-03-21] MEDS: SENNOSIDES/DOCUSATE SODIUM TAB PO SCH ×2 (10:22→21:23)
[2018-03-21] MEDS ORDERED: POTASSIUM CL 10 MEQ TAB PO ONE ×2 (11:07→19:58)
[2018-03-21] MEDS ORDERED: POTASSIUM CL 20 MEQ PKT PO ONE ×2 (11:15→21:30)
--- NOTE | 2018-03-21 13:36 | HOSPPROG ---
Hospitalist Progress Note Assessment/Plan: 67-year-old with advanced multiple sclerosis is admitted with abdominal pain. In the hospital he had a cardiac arrest on 03/15/2018 and was resuscitated. This was thought due to acute GI bleed with subsequent hypotension. He has recovered well he is now extubated and recovering on the floor. He did develop a large pneumothorax requiring chest tube placement post of resuscitation for PEA/V-tach arrest # V-tach/PEA arrest, evaluation had a negative CT angiogram for PE, he did have a large pneumothorax and had a chest tube placed. He initially did need intubation and pressor support however he has recovered and is currently extubated and off pressors. * Continue telemetry monitoring * Thought secondary to hypotension due to large upper GI bleed # upper GI bleed status post EGD on 03/16. Duodenal ulcer noted with no stigmata of acute bleeding and patient placed on PPI. * Follow-up EGD in 4 weeks as outpatient * Follow-up EGD sooner if recurrent bleeding # pneumothorax, status post chest tube placement appreciate Dr. Rajput. Chest tube removed today. # acute hypoxic respiratory failure likely multifactorial. Extubated and currently on room air # hypotension secondary to acute blood loss anemia # acute blood loss anemia status post 3 units packed red blood cells continue to monitor H&H # thrombocytopenia # history of right upper extremity DVT and basilic vein Heparin on hold due to persistent melena and recent GI bleed Subjective: Patient new to me and chart reviewed. Feeling better today and hungry eating regular food had a lot of questions about getting food brought in and making sure his supplements follow him to the longterm Objective: Vital Signs Temp Pulse Resp BP Pulse Ox 36.4 C 68 10 L 115/71 95 03/21/18 11:14 03/21/18 11:14 03/21/18 11:14 03/21/18 11:14 03/21/18 11:14 Microbiology 03/15/18 08:29 Blood Culture - Final Blood 03/15/18 08:48 Blood Culture - Final Blood Laboratory Results 03/21/18 02:45 03/21/18 07:30 03/20/18 03/21/18 03/22/18 05:59 05:59 05:59 Intake Total 725 240 Output Total 2650 2360 Balance -2650 -1635 240 PT 19.5 SEC (12.0-15.0) H 03/15/18 15:36 INR 1.63 (0.83-1.16) H 03/15/18 15:36 - Physical Exam Constitutional: not in pain, chronically ill appearing Eyes: PERRL Ears, Nose, Mouth, Throat: moist mucous membranes Cardiovascular: regular rate and rhythym Respiratory: no respiratory distress Gastrointestinal: normoactive bowel sounds, soft, non-tender abdomen Genitourinary: no bladder fullness Musculoskeletal: generalized weakness Neurologic: AAOx3, weakness Psychiatric: interacting appropriately, not anxious ICD10 Worksheet Patient Problems: Problems Problem Status Onset Acute vomiting Acute Dehydration Acute Hyponatremia Acute Multiple sclerosis exacerbation Acute Cellulitis of leg Active Aphasia Acute Bladder obstruction Acute Gastroenteritis Acute Multiple sclerosis Acute Palliative care encounter Acute Urinary retention Acute
--- NOTE | 2018-03-21 13:55 | SOAPPROG ---
SOAP Progress Note Assessment/Plan: Assessment: Status post arrest. Possibly secondary to large pneumothorax if this was present prior to arrest, but seems less likely. Possibly secondary to acute anemia/hypotension. Hypotension: Resolved. Multifactorial. Volume overload: Secondary to fluid resuscitation. Very good output over the last 3 days with daily Lasix. Will continue Lasix diuresis for now, deciding on a daily basis, but may be towards the end of needing this. GI bleed: Duodenal ulcer. No evidence of rebleeding despite some melena which probably represents old blood. Hematocrit stable. On Protonix twice daily. Acute blood-loss anemia. Hematocrit 23.9, stable. Status post 3 units of blood initially, none since. No evidence of rebleeding with initiation of heparin, but this was stopped. Acute respiratory failure. Extubated 03/16 without problems. On room air. Chest x-ray with bibasilar atelectasis/effusions, left greater than right: Improving. Right-sided pneumothorax. Status post small bore chest tube placement. Lung well expanded. Small apical pneumothorax possible still present on today's chest x-ray. Tube without obvious air leak or respiratory variation and may no longer be in the pleural space? Will pull tube today and follow x-ray. History of multiple sclerosis. DVT prophylaxis: Has DVT in the right upper extremity. Was on heparin at 10, 000 three times daily. Stopped. At high risk for further deep venous thrombosis. Right upper extremity swelling. Positive for DVT. Swelling has improved. Plan: Will remove small bore chest tube today. Follow x-ray in 3 or 4 hr and in a.m. Continue to follow H&H. Start prophylactic Lovenox at 30 per day. Continue Protonix. Fractures when working with Continue Lasix for fluid retention for now. Follow laboratory, chest x-ray, I and Os. Discharge planning Addendum: Chest tube removed without problems around noon. Follow-up x-ray 3- 4 hours later without any significant change in the small residual apical pneumothorax. The patient is requesting a lift room. He has significant pain secondary to rib fractures when working with physical therapy. Subjective: Doing better. Slept better last night. Able to take deeper breaths. Denies chest pain. Objective: Vital Signs Temp Pulse Resp BP Pulse Ox 36.4 C 68 10 L 115/71 95 03/21/18 11:14 03/21/18 11:14 03/21/18 11:14 03/21/18 11:14 03/21/18 11:14 Microbiology 03/15/18 08:29 Blood Culture - Final Blood 03/15/18 08:48 Blood Culture - Final Blood Laboratory Results 03/21/18 02:45 03/21/18 07:30 03/20/18 03/21/18 03/22/18 05:59 05:59 05:59 Intake Total 725 240 Output Total 2650 2360 Balance -2650 -1635 240 PT 19.5 SEC (12.0-15.0) H 03/15/18 15:36 INR 1.63 (0.83-1.16) H 03/15/18 15:36 CXR: Possible small residual apical pneumothorax? Chest tube may or may not be in the thoracic cavity at this point. Physical Exam - Physical Exam General Appearance: alert, no apparent distress, other (Voice remains weak, hoarse) EENT: PERRL/EOMI, other (On room air) Neck: normal inspection (No JVD) Respiratory: lungs clear (Anteriorly), decreased breath sounds (At the bases. Increased excursions with deep breathing), rales (Few rales at bases), other ( Chest to without evidence of leak or respiratory variation), No rhonchi, No wheezing, No pleural rub Cardiac/Chest: regular rate, rhythm Abdomen: normal bowel sounds, non-tender, soft (Mildly distended, overweight) Male Genitalia: other (Hurst catheter in place, good urine output with Lasix) Skin: warm/dry, pallor Extremities: pedal edema (Trace), swelling (Decreased right upper extremity swelling) Neuro/Psych: No no motor/sensory deficits (Unchanged), No cognition abnormalities ICD10 Worksheet Patient Problems: Problems Problem Status Onset Palliative care encounter Acute Multiple sclerosis exacerbation Acute Urinary retention Acute Gastroenteritis Acute Acute vomiting Acute Dehydration Acute Aphasia Acute Multiple sclerosis Acute Cellulitis of leg Active Bladder obstruction Acute Hyponatremia Acute
[2018-03-21] MEDS ORDERED: FUROSEMIDE 20 MG/2 ML VIAL IVP ONE (14:05)
[2018-03-21] MEDS: ENOXAPARIN 30 MG/0.3 ML SYR SC SCH (15:39)
[2018-03-22] MEDS: LEVOTHYROXINE 75 MCG TAB PO SCH (06:17)
[2018-03-22] MEDS: ACETAMINOPHEN 500 MG TAB PO SCH ×5 (06:17→23:06)
[2018-03-22] MEDS ORDERED: POTASSIUM CL 10 MEQ TAB PO ONE (08:59)
[2018-03-22] MEDS ORDERED: POTASSIUM CL 20 MEQ PKT PO ONE ×2 (10:00→14:30)
[2018-03-22] MEDS: ENOXAPARIN 30 MG/0.3 ML SYR SC SCH (10:10)
[2018-03-22] MEDS: TAMSULOSIN HCL 0.4 MG CAP PO SCH (10:11)
[2018-03-22] MEDS: PANTOPRAZOLE SODIUM 40 MG TAB PO SCH ×2 (10:11→20:57)
[2018-03-22] MEDS: SENNOSIDES/DOCUSATE SODIUM TAB PO SCH ×2 (10:12→21:30)
[2018-03-22] MEDS ORDERED: ENOXAPARIN 30 MG/0.3 ML SYR SC SCH (12:47)
--- NOTE | 2018-03-22 13:02 | SOAPPROG ---
SOAP Progress Note Assessment/Plan: Assessment: 67 year old with MS and UGI bleed. Recent EGD with blood in stomach. Patient had significant PEA/Vtach arrest in the setting of acute GI bleed and blood loss. He had DU without stigmata of bleeding however large amount of blood precluded complete visualization of the stomach. Patient has been stable but still passing melenic stools. Anticipate d/c to rehab facility this week. Plan: 1. Continue on PPI 2. Avoid NSAIDs 3. Since clinically stable now will plan on EGD prior to d/c to rehab. 03/22/18 13:11 Subjective: CC: GI bleed Tolerating PO, having some melena but hemodynamically stable Objective: Vital Signs Temp Pulse Resp BP Pulse Ox 36.4 C 70 16 99/77 L 96 03/22/18 11:22 03/22/18 11:22 03/22/18 11:22 03/22/18 11:22 03/22/18 11:22 Laboratory Results 03/22/18 06:17 03/22/18 06:17 03/21/18 03/22/18 03/23/18 05:59 05:59 05:59 Intake Total 725 920 Output Total 2360 2850 Balance -1635 -1930 PT 19.5 SEC (12.0-15.0) H 03/15/18 15:36 INR 1.63 (0.83-1.16) H 03/15/18 15:36 Generic Name Dose Route Start Last Admin Trade Name Freq PRN Reason Stop Dose Admin Acetaminophen 1,000 mg 03/17/18 14:00 03/22/18 06:17 Tylenol PO 09/13/18 13:59 1,000 mg Q8HRS AGGIE Administration Bisacodyl 10 mg 03/18/18 16:32 Dulcolax Rectal IL 09/14/18 16:31 DAILY PRN Constipation Protocol Enoxaparin Sodium 40 mg 03/22/18 12:47 Lovenox SC 09/17/18 13:59 DAILY AGGIE Sodium Chloride 1,000 mls @ 75 mls/hr 03/13/18 15:45 03/15/18 22:38 Ns IV 09/09/18 15:44 1,000 mls CONT AGGIE Administration Lactulose 20 gm 03/18/18 16:32 Cephulac PO 09/14/18 16:31 TID PRN Constipation Protocol Levothyroxine Sodium 75 mcg 03/15/18 06:00 03/22/18 06:17 Synthroid PO 09/11/18 05:59 75 mcg DAILY06 AGGIE Administration Magnesium Hydroxide 30 ml 03/18/18 16:32 Milk Of Magnesia PO 09/14/18 16:31 DAILY PRN Constipation Protocol Ondansetron HCl 4 mg 03/13/18 15:38 Zofran IVP 09/09/18 15:37 Q4HRS PRN Nausea/Vomiting, Can't Take PO Ondansetron HCl 4 mg 03/13/18 15:38 03/14/18 20:42 Zofran Odt PO 09/09/18 15:37 4 mg Q4HRS PRN Administration Nausea/Vomiting, Use 1st Pantoprazole Sodium 40 mg 03/19/18 21:00 03/22/18 10:11 Protonix PO 09/15/18 20:59 40 mg BID AGGIE Administration Polyethylene Glycol 17 gm 03/18/18 16:32 Miralax PO 09/14/18 16:31 DAILY PRN Constipation, patient prefers Protocol Potassium Chloride 1 dose 03/13/18 15:38 Protocol Potassium MISC 09/09/18 15:37 AD PRN Pt on Electrolyte Protocol Protocol Promethazine HCl 6.25 - 12.5 mg 03/13/18 15:38 Phenergan IVP 09/09/18 15:37 Q6HRS PRN Nausea/Vomiting, Use 2nd Senna/Docusate Sodium 1 - 2 tab 03/18/18 21:00 03/22/18 10:12 Senokot-S PO 09/14/18 20:59 Not Given BID AGGIE Protocol Tamsulosin HCl 0.4 mg 03/14/18 09:00 03/22/18 10:11 Flomax PO 09/10/18 08:59 0.4 mg DAILY AGGIE Administration Discontinued Medications Generic Name Dose Route Start Last Admin Trade Name Freq PRN Reason Stop Dose Admin Acetaminophen 650 mg 03/13/18 15:38 03/17/18 05:15 Tylenol PO 09/09/18 15:37 650 mg Q4HRS PRN Administration Pain, Mild/Fever, Can Take PO Albumin Human Confirm 03/15/18 09:47 Alburx 5 Administered 03/15/18 09:48 Dose 500 ml IV .STK-MED ONE Amiodarone HCl 300 mg 03/15/18 09:12 Amiodarone Hcl .ROUTE 03/15/18 09:13 .STK-MED ONE Atropine Sulfate 3 mg 03/15/18 09:12 Atropine 1 Mg/10 Ml Syringe .ROUTE 03/15/18 09:13 .STK-MED ONE Calcium Chloride 2 gm 03/15/18 09:12 Calcium Chloride .ROUTE 03/15/18 09:13 .STK-MED ONE Diphenhydramine HCl 50 mg 03/15/18 13:30 03/15/18 13:34 Benadryl Injection IVP 03/15/18 13:31 50 mg ONCE ONE Administration Dopamine HCl/Dextrose 400 mg 03/15/18 09:12 Dopamine 1600 Mcg/Ml (Premix) IV 03/15/18 09:13 .STK-MED ONE Enoxaparin Sodium 40 mg 03/14/18 09:00 03/16/18 08:34 Lovenox SC 09/10/18 08:59 Not Given DAILY AGGIE Enoxaparin Sodium 30 mg 03/21/18 14:00 03/22/18 10:10 Lovenox SC 09/17/18 13:59 30 mg DAILY AGGIE Administration Epinephrine HCl 4 mg 03/15/18 09:12 Epinephrine IVP 03/15/18 09:13 .STK-MED ONE Epinephrine HCl Confirm 03/16/18 07:11 Epinephrine Administered 03/16/18 07:12 Dose 1 mg .ROUTE .STK-MED ONE Etomidate 20 mg 03/15/18 05:00 03/15/18 05:05 Etomidate IVP 03/15/18 05:01 20 mg ONCE ONE Administration Furosemide 40 mg 03/18/18 12:50 03/18/18 14:22 Lasix Injection IVP 03/18/18 12:51 40 mg ONCE ONE Administration Furosemide 40 mg 03/19/18 16:31 03/19/18 17:18 Lasix Injection IVP 03/19/18 16:32 40 mg ONCE ONE Administration Furosemide 20 mg 03/20/18 17:05 03/20/18 18:09 Lasix Injection IVP 03/20/18 17:06 20 mg ONCE ONE Administration Furosemide 20 mg 03/21/18 14:05 03/21/18 15:39 Lasix Injection IVP 03/21/18 14:06 20 mg ONCE ONE Administration Heparin Sodium (Porcine) 10,000 unit 03/18/18 22:00 03/19/18 13:02 Heparin Sc Injection SC 09/14/18 21:59 10,000 unit Q8HRS AGGIE Administration Sodium Chloride 1,000 mls @ 0 mls/hr 03/13/18 14:03 03/13/18 14:37 Ns IV 03/13/18 14:04 1,000 mls EDNOW ONE Administration Protocol Wide Open Sodium Chloride 1,000 mls @ 0 mls/hr 03/13/18 14:15 03/13/18 14:38 Ns IV 03/13/18 14:16 1,000 mls ONCE ONE Administration Protocol Wide Open Magnesium Sulfate/Dextrose 100 mls @ 100 mls/hr 03/13/18 18:32 03/13/18 18:39 Magnesium Sulf 1 Gm (Premix) IV 03/13/18 19:31 100 mls ONCE ONE Administration Sodium Chloride 500 mls @ 0 mls/hr 03/13/18 23:50 03/14/18 00:01 Ns IV 03/13/18 23:51 500 mls ONCE ONE Administration Wide Open Magnesium Sulfate/Dextrose 100 mls @ 100 mls/hr 03/14/18 11:52 03/14/18 12:41 Magnesium Sulf 1 Gm (Premix) IV 03/14/18 12:51 100 mls ONCE ONE Administration Epinephrine HCl 1 mg/ Sodium 251 mls @ 0 mls/hr 03/15/18 05:30 03/15/18 10:03 Chloride IV 03/15/18 05:31 251 mls ONCE ONE Administration Protocol Per Protocol Norepinephrine 4 mg/ Sodium 504 mls @ 0 mls/hr 03/15/18 06:00 03/15/18 06:24 Chloride IV 03/15/18 06:01 504 mls ONCE ONE Administration Protocol Per Protocol Epinephrine HCl 1 mg/ Sodium 251 mls @ 0 mls/hr 03/15/18 06:00 Chloride IV 03/15/18 06:01 ONCE ONE Protocol Per Protocol Vasopressin 25 unit/ Sodium 251.25 mls @ 24 mls/hr 03/15/18 06:00 03/15/18 06 :24 Chloride IV 03/15/18 16:28 251.25 mls ONCE ONE Administration Epinephrine HCl 1 mg/ Sodium 251 mls @ 0 mls/hr 03/15/18 06:00 03/15/18 06:24 Chloride IV 03/15/18 06:01 251 mls ONCE ONE Administration Protocol Per Protocol Dopamine HCl/Dextrose 250 mls @ 0 mls/hr 03/15/18 06:00 03/15/18 10:08 Dopamine 1600 Mcg/Ml (Premix) IV 09/11/18 05:59 250 mls CONT AGGIE Administration Protocol Titrate Epinephrine HCl 8 mg/ Sodium 258 mls @ 0 mls/hr 03/15/18 06:30 03/15/18 10:02 Chloride IV 09/11/18 06:29 258 mls CONT AGGIE Administration Protocol Per Protocol Norepinephrine 16 mg/ Sodium 266 mls @ 0 mls/hr 03/15/18 06:30 03/15/18 21:20 Chloride IV 09/11/18 06:29 266 mls CONT AGGIE Administration Protocol Per Protocol Potassium Chloride 50 mls @ 25 mls/hr 03/15/18 09:25 03/15/18 12:57 Potassium Cl 20 Meq (Premix) IV 03/15/18 11:24 50 mls ONCE ONE Administration Albumin Human 500 mls @ 0 mls/hr 03/15/18 09:43 03/15/18 10:03 Alburx 5 IV 03/15/18 09:44 500 mls ONCE ONE Administration As Directed Albumin Human 500 mls @ 0 mls/hr 03/15/18 11:41 03/15/18 12:16 Alburx 5 IV 03/15/18 11:42 500 mls ONCE ONE Administration As Directed Lactated Ringer's 1,000 mls @ 2,000 mls/hr 03/15/18 11:44 03/15/18 12:17 Lr IV 03/15/18 12:13 Not Given BOLUS ONE Albumin Human 500 mls @ 0 mls/hr 03/15/18 11:47 03/15/18 12:17 Alburx 5 IV 03/15/18 11:48 500 mls ONCE ONE Administration As Directed Ampicillin Sodium/Sulbactam 100 mls @ 200 mls/hr 03/15/18 12:30 03/20/18 06: 21 Sodium 3 gm/ Sodium Chloride IV 03/20/18 06:29 100 mls Q6HRS AGGIE Administration Protocol Vasopressin 25 unit/ Sodium 251.25 mls @ 24 mls/hr 03/15/18 17:00 03/16/18 03 :11 Chloride IV 09/11/18 16:59 251.25 mls CONT AGGIE Administration Protocol Propofol 100 mls @ 0 mls/hr 03/15/18 18:54 03/15/18 20:38 Diprivan 10 Mg/Ml (Premix) IV 09/11/18 18:53 100 mls CONT AGGIE Administration Protocol Per Protocol Phytonadione 5 mg/ Sodium 50.5 mls @ 101 mls/hr 03/15/18 20:00 03/15/18 21:00 Chloride IV 03/15/18 20:29 50.5 mls ONCE ONE Administration Tranexamic Acid 1,000 mg/ 110 mls @ 110 mls/hr 03/15/18 20:00 03/15/18 21:30 Sodium Chloride IV 03/15/18 20:59 110 mls ONCE ONE Administration Fentanyl/Sodium Chloride 100 mls @ 0 mls/hr 03/15/18 20:00 03/15/18 22:15 Fentanyl 10 Mcg/Ml (Premix) IV 03/25/18 19:59 100 mls CONT AGGIE Administration Protocol Per Protocol Propofol 100 mls @ 0 mls/hr 03/15/18 20:00 Diprivan 10 Mg/Ml (Premix) IV 09/11/18 19:59 CONT AGGIE Protocol Per Protocol Pantoprazole Sodium 80 mg/ 100 mls @ 10 mls/hr 03/16/18 08:00 03/17/18 03:53 Sodium Chloride IV 09/12/18 07:59 100 mls Q10H AGGIE Administration Magnesium Sulfate/Dextrose 100 mls @ 100 mls/hr 03/16/18 08:39 03/16/18 08:45 Magnesium Sulf 1 Gm (Premix) IV 03/16/18 09:38 100 mls ONCE ONE Administration Potassium Chloride 50 mls @ 50 mls/hr 03/18/18 06:15 03/18/18 09:31 Potassium Cl 10 Meq (Premix) IV 03/18/18 09:14 50 mls Q1H AGGIE Administration Magnesium Sulfate/Dextrose 100 mls @ 100 mls/hr 03/18/18 07:42 03/18/18 08:23 Magnesium Sulf 1 Gm (Premix) IV 03/18/18 08:41 100 mls ONCE ONE Administration Magnesium Sulfate/Dextrose 100 mls @ 100 mls/hr 03/19/18 08:03 03/19/18 09:30 Magnesium Sulf 1 Gm (Premix) IV 03/19/18 09:02 100 mls ONCE ONE Administration Iopamidol Confirm 03/15/18 13:39 Isovue-370 Administered 03/15/18 13:40 Dose 100 ml IV .STK-MED ONE Lidocaine Confirm 03/13/18 15:32 Uroject Lidocaine 2% Jelly Administered 03/13/18 15:33 Dose 20 ml .ROUTE .STK-MED ONE Magnesium Sulfate 1 dose 03/13/18 15:38 Protocol Magnesium IV 09/09/18 15:37 AD PRN Pt on Electrolyte Protocol Protocol Magnesium Sulfate 2 gm 03/15/18 09:12 Magnesium Sulfate .ROUTE 03/15/18 09:13 .STK-MED ONE Methylprednisolone Sodium Succinate 125 mg 03/15/18 13:30 03/15/18 13:34 Solu-Medrol IVP 03/15/18 13:31 125 mg ONCE ONE Administration Morphine Sulfate 1 - 2 mg 03/13/18 15:38 03/16/18 22:55 Morphine IVP 03/23/18 15:37 2 mg Q1HR PRN Administration Pain, Severe Unable to Take PO Ondansetron HCl 4 mg 03/13/18 14:03 03/13/18 14:38 Zofran IVP 03/13/18 14:04 4 mg EDNOW ONE Administration Pantoprazole Sodium 40 mg 03/16/18 02:30 03/16/18 03:19 Protonix IVP 09/12/18 02:29 40 mg BID AGGIE Administration Pantoprazole Sodium 40 mg 03/17/18 10:30 03/17/18 11:14 Protonix PO 09/13/18 10:29 40 mg DAILY AGGIE Administration Pantoprazole Sodium 40 mg 03/17/18 12:15 03/19/18 09:35 Protonix IVP 09/13/18 12:14 40 mg BID AGGIE Administration Potassium Chloride 10 - 40 meq 03/17/18 10:05 03/17/18 11:15 Klor-Con PO 03/17/18 10:06 20 meq ONCE ONE Administration Protocol Potassium Chloride 40 meq 03/17/18 18:23 03/17/18 18:41 Klor-Con PO 03/17/18 18:24 40 meq ONCE ONE Administration Protocol Potassium Chloride 40 meq 03/18/18 18:06 03/18/18 19:14 Klor-Con PO 03/18/18 18:07 40 meq ONCE ONE Administration Protocol Potassium Chloride 10 - 40 meq 03/19/18 08:02 03/19/18 09:27 Klor-Con PO 03/19/18 08:03 20 meq ONCE ONE Administration Protocol Potassium Chloride 40 meq 03/20/18 00:15 03/20/18 00:13 Klor Packets PO 03/20/18 00:16 40 meq ONCE ONE Administration Protocol Potassium Chloride 10 - 40 meq 03/20/18 07:54 03/20/18 10:25 Klor-Con PO 03/20/18 07:55 20 meq ONCE ONE Administration Protocol Potassium Chloride 20 meq 03/20/18 22:18 03/20/18 22:36 Klor-Con PO 03/20/18 22:19 20 meq ONCE ONE Administration Protocol Potassium Chloride 10 meq 03/21/18 11:15 03/21/18 11:57 Klor Packets PO 03/21/18 11:16 10 meq ONCE ONE Administration Protocol Potassium Chloride 40 meq 03/21/18 19:58 03/21/18 21:28 Klor-Con PO 03/21/18 19:59 Not Given ONCE ONE Protocol Potassium Chloride 40 meq 03/21/18 21:30 03/21/18 21:22 Klor Packets PO 03/21/18 21:31 40 meq ONCE ONE Administration Protocol Potassium Chloride 10 meq 03/22/18 08:59 03/22/18 10:12 Klor-Con PO 03/22/18 09:00 Not Given ONCE ONE Protocol Potassium Chloride 10 meq 03/22/18 10:00 03/22/18 10:11 Klor Packets PO 03/22/18 10:01 10 meq ONCE ONE Administration Protocol Potassium Phosphate 1 dose 03/13/18 15:38 Protocol K Phosphate IV 09/09/18 15:37 AD PRN Pt on Electrolyte Protocol Protocol Propofol Confirm 03/15/18 08:00 Diprivan 10 Mg/Ml (Premix) Administered 03/15/18 08:01 Dose 1,000 mg IV .STK-MED ONE Sodium Bicarbonate 50 meq 03/15/18 09:12 Sodium Bicarbonate .ROUTE 03/15/18 09:13 .STK-MED ONE Succinylcholine Chloride 120 mg 03/15/18 05:00 03/15/18 06:20 Quelicin IVP 03/15/18 05:01 Not Given ONCE ONE Succinylcholine Chloride Confirm 03/15/18 06:14 Quelicin Administered 03/15/18 06:15 Dose 200 mg IVP .STK-MED ONE Physical Exam - Physical Exam General Appearance: alert, no apparent distress Respiratory: lungs clear Cardiac/Chest: regular rate, rhythm Abdomen: normal bowel sounds, non-tender, soft Skin: normal color, warm/dry Neuro/Psych: normal mood/affect, oriented x 3 ICD10 Worksheet Patient Problems: Problems Problem Status Onset Acute vomiting Acute Dehydration Acute Hyponatremia Acute Multiple sclerosis exacerbation Acute Cellulitis of leg Active Aphasia Acute Bladder obstruction Acute Gastroenteritis Acute Multiple sclerosis Acute Palliative care encounter Acute Urinary retention Acute
--- NOTE | 2018-03-22 13:41 | HOSPPROG ---
Hospitalist Progress Note Assessment/Plan: 67-year-old with advanced multiple sclerosis is admitted with abdominal pain. In the hospital he had a cardiac arrest on 03/15/2018 and was resuscitated. This was thought due to acute GI bleed with subsequent hypotension. He has recovered well he is now extubated and recovering on the floor. He did develop a large pneumothorax requiring chest tube placement post of resuscitation for PEA/V-tach arrest # V-tach/PEA arrest, evaluation had a negative CT angiogram for PE, he did have a large pneumothorax and had a chest tube placed. He initially did need intubation and pressor support however he has recovered and is currently extubated and off pressors. * Continue telemetry monitoring * Thought secondary to hypotension due to large upper GI bleed # upper GI bleed status post EGD on 03/16. Duodenal ulcer noted with no stigmata of acute bleeding and patient placed on PPI. Discussed with GI, pt still with melena * EGD prior to rehab per GI # hoarse voice: pt with hoarse, soft voice since PEA arrest, suspect vocal cord injury * consult ENT for laryngoscope after the weekend. # pneumothorax, status post chest tube placement appreciate Dr. Rajput. Chest tube removed today. # acute hypoxic respiratory failure likely multifactorial. Extubated and currently on room air # hypotension secondary to acute blood loss anemia # acute blood loss anemia status post 3 units packed red blood cells continue to monitor H&H # thrombocytopenia # history of right upper extremity DVT and basilic vein Heparin on hold due to persistent melena and recent GI bleed Subjective: Still having some melena. Objective: Vital Signs Temp Pulse Resp BP Pulse Ox 36.4 C 70 16 99/77 L 96 03/22/18 11:22 03/22/18 11:22 03/22/18 11:22 03/22/18 11:22 03/22/18 11:22 Laboratory Results 03/22/18 06:17 03/22/18 06:17 03/21/18 03/22/18 03/23/18 05:59 05:59 05:59 Intake Total 725 920 Output Total 2360 2850 Balance -1635 -1930 PT 19.5 SEC (12.0-15.0) H 03/15/18 15:36 INR 1.63 (0.83-1.16) H 03/15/18 15:36 - Physical Exam Constitutional: chronically ill appearing Eyes: PERRL Ears, Nose, Mouth, Throat: moist mucous membranes, other (soft/hoarse voice) Cardiovascular: regular rate and rhythym Respiratory: no respiratory distress Gastrointestinal: soft, non-tender abdomen Skin: normal color Musculoskeletal: generalized weakness Neurologic: weakness Psychiatric: interacting appropriately ICD10 Worksheet Patient Problems: Problems Problem Status Onset Palliative care encounter Acute Multiple sclerosis exacerbation Acute Urinary retention Acute Gastroenteritis Acute Acute vomiting Acute Dehydration Acute Aphasia Acute Multiple sclerosis Acute Cellulitis of leg Active Bladder obstruction Acute Hyponatremia Acute
--- NOTE | 2018-03-22 14:55 | SOAPPROG ---
SOAP Progress Note Assessment/Plan: Assessment: Status post arrest. Possibly secondary to large pneumothorax if this was present prior to arrest, but seems less likely. Possibly secondary to acute anemia/hypotension. Hypotension: Resolved. Multifactorial. Volume overload: Secondary to fluid resuscitation. Very good output over the last 3 days with daily Lasix. Will hold on further Lasix. Appears to be euvolemic now. GI bleed: Duodenal ulcer. No evidence of rebleeding despite some melena which probably represents old blood. Hematocrit stable. On Protonix twice daily. GI to re-evaluate, possibly scope in the next few days. Acute blood-loss anemia. Hematocrit improved, 26.7 today. Status post 3 units of blood initially, none since. No evidence of rebleeding. Acute respiratory failure. Extubated 03/16 without problems. On room air. Chest x-ray with bibasilar atelectasis/effusions, left greater than right: Significantly improved at this point, almost resolved. Right-sided pneumothorax. No evidence of residual pneumothorax on today's x-ray , a day after his small bore chest tube was pulled. Still does have some subcu air/crepitus on the right. History of multiple sclerosis. DVT prophylaxis: Has DVT in the right upper extremity. Was on heparin at 10, 000 three times daily. Stopped. At high risk for further deep venous thrombosis. On prophylactic Lovenox now. Right upper extremity swelling. Positive for DVT. Swelling has improved. Hoarseness: This is a problem for him. Hard to talk in voice does not seem to be coming back. Apparently was pretty good prior to hospitalization. Suspect vocal cord trauma on intubation. ENT evaluation for rhino laryngoscopy indicated. Plan: I will sign off at this point. No indication for daily chest x-rays going forward. Follow H&H Continue Protonix. Repeat upper endoscopy being considered for duodenal ulcers and question of ongoing bleeding? Hold further Lasix at this time. Follow laboratory as needed. Discharge planning: Patient concerned that inpatient rehab may be too difficult for him at this point? Discussed with the patient and his power of traffic law attorney who was on the phone from out of state. Subjective: Some dizziness today. Transferred to a room with a lift. Has not worked yet with physical therapy. Concerned regarding physical therapy produces increased pain and therapist not paying attention to his needs. He is also concerned that in-patient rehab may be too much for him at this point. Complains of hoarseness, inability to phonate. He was apparently talking fine prior to admission. Objective: Vital Signs Temp Pulse Resp BP Pulse Ox 36.4 C 70 16 99/77 L 96 03/22/18 11:22 03/22/18 11:22 03/22/18 11:22 03/22/18 11:22 03/22/18 11:22 Laboratory Results 03/22/18 06:17 03/22/18 06:17 03/21/18 03/22/18 03/23/18 05:59 05:59 05:59 Intake Total 725 920 Output Total 2360 2850 Balance -1635 -1930 PT 19.5 SEC (12.0-15.0) H 03/15/18 15:36 INR 1.63 (0.83-1.16) H 03/15/18 15:36 CXR: No residual pneumothorax. Lungs are significantly clearer. Failure has resolved. Effusions and atelectasis significantly improved. Physical Exam - Physical Exam General Appearance: alert, no apparent distress, other (With spurs. Unable to phonate.) EENT: PERRL/EOMI, other (On room air) Neck: normal inspection Respiratory: lungs clear (Anteriorly), decreased breath sounds (At the bases. Excursions significantly improved.), rales (Few rales present at left base, improved), other (Crepitus present on the right), No rhonchi, No wheezing Cardiac/Chest: regular rate, rhythm, No gallop Abdomen: normal bowel sounds, non-tender, soft (Overweight), distended (Mildly distended) Male Genitalia: other (Hurst catheter in place. Excellent urine output last several days.) Skin: warm/dry, pallor Extremities: swelling (Right upper extremity swelling resolving), No pedal edema Neuro/Psych: No no motor/sensory deficits (Unchanged), No cognition abnormalities ICD10 Worksheet Patient Problems: Problems Problem Status Onset Acute vomiting Acute Dehydration Acute Hyponatremia Acute Multiple sclerosis exacerbation Acute Cellulitis of leg Active Aphasia Acute Bladder obstruction Acute Gastroenteritis Acute Multiple sclerosis Acute Palliative care encounter Acute Urinary retention Acute
[2018-03-23] MEDS: ACETAMINOPHEN 500 MG TAB PO SCH ×3 (04:31→21:46)
[2018-03-23] MEDS: LEVOTHYROXINE 75 MCG TAB PO SCH (04:32)
[2018-03-23] MEDS: SENNOSIDES/DOCUSATE SODIUM TAB PO SCH ×2 (08:57→21:46)
[2018-03-23] MEDS: PANTOPRAZOLE SODIUM 40 MG TAB PO SCH ×2 (08:57→21:46)
[2018-03-23] MEDS: TAMSULOSIN HCL 0.4 MG CAP PO SCH (08:57)
[2018-03-23] MEDS ORDERED: LR 1,000 ML IV ONE (14:50)
--- NOTE | 2018-03-23 14:53 | PDANEPAE ---
ANE History of Present Illness anemia GI bleed, gastric ulcer ANE Past Medical History - Cardiovascular History Hx Hypertension: No Hx Arrhythmias: No Hx Chest Pain: Yes Hx Coronary Artery / Peripheral Vascular Disease: No Hx CHF / Valvular Disease: No Hx Palpitations: No Cardiovascular History Comment: coded 03/16, CPR caused rib fxs - Pulmonary History Hx COPD: No Hx Asthma/Reactive Airway Disease: No Hx Recent Upper Respiratory Infection: No Hx Oxygen in Use at Home: No Hx Sleep Apnea: No Sleep Apnea Screening Result - Last Documented: Positive Pulmonary History Comment: pneumothorax - Neurologic History Hx Cerebrovascular Accident: No Hx Seizures: No Hx Dementia: No Neurologic History Comment: MS SINCE 1983. HAS HOME CARE 2X A DAY. IN WHEELCHAIR ONLY ABLE TO STAND AT TIMES - Endocrine History Hx Diabetes: No Hypothyroid: Yes Hyperthyroid: No Obesity: no Endocrine History Comment: HYPOTHYROID - Renal History Hx Renal Disorders: No - Liver History Hx Hepatic Disorders: No - Neurological & Psychiatric Hx Hx Neurological and Psychiatric Disorders: Yes Neurological / Psychiatric History Comment: PTSD - Cancer History Hx Cancer: No - Congenital Disorder History Hx Congenital Disorders: No - GI History Hx Gastrointestinal Disorders: Yes Gastrointestinal History Comment: INTERMITTENT .HEARTBURN - Other Health History Other Health History: ISAAC LOWER EXT EDEMA USES COMPRESSION STOCKINGS. HAS BAD RT KNEE - Chronic Pain History Chronic Pain: Yes (RT KNEE,) - Surgical History Prior Surgeries: LT KNEE LATERAL MENISCUS 1970 ANE Review of Systems Review of systems is: negative Review of Systems: - Exercise capacity Exercise capacity: <4 METS ANE Patient History - Allergies Allergies/Adverse Reactions: egg yolk Allergy (Verified 03/13/18 12:50) iodine Allergy (Verified 03/13/18 12:50) Iodine and Iodide Containing Produc Allergy (Verified 03/13/18 12:50) Milk Containing Products [dairy] Allergy (Verified 03/18/18 16:36) shellfish derived Allergy (Verified 03/13/18 12:50) sodium benzoate Allergy (Verified 03/13/18 12:50) Sulfa (Sulfonamide Antibiotics) Allergy (Verified 03/13/18 12:50) wheat Allergy (Verified 03/13/18 12:50) GLUTEN Allergy (Uncoded 03/03/18 09:01) SOY Allergy (Uncoded 03/03/18 09:01) - Home Medications Home medications: home medication list seen and reviewed Home Medications: Ascorbic Acid [Vitamin C 500 mg (*)] 500 mg PO QID 11/29/12 [Last Taken 09:00] Cyanocobalamin [Vitamin B12 (*)] 1,000 mcg PO DAILY 11/29/12 [Last Taken ] Docusate Sodium [Colace 100 MG (*)] 100 mg PO BID 11/29/12 [Last Taken 03/13/18 09:00] Herbals/Supplements -Info Only 1 each PO AD 11/29/12 [Last Taken 3 Days Ago ~] Magnesium Oxide [Magnesium Oxide 400 mg (*)] 400 mg PO BID 11/29/12 [Last Taken 03/13/18 09:00] [place]-3 Fatty Acids/Fish Oil [Fish Oil 1,000 mg Capsule] 1 cap PO QID 11/29/12 [ Last Taken 03/13/18 09:00] Vitamin B Complex [Vitamin B Complex (OTC)] 1 tab PO DAILY@12 11/29/12 [Last Taken 03/12/18] Cholecalciferol (Vitamin D3) [Vitamin D3] 5,000 unit PO BID 05/20/16 [Last Taken 03/13/18 09:00] Levothyroxine [Synthroid 75 mcg (*)] 75 mcg PO DAILY06 03/03/18 [Last Taken 05/26] Acetaminophen [Tylenol ES 500 mg (*)] 500 mg PO Q6 PRN 03/13/18 [Last Taken 05/26] Naproxen Sodium [Aleve 220 MG (*)] 220 mg PO DAILY PRN 03/13/18 [Last Taken Unknown] - NPO status NPO Status: no food or drink >8 hours NPO Since - Liquids (Date): 03/23/18 NPO Since - Liquids (Time): 07:00 NPO Since - Solids (Date): 03/23/18 NPO Since - Solids (Time): 07:00 - Smoking Hx Smoking Status: Never smoked - Alcohol Use Alcohol Use: None - Family Anes Hx Family Anes Hx: none ANE Labs/Vital Signs - Labs Result Diagrams: 03/23/18 04:35 03/22/18 18:05 - Vital Signs Blood Pressure: 122/58 Heart Rate: 60 Respiratory Rate: 16 O2 Sat (%): 95 Height: 170.18 cm Weight: 70.398 kg ANE Physical Exam - Airway Neck exam: FROM Mallampati Score: Class 2 Mouth exam: normal dental/mouth exam - Pulmonary Pulmonary: no respiratory distress, clear to auscultation - Cardiovascular Cardiovascular: regular rate and rhythym, no murmur, rub, or gallop - ASA Status ASA Status: IV ANE Anesthesia Plan Anesthesia Plan: GA with mask
[2018-03-23] MEDS ORDERED: PROPOFOL 200 MG/20 ML VIAL ONE (14:54)
[2018-03-23] MEDS ORDERED: NALOXONE HCL 0.4 MG/ML INJ IVP PRN (15:00)
[2018-03-23] MEDS ORDERED: ePHEDrine SULFATE 25 MG/5 ML SYR ONE (15:13)
--- NOTE | 2018-03-23 15:25 | GIREPORT ---
[facility] Surgical Services - Endoscopy Department Patient Name: Misha Aguilar Procedure Date: 03/23/2018 3:02 PM Patient Type: Inpatient Attending MD/ ER Physician: Jesse Morrison MD Procedure: Upper GI endoscopy Indications: Acute post hemorrhagic anemia, Melena, EGD last week with DU, no stigma ta with large amount of blood in stomach precluding complete exam of the u pper GI tract. Providers: Jesse Morrison MD Medicines: Propofol per Anesthesia Complications: No immediate complications. Description of Procedure: After obtaining informed consent, the endoscope was passed under direct vision. Throughout the procedure, the patient's blood pressure, pulse, and oxygen saturations were monitored continuously. The Endoscope was intro duced through the mouth, and advanced to the second part of duodenum. The [facility] er GI endoscopy was accomplished without difficulty. The patient tolerated th e procedure well. Findings: One cratered esophageal ulcer and stigmata of recent bleeding was found 35 cm from the incisors. The lesion was 10 mm in largest dimension. The Z-line was irregular and was found 35 cm from the incisors. Biopsie s were taken with a cold forceps for histology. A medium-sized hiatal hernia was present. One non-bleeding cratered gastric ulcer with no stigmata of bleeding wa s found in the gastric body and on the greater curvature of the gastric b leyda. The lesion was 8 mm in largest dimension. Biopsies were taken with a co ld forceps for histology. Diffuse mildly erythematous mucosa without bleeding was found in the ga stric antrum. Biopsies were taken with a cold forceps for histology. One non-bleeding cratered duodenal ulcer (medial-posterior) with no sti gmata of bleeding was found in the duodenal bulb. The lesion was 10 mm in lar gest dimension. Estimated Blood Loss: Estimated blood loss: none. Post Op Diagnosis: - Esophageal ulcer. - Z-line irregular, 35 cm from the incisors. Biopsied. - Medium-sized hiatal hernia. - Non-bleeding gastric ulcer with no stigmata of bleeding. Biopsied. - Erythematous mucosa in the antrum. Biopsied. - One non-bleeding duodenal ulcer with no stigmata of bleeding. Recommendation: - Resume regular diet. - Continue present medications. - Use Protonix (pantoprazole) 40 mg PO BID x 2 weeks then 40 mg po vance y indefinitely. - Repeat upper endoscopy in 2 months to check healing. - Thank you for allowing me to participate in the care of your patient. Attending Participation: I personally performed the entire procedure. Jesse Morrison MD Jesse Morrison MD 03/23/2018 3:24:42 PM This report has been signed electronicallyStdorina Morrison MD Number of Addenda: 0 Note Initiated On: 03/23/2018 3:02 PM [email or web address]
--- NOTE | 2018-03-23 15:28 | POSTANESTH ---
Post Anesthetic Evaluation Cardiovascular Status: Normal, Stable Respiratory Status: Normal, Stable Level of Consciousness/Mental Status: Can Participate in Eval Pain Control: Adequate, Prn Tx Ordered Nausea/Vomiting Control: Adequate, Prn Tx Ordered Complications Possibly Related to Anesthesia: None Noted
--- NOTE | 2018-03-23 15:31 | ASMTCMCOM ---
CM Note CM Note Notes: 03/23/2018 Case Management Note Attempted to meet pt today, however pt having upper GI endoscopy today. Left eduardo GABRIEL with [facility] [employer] [facility]. Phone call to Melodie AGUILAR. See previous case management note with contact phone numbers for friends. Melodie's Meeta is in town visiting pt for the remainder of this week. Confirmed pt choice of [facility] rehab. [facility] to follow. Discussed with Vandana from [facility] today. Case Management d/c poc: [facility] with [facility] to follow. Case Management to follow. Date Signed: 03/23/2018 03:31 PM Electronically Signed By:Meagan Huynh RN
--- NOTE | 2018-03-23 16:33 | HOSPPROG ---
Hospitalist Progress Note Assessment/Plan: 67-year-old with advanced multiple sclerosis is admitted with abdominal pain. In the hospital he had a cardiac arrest on 03/15/2018 and was resuscitated. This was thought due to acute GI bleed with subsequent hypotension. He has recovered well he is now extubated and recovering on the floor. He did develop a large pneumothorax requiring chest tube placement post of resuscitation for PEA/V-tach arrest # V-tach/PEA arrest, evaluation had a negative CT angiogram for PE, he did have a large pneumothorax and had a chest tube placed. He initially did need intubation and pressor support however he has recovered and is currently extubated and off pressors. * Continue telemetry monitoring * Thought secondary to hypotension due to large upper GI bleed * will review tele, poss ok to tx to [place] with tele # upper GI bleed status post EGD on 03/16. Duodenal ulcer noted with no stigmata of acute bleeding and patient placed on PPI. Discussed with GI, pt still with melena * EGD prior to rehab per GI, * Ulcer dz noted per report, discussed with Dr. Morrison # hoarse voice: pt with hoarse, soft voice since PEA arrest, suspect vocal cord injury * consult ENT for laryngoscope # pneumothorax, status post chest tube placement appreciate Dr. Rajput. Chest tube removed today. # acute hypoxic respiratory failure likely multifactorial. Extubated and currently on room air # hypotension secondary to acute blood loss anemia # acute blood loss anemia status post 3 units packed red blood cells continue to monitor H&H # thrombocytopenia # history of right upper extremity DVT and basilic vein Heparin on hold due to persistent melena and recent GI bleed Subjective: pt complians of ongoing soft voice,. melena. no abdo pain Objective: Vital Signs Temp Pulse Resp BP Pulse Ox 36.0 C 60 18 108/62 93 03/23/18 15:21 03/23/18 14:53 03/23/18 15:57 03/23/18 15:57 03/23/18 15:57 Microbiology 03/23/18 04:40 Gastrointestinal Tract Panel (PCR) - Final Stool No Organism Detected By Pcr Laboratory Results 03/23/18 04:35 03/22/18 18:05 03/22/18 03/23/18 03/24/18 05:59 05:59 05:59 Intake Total 920 300 Output Total 2850 1500 Balance -1930 -1200 PT 19.5 SEC (12.0-15.0) H 03/15/18 15:36 INR 1.63 (0.83-1.16) H 03/15/18 15:36 - Physical Exam Constitutional: no apparent distress, chronically ill appearing Ears, Nose, Mouth, Throat: moist mucous membranes Cardiovascular: regular rate and rhythym Respiratory: no respiratory distress, clear to auscultation Gastrointestinal: normoactive bowel sounds, soft, non-tender abdomen Genitourinary: no bladder fullness Skin: normal color Musculoskeletal: generalized weakness Neurologic: AAOx3 Psychiatric: interacting appropriately ICD10 Worksheet Patient Problems: Problems Problem Status Onset Palliative care encounter Acute Multiple sclerosis exacerbation Acute Urinary retention Acute Gastroenteritis Acute Acute vomiting Acute Dehydration Acute Aphasia Acute Multiple sclerosis Acute Cellulitis of leg Active Bladder obstruction Acute Hyponatremia Acute
[2018-03-24] MEDS: LEVOTHYROXINE 75 MCG TAB PO SCH (06:06)
--- NOTE | 2018-03-24 06:57 | GCON ---
EAR, NOSE AND THROAT CONSULTATION CHIEF COMPLAINT: Hoarseness. HISTORY OF PRESENT ILLNESS: The patient is a 67-year-old gentleman, who is noted to have hoarseness for the past day or two after recent intubation. The patient currently has DNR status with a termina l condition and he is noting that his voice has been bad since he was extubated after a period of int ubation for roughly 2-3 days last week. He has no coughing or hemoptysis noted and is not having any other dyspnea or other significant head and neck complaints on questioning. PAST MEDICAL HISTORY: Please see chart. PAST SURGICAL HISTORY: Please see chart. ALLERGIES: Please see chart. MEDICATIONS: Please see chart. REVIEW OF SYSTEMS: Noncontributory. PHYSICAL EXAM: GENERAL: The patient is a 67-year-old gentleman lying comfortably in bed, responding to questions appropriately with a hoarse voice. He has no dyspnea or stridor noted. HEENT: Examin ation unremarkable. The patient has undergone nasal pharyngoscopy which does reveal mild erythema an d edema at the posterior aspect of the vocal cords at the arytenoid process, which is likely a mild i nflammatory reaction from the endotracheal tube placement. The inflammatory condition is noted bilat erally and is mild in appearance and is not obstructing his airway. He otherwise has good vocal cord mobility bilaterally noted, and normal pharyngeal and laryngeal anatomy. IMPRESSION: It is my impression that the patient is a 67-year-old gentleman who has mild posterior v ocal cord/arytenoid erythema and edema which is not obstructive in nature. I have discussed with the patient as well as with his family and the nursing staff, the possibility of using intravenous stero ids for 24 to 48 hours to see if this resolves some of this inflammation and allows him to have a res tored vocal function. /[id number]/MODL
[2018-03-24] MEDS: ACETAMINOPHEN 500 MG TAB PO SCH ×3 (08:15→21:51)
[2018-03-24] MEDS: ENOXAPARIN 40 MG/0.4 ML SYR SC SCH (08:15)
[2018-03-24] MEDS: PANTOPRAZOLE SODIUM 40 MG TAB PO SCH ×2 (08:32→21:51)
[2018-03-24] MEDS: TAMSULOSIN HCL 0.4 MG CAP PO SCH (08:32)
[2018-03-24] MEDS: SENNOSIDES/DOCUSATE SODIUM TAB PO SCH ×2 (08:33→21:51)
[2018-03-24] MEDS ORDERED: DEXAMETHASONE 10 MG/ML VIAL IVP SCH (12:00)
[2018-03-24] MEDS ORDERED: DEXAMETHASONE 4 MG/ML VIAL IVP SCH (12:00)
--- NOTE | 2018-03-24 13:23 | HOSPPROG ---
Hospitalist Progress Note Assessment/Plan: 67-year-old with advanced multiple sclerosis is admitted with abdominal pain. In the hospital he had a cardiac arrest on 03/15/2018 and was resuscitated. This was thought due to acute GI bleed with subsequent hypotension. He has recovered well he is now extubated and recovering on the floor. He did develop a large pneumothorax requiring chest tube placement post of resuscitation for PEA/V-tach arrest # V-tach/PEA arrest, evaluation had a negative CT angiogram for PE, he did have a large pneumothorax and had a chest tube placed. He initially did need intubation and pressor support however he has recovered and is currently extubated and off pressors. * Continue telemetry monitoring * Thought secondary to hypotension due to large upper GI bleed * will review tele, poss ok to tx to [place] with tele # upper GI bleed status post EGD on 03/16. Duodenal ulcer noted with no stigmata of acute bleeding and patient placed on PPI. Discussed with GI, pt still with melena * EGD fu done 03/23/18 * Ulcer dz noted per report, discussed with Dr. Morrison * BID protonix for 2 weeks, then daily indefinately * follow up EGD in 2 months to ensure healing. # pt request check for celiac. Tissue Transglutamine IgA negative, low probability of Celiac, I have not told pt results yet # hoarse voice: pt with hoarse, soft voice since PEA arrest, suspect vocal cord injury * Reviewed ENT noted and discussed with PA * Decadron 10mg IV q6 for 24-48 hours, can reasses after 24 hours if still hoarse can continue for 48 hours. * Pt getting some side effects from decadron, feels bad, will decrease slightly to 6mg Q6 # pneumothorax, status post chest tube placement appreciate Dr. Rajput. Chest tube removed with fu cxr and pulm signed off. # acute hypoxic respiratory failure likely multifactorial. Extubated and currently on room air # hypotension secondary to acute blood loss anemia # acute blood loss anemia status post 3 units packed red blood cells continue to monitor H&H # thrombocytopenia # history of right upper extremity DVT and basilic vein Heparin on hold due to persistent melena and recent GI bleed disposition. Reassess tomorrow if needs 24 more hours of IV steroids, DC planning for SNF in 1-3 days depending on above. Subjective: still hoarse, started decadron today, feels out of sorts and wants to stay another 1-2 days prior to snf, he feels not able to participate in rehab yet, pt reassured. Objective: Vital Signs Temp Pulse Resp BP Pulse Ox 36.7 C 71 18 94/61 L 93 03/24/18 11:38 03/24/18 11:38 03/24/18 11:38 03/24/18 11:38 03/24/18 11:38 Microbiology 03/23/18 04:40 Gastrointestinal Tract Panel (PCR) - Final Stool No Organism Detected By Pcr Laboratory Results 03/24/18 04:05 03/24/18 04:05 03/23/18 03/24/18 03/25/18 05:59 05:59 05:59 Intake Total 300 350 120 Output Total 1500 600 Balance -1200 -250 120 PT 19.5 SEC (12.0-15.0) H 03/15/18 15:36 INR 1.63 (0.83-1.16) H 03/15/18 15:36 - Physical Exam Constitutional: chronically ill appearing Eyes: PERRL Ears, Nose, Mouth, Throat: other (soft/whispery voice) Cardiovascular: regular rate and rhythym Respiratory: no respiratory distress Gastrointestinal: soft, non-tender abdomen Genitourinary: no bladder fullness Skin: No rash Musculoskeletal: generalized weakness Neurologic: AAOx3 Psychiatric: interacting appropriately ICD10 Worksheet Patient Problems: Problems Problem Status Onset Palliative care encounter Acute Multiple sclerosis exacerbation Acute Urinary retention Acute Gastroenteritis Acute Acute vomiting Acute Dehydration Acute Aphasia Acute Multiple sclerosis Acute Cellulitis of leg Active Bladder obstruction Acute Hyponatremia Acute
[2018-03-24] MEDS: DEXAMETHASONE 4 MG/ML VIAL IVP SCH (19:27)
[2018-03-25] MEDS: DEXAMETHASONE 4 MG/ML VIAL IVP SCH ×2 (00:31→06:35)
[2018-03-25] MEDS: ACETAMINOPHEN 500 MG TAB PO SCH ×2 (06:34→15:10)
[2018-03-25] MEDS: LEVOTHYROXINE 75 MCG TAB PO SCH (06:34)
--- NOTE | 2018-03-25 08:59 | HOSPPROG ---
Hospitalist Progress Note Assessment/Plan: 67-year-old with advanced multiple sclerosis is admitted with abdominal pain. In the hospital he had a cardiac arrest on 03/15/2018 and was resuscitated. This was thought due to acute GI bleed with subsequent hypotension. He has recovered well he is now extubated and recovering on the floor. He did develop a large pneumothorax requiring chest tube placement post of resuscitation for PEA/V-tach arrest 1. UGIB: D/t duodenal ulcer. S/p repeat EGD 03/23. - BID protonix x2 weeks, then daily. F/u EGD in 2 months 2. NSVT: Few beats on telemetry. Asymptomatic. - Start low dose metoprolol 3. PEA->VT cardiac arrest: Thought precipitated by hypotension/blood loss. 4. Hoarse voice: Posterior vocal cord injury per ENT. - He is refusing steroids, will discontinue 5. RUE DVT: Diagnosed last week. - Hold therapeutic anticoagulation, continue ppx dose - Will need to determine time to safely start OAC, likely as outpatient 6. Pneumothorax: Traumatic in setting of CPR. Chest tube now removed. 7. AHRF: Resolved, on room air. 8. Hypotension: 2/2 ABLA. Now resolved. 9. Multiple sclerosis - PT/OT recommending SNF - Patient requesting to restart all of his vitamins, which I have ordered Dispo: Remain inpatient, plan to discharge tomorrow to [facility] with outpatient palliative care. Subjective: Still not feeling ready to go to SNF. Weak. No fevers. No GI bleeding, last stools were brown. Objective: Vital Signs Temp Pulse Resp BP Pulse Ox 36.3 C 73 18 114/64 97 03/25/18 07:45 03/25/18 07:45 03/25/18 07:45 03/25/18 07:45 03/25/18 07:45 Laboratory Results 03/24/18 04:05 03/25/18 07:10 03/24/18 03/25/18 03/26/18 05:59 05:59 05:59 Intake Total 350 220 Output Total 600 1250 Balance -250 -1030 PT 19.5 SEC (12.0-15.0) H 03/15/18 15:36 INR 1.63 (0.83-1.16) H 03/15/18 15:36 ICD10 Worksheet Patient Problems: Problems Problem Status Onset Acute vomiting Acute Dehydration Acute Hyponatremia Acute Multiple sclerosis exacerbation Acute Cellulitis of leg Active Aphasia Acute Bladder obstruction Acute Gastroenteritis Acute Multiple sclerosis Acute Palliative care encounter Acute Urinary retention Acute
--- NOTE | 2018-03-25 09:10 | SOAPPROG ---
SOAP Progress Note Assessment/Plan: Assessment: 67 year old with MS and UGI bleed. Repeat EGD with Esophageal ulcer, Gastric Ulcer and DU. No stigmata, low risk for rebleeding. Plan: 1. Continue Pantoprazole 40 mg daily indefinitely. 2. Continue to avoid NSAIDs 3. Will sign off, please call with further questions 03/25/18 09:13 Subjective: CC: GI Bleed Patient tolerating PO, no abdominal pain. Objective: Vital Signs Temp Pulse Resp BP Pulse Ox 36.3 C 73 18 114/64 97 03/25/18 07:45 03/25/18 07:45 03/25/18 07:45 03/25/18 07:45 03/25/18 07:45 Laboratory Results 03/24/18 04:05 03/25/18 07:10 03/24/18 03/25/18 03/26/18 05:59 05:59 05:59 Intake Total 350 220 Output Total 600 1250 Balance -250 -1030 PT 19.5 SEC (12.0-15.0) H 03/15/18 15:36 INR 1.63 (0.83-1.16) H 03/15/18 15:36 Physical Exam - Physical Exam General Appearance: alert, no apparent distress Respiratory: lungs clear, normal breath sounds Cardiac/Chest: regular rate, rhythm Abdomen: non-tender, soft Skin: normal color, warm/dry Neuro/Psych: alert, normal mood/affect, oriented x 3 ICD10 Worksheet Patient Problems: Problems Problem Status Onset Acute vomiting Acute Dehydration Acute Hyponatremia Acute Multiple sclerosis exacerbation Acute Cellulitis of leg Active Aphasia Acute Bladder obstruction Acute Gastroenteritis Acute Multiple sclerosis Acute Palliative care encounter Acute Urinary retention Acute
[2018-03-25] MEDS: MAGNESIUM OXIDE 400 MG TAB PO SCH ×2 (09:49→20:35)
[2018-03-25] MEDS: SENNOSIDES/DOCUSATE SODIUM TAB PO SCH ×2 (09:49→20:35)
[2018-03-25] MEDS: PANTOPRAZOLE SODIUM 40 MG TAB PO SCH ×2 (09:49→20:35)
[2018-03-25] MEDS: TAMSULOSIN HCL 0.4 MG CAP PO SCH (09:49)
[2018-03-25] MEDS: ENOXAPARIN 40 MG/0.4 ML SYR SC SCH (09:54)
[2018-03-25] MEDS ORDERED: POTASSIUM CL 10 MEQ TAB PO ONE (10:03)
[2018-03-25] MEDS: CYANO/VITAMIN B12 1000 MCG TAB PO SCH ×2 (10:04→11:57)
[2018-03-25] MEDS: ASCORBIC ACID 500 MG TAB PO SCH ×3 (11:54→20:35)
[2018-03-25] MEDS: OMEGA-3 FATTY ACIDS 1,000 MG CAP PO SCH ×3 (11:55→20:35)
[2018-03-25] MEDS: VITAMIN B COMPLEX 1 EA CAP/TAB PO SCH (11:55)
[2018-03-25] MEDS: CHOLECALCIFEROL VIT D3 1,000 UNITS TAB PO SCH (20:35)
[2018-03-25] MEDS: METOPROLOL TARTRATE 25 MG TAB PO SCH (20:36)
[2018-03-25] MEDS ORDERED: POTASSIUM CL 20 MEQ TAB PO ONE (20:46)
[2018-03-26] MEDS: ACETAMINOPHEN 500 MG TAB PO SCH ×4 (00:05→21:02)
[2018-03-26] MEDS: OMEGA-3 FATTY ACIDS 1,000 MG CAP PO SCH ×4 (06:05→21:03)
[2018-03-26] MEDS: ASCORBIC ACID 500 MG TAB PO SCH ×4 (06:05→21:03)
[2018-03-26] MEDS: LEVOTHYROXINE 75 MCG TAB PO SCH (06:05)
[2018-03-26] MEDS: TAMSULOSIN HCL 0.4 MG CAP PO SCH (10:14)
[2018-03-26] MEDS: PANTOPRAZOLE SODIUM 40 MG TAB PO SCH ×2 (10:14→21:03)
[2018-03-26] MEDS: METOPROLOL TARTRATE 25 MG TAB PO SCH ×2 (10:14→21:02)
[2018-03-26] MEDS: CHOLECALCIFEROL VIT D3 1,000 UNITS TAB PO SCH ×2 (10:25→21:03)
[2018-03-26] MEDS: SENNOSIDES/DOCUSATE SODIUM TAB PO SCH ×2 (10:27→22:27)
[2018-03-26] MEDS: CYANO/VITAMIN B12 1000 MCG TAB PO SCH (10:28)
[2018-03-26] MEDS: MAGNESIUM OXIDE 400 MG TAB PO SCH ×2 (10:29→21:03)
[2018-03-26] MEDS: ENOXAPARIN 40 MG/0.4 ML SYR SC SCH (10:32)
[2018-03-26] MEDS ORDERED: POTASSIUM CL 10 MEQ TAB PO ONE ×3 (11:55→22:28)
[2018-03-26] MEDS: VITAMIN B COMPLEX 1 EA CAP/TAB PO SCH (14:36)
--- NOTE | 2018-03-26 15:58 | HOSPPROG ---
Hospitalist Progress Note Assessment/Plan: 67-year-old with advanced multiple sclerosis is admitted with abdominal pain. In the hospital he had a cardiac arrest on 03/15/2018 and was resuscitated. This was thought due to acute GI bleed with subsequent hypotension. He has recovered well he is now extubated and recovering on the floor. He did develop a large pneumothorax requiring chest tube placement post of resuscitation for PEA/V-tach arrest 1. UGIB: Stabilized. D/t duodenal ulcer. S/p repeat EGD 03/23. - BID protonix x2 weeks, then daily indefinitely. F/u EGD in 2 months 2. NSVT: Mostly isolated PVCs on tele. Asymptomatic. - Continue low dose metoprolol as BP allows 3. PEA->VT cardiac arrest: Thought precipitated by hypotension/blood loss. 4. Hoarse voice: Posterior vocal cord injury per ENT. - He is refusing steroids, discontinued 5. RUE DVT: Diagnosed last week. - Holding therapeutic anticoagulation, continue ppx dose - Will need to determine time to safely start OAC, likely as outpatient 6. Pneumothorax: Traumatic in setting of CPR. Chest tube now removed. 7. AHRF: Resolved, on room air. 8. Hypotension: 2/2 ABLA. Now resolved. 9. Multiple sclerosis - PT/OT recommending SNF - Patient requesting to restart all of his vitamins, which I have ordered Dispo: Remain inpatient, plan to discharge tomorrow 03/27 to [facility] with outpatient palliative care. Subjective: Feeling wiped out from therapy today. No melena, hematochezia. No chest pain, sob, fevers. Objective: Vital Signs Temp Pulse Resp BP Pulse Ox 36.7 C 65 16 88/50 L 97 03/26/18 15:21 03/26/18 15:21 03/26/18 15:21 03/26/18 15:21 03/26/18 15:21 Laboratory Results 03/26/18 06:05 03/26/18 06:05 03/25/18 03/26/18 03/27/18 05:59 05:59 05:59 Intake Total 220 1650 Output Total 1250 1000 Balance -1030 650 PT 19.5 SEC (12.0-15.0) H 03/15/18 15:36 INR 1.63 (0.83-1.16) H 03/15/18 15:36 - Physical Exam Constitutional: appears nourished, chronically ill appearing Eyes: PERRL, anicteric sclera, EOMI Ears, Nose, Mouth, Throat: moist mucous membranes, hearing normal, ears appear normal, no oral mucosal ulcers Cardiovascular: regular rate and rhythym, no murmur, rub, or gallop Respiratory: no respiratory distress, no rales or rhonchi, clear to auscultation Gastrointestinal: normoactive bowel sounds, soft, non-tender abdomen, no palpable masses Genitourinary: other (suprapubic catheter) Skin: no rashes or abrasions, no fluctuance, no induration Musculoskeletal: full muscle strength, no muscle tenderness, normal joint ROM Neurologic: AAOx3 Psychiatric: interacting appropriately, not anxious, not encephalopathic, thought process linear ICD10 Worksheet Patient Problems: Problems Problem Status Onset Acute vomiting Acute Dehydration Acute Hyponatremia Acute Multiple sclerosis exacerbation Acute Cellulitis of leg Active Aphasia Acute Bladder obstruction Acute Gastroenteritis Acute Multiple sclerosis Acute Palliative care encounter Acute Urinary retention Acute
[2018-03-27] MEDS: ASCORBIC ACID 500 MG TAB PO SCH ×2 (05:46→11:54)
[2018-03-27] MEDS: LEVOTHYROXINE 75 MCG TAB PO SCH (05:46)
[2018-03-27] MEDS: ACETAMINOPHEN 500 MG TAB PO SCH (05:46)
[2018-03-27] MEDS: OMEGA-3 FATTY ACIDS 1,000 MG CAP PO SCH ×2 (05:46→11:54)
[2018-03-27] MEDS ORDERED: POTASSIUM CL 10 MEQ TAB PO ONE (08:31)
--- NOTE | 2018-03-27 08:59 | PDIAF ---
- Diagnosis Code Status: Full Code - Medication Management Additional Medication Instructions: Started the following medications: - Lovenox 40mg subcutaneous daily for 3 months. - Pantoprazole 40mg daily. - Metoprolol 12.5mg BID Discharge Medications: electronically signed and located in the Home Medication List. PICC Care - Routine: N/A - Orders Services needed: Registered Nurse, Physical Therapy, Occupational Therapy Isolation Type: None Oxygen: None Diet Recommendation: no restrictions on diet Diet Texture: Regular Texture Diet Hurst: Not applicable Additional Instructions: No NSIADs (ibuprofen, naproxen, motrin, etc)! You should continue pantoprazole 40mg daily indefinitely. We have you on Lovenox injection once daily through 06/17/2018 to treat blood clot in right arm. We have started you on metoprolol to help prevent your heart from going into an abnormal rhythm. - Follow Up Care Current Providers and Referrals: OTTONIEL NETTLES [Primary Care Provider] - As per Instructions
--- NOTE | 2018-03-27 09:00 | PDDCSUM ---
Discharge Summary Discharge Summary: Date of Admission: 03/13/2018 Date of Discharge: 03/27/2018 Consultants: cardiology, pulmonology/ICU, general surgery, gastroenterology, ENT Studies: 1. Abdominal ultrasound 2. TTE 3. CTA chest Procedures: 1. Endotracheal intubation 2. Right large bore chest tube placement 3. Arterial line placement 4. Central venous catheter placement 5. EGD x2 6. Nasal pharyngoscopy Disposition: SNF with outpatient palliative care Discharge Diagnoses: 1. Acute blood loss anemia due to 2. Upper GI bleed 2/2 peptic ulcer disease, resulting in 3. Acute hypotension 4. PEA->VT cardiac arrest s/p ROSC 5. Acute respiratory failure, resolved 6. Right sided pneumothorax, resolved 7. Right upper extremity DVT 8. Isolated PVCs 9. Hoarse voice 10. Multiple sclerosis Brief Hospital Course: 67-year-old with advanced multiple sclerosis presented with abdominal pain. Roughly 24 hours after admission he had a PEA->VT cardiac arrest on 03/15/2018 and was resuscitated. This was thought due to acute GI bleed with subsequent hypotension. CPR did cause a large right pneumothorax and he briefly had a chest tube placed. Underwent emergent EGD which showed non-bleeding duodenal ulcer near gastroduodenal artery. He was maintained on PPI. He was intubated during the arrest and successfully extubated and now on room air. He underwent repeat EGD 03/23 which showed esophageal ulcer with stigmata of recent bleeding as well as non-bleeding gastric and duodenal ulcers. He was transfused 3 units PRBC and 1 unit platelets (dropped due to consumption, now normalized). GI recommends indefinite daily PPI and no NSAIDS. Of note, he was diagnosed with RUE DVT on 03/18. He was not felt safe to be on full dose anticoagulation given the severity of his bleed; he was restarted on prophylactic enoxaparin and we recommend continuing for 3 months of therapy. His hemoglobin was stable around 9g/dL for numerous days prior to discharge. He did have some isolated PVCs on telemetry after the arrest and was started on metoprolol. Lastly, he developed a hoarse voice after being extubated. ENT was consulted who performed pharyngoscopy which showed mild posterior cord edema. He was offered steroids to help with this but declined. Medications: Please refer to EMR for complete list. Changes this admission include addition of followin. Pantoprazole 40mg QD indefinitely 2. Lovenox 40mg SQ QD x3 months 3. Metoprolol 12.5mg BID Follow Up Plan: 1. Recheck hemoglobin/hematocrit in 1-2 weeks Physical Exam: Vitals reviewed, stable. Alert and oriented, generalized weakness. RRR without m/r/g, lungs clear, abdomen soft, no leg edema, no rashes.
[2018-03-27] MEDS: METOPROLOL TARTRATE 25 MG TAB PO SCH (09:27)
[2018-03-27] MEDS: PANTOPRAZOLE SODIUM 40 MG TAB PO SCH (09:27)
[2018-03-27] MEDS: SENNOSIDES/DOCUSATE SODIUM TAB PO SCH (09:27)
[2018-03-27] MEDS: CHOLECALCIFEROL VIT D3 1,000 UNITS TAB PO SCH (09:27)
[2018-03-27] MEDS: MAGNESIUM OXIDE 400 MG TAB PO SCH (09:27)
[2018-03-27] MEDS: TAMSULOSIN HCL 0.4 MG CAP PO SCH (09:28)
[2018-03-27] MEDS: CYANO/VITAMIN B12 1000 MCG TAB PO SCH (09:28)
[2018-03-27] MEDS: ENOXAPARIN 40 MG/0.4 ML SYR SC SCH (09:28)
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
--- NOTE | 2018-03-27 10:57 | ASMTDCNOTE ---
Case Management Discharge Discharge Order Complete? Answers: Yes Patient to Obtain Answers: Other Notes: [facility] SN[facility] Medications Transportation Arranged Answers: [facility] Stretcher Transport will Pick (Date 03/27/2018 01:00 PM & Time) EMTALA Complete Answers: No Case Management Transport Answers: Yes Notes: PCS completed Form Complete Faxed Final Orders Answers: Yes Family Notified Answers: No Discharge Comments Notes: Pts case discussed w/ GO Schofield. Pt is being d/c'd today to [facility]. DC orders sent. CM called [facility] and notified them of the d/c as well as sending over d/c information on allscripts. Kanwal will call to give report. CM left a msg for pts AGUILAR Sewell and notified her of the d/c time. It is recommended by charge nurse and Kanwal for pt to go in a stretcher. PCS form completed. A copy is in pts chart. CM available for changes. Plan: [facility] w/ [facility] Date Signed: 03/27/2018 10:56 AM Electronically Signed By:VERENICE Yost
[2018-03-27] MEDS: VITAMIN B COMPLEX 1 EA CAP/TAB PO SCH (11:54)
[2018-03-27 12:53] VITALS: BP 96/60
== END 2018-03-27 13:20 | DRG 377 ==
LOC: F3N 16:24 → F2N 03-15 06:13 → F2W 03-18 13:18
PROVIDERS: ADMIT Internal Medicine; ATTEND Internal Medicine
PROC: B44LZZZ Ultrasonography of Femoral Artery (ICD-10-PCS; 2018-03-15)
PROC: 0W9930Z Drainage of Right Pleural Cavity with Drainage Device, Percutaneous Approach (ICD-10-PCS; 2018-03-15)
PROC: 02HV33Z Insertion of Infusion Device into Superior Vena Cava, Percutaneous Approach (ICD-10-PCS; 2018-03-15)
PROC: 5A12012 Performance of Cardiac Output, Single, Manual (ICD-10-PCS; 2018-03-15)
PROC: 0BH17EZ Insertion of Endotracheal Airway into Trachea, Via Natural or Artificial Opening (ICD-10-PCS; 2018-03-15)
PROC: 5A1945Z Respiratory Ventilation, 24-96 Consecutive Hours (ICD-10-PCS; 2018-03-15)
PROC: 5A2204Z Restoration of Cardiac Rhythm, Single (ICD-10-PCS; 2018-03-15)
PROC: 30233N1 Transfusion of Nonautologous Red Blood Cells into Peripheral Vein, Percutaneous Approach (ICD-10-PCS; 2018-03-15)
PROC: 0DJ08ZZ Inspection of Upper Intestinal Tract, Via Natural or Artificial Opening Endoscopic (ICD-10-PCS; 2018-03-16)
PROC: 0DB78ZX Excision of Stomach, Pylorus, Via Natural or Artificial Opening Endoscopic, Diagnostic (ICD-10-PCS; principal; 2018-03-23 15:45)
PROC: 0DB38ZX Excision of Lower Esophagus, Via Natural or Artificial Opening Endoscopic, Diagnostic (ICD-10-PCS; principal; 2018-03-23 15:45)
PROC: 0DB48ZX Excision of Esophagogastric Junction, Via Natural or Artificial Opening Endoscopic, Diagnostic (ICD-10-PCS; principal; 2018-03-23 15:45)
PROC: 0DB68ZX Excision of Stomach, Via Natural or Artificial Opening Endoscopic, Diagnostic (ICD-10-PCS; principal; 2018-03-23 15:45)
DX: K26.4 Chronic or unspecified duodenal ulcer with hemorrhage (principal); K22.11 Ulcer of esophagus with bleeding; K25.9 Gastric ulcer, unspecified as acute or chronic, without hemorrhage or perforation; I46.9 Cardiac arrest, cause unspecified; I47.2 Ventricular tachycardia; J96.01 Acute respiratory failure with hypoxia; E87.1 Hypo-osmolality and hyponatremia; D62 Acute posthemorrhagic anemia; S27.0XXA Traumatic pneumothorax, initial encounter; I82.621 Acute embolism and thrombosis of deep veins of right upper extremity; I82.611 Acute embolism and thrombosis of superficial veins of right upper extremity; K44.9 Diaphragmatic hernia without obstruction or gangrene; E86.0 Dehydration; R49.0 Dysphonia; E03.9 Hypothyroidism, unspecified; G35 Multiple sclerosis; D69.6 Thrombocytopenia, unspecified; X50.0XXA Overexertion from strenuous movement or load, initial encounter; Y92.230 Patient room in hospital as the place of occurrence of the external cause; Z99.3 Dependence on wheelchair
CPT/HCPCS: 83516-90; 96374; 97110-GO; 97110-GP; 97112-GP; 97163-GP; 97167-GO; 97168-GO; 97530-GO; 97530-GP; 97535-GO; G0378; J0171; J0282; J0295; J0330; J0461; J1100; J1200; J1265; J1644; J1650; J1940; J2270; J2405; J2704; J2930; J3010; J3430; J3475; J3480; P9016; P9017; P9040; P9041; P9073; Q9967

== ENCOUNTER 2018-06-09 11:03 | Day surgery (SDC) | payer OTHER, MEDICARE ==
[2018-06-09] MEDS ORDERED: LR 1,000 ML IV ONE (11:42)
--- NOTE | 2018-06-09 12:42 | PDANEPAE ---
ANE History of Present Illness here for EGD ANE Past Medical History - Cardiovascular History Hx Hypertension: No Hx Arrhythmias: No Hx Chest Pain: Yes Hx Coronary Artery / Peripheral Vascular Disease: No Hx CHF / Valvular Disease: No Hx Palpitations: No Cardiovascular History Comment: GI BLEED RESULTING IN HYPOTENSION/PEA/VT coded . CPR caused rib fxs - Pulmonary History Hx COPD: No Hx Asthma/Reactive Airway Disease: No Hx Recent Upper Respiratory Infection: No Hx Oxygen in Use at Home: No Hx Sleep Apnea: No Sleep Apnea Screening Result - Last Documented: Negative Pulmonary History Comment: RT UPPER pneumothorax 03/2018. RESP FAILURE 03/2018 - Neurologic History Hx Cerebrovascular Accident: No Hx Seizures: No Hx Dementia: No Neurologic History Comment: MS SINCE 1983. HAS HOME CARE 2X A DAY. IN WHEELCHAIR ONLY ABLE TO STAND AT TIMES - Endocrine History Hx Diabetes: No Endocrine History Comment: HYPOTHYROID - Renal History Hx Renal Disorders: No - Liver History Hx Hepatic Disorders: No - Neurological & Psychiatric Hx Hx Neurological and Psychiatric Disorders: Yes Neurological / Psychiatric History Comment: PTSD - Cancer History Hx Cancer: No - Congenital Disorder History Hx Congenital Disorders: No - GI History Hx Gastrointestinal Disorders: Yes Gastrointestinal History Comment: GI BLEED/BLOOD TRANSFUSIONS 03/2018. INTERMITTENT .HEARTBURN - Other Health History Other Health History: HOARSE VOICE POST GI BLEED 03/2018. RT ARM DVT 03/2018. ISAAC LOWER EXT EDEMA USES COMPRESSION STOCKINGS. HAS BAD RT KNEE - Chronic Pain History Chronic Pain: Yes (RT KNEE,) - Surgical History Prior Surgeries: EGD 03/24/18. LT ING HERNIA 04/2016. LT KNEE LATERAL MENISCUS 1971 ANE Review of Systems Review of systems is: negative Review of Systems: - Exercise capacity METS (RN): 1 METS ANE Patient History - Allergies Allergies/Adverse Reactions: egg yolk Allergy (Verified 03/13/18 12:50) iodine Allergy (Verified 03/13/18 12:50) Iodine and Iodide Containing Produc Allergy (Verified 03/13/18 12:50) Milk Containing Products [dairy] Allergy (Verified 03/18/18 16:36) Morpholine Analogues Allergy (Verified 06/04/18 10:09) HALLUCINATIONS shellfish derived Allergy (Verified 03/13/18 12:50) sodium benzoate Allergy (Verified 03/13/18 12:50) Sulfa (Sulfonamide Antibiotics) Allergy (Verified 03/13/18 12:50) wheat Allergy (Verified 03/13/18 12:50) GLUTEN Allergy (Uncoded 03/03/18 09:01) SOY Allergy (Uncoded 03/03/18 09:01) - Home Medications Home medications: home medication list seen and reviewed Home Medications: Ascorbic Acid [Vitamin C 500 mg (*)] 500 mg PO QID 11/29/12 [Last Taken 06/08/18 ] Cyanocobalamin [Vitamin B12 (*)] 1,000 mcg PO DAILY 11/29/12 [Last Taken ] Herbals/Supplements -Info Only 1 each PO AD 11/29/12 [Last Taken 3 Days Ago ~] Magnesium Oxide [Magnesium Oxide 400 mg (*)] 400 mg PO BID 11/29/12 [Last Taken 06/09/18] [place]-3 Fatty Acids/Fish Oil [Fish Oil 1,000 mg Capsule] 1 cap PO QID 11/29/12 [ Last Taken 06/05/18] Vitamin B Complex [Vitamin B Complex (OTC)] 1 tab PO DAILY@12 11/29/12 [Last Taken 06/08/18] Cholecalciferol (Vitamin D3) [Vitamin D3] 5,000 unit PO BID 05/20/16 [Last Taken 06/09/18] Levothyroxine [Synthroid 75 mcg (*)] 75 mcg PO DAILY06 03/03/18 [Last Taken 04/28] Eliquis BID 06/02/18 [Last Taken 06/05/18 08:00] Acid Controller BID 06/04/18 [Last Taken 06/09/18] Stool Softener BID 06/04/18 [Last Taken 06/09/18] - NPO status NPO Status: no food or drink >8 hours NPO Since - Liquids (Date): 06/09/18 NPO Since - Liquids (Time): 08:30 NPO Since - Solids (Date): 06/08/18 NPO Since - Solids (Time): 19:00 - Anes Hx Anes Hx: no prior problems - Smoking Hx Smoking Status: Never smoked ANE Labs/Vital Signs - Vital Signs Vital Signs: reviewed preoperatively; see RN documention for details Blood Pressure: 117/72 Heart Rate: 56 Respiratory Rate: 20 O2 Sat (%): 94 Height: 172.72 cm Weight: 62.596 kg ANE Physical Exam - Airway Neck exam: FROM Mallampati Score: Class 1 - Pulmonary Pulmonary: no respiratory distress - Cardiovascular Cardiovascular: regular rate and rhythym - ASA Status ASA Status: III ANE Anesthesia Plan Anesthesia Plan: GA with mask
[2018-06-09] MEDS ORDERED: PROPOFOL/EMULSION 500 MG/50 ML BOTTLE IV ONE (12:57)
[2018-06-09] MEDS ORDERED: NS 500 ML IV PRN (13:01)
[2018-06-09] MEDS ORDERED: ONDANSETRON 4 MG/2 ML VIAL IVP PRN (13:01)
[2018-06-09] MEDS ORDERED: NALOXONE HCL 0.4 MG/ML INJ IVP PRN (13:01)
--- NOTE | 2018-06-09 13:09 | PDGENHP ---
History & Physical Chief Complaint: Follow up esophageal ulcer with UGI bleed History of Present Illness: Recovering from recent UGI bleed from esophageal ulceration Pertinent Past, Social, Family History: PMH: GERD. Reflux esophagitis with esophageal ulceration. DVT on anti-platelet therapy. MS. SH: no tob or ETOH. Relevant Physical Exam: NAD. CTA B/L. RRR without m/r/g. GI soft. NABS. NT/ND Cardiorespiratory Assessment: ASA III. EGD with MAC and IV sedation
--- NOTE | 2018-06-09 13:24 | GIREPORT ---
[facility] - Endoscopy Department Patient Name: Misha Aguilar Procedure Date: 06/09/2018 12:57 PM Patient Type: Outpatient Attending MD/ ER Physician: Jian Perez MD Procedure: Upper GI endoscopy Indications: Heartburn, Follow-up of esophageal ulcer, Follow-up of acute duodenal u lcer Providers: Jian Perez MD Medicines: Propofol per Anesthesia Complications: No immediate complications. Description of Procedure: After obtaining informed consent, the endoscope was passed under direct vision. Throughout the procedure, the patient's blood pressure, pulse, and oxygen saturations were monitored continuously. The Endoscope was intro duced through the mouth, and advanced to the second part of duodenum. The [facility] er GI endoscopy was accomplished without difficulty. The patient tolerated th e procedure well. Findings: The esophagus was normal. A medium-sized hiatal hernia was present. A mild post-ulcer deformity was found in the first portion of the duode num. The duodenal bulb and second portion of the duodenum were normal. Estimated Blood Loss: Estimated blood loss: none. Post Op Diagnosis: - Normal esophagus. - Medium-sized hiatal hernia. - Duodenal deformity. - No specimens collected. Recommendation: - Use a proton pump inhibitor PO daily indefinitely. - Resume Eliquis (apixaban) at prior dose today. Refer to referring physician for further adjustment of therapy. - Resume previous diet. - Continue present medications. - Patient has a contact number available for emergencies. The signs and symptoms of potential delayed complications were discussed with the pat ient. Return to normal activities tomorrow. Written discharge instructions we re provided to the patient. - Thank you for allowing me to be involved in the care of your patient. Attending Participation: I personally performed the entire procedure without the assistance of a fellow, resident or surg ical periodicals library assistant. Jian Perez MD Jian Perez MD 06/09/2018 1:24:23 PM This report has been signed electronicallyDavid MD Chris Number of Addenda: 0 Note Initiated On: 06/09/2018 12:57 PM [email or web address]
--- NOTE | 2018-06-09 13:27 | POSTANESTH ---
Post Anesthetic Evaluation Cardiovascular Status: Normal, Stable Respiratory Status: Normal, Stable Level of Consciousness/Mental Status: Moderately Sleepy Pain Control: Adequate, Prn Tx Ordered Nausea/Vomiting Control: Adequate, Prn Tx Ordered Complications Possibly Related to Anesthesia: None Noted
[2018-06-09 14:11] VITALS: BP 130/80
== END 2018-06-09 14:14 | disposition home or self-care (01) ==
LOC: FSGY 11:03
PROVIDERS: ATTEND Internal Medicine Gastroenterology
PROC: 0DJ08ZZ Inspection of Upper Intestinal Tract, Via Natural or Artificial Opening Endoscopic (ICD-10-PCS; principal; 2018-06-09 12:30)
DX: Z09 Encounter for follow-up examination after completed treatment for conditions other than malignant neoplasm (principal); K26.9 Duodenal ulcer, unspecified as acute or chronic, without hemorrhage or perforation; K21.0 Gastro-esophageal reflux disease with esophagitis; K44.9 Diaphragmatic hernia without obstruction or gangrene; G35 Multiple sclerosis; E03.9 Hypothyroidism, unspecified; F43.10 Post-traumatic stress disorder, unspecified; Z79.02 Long term (current) use of antithrombotics/antiplatelets; Z86.718 Personal history of other venous thrombosis and embolism; Z88.2 Allergy status to sulfonamides
CPT/HCPCS: J2704